=== PATIENT | male | born 1940 | race Caucasian/White ===

== ENCOUNTER 2020-03-05 01:06 | Inpatient (IN) | payer MEDICARE ==
--- NOTE | 2020-03-05 01:47 | XR ---
EXAMINATION TYPE: XR chest 1V portable DATE OF EXAM: 03/05/2020 COMPARISON: Yesterday HISTORY: Chest pain TECHNIQUE: Single view FINDINGS: There is right jugular catheter with tip in the superior vena cava. There is no heart failu re. There is slight coarsening of the lung markings in the left lower lobe. There is no pulmonary con solidation. There is no pleural effusion. Bony thorax is intact. IMPRESSION: Mild increased interstitial density left lower lobe is the same or slightly more than yes terday. No heart failure.
[2020-03-05 02:10] LABS: Appearance,Urine Cloudy (Clear); Bacteria,Urine Rare /hpf; Bilirubin,Urine Negative (Negative); Blood,Urine Moderate (Negative); Color,Urine Yellow; Glucose,Urine (UA) Negative (Negative); Granular Casts,Urine 58 /lpf (0); Hyaline Casts,Urine 1 /lpf (0-2); Ketones,Urine Trace (Negative); Leukocyte Esterase,Urine Negative (Negative); Mucus,Urine Occasional /hpf; Nitrite,Urine Negative (Negative); PH, Urine 5.5 (5.0-8.0); Protein,Urine 1+ (Negative); RBC,Urine 60 /hpf (0-5); Specific Gravity,Urine 1.045 (1.001-1.035); Squamous Epithelial Cell,Urine <1 /hpf (0-4); Urobilinogen,Urine <2.0 mg/dL (<2.0); WBC,Urine 11 /hpf (0-5)
[2020-03-05] MEDS ORDERED: DILTIAZEM DRIP BOLUS FROM BAG 1 MG SOLN IV ONE (02:29)
[2020-03-05] MEDS ORDERED: DILTIAZEM 125 MG in SODIUM CHLORIDE 0.9% 100 ML IV SCH (02:30)
[2020-03-05] MEDS ORDERED: PNEUMONIA PROTOCOL UTILIZED 1 EACH MISC PO PRN (03:05)
[2020-03-05] MEDS ORDERED: NOREPINEPHRINE 32 MG in SODIUM CHLORIDE 0.9% 218 ML IV ONE (03:11)
[2020-03-05] MEDS ORDERED: ENOXAPARIN 100 MG/ML SYRINGE SQ STA (03:13)
[2020-03-05] MEDS ORDERED: VANCOMYCIN IV PER PHARMACY 1 EACH MISC MISCELLANE PRN (03:21)
[2020-03-05] MEDS ORDERED: CEFEPIME 2 GM in SODIUM CHLORIDE 0.9% 100 ML IVPB STA (03:21)
[2020-03-05] MEDS: SODIUM CHLORIDE 0.9% 1,000 ML IV SCH ×3 (03:22→23:57)
[2020-03-05 03:23] LABS: Anisocytosis Slight; HCT 32.1 % (39.0-53.0); HGB 10.5 gm/dL (13.0-17.5); MCH 31.5 pg (25.0-35.0); MCHC 32.8 g/dL (31.0-37.0); MCV 95.9 fL (80.0-100.0); Macrocytosis Slight; Mean Platelet Volume 12.6; RBC 3.35 m/uL (4.30-5.90); RDW 18.9 % (11.5-15.5); WBC 31.8 k/uL (3.8-10.6)
--- NOTE | 2020-03-05 03:30 | ED ---
General Adult HPI - General Chief complaint: GI Bleed Stated complaint: GI bleed Time Seen by Provider: 03/05/20 01:09 Source: EMS Mode of arrival: EMS Limitations: no limitations - History of Present Illness Initial comments: This patient is 79-year-old man arriving here as a transfer from [facility]. The patient states that he had gone to that facility to be evaluated for between 1 and 2 weeks of progressive generalized fatigue. He also was experiencing increasing exertional dyspnea. The patient gives known history of having atrial fibrillation and states that he also sees Dr. Lacy from oncology for "blood cancer," that he is not able to further describe. Patient states she has been compliant with his medications. He is not aware of any fever or chills. He has had occasional cough which was nonproductive. He has had increa sing bilateral lower extremity edema over the past few days as well. The patient denied any change in urination or bowel movements. He denied seeing bloody or dark tarry stools. Onset/Timin -: week(s) Severity scale (1-10): 0 Consistency: constant Worsens with: other (Exertion) Associated Symptoms: shortness of breath Treatments Prior to Arrival: other - Related Data Home Medications Medication Instructions Recorded Confirmed Allopurinol [Zyloprim] 300 mg PO DAILY 03/05/20 03/05/20 Atorvastatin [Lipitor] 20 mg PO DAILY 03/05/20 03/05/20 Levothyroxine Sodium [Synthroid] 50 mcg PO DAILY 03/05/20 03/05/20 Lisinopril 40 mg PO DAILY 03/05/20 03/05/20 Nadolol 80 mg PO DAILY 03/05/20 03/05/20 Rivaroxaban [Xarelto] 20 mg PO W/SUPPER 03/05/20 03/05/20 Allergies Allergy/AdvReac Type Severity Reaction Status Date / Time No Known Allergies Allergy Verified 03/05/20 10:16 Review of Systems ROS Statement: Those systems with pertinent positive or pertinent negative responses have been documented in the HPI. ROS Other: All systems not noted in ROS Statement are negative. Constitutional: Reports: weakness (Generalized). Denies: fever, chills Eyes: Denies: vision change Respiratory: Denies: cough, dyspnea, hemoptysis Cardiovascular: Reports: dyspnea on exertion, orthopnea, edema. Denies: chest pain, palpitations, syncope Gastrointestinal: Denies: abdominal pain, nausea, vomiting, diarrhea, melena, hematochezia Genitourinary: Reports: other ( hesitancy and decreased stream, chronic). Denies: dysuria, hematuria Musculoskeletal: Denies: back pain Skin: Denies: rash Neurological: Denies: headache, weakness, numbness Past Medical History Past Medical History: Atrial Fibrillation, CVA/TIA Additional Past Medical History / Comment(s): lymphoma History of Any Multi-Drug Resistant Organisms: None Reported Past Surgical History: No Surgical Hx Reported Past Psychological History: No Psychological Hx Reported Smoking Status: Never smoker Past Alcohol Use History: None Reported Past Drug Use History: None Reported - Past Family History Mother Family Medical History: Cancer General Exam Limitations: no limitations General appearance: alert Head exam: Present: atraumatic, normocephalic Eye exam: Present: normal appearance. Absent: scleral icterus, conjunctival injection Neck exam: Present: full ROM, other (There is a right IJ central line.) Respiratory exam: Present: rales (Bilateral bases). Absent: respiratory distress, wheezes, rhonchi, stridor, accessory muscle use, decreased breath so unds, prolonged expiratory Cardiovascular Exam: Present: tachycardia, irregular rhythm, normal heart sounds. Absent: systolic murmur, diastolic murmur, rubs, gallop GI/Abdominal exam: Present: soft. Absent: distended, tenderness, guarding, rebound, rigid, mass Extremities exam: Present: pedal edema (Mild edema at the ankles bilaterally). Absent: tenderness, calf tenderness Back exam: Present: normal inspection Neurological exam: Present: alert. Absent: motor sensory deficit Skin exam: Present: warm, dry, intact, normal color. Absent: rash Course Vital Signs 03/05/20 03/05/20 03/05/20 01:11 01:15 01:30 Temperature 98 F Pulse Rate 112 H 117 H 114 H Respiratory 18 18 19 Rate Blood Pressure 122/63 112/63 109/67 O2 Sat by Pulse 97 96 Oximetry 03/05/20 03/05/20 03/05/20 01:45 02:00 02:30 Temperature 99 F Pulse Rate 120 H 110 H 112 H Respiratory 18 18 17 Rate Blood Pressure 98/62 91/58 96/65 O2 Sat by Pulse 98 98 94 L Oximetry 03/05/20 03/05/20 03/05/20 03:00 03:30 03:50 Temperature Pulse Rate 95 96 101 H Respiratory 17 18 18 Rate Blood Pressure 99/62 101/65 89/55 O2 Sat by Pulse 96 98 97 Oximetry 03/05/20 03/05/20 04:10 04:15 Temperature 97.9 F Pulse Rate 106 H Respiratory 15 Rate Blood Pressure 85/55 O2 Sat by Pulse 94 L Oximetry EKG Findings - EKG Results: EKG: interpreted by ERMD, normal axis, normal QRS EKG shows: atrial fibrillation - Blocks, [place], Hypertrophy, ST Abn: Repolarization changes or abnormalities: nonspecific abnormality, ST segment, and/or T wave Medical Decision Making - Medical Decision Making Patient is 79-year-old man transferred here from [facility]. Given that the patient is hypotensive, he is started back on the levo fed, and I discussed case with Dr. Arango, who is the rawhide trimmer on-call tonight. He is somewhat familiar with the patient as it appears Dr. Ford had seen the patient at [facility] yesterday. History of recommendations are incorporated. Patient will go to ICU. The patient appears to have been at that facility since approximate 9:45 AM yesterday. Review of the transfer paperwork reveals a number of abnormalities and labs here have been ordered to recheck these. Labs from the other facility reveals sodium 123 potassium 4.3 chloride 91 and CO2 19 BUN 42. Creatinine 1.39 glucose 150. INR 5.86. Troponin is negative. Patient was tested for coronavirus and this was negative. Patient did have lactic acid 3.9. ProBNP 7609. Patient had studies including CT of the chest negative for PE, showing marked adenopathy as well as 5 x 5 cm peritracheal mass, findings concerning for lymphoma. To the echocardiogram showing estimated ejection fraction 55-60%. There is elevated pulmonary arterial pressure. Patient received cefepime, vancomycin, Protonix, digoxin. transfused packed red cells which were being given during the ambulance transport here. Cardiology will also be consulted as well as infectious disease. (Please note that Lovenox had been ordered given the atrial fibrillation but tra nsfer paperwork reveals supratherapeutic INR and this was not given.) - Lab Data Result diagrams: 03/11/20 03:48 03/11/20 03:48 Lab Results 03/05/20 03/05/20 Range/Units 01:40 01:40 Plasma Lactic Acid Dileep 1.8 (0.7-2.0) mmol/L Urine Color Yellow Urine Appearance Cloudy (Clear) Urine pH 5.5 (5.0-8.0) Ur Specific [place] 1.045 H (1.001-1.035) Urine Protein 1+ H (Negative) Urine Glucose (UA) Negative (Negative) Urine Ketones Trace H (Negative) Urine Blood Moderate H (Negative) Urine Nitrite Negative (Negative) Urine Bilirubin Negative (Negative) Urine Urobilinogen <2.0 (<2.0) mg/dL Ur Leukocyte Esterase Negative (Negative) Urine RBC 60 H (0-5) /hpf Urine WBC 11 H (0-5) /hpf Ur Squamous Epith Cells <1 (0-4) /hpf Urine Bacteria Rare H (None) /hpf Hyaline Casts 1 (0-2) /lpf Granular Casts 58 (0) /lpf Urine Mucus Occasional H (None) /hpf Disposition Clinical Impression: Pneumonia, Sepsis, Atrial fibrillation with rapid ventricular response, Hypotension, Hyponatremia Disposition: ADMITTED IP TO THIS HOSP Condition: Serious
[2020-03-05 03:35] LABS: INR 2.1 (<1.2); Partial Thromboplastin Time 36.3 sec (22.0-30.0); Prothrombin Time 20.4 sec (9.0-12.0)
[2020-03-05 03:36] LABS: Calcium 7.1 mg/dL (8.4-10.2); Magnesium 1.6 mg/dL (1.6-2.3); Potassium 4.7 mmol/L (3.5-5.1); Total Protein 4.5 g/dL (6.3-8.2)
[2020-03-05 04:09] LABS: Glucose,Whole Blood 114 mg/dL (75-99)
[2020-03-05 04:35] LABS: Platelet Count 79 k/uL (150-450); Poikilocytosis (M) Present
[2020-03-05 04:36] LABS: Polychromasia Present
[2020-03-05 04:38] LABS: Lymphocytes # (M) 21.94 k/uL (1.0-4.8); Neutrophils # (M) 9.86 k/uL (1.3-7.7); Neutrophils % (M) 31 %; Nucleated Red Blood Cells 0 /100 WBC (0-0); Target Cells Present; Total Cells Counted 100
[2020-03-05] MEDS: MAGNESIUM SULFATE-D5W PMX 1 GM in DEXTROSE/WATER 1 100ML.BAG IVPB SCH ×2 (06:31→08:39)
[2020-03-05] MEDS ORDERED: NALOXONE 0.4 MG/ML 1 ML VIAL IV PRN (07:40)
[2020-03-05] MEDS ORDERED: PIPERACILLIN-TAZOBACTAM 3.375 GM in SODIUM CHLORIDE 0.9% 100 ML IVPB SCH (08:00)
[2020-03-05] MEDS: PANTOPRAZOLE 40 MG/10 ML VIAL IV SCH (08:40)
[2020-03-05] MEDS ORDERED: METOPROLOL TARTRATE 25 MG TAB PO SCH (09:00)
[2020-03-05] MEDS ORDERED: VANCOMYCIN 1,500 MG in SODIUM CHLORIDE 0.9% 250 ML IVPB SCH (09:00)
[2020-03-05] MEDS: DIGOXIN 125 MCG TAB PO SCH (09:58)
[2020-03-05 10:37] LABS: Bilirubin, Conjugated 0.1 mg/dL (0.0-0.3); Bilirubin, Delta 0.7 mg/dL (0.0-0.2); Bilirubin,Unconjugated 2.1 mg/dL (0.0-1.1); Total Bilirubin 2.9 mg/dL (0.2-1.3)
--- NOTE | 2020-03-05 10:51 | CONS ---
CONSULTATION This is a 79-year-old gentleman who apparently was at [facility] yesterday and had a question of some GI bleed and then he was transferred to the emergency room here to be hospitalized. It is unclear what the circumstances of transfer were. Dr. Arango the airport attendant apparently saw him at [facility]. On reviewing the emergency room notes, it appears that he was transferred from [facility] and he had progressive fatigue, lack of energy and he is known to have a chronic atrial fibrillation with moderately rapid ventricular rate. Sees Dr. 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 He had a low hemoglobin and I am not sure if he received a blood transfusion or not, but his hemoglobin is in the 7.0 range. He has a question of previous CVA as well. I was asked to see him mainly because of atrial fib with a rapid ventricular rate. At the time of my evaluation, he is lying in bed. I reviewed the record from [facility]. Echocardiogram from yesterday revealed normal systolic function with moderate pulmonary hypertension. Hemoglobin was down to 7.1, but it is now back to 10.5. His INR is up to 2.1 and I am not sure why this is so. It is not clear if he was on Coumadin. His BNP is elevated. Troponin is normal. His bilirubin is also elevated. Given the elevated INR, I would not anticoagulate him at this time. His rate is about 110 to 115, irregularly irregular. PAST MEDICAL HISTORY: 1. Chronic atrial fibrillation, on Xarelto. 2. Recent question of gastrointestinal bleeding with possible blood transfusion, unverified. 3. Normal left ventricular function by echo with moderate pulmonary hypertension. 4. Chronic Lymphatic leukemia under the care of Dr. Lacy from Oncology. 5. He has history of possible TIA or CVA. ALLERGIES: None. PHYSICAL EXAMINATION: On examination, blood pressure was about 108/60. He is on a very small dose of Levophed. Heart rate is between 90 to 110. HEENT unremarkable. Fundus was not examined by me. Neck is supple. There is JVD. No carotid bruit. Heart exam reveals S1, S2 with irregular rate and rhythm. There is a short systolic murmur. Lungs revealed diminished air entry. Abdomen is soft. Lower extremities reveal diminished pulses. Central nervous system grossly no focal deficits. IMPRESSION: 1. Atrial fibrillation with moderate ventricular rate. 2. CLL. White count is about 31,000. 3. History of recent anemia and there is a question of blood loss. His platelet count is 79,000, hemoglobin is 10.5. INR is high at 2.1. Patient is not on Coumadin. RECOMMENDATION: I would recommend that we hold off his anticoagulation given by INR of 2.1. If INR comes down and if other liver functions come out to be normal, then we can consider anticoagulation. His AST, ALT is normal. Bilirubin is elevated to 3.0. I am recommending metoprolol tartrate 25 mg b.i.d. for rate control. The patient's LV function was normal. Moderate pulmonary hypertension was noted. Thyroid functions were normal. He was on nadolol before. His albumin is 2.0, appears to be quite under nourished. I am recommending metoprolol for rate control, no anticoagulation for now and based on his clinical course we will make further recommendation. There was a question of pneumonia, but chest x-ray does not seem to suggest pneumonia at this time. We will see him during this hospitalization and optimize rate control. PT/INR in a.m. MMPARVINL / IJN: [id number] / SABRINA
--- NOTE | 2020-03-05 11:36 | P.HPIM ---
History of Present Illness 71-year-old pleasant male left was transferred from [facility] after he was treated for atrial fibrillation with Cardizem was transferred here for evaluation by oncology. Patient is presently in the intensive care unit because of hypotension patient appears to have hypovolemic shock patient is a presently on levo fed. Cardizem was discontinued because of hypotension patient was started on digoxin and patient was also also started on low-dose metoprolol with fairly controlled heart rate. 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 There is a concern about transformation because of low hemoglobin, decreased platelet count and decreased white blood cell count. Although there is no blast cells in the peripheral smear Dr. Lacy evaluated the patient is a concern about GI bleed although patient doesn't have any blood in the stools or dark stools or hematemesis patient's INR is around 2 which is believed to be secondary to Xarelto, although DIC workup is being obtained as well. Patient is quite a bit weak there is a concern about the chest x-ray findings of right lower lobe infiltrate and pneumonia although chest x-ray was reviewed by me as well as sweet pickle maker do not believe patient has any pneumonia patient doesn't having any symptoms of pneumonia patient denied any cough doesn't have any fever chills. Patient doesn't have elevated BNP although clinically not in heart failure exacerbation his BNP here is around 9000 his BNP at [facility] was around 7000. Patient doesn't have any JVD and crackles on exam. Patient's creatinine negative district is 1.3 and he rates 1.1 patient is presently receiving IV fluids because of hypovolemic shock is also on levo fed. Patient had normal ejection fraction. Patient's symptoms right now is a significant fatigue and generalized weakness. Patient denied any significant shortness of breath at this time Review of Systems REVIEW OF SYSTEMS: CONSTITUTIONAL: No fever. HEENT: No recent visual problems or hearing problems. Denied any sore throat. CARDIOVASCULAR: No chest pain, orthopnea, PND, no palpitations, no syncope. PULMONARY: No shortness of breath, no cough, no hemoptysis. GASTROINTESTINAL: No diarrhea, no nausea, no vomiting, no abdominal pain. NEUROLOGICAL: No headaches, no weakness, no numbness. HEMATOLOGICAL: Denies any bleeding or petechiae. GENITOURINARY: Denies any burning micturition, frequency, or urgency. MUSCULOSKELETAL/RHEUMATOLOGICAL: Denies any joint pain, swelling, or any muscle pain. ENDOCRINE: Denies any polyuria or polydipsia. The rest of the 14-point review of systems is negative. Past Medical History Past Medical History: Atrial Fibrillation, Cancer, CVA/TIA, Hypertension Additional Past Medical History / Comment(s): Lymphoma, 2 past strokes History of Any Multi-Drug Resistant Organisms: None Reported Past Surgical History: No Surgical Hx Reported Past Anesthesia/Blood Transfusion Reactions: No Reported Reaction Past Psychological History: No Psychological Hx Reported Smoking Status: Never smoker Past Alcohol Use History: None Reported Past Drug Use History: None Reported - Past Family History Mother Family Medical History: Cancer Medications and Allergies Home Medications Medication Instructions Recorded Confirmed Type Allopurinol [Zyloprim] 300 mg PO DAILY 03/05/20 03/05/20 History Atorvastatin [Lipitor] 20 mg PO DAILY 03/05/20 03/05/20 History Levothyroxine Sodium [Synthroid] 50 mcg PO DAILY 03/05/20 03/05/20 History Lisinopril 40 mg PO DAILY 03/05/20 03/05/20 History Nadolol 80 mg PO DAILY 03/05/20 03/05/20 History Rivaroxaban [Xarelto] 20 mg PO W/SUPPER 03/05/20 03/05/20 History Allergies Allergy/AdvReac Type Severity Reaction Status Date / Time No Known Allergies Allergy Verified 03/05/20 10:16 Physical Exam Vitals: Vital Signs Temp Pulse Resp BP Pulse Ox 03/05/20 11:00 98 12 84/51 94 L 03/05/20 10:30 105 H 20 85/53 93 L 03/05/20 10:00 97.9 F 96 12 109/64 92 L 03/05/20 09:30 92 16 92/53 94 L 03/05/20 09:00 96 14 91/67 94 L 03/05/20 08:30 104 H 19 106/68 94 L 03/05/20 08:00 102 H 19 92/57 93 L 03/05/20 07:30 89 22 91/60 91 L 03/05/20 07:00 104 H 20 89/60 93 L 03/05/20 06:45 103 H 18 85/58 94 L 03/05/20 06:30 103 H 5 L 85/53 94 L 03/05/20 06:15 113 H 3 L 86/50 92 L 03/05/20 06:00 115 H 11 L 82/53 92 L 03/05/20 05:45 111 H 13 101/64 92 L 03/05/20 05:30 103 H 13 80/58 93 L 03/05/20 05:15 103 H 16 114/65 94 L 03/05/20 05:00 98 25 H 89/57 93 L 03/05/20 04:45 95 22 102/64 94 L 03/05/20 04:30 98 8 L 97/55 94 L 03/05/20 04:15 106 H 15 85/55 94 L 03/05/20 04:10 97.9 F 03/05/20 03:50 101 H 18 89/55 97 03/05/20 03:30 96 18 101/65 98 03/05/20 03:00 95 17 99/62 96 03/05/20 02:30 112 H 17 96/65 94 L 03/05/20 02:00 110 H 18 91/58 98 03/05/20 01:45 99 F 120 H 18 98/62 98 03/05/20 01:30 114 H 19 109/67 96 03/05/20 01:15 117 H 18 112/63 97 03/05/20 01:11 98 F 112 H 18 122/63 Intake and Output 03/04/20 03/05/20 03/05/20 22:59 06:59 14:59 Intake Total 309.853 400 Output Total 120 105 Balance 189.853 295 Intake: Intake, IV Titration 309.853 300 Amount Cefepime 2 gm In Sodium 100 Chloride 0.9% 100 ml @ 200 mls/hr IVPB ONCE STA Rx#:[id number] Diltiazem 125 mg In 2.667 Sodium Chloride 0.9% 100 ml @ 5 MG/HR 5 mls/hr IV .Q24H [facility] Rx#:[id number] Magnesium Sulfate-D5w Pmx 100 1 gm In Dextrose/Water 1 100ml.bag @ 100 mls/hr IVPB Q1H [facility] Rx#: [id number] Norepinephrine 32 mg In 7.186 Sodium Chloride 0.9% 218 ml @ 0.05 MCG/KG/MIN 2. 126 mls/hr IV .Q24H ONE Rx#:[id number] Sodium Chloride 0.9% 1, 200 200 000 ml @ 100 mls/hr IV . Q10H [facility] Rx#:[id number] Oral 100 Output: Urine 120 105 Other: Voiding Method Indwelling Catheter Indwelling Catheter Weight 90.718 kg PHYSICAL EXAMINATION: GENERAL: The patient is alert and oriented x3, not in any acute distress. Well developed, well nourished. HEENT: Pupils are round and equally reacting to light. EOMI. No scleral icterus. No conjunctival pallor. Normocephalic, atraumatic. No pharyngeal erythema. No thyromegaly. CARDIOVASCULAR: S1 and S2 present. No murmurs, rubs, or gallops. PULMONARY: Chest is clear to auscultation, no wheezing or crackles. ABDOMEN: Soft, nontender, nondistended, normoactive bowel sounds. No palpable organomegaly. MUSCULOSKELETAL: No joint swelling or deformity. EXTREMITIES: No cyanosis, clubbing, or pedal edema. NEUROLOGICAL: Gross neurological examination did not reveal any focal deficits. SKIN: No rashes. Results CBC & Chem 7: 03/05/20 03:10 03/05/20 03:10 Labs: Abnormal Lab Results - Last 24 Hours (Table) 03/05/20 03/05/20 03/05/20 Range/Units 01:40 03:10 03:10 WBC 31.8 H (3.8-10.6) k/uL RBC 3.35 L (4.30-5.90) m/uL Hgb 10.5 L (13.0-17.5) gm/dL Hct 32.1 L (39.0-53.0) % RDW 18.9 H (11.5-15.5) % Plt Count 79 L (150-450) k/uL Neutrophils # (Manual) 9.86 H (1.3-7.7) k/uL Lymphocytes # (Manual) 21.94 H (1.0-4.8) k/uL PT 20.4 H (9.0-12.0) sec INR 2.1 H (<1.2) APTT 36.3 H (22.0-30.0) sec Sodium (137-145) mmol/L Carbon Dioxide (22-30) mmol/L BUN (9-20) mg/dL Glucose (74-99) mg/dL POC Glucose (mg/dL) (75-99) mg/dL Calcium (8.4-10.2) mg/dL Total Bilirubin (0.2-1.3) mg/dL Unconjugated Bilirubin (0.0-1.1) mg/dL Delta Bilirubin (0.0-0.2) mg/dL Lactate Dehydrogenase (313-618) U/L Total Protein (6.3-8.2) g/dL Albumin (3.5-5.0) g/dL Ur Specific [place] 1.045 H (1.001-1.035) Urine Protein 1+ H (Negative) Urine Ketones Trace H (Negative) Urine Blood Moderate H (Negative) Urine RBC 60 H (0-5) /hpf Urine WBC 11 H (0-5) /hpf Urine Bacteria Rare H (None) /hpf Urine Mucus Occasional H (None) /hpf 03/05/20 03/05/20 03/05/20 Range/Units 03:10 04:08 09:33 WBC (3.8-10.6) k/uL RBC (4.30-5.90) m/uL Hgb (13.0-17.5) gm/dL Hct (39.0-53.0) % RDW (11.5-15.5) % Plt Count (150-450) k/uL Neutrophils # (Manual) (1.3-7.7) k/uL Lymphocytes # (Manual) (1.0-4.8) k/uL PT (9.0-12.0) sec INR (<1.2) APTT (22.0-30.0) sec Sodium 129 L (137-145) mmol/L Carbon Dioxide 17 L (22-30) mmol/L BUN 45 H (9-20) mg/dL Glucose 110 H (74-99) mg/dL POC Glucose (mg/dL) 114 H (75-99) mg/dL Calcium 7.1 L (8.4-10.2) mg/dL Total Bilirubin 3.0 H 2.9 H (0.2-1.3) mg/dL Unconjugated Bilirubin 2.1 H (0.0-1.1) mg/dL Delta Bilirubin 0.7 H (0.0-0.2) mg/dL Lactate Dehydrogenase 799 H (313-618) U/L Total Protein 4.5 L (6.3-8.2) g/dL Albumin 2.0 L (3.5-5.0) g/dL Ur Specific [place] (1.001-1.035) Urine Protein (Negative) Urine Ketones (Negative) Urine Blood (Negative) Urine RBC (0-5) /hpf Urine WBC (0-5) /hpf Urine Bacteria (None) /hpf Urine Mucus (None) /hpf Thrombosis Risk Factor Assmnt - Choose All That Apply Any of the Below Risk Factors Present?: Yes Each Factor Represents 1 point: Medical pt on bed rest, Obesity (BMI >25), Serious lung disease incl. pneumonia (< 1month), Swollen legs (current) Other Risk Factors: Yes Each Risk Factor Represents 3 Points: Age 75 years or older Thrombosis Risk Factor Assessment Total Risk Factor Score: 7 Thrombosis Risk Factor Assessment Level: High Risk Assessment and Plan Plan: Hypovolemic shock continue with norepinephrine IV fluids monitor closely in ICU. -Generalized weakness probably secondary to atrial fibrillation as well as a other issues including chronic lymphocytic leukemia supportive care -Acute renal failure probably prerenal azotemia intravascular volume depletion patient will be continued on IV fluids. -Atrial fibrillation, chronic: Presently fairly rate controlled since there is drop in hemoglobin and low platelet count although there is no evidence of GI bleed but this still remains a concern because of this reason anticoagulation is on hold patient is presently on digoxin and low-dose of metoprolol patient had normal ejection fraction -Chronic myelocytic leukemia there is no evidence of transformation to acute myeloid leukemia. -Bicytopenia including thrombocytopenia and low hemoglobin etiology is not clear further workup as mentioned above oncology evaluated the patient. -Hypertension patient is presently hypotensive -Moderate pulmonary hypertension -History of CVA and TIA -Coagulopathy most presently secondary to Xarelto which is being held at this time
--- NOTE | 2020-03-05 12:20 | P.CONS ---
History of Present Illness - Reason for Consult Consult date: 03/05/20 CLL Requesting physician: Brendon Cohen - Chief Complaint SOB, weakness - History of Present Illness Mister Ferguson is a very pleasant 79-year-old male patient of Dr. Bustamante who was initially seen in July 2015 when he was found on a routine blood draw to have an elevated WBC of 12.6, absolute lymphocyte count 6000+. 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 He was found to be in atrial fibrillation and placed on Xarelto at that time. He is current on his f/u with Dr. Lacy-Q 6 mo and PRN. Patient does have any history of an early stage colon cancer treated with resection alone in 2007. Patient is a transfer from [facility]. He was having persistent and progressive shortness of breath for a few days, associated with weakness, easy fatigue and activity intolerance. Patient denied fevers, chills, orthopnea (sleeps in bed with 1 pillow), chest pain, nausea, vomiting, acute changes in bowel or bladder habits, lower extremity swelling. Review of Systems 14 point review of systems is negative except as stated in HPI Past Medical History Past Medical History: Atrial Fibrillation, Cancer, CVA/TIA, Hypertension Additional Past Medical History / Comment(s): Lymphoma, 2 past strokes History of Any Multi-Drug Resistant Organisms: None Reported Past Surgical History: No Surgical Hx Reported Past Anesthesia/Blood Transfusion Reactions: No Reported Reaction Past Psychological History: No Psychological Hx Reported Smoking Status: Never smoker Past Alcohol Use History: None Reported Past Drug Use History: None Reported - Past Family History Mother Family Medical History: Cancer Medications and Allergies Home Medications Medication Instructions Recorded Confirmed Type Allopurinol [Zyloprim] 300 mg PO DAILY 03/05/20 03/05/20 History Atorvastatin [Lipitor] 20 mg PO DAILY 03/05/20 03/05/20 History Levothyroxine Sodium [Synthroid] 50 mcg PO DAILY 03/05/20 03/05/20 History Lisinopril 40 mg PO DAILY 03/05/20 03/05/20 History Nadolol 80 mg PO DAILY 03/05/20 03/05/20 History Rivaroxaban [Xarelto] 20 mg PO W/SUPPER 03/05/20 03/05/20 History Allergies Allergy/AdvReac Type Severity Reaction Status Date / Time No Known Allergies Allergy Verified 03/05/20 10:16 Physical Exam Vitals: Vital Signs Temp Pulse Resp BP Pulse Ox 03/05/20 11:00 98 12 84/51 94 L 03/05/20 10:30 105 H 20 85/53 93 L 03/05/20 10:00 97.9 F 96 12 109/64 92 L 03/05/20 09:30 92 16 92/53 94 L 03/05/20 09:00 96 14 91/67 94 L 03/05/20 08:30 104 H 19 106/68 94 L 03/05/20 08:00 102 H 19 92/57 93 L 03/05/20 07:30 89 22 91/60 91 L 03/05/20 07:00 104 H 20 89/60 93 L 03/05/20 06:45 103 H 18 85/58 94 L 03/05/20 06:30 103 H 5 L 85/53 94 L 03/05/20 06:15 113 H 3 L 86/50 92 L 03/05/20 06:00 115 H 11 L 82/53 92 L 03/05/20 05:45 111 H 13 101/64 92 L 03/05/20 05:30 103 H 13 80/58 93 L 03/05/20 05:15 103 H 16 114/65 94 L 03/05/20 05:00 98 25 H 89/57 93 L 03/05/20 04:45 95 22 102/64 94 L 03/05/20 04:30 98 8 L 97/55 94 L 03/05/20 04:15 106 H 15 85/55 94 L 03/05/20 04:10 97.9 F 03/05/20 03:50 101 H 18 89/55 97 03/05/20 03:30 96 18 101/65 98 03/05/20 03:00 95 17 99/62 96 03/05/20 02:30 112 H 17 96/65 94 L 03/05/20 02:00 110 H 18 91/58 98 03/05/20 01:45 99 F 120 H 18 98/62 98 03/05/20 01:30 114 H 19 109/67 96 03/05/20 01:15 117 H 18 112/63 97 03/05/20 01:11 98 F 112 H 18 122/63 Intake and Output 03/04/20 03/05/20 03/05/20 22:59 06:59 14:59 Intake Total 309.853 400 Output Total 120 105 Balance 189.853 295 Intake: Intake, IV Titration 309.853 300 Amount Cefepime 2 gm In Sodium 100 Chloride 0.9% 100 ml @ 200 mls/hr IVPB ONCE [facility] Rx#:[id number] Diltiazem 125 mg In 2.667 Sodium Chloride 0.9% 100 ml @ 5 MG/HR 5 mls/hr IV .Q24H [facility] Rx#:[id number] Magnesium Sulfate-D5w Pmx 100 1 gm In Dextrose/Water 1 100ml.bag @ 100 mls/hr IVPB Q1H [facility] Rx#: [id number] Norepinephrine 32 mg In 7.186 Sodium Chloride 0.9% 218 ml @ 0.05 MCG/KG/MIN 2. 126 mls/hr IV .Q24H [facility] Rx#:[id number] Sodium Chloride 0.9% 1, 200 200 000 ml @ 100 mls/hr IV . Q10H [facility] Rx#:[id number] Oral 100 Output: Urine 120 105 Other: Voiding Method Indwelling Catheter Indwelling Catheter Weight 90.718 kg - Constitutional General appearance: average body habitus, cooperative, no acute distress - EENT Eyes: anicteric sclerae, EOMI ENT: hearing grossly normal, normal oropharynx - Neck Neck: no lymphadenopathy - Respiratory Respiratory: bilateral: CTA - Cardiovascular Rhythm: irregularly irregular Heart sounds: normal: S1, S2 Abnormal Heart Sounds: systolic murmur leg Peripheral Edema: bilateral: Trace - Gastrointestinal General gastrointestinal: no absent bowel sounds, no decreased bowel sounds, no distended, no hepatomegaly, no hyperactive bowel sounds, normal bowel sounds, no organomegaly, no rigid, no scaphoid, soft, no splenomegaly, no tenderness, no umbilical hernia, no ventral hernia - Integumentary Integumentary: pale - Neurologic Neurologic: CNII-XII intact - Musculoskeletal Musculoskeletal: generalized weakness, strength equal bilaterally - Psychiatric Psychiatric: A&O x's 3, appropriate affect, intact judgment & insight Results CBC & Chem 7: 03/05/20 03:10 03/05/20 03:10 Labs: Abnormal Lab Results - Last 24 Hours (Table) 03/05/20 03/05/20 03/05/20 Range/Units 01:40 03:10 03:10 WBC 31.8 H (3.8-10.6) k/uL RBC 3.35 L (4.30-5.90) m/uL Hgb 10.5 L (13.0-17.5) gm/dL Hct 32.1 L (39.0-53.0) % RDW 18.9 H (11.5-15.5) % Plt Count 79 L (150-450) k/uL Neutrophils # (Manual) 9.86 H (1.3-7.7) k/uL Lymphocytes # (Manual) 21.94 H (1.0-4.8) k/uL PT 20.4 H (9.0-12.0) sec INR 2.1 H (<1.2) APTT 36.3 H (22.0-30.0) sec Sodium (137-145) mmol/L Carbon Dioxide (22-30) mmol/L BUN (9-20) mg/dL Glucose (74-99) mg/dL POC Glucose (mg/dL) (75-99) mg/dL Calcium (8.4-10.2) mg/dL Total Bilirubin (0.2-1.3) mg/dL Unconjugated Bilirubin (0.0-1.1) mg/dL Delta Bilirubin (0.0-0.2) mg/dL Lactate Dehydrogenase (313-618) U/L Total Protein (6.3-8.2) g/dL Albumin (3.5-5.0) g/dL Ur Specific [place] 1.045 H (1.001-1.035) Urine Protein 1+ H (Negative) Urine Ketones Trace H (Negative) Urine Blood Moderate H (Negative) Urine RBC 60 H (0-5) /hpf Urine WBC 11 H (0-5) /hpf Urine Bacteria Rare H (None) /hpf Urine Mucus Occasional H (None) /hpf 03/05/20 03/05/20 03/05/20 Range/Units 03:10 04:08 09:33 WBC (3.8-10.6) k/uL RBC (4.30-5.90) m/uL Hgb (13.0-17.5) gm/dL Hct (39.0-53.0) % RDW (11.5-15.5) % Plt Count (150-450) k/uL Neutrophils # (Manual) (1.3-7.7) k/uL Lymphocytes # (Manual) (1.0-4.8) k/uL PT (9.0-12.0) sec INR (<1.2) APTT (22.0-30.0) sec Sodium 129 L (137-145) mmol/L Carbon Dioxide 17 L (22-30) mmol/L BUN 45 H (9-20) mg/dL Glucose 110 H (74-99) mg/dL POC Glucose (mg/dL) 114 H (75-99) mg/dL Calcium 7.1 L (8.4-10.2) mg/dL Total Bilirubin 3.0 H 2.9 H (0.2-1.3) mg/dL Unconjugated Bilirubin 2.1 H (0.0-1.1) mg/dL Delta Bilirubin 0.7 H (0.0-0.2) mg/dL Lactate Dehydrogenase 799 H (313-618) U/L Total Protein 4.5 L (6.3-8.2) g/dL Albumin 2.0 L (3.5-5.0) g/dL Ur Specific [place] (1.001-1.035) Urine Protein (Negative) Urine Ketones (Negative) Urine Blood (Negative) Urine RBC (0-5) /hpf Urine WBC (0-5) /hpf Urine Bacteria (None) /hpf Urine Mucus (None) /hpf Chest x-ray: report reviewed Assessment and Plan (1) Bicytopenia Narrative/Plan: There are acute changes in hemoglobin and platelet count on admit, both hemoglobin and platelets have been within normal limits on routine labs in office, last draw was 12/17. Coags elevated more then would be anticipated with Xarelto treatment. Hemolysis, DIC and iron studies ordered. Transfuse to keep hemoglobin 7 or higher. Transfuse to keep platelets greater than 10,000 unless bleeding is noted (anticoagulation is currently on hold). If found to be iron deficient consider endoscopy. Last colonoscopy was 5-6 years ago, patient is never had upper endoscopy. Current Visit: Yes Status: Acute Priority: High Code(s): D75.89 - OTHER SPECIFIED DISEASES OF BLOOD AND BLOOD-FORMING ORGANS SNOMED Code(s): 40431631 (2) CLL (chronic lymphocytic leukemia) Narrative/Plan: CBC in the office 12/17 reviewed. WBC and absolute lymphocyte count are stable. Current Visit: Yes Status: Chronic Priority: Medium Code(s): C91.10 - CHRONIC LYMPHOCYTIC LEUK OF B-CELL TYPE NOT ACHIEVE REMIS SNOMED Code(s): 36245280 (3) Coagulopathy Narrative/Plan: Coags elevated more then would be anticipated with Xarelto treatment. Hemolysis, DIC work up ordered. CBC daily Current Visit: Yes Status: Acute Priority: High Code(s): D68.9 - COAGULATION DEFECT, UNSPECIFIED SNOMED Code(s): 15949897 (4) Atrial fibrillation with rapid ventricular response Narrative/Plan: Pt is on anticoagulation for the same. Dr. Lacy spoke with Cardiology. Initially, Xarelto was going to be continued as patient's platelets were greater than 50,000 but, After examining the patient and on further questioning recommendation is to hold Xarelto, concerns for bleeding. This was discussed with the RN. It has been verified in the patient's med list that this is been held. SCDs for DVT prophylaxis Cardiology managing arrhythmia Current Visit: Yes Status: Acute Priority: High Code(s): I48.91 - UNSPECIFIED ATRIAL FIBRILLATION SNOMED Code(s): 101724718721733 Plan: Doctor attests: I performed a history and physical examination of this patient, developed impre ssion and plan of care, discussed with dictator. I agree with dictators note, documented as a scribe.
--- NOTE | 2020-03-05 12:39 | P.CNPUL ---
History of Present Illness Consult date: 03/05/20 Reason for consult: other (Hypotension, atrial fibrillation with RVR. Requiring norepinephrine) Chief complaint: Hypotension, patient was transferred from [facility] ICU. History of present illness: This is a 79-year-old white male, known history of B-cell lymphoma, stage 0 disease, advised mostly observation. Known history of previous CVA in 2017, previous treatment with TPA. Patient is also known to have history of atrial fibrillation. And he was admitted to [facility] ICU the day before yesterday, patient presented initially to the ER at [facility] with hypotension, atrial fibrillation with RVR. I was notified about this patient, and I admitted him to the ICU. He was seen by Dr. Stroud and other consultants at [facility], and he was treated with antibiotics empirically, norepinephrine for his hypotension, fluid boluses were given at least 2-3 L were given to him initially when he presented to the ER. However early this morning around 3 AM, and for no good reason the ER at [facility] accepted the patient to be transferred from the ICU to the ER, patient was shortly evaluated, and transferred to the ICU at [facility]. The patient tells me that they transferred her mostly because his oncologist is on our staff, and the patient was requesting to be discharged. Although the patient is not receiving any treatment for his B-cell lymphoma. At any rate patient was admitted to the ICU, presently on norepinephrine at 0.07 mcg/kg/m, is also on IV fluid at 100 mL per hour. He is in atrial fibrillation with a rate of 102-110. He is on room air with O2 saturation 93%. Patient complains mostly of progressive fatigue and weakness. No fever no chills no hemoptysis no cough no wheezing, no nausea no vomiting no abdominal pain no melena no hematemesis is no dysuria and no diarrhea no frequency no urgency. Again the patient was placed on empiric antibiotics and he is being evaluated by cardiology for his atrial fibrillation. Off Cardizem at present. His past medical history is mostly significant for colon cancer, resected in 2007. His CT of the chest from [facility] showed no evidence of pneumonia, and the patient had no symptoms to suggest pneumonia. Review of Systems Constitutional: Weakness, fatigue, malaise, no weight loss. Pulmonary: Negative Cardiac: Denies any chest pain orthopnea or PND. Denies diaphoresis. GI: Denies any nausea vomiting abdominal pain melena or hematemesis. Or diarrhea. Genitourinary: Denies any dysuria frequency urgency or hematuria. Skin: Denies any rashes. Hematologic: History of chronic lymphocytic leukemia. Endocrine: Denies any heat or cold intolerance. Denies any polyuria polyphagia or polydipsia. Musculoskeletal denies any arthralgia or myalgia. Denies any limitation in range of motion. Neurologic: Denies any headache or blurred vision or dizziness. Patient had previous history of CVA in 2017, treated with TPA. Psychiatric: Denies any symptoms of active depression. Past Medical History Past Medical History: Atrial Fibrillation, Cancer, CVA/TIA, Hypertension Additional Past Medical History / Comment(s): Lymphoma, 2 past strokes History of Any Multi-Drug Resistant Organisms: None Reported Past Surgical History: No Surgical Hx Reported Past Anesthesia/Blood Transfusion Reactions: No Reported Reaction Past Psychological History: No Psychological Hx Reported Smoking Status: Never smoker Past Alcohol Use History: None Reported Past Drug Use History: None Reported - Past Family History Mother Family Medical History: Cancer Medications and Allergies Home Medications Medication Instructions Recorded Confirmed Type Allopurinol [Zyloprim] 300 mg PO DAILY 03/05/20 03/05/20 History Atorvastatin [Lipitor] 20 mg PO DAILY 03/05/20 03/05/20 History Levothyroxine Sodium [Synthroid] 50 mcg PO DAILY 03/05/20 03/05/20 History Lisinopril 40 mg PO DAILY 03/05/20 03/05/20 History Nadolol 80 mg PO DAILY 03/05/20 03/05/20 History Rivaroxaban [Xarelto] 20 mg PO W/SUPPER 03/05/20 03/05/20 History Allergies Allergy/AdvReac Type Severity Reaction Status Date / Time No Known Allergies Allergy Verified 03/05/20 10:16 Physical Exam Vitals: Vital Signs Temp Pulse Resp BP Pulse Ox 03/05/20 12:00 97.8 F 89 22 85/54 91 L 03/05/20 11:30 100 25 H 87/50 91 L 03/05/20 11:00 98 12 84/51 94 L 03/05/20 10:30 105 H 20 85/53 93 L 03/05/20 10:00 97.9 F 96 12 109/64 92 L 03/05/20 09:30 92 16 92/53 94 L 03/05/20 09:00 96 14 91/67 94 L 03/05/20 08:30 104 H 19 106/68 94 L 03/05/20 08:00 102 H 19 92/57 93 L 03/05/20 07:30 89 22 91/60 91 L 03/05/20 07:00 104 H 20 89/60 93 L 03/05/20 06:45 103 H 18 85/58 94 L 03/05/20 06:30 103 H 5 L 85/53 94 L 03/05/20 06:15 113 H 3 L 86/50 92 L 03/05/20 06:00 115 H 11 L 82/53 92 L 03/05/20 05:45 111 H 13 101/64 92 L 03/05/20 05:30 103 H 13 80/58 93 L 03/05/20 05:15 103 H 16 114/65 94 L 03/05/20 05:00 98 25 H 89/57 93 L 03/05/20 04:45 95 22 102/64 94 L 03/05/20 04:30 98 8 L 97/55 94 L 03/05/20 04:15 106 H 15 85/55 94 L 03/05/20 04:10 97.9 F 03/05/20 03:50 101 H 18 89/55 97 03/05/20 03:30 96 18 101/65 98 03/05/20 03:00 95 17 99/62 96 03/05/20 02:30 112 H 17 96/65 94 L 03/05/20 02:00 110 H 18 91/58 98 03/05/20 01:45 99 F 120 H 18 98/62 98 03/05/20 01:30 114 H 19 109/67 96 03/05/20 01:15 117 H 18 112/63 97 03/05/20 01:11 98 F 112 H 18 122/63 Intake and Output 03/04/20 03/05/20 03/05/20 22:59 06:59 14:59 Intake Total 309.853 516.919 Output Total 120 125 Balance 189.853 391.919 Intake: Intake, IV Titration 309.853 416.919 Amount Cefepime 2 gm In Sodium 100 Chloride 0.9% 100 ml @ 200 mls/hr IVPB ONCE STA Rx#:[id number] Diltiazem 125 mg In 2.667 Sodium Chloride 0.9% 100 ml @ 5 MG/HR 5 mls/hr IV .Q24H [facility] Rx#:[id number] Magnesium Sulfate-D5w Pmx 100 1 gm In Dextrose/Water 1 100ml.bag @ 100 mls/hr IVPB Q1H [facility] Rx#: [id number] Norepinephrine 32 mg In 7.186 16.919 Sodium Chloride 0.9% 218 ml @ 0.05 MCG/KG/MIN 2. 126 mls/hr IV .Q24H [facility] Rx#:[id number] Sodium Chloride 0.9% 1, 200 300 000 ml @ 100 mls/hr IV . Q10H [facility] Rx#:[id number] Oral 100 Output: Urine 120 125 Other: Voiding Method Indwelling Catheter Indwelling Catheter Weight 90.718 kg Physical Exam: Revealed a 79-year-old white male in no distress. Head: Atraumatic, normocephalic. HEENT:[Neck is supple.] [No neck masses.] [No thyromegaly.] [No JVD.] PERRLA, EOMI, no icterus. Chest: [Clear throughout, no crackles, no rhonchi, no wheezes.] Cardiac Exam: Irregular irregular rhythm, no S3 gallop. 2/6 systolic murmur thought the precordium. Abdomen: [Soft, nontender, no megaly, no rebound, no guarding, normal bowel sounds.] Extremities: [No clubbing, trace of bipedal edema, no cyanosis.] Neurological Exam: [No focal neurologic deficit.] Alert and oriented 3. Psychiatric: Normal mood, affect and normal mental status examination. Musculoskeletal: No limitation in range of motion, muscle strength and adequate bilaterally. Lymphatics: No lymphadenopathy. Results - Laboratory Findings CBC and BMP: 03/05/20 03:10 03/05/20 03:10 PT/INR, D-dimer PT 20.4 sec (9.0-12.0) H 03/05/20 03:10 INR 2.1 (<1.2) H 03/05/20 03:10 Abnormal lab findings: Abnormal Labs 03/05/20 03/05/20 03/05/20 01:40 03:10 03:10 WBC 31.8 H RBC 3.35 L Hgb 10.5 L Hct 32.1 L RDW 18.9 H Plt Count 79 L Neutrophils # (Manual) 9.86 H Lymphocytes # (Manual) 21.94 H PT 20.4 H INR 2.1 H APTT 36.3 H Sodium Carbon Dioxide BUN Glucose POC Glucose (mg/dL) Calcium Total Bilirubin Unconjugated Bilirubin Delta Bilirubin Lactate Dehydrogenase Total Protein Albumin Ur Specific [place] 1.045 H Urine Protein 1+ H Urine Ketones Trace H Urine Blood Moderate H Urine RBC 60 H Urine WBC 11 H Urine Bacteria Rare H Urine Mucus Occasional H 03/05/20 03/05/20 03/05/20 03:10 04:08 09:33 WBC RBC Hgb Hct RDW Plt Count Neutrophils # (Manual) Lymphocytes # (Manual) PT INR APTT Sodium 129 L Carbon Dioxide 17 L BUN 45 H Glucose 110 H POC Glucose (mg/dL) 114 H Calcium 7.1 L Total Bilirubin 3.0 H 2.9 H Unconjugated Bilirubin 2.1 H Delta Bilirubin 0.7 H Lactate Dehydrogenase 799 H Total Protein 4.5 L Albumin 2.0 L Ur Specific [place] Urine Protein Urine Ketones Urine Blood Urine RBC Urine WBC Urine Bacteria Urine Mucus - Diagnostic Findings Chest x-ray: image reviewed (Minimal atelectasis of the left lower lobe, doubt pneumonia.) Assessment and Plan Assessment: Impression: Hypotension, most likely hypovolemic in nature, strongly doubt sepsis, but not entirely ruled out. Hence the patient is empirically on antibiotics, he is being hydrated, and temporarily on norepinephrine. Chronic atrial fibrillation with RVR. Chronic lymphocytic leukemia, B-cell type, not active. Bicytopenia, being addressed by oncology on the case. Coagulopathy, elevated INR, cannot be explained by Xarelto only, again being addressed by hematology on the case. Hypovolemic hyponatremia, will likely improve with hydration. Recommendation: Continue to monitor in the ICU. Hydrate cautiously. Continue norepinephrine for the time being. Cardiology to address his atrial fibrillation. Hematology to address his coagulopathy and chronic lymphocytic leukemia history. Continue to monitor electrolytes and renal profile. Repeat chest x-ray in a.m. Clinically, doubt covid 19, however he was tested, and the results are pending. We'll continue to follow. In the meantime continue antibiotics empirically, and infectious disease was consulted. Time with Patient: Greater than 30
[2020-03-05 15:29] LABS: % Iron Saturation 35.23 (15.00-50.00)
[2020-03-05 15:33] LABS: Ferritin 817.3 ng/mL (22.0-322.0)
[2020-03-05 15:47] LABS: Reticulocyte % 4.56 % (0.10-1.80)
--- NOTE | 2020-03-05 17:36 | CONS ---
CONSULTATION DATE OF SERVICE: 03/05/2020 REASON FOR CONSULTATION: Sepsis, possible pneumonia. HISTORY OF PRESENT ILLNESS: The patient is a 79-year-old male with a past medical history significant for B-cell lymphoma, currently on observation, no chemo, history of CVA AND atrial fibrillation. The patient presented to [facility] ER with chief complaints of generalized weakness and no energy. Patient has been diagnosed with atrial fibrillation with RVR. The patient was noticed to be hypotensive requiring pressor support and did have fluid boluses. He was started empirically on antibiotic therapy. Subsequently, the patient has been transferred to [facility] to be evaluated by his oncologist: The patient currently denies having any fever and chills. No fever has been recorded since he has been here in this facility. The patient denies having any URI symptoms and no chest pain or cough. Some shortness of breath, which seemed to be chronic for him. Some nausea but no vomiting. No abdominal pain and no diarrhea. The patient did have a chest x-ray done at this facility, which has been read as mild increased interstitial density, left lower lobe slightly more than yesterday. No heart failure. The patient did receive a dose of cefepime. It was continued and vancomycin. Has been admitted to the ICU. Infectious Disease was consulted for further recommendations regarding antibiotic with concern for possible sepsis and pneumonia. The patient also have a positive UA which did show mostly hematuria and 11 WBC, but denies any urinary burning or frequency. REVIEW OF SYSTEMS: Positive points have been mentioned in HPI. Rest of the systems are negative. PAST MEDICAL HISTORY: Atrial fibrillation, B-cell lymphoma, CVA, TIA, hypertension. PAST SURGICAL HISTORY: Bone marrow biopsy. No major surgery. SOCIAL HISTORY: Denies smoking, drinking or drug use. FAMILY HISTORY: No pertinent findings noticed. ALLERGIES: No known drug allergies. MEDICATIONS: Currently include the patient is on vancomycin, Pharmacy to dose, though he received a dose of cefepime in the ER, digoxin, Lopressor, Narcan, norepinephrine, Protonix, and IV fluid. PHYSICAL EXAMINATION: Blood pressure is 101/56, pulse of 105, temperature 98.6. He is 92% on room air. General description is an elderly male, lying in bed in no distress. No tachypnea or accessory muscle for respiration use. HEENT: Shows pallor, no scleral icterus. Oral mucosa membrane is dry, no pharyngeal erythema or thrush. NECK: Tracheal central, no thyromegaly. LUNGS: Unlabored breathing with decreased breath sounds in the bases. No wheeze. HEART: S1, S2. Regular rate and irregular rhythm. ABDOMEN: Soft, no tenderness. EXTREMITIES: No edema of the feet. SKIN: Examination no rash or mass palpable. NEUROLOGIC: The patient is awake, alert, oriented. Mood and affect normal. LABS: Hemoglobin is 10.5, white count of 31.8. BUN of 45, creatinine 1.19. UA as mentioned above. Chest x-ray report as mentioned above. DIAGNOSTIC IMPRESSION AND PLAN: Patient admitted to the hospital with weakness in this patient who has been diagnosed with atrial fibrillation with RVR, possibly waiting for some of his symptoms in this patient currently with no fever and no significant cough or sputum production. Clinic suspicion low for underlying pneumonia and currently with no other obvious clinical focus of infection. Abdomen is soft and clinical examination UA has not been significantly positive and no evidence of any cellulitis. PLAN: 1. Discontinue vancomycin to decrease risk of nephrotoxicity. Clinical suspicion low for underlying MRSA infection. 2. Make a short course of cefepime while his condition stabilizes and culture finalized. 3. Will follow on the clinical condition and culture to further adjust medication if needed. Thank you for this consultation. Will follow this patient along with you. MMODL / IJN: [id number] /
[2020-03-05] MEDS: CEFEPIME 2 GM in SODIUM CHLORIDE 0.9% 100 ML IVPB SCH (20:38)
[2020-03-06] MEDS ORDERED: LEVOFLOXACIN 750MG-D5W PMX 750 MG in DEXTROSE/WATER 1 150ML.BAG IVPB SCH (03:15)
[2020-03-06 05:33] LABS: Anisocytosis Slight; HCT 32.6 % (39.0-53.0); HGB 10.5 gm/dL (13.0-17.5); Hypochromasia Slight; MCH 31.3 pg (25.0-35.0); MCHC 32.1 g/dL (31.0-37.0); MCV 97.4 fL (80.0-100.0); Macrocytosis Slight; Mean Platelet Volume 12.1; Platelet Count 106 k/uL (150-450); RBC 3.35 m/uL (4.30-5.90); RDW 18.9 % (11.5-15.5); WBC 43.6 k/uL (3.8-10.6)
[2020-03-06 05:43] LABS: Calcium 7.3 mg/dL (8.4-10.2); Magnesium 2.2 mg/dL (1.6-2.3); Potassium 4.7 mmol/L (3.5-5.1)
[2020-03-06 05:51] LABS: INR 1.6 (<1.2); Prothrombin Time 15.5 sec (9.0-12.0)
[2020-03-06 06:46] LABS: Lymphocytes # (M) 23.54 k/uL (1.0-4.8); Monocytes # (M) 7.85 k/uL (0-1.0); Neutrophils # (M) 12.21 k/uL (1.3-7.7); Neutrophils % (M) 28 %; Nucleated Red Blood Cells 0 /100 WBC (0-0); Total Cells Counted 100
--- NOTE | 2020-03-06 07:56 | XR ---
EXAMINATION TYPE: XR chest 1V DATE OF EXAM: 03/06/2020 COMPARISON: 2019 INDICATION: Shortness of breath TECHNIQUE: Single frontal view of the chest is obtained. FINDINGS: The heart size is normal. The pulmonary vasculature is normal. Some mild left lower lobe infiltrate and effusion may be developing. Lungs are otherwise clear. Right central venous catheter is stable in position with the tip in the proximal right atrium. IMPRESSION: 1. Mild developing left lower lobe infiltrate and/or effusion
[2020-03-06] MEDS: SODIUM CHLORIDE 0.9% 1,000 ML IV SCH ×2 (08:26→20:00)
[2020-03-06] MEDS: METOPROLOL TARTRATE 25 MG TAB PO SCH ×2 (08:27→19:58)
[2020-03-06] MEDS: PANTOPRAZOLE 40 MG/10 ML VIAL IV SCH (08:27)
[2020-03-06] MEDS: CEFEPIME 2 GM in SODIUM CHLORIDE 0.9% 100 ML IVPB SCH ×2 (08:27→19:59)
[2020-03-06] MEDS: DIGOXIN 125 MCG TAB PO SCH (08:27)
[2020-03-06] MEDS ORDERED: FUROSEMIDE 10 MG/ML 4 ML VIAL IV STA (08:42)
[2020-03-06] MEDS: NOREPINEPHRINE 32 MG in SODIUM CHLORIDE 0.9% 218 ML IV SCH (08:43)
[2020-03-06] MEDS ORDERED: CYANOCOBALAMIN 1,000 MCG/ML 1 ML VIAL IM ONE (09:00)
--- NOTE | 2020-03-06 09:13 | PN ---
PROGRESS NOTE Blake Paredes is a gentleman with chronic atrial fibrillation, recent history of some GI bleed. He also had some kind of a coagulopathy with INR of 2.1 yesterday. He was transferred yesterday early hours from [facility]. This gentleman also has underlying chronic lymphocytic leukemia. His last white count was 43 from this morning. His platelet count is about 106 today. He has a chronic atrial fib. His anticoagulation with Xarelto 20 mg daily was held in [facility]. This morning, he feels somewhat better. He remains in atrial fib rate, is about 100. He is having decent urine output. There is also a question of pneumonia that is being addressed. Cardiac-cote is reasonably stable. He is still on some Levophed for blood pressure support. PHYSICAL EXAMINATION: Physical examination revealed a blood pressure of 104/70, pulse rate is about 90 to 105. HEENT: Unremarkable. Fundus was not examined by me. Neck is supple. There is JVD of 1 cm. No carotid bruit. Heart exam reveals S1, S2. Irregular rate and rhythm, short systolic murmur. Lungs reveal diminished air entry. Abdomen is soft. Lower extremities reveal diminished pulses. Central nervous system grossly no focal deficits. IMPRESSION: 1. Atrial fibrillation with moderate ventricular rate. Patient is not on anticoagulation at this time. I will consider resuming it. 2. Probable pneumonia. 3. History of chronic lymphocytic leukemia and recent gastrointestinal bleed with low hemoglobin, but this has resolved and Dr. Lacy felt it was okay for me to resume his anticoagulation. I am recommending that we increase the metoprolol tartrate to 25 mg b.i.d. and I will place him on Eliquis 2.5 mg b.i.d. His hemoglobin from this morning is 10.5, stable and platelet count is 106. Discussed my thoughts in detail with the patient. Thank you very much for the consult. MMODL / IJN: [id number] /
[2020-03-06] MEDS: APIXABAN 2.5 MG TABLET PO SCH ×2 (09:51→19:59)
--- NOTE | 2020-03-06 11:12 | P.PN ---
Subjective Progress Note Date: 03/06/20 Principal diagnosis: difficulty in breathing in follow-up today patient in general states feeling unwell, feeling very weak, tired, poor appetite. Denies fever, nausea, cough, chest pain, bleeding or overt pain. Objective - Vital Signs Vital signs: Vital Signs Temp 98.4 F 03/06/20 08:00 Pulse 105 H 03/06/20 10:00 Resp 14 03/06/20 10:00 BP 93/61 03/06/20 10:00 Pulse Ox 98 03/06/20 10:00 Intake & Output 03/05/20 03/06/20 03/06/20 18:59 06:59 18:59 Intake Total 2907.521 1053.114 470 Output Total 220 270 80 Balance 633.729 1400.114 390 Weight 95 kg Intake: IV 1200 350 Cefepime 2 gm In Sodium 100 100 Chloride 0.9% 100 ml @ 200 mls/hr IVPB Q12HR [facility] Rx#:[id number] Sodium Chloride 0.9% 1, 1100 250 000 ml @ 50 mls/hr IV . Q20H [facility] Rx#:[id number] Intake, IV Titration 1042.205 146.114 Amount Magnesium Sulfate-D5w Pmx 100 1 gm In Dextrose/Water 1 100ml.bag @ 100 mls/hr IVPB Q1H [facility] Rx#: [id number] Norepinephrine 32 mg In 42.205 46.114 Sodium Chloride 0.9% 218 ml @ 0.05 MCG/KG/MIN 2. 126 mls/hr IV .Q24H [facility] Rx#:[id number] Sodium Chloride 0.9% 1, 900 100 000 ml @ 50 mls/hr IV . Q20H [facility] Rx#:[id number] Oral 100 240 120 Output: Urine 220 270 80 Other: Voiding Method Indwelling Catheter Indwelling Catheter Indwelling Catheter - Constitutional General appearance: Present: average body habitus, cooperative, mild distress - EENT Eyes: Present: anicteric sclerae, EOMI ENT: Present: hearing grossly normal - Respiratory Respiratory: bilateral: CTA, diminished (bases) - Cardiovascular Rhythm: irregularly irregular Heart sounds: normal: S1, S2 - Peripheral edema leg Peripheral Edema: bilateral: None - Gastrointestinal General gastrointestinal: Present: normal bowel sounds, soft - Integumentary Integumentary: Present: pale - Neurologic Neurologic: Present: CNII-XII intact - Musculoskeletal Musculoskeletal: Present: generalized weakness, strength equal bilaterally - Psychiatric Psychiatric: Present: A&O x's 3, appropriate affect, intact judgment & insight - Labs CBC & Chem 7: 03/06/20 04:19 03/06/20 04:19 Labs: Abnormal Lab Results - Last 24 Hours (Table) 03/05/20 03/05/20 03/05/20 Range/Units 03:10 09:33 09:33 WBC (3.8-10.6) k/uL RBC (4.30-5.90) m/uL Hgb (13.0-17.5) gm/dL Hct (39.0-53.0) % RDW (11.5-15.5) % Plt Count (150-450) k/uL Neutrophils # (Manual) (1.3-7.7) k/uL Lymphocytes # (Manual) (1.0-4.8) k/uL Monocytes # (Manual) (0-1.0) k/uL Retic Count 4.56 H (0.10-1.80) % PT (9.0-12.0) sec INR (<1.2) Sodium (137-145) mmol/L Carbon Dioxide (22-30) mmol/L BUN (9-20) mg/dL Creatinine (0.66-1.25) mg/dL Glucose (74-99) mg/dL Calcium (8.4-10.2) mg/dL TIBC 193 L (228-460) ug/dL Ferritin 817.3 H (22.0-322.0) ng/mL C-Reactive Protein (<10.0) mg/L Procalcitonin 1.34 H (0.02-0.09) ng/mL 03/06/20 03/06/20 03/06/20 Range/Units 04:19 04:19 04:19 WBC 43.6 H (3.8-10.6) k/uL RBC 3.35 L (4.30-5.90) m/uL Hgb 10.5 L (13.0-17.5) gm/dL Hct 32.6 L (39.0-53.0) % RDW 18.9 H (11.5-15.5) % Plt Count 106 L (150-450) k/uL Neutrophils # (Manual) 12.21 H (1.3-7.7) k/uL Lymphocytes # (Manual) 23.54 H (1.0-4.8) k/uL Monocytes # (Manual) 7.85 H (0-1.0) k/uL Retic Count (0.10-1.80) % PT 15.5 H (9.0-12.0) sec INR 1.6 H (<1.2) Sodium 128 L (137-145) mmol/L Carbon Dioxide 16 L (22-30) mmol/L BUN 54 H (9-20) mg/dL Creatinine 1.44 H (0.66-1.25) mg/dL Glucose 128 H (74-99) mg/dL Calcium 7.3 L (8.4-10.2) mg/dL TIBC (228-460) ug/dL Ferritin (22.0-322.0) ng/mL C-Reactive Protein 60.0 H (<10.0) mg/L Procalcitonin (0.02-0.09) ng/mL Microbiology - Last 24 Hours (Table) 03/05/20 03:31 Blood Culture - Preliminary Blood No Growth after 24 hours 03/05/20 08:50 Gram Stain - Preliminary Sputum Sputum Culture - Preliminary - Imaging and Cardiology Chest x-ray: report reviewed Assessment and Plan (1) Bicytopenia Narrative/Plan: There are acute changes in hemoglobin and platelet count on admit, both hemoglobin and platelets have been within normal limits on routine labs in office, last draw was 12/17. today hemoglobin is stable, platelet count improved. No transfusions at this ti me. Coags were elevated more then would be anticipated with Xarelto treatment, but coags came back significantly improved today with holding just a few doses. Patient has been resumed on anticoagulation this a.m. by Cardiology. CBC monitoring while inpatient. Labs reviewed. No DIC. Anemia multifactorial, no iron deficiency. B12 supplemented. This will be continued outpatient. There is evidence suggestive of hemolysis, may be secondary to transfusion. Hemolysis labs are going to be repeated in the a.m. Transfuse to keep hemoglobin 7 or higher. Transfuse to keep platelets greater than 10,000 unless bleeding is noted. Last colonoscopy was 5-6 years ago, patient is never had upper endoscopy. He does have a history of an early stage colon cancer. Based on this history, follow-up colonoscopy is going to be recommended once stable. all of the above was reviewed and discussed with the patient. Current Visit: Yes Status: Acute Priority: High Code(s): D75.89 - OTHER SPECIFIED DISEASES OF BLOOD AND BLOOD-FORMING ORGANS SNOMED Code(s): 94365147 (2) CLL (chronic lymphocytic leukemia) Narrative/Plan: CBC in the office 12/17 reviewed. WBC and absolute lymphocyte count increased, secondary to acute illness. This will continue to be monitored. No acute intervention for CLL. Current Visit: Yes Status: Chronic Priority: Medium Code(s): C91.10 - CHRONIC LYMPHOCYTIC LEUK OF B-CELL TYPE NOT ACHIEVE REMIS SNOMED Code(s): 58216431 (3) Coagulopathy Narrative/Plan: Elevated coags secondary to Xarelto. Coags significantly decreased with just holding a few doses. Patient has been resumed on his anticoagulation due to atrial fibrillation. He is hemoglobin will be closely monitored while inpatient Current Visit: Yes Status: Acute Priority: High Code(s): D68.9 - COAGULATION DEFECT, UNSPECIFIED SNOMED Code(s): 80240360 (4) Atrial fibrillation with rapid ventricular response Narrative/Plan: Pt is on anticoagulation for the same. Cardiology managing arrhythmia and hypotension Current Visit: Yes Status: Acute Priority: High Code(s): I48.91 - UNSPECIFIED ATRIAL FIBRILLATION SNOMED Code(s): 569534898848752 Plan: Doctor attests: I performed a history and physical examination of this patient, developed impression and plan of care, discussed with dictator. I agree with dictators note, documented as a scribe.
--- NOTE | 2020-03-06 12:11 | P.PN ---
Subjective Progress Note Date: 03/06/20 Principal diagnosis: Hypotension, likely hypovolemic in nature. However, urinary tract infection, with septic shock is a possibility. This is a 79-year-old white male, known history of B-cell lymphoma, stage 0 disease, advised mostly observation. Known history of previous CVA in 2017, previous treatment with TPA. Patient is also known to have history of atrial fibrillation. And he was admitted to [facility] ICU the day before yesterday, patient presented initially to the ER at [facility] with hypotension, atrial fibrillation with RVR. I was notified about this patient, and I admitted him to the ICU. He was seen by Dr. Stroud and other consultants at [facility], and he was treated with antibiotics empirically, norepinephrine for his hypotension, fluid boluses were given at least 2-3 L were given to him initially when he presented to the ER. However early this morning around 3 AM, and for no good reason the ER at [facility] accepted the patient to be transferred from the ICU to the ER, patient was shortly evaluated, and transferred to the ICU at [facility]. The patient tells me that they transferred her mostly because his oncologist is on our staff, and the patient was requesting to be discharged. Although the patient is not receiving any treatment for his B-cell lymphoma. At any rate patient was admitted to the ICU, presently on norepinephrine at 0.07 mcg/kg/m, is also on IV fluid at 100 mL per hour. He is in atrial fibrillation with a rate of 102-110. He is on room air with O2 saturation 93%. Patient complains mostly of progressive fatigue and weakness. No fever no chills no hemoptysis no cough no wheezing, no nausea no vomiting no abdominal pain no melena no hematemesis is no dysuria and no diarrhea no frequency no urgency. Again the patient was placed on empiric anti biotics and he is being evaluated by cardiology for his atrial fibrillation. Off Cardizem at present. His past medical history is mostly significant for colon cancer, resected in 2007. His CT of the chest from [facility] showed no evidence of pneumonia, and the patient had no symptoms to suggest pneumonia. Reevaluated today on 03/06/20, patient remains in the ICU. Remains on norepi nephrine at 0.12 mcg/kg/m, and I cut it down to 0.1. His IV fluid is at 100 mL/h, and I cut it down to 50 mL per hour. Patient remains in atrial fibrillation, rate seems to be fairly well controlled rate of 101. His oxygen saturation is 96% on room air. Chest x-ray and CT of the chest from [facility] showed mostly bilateral pleural effusions and bibasilar atelectasis. Sputum Gram stain is basically nondiagnostic. Culture is pending. Urinalysis is suspicious for urinary tract infection, however the patient had no symptoms, and culture of the urine is pending. Serum cortisol level today is 27. His BNP was noted to be elevated at 9330, hence I will give the patient 1 dose of Lasix, and I cut down his IV fluid to 50 mL per hour. WBC count today is 43.6 hemoglobin is 10.6. INR is down to 1.6. Patient continues to have hyponatremia which is likely hypovolemic in nature. Renal functioning is a bit worse today, and I'll see the patient developed acute kidney injury secondary to acute tubular necrosis secondary to hypotension. Clinically, the patient remains relatively asymptomatic. Objective - Vital Signs Vital signs: Vital Signs Temp 98.4 F 03/06/20 08:00 Pulse 103 H 03/06/20 11:30 Resp 20 03/06/20 11:30 BP 82/55 03/06/20 11:30 Pulse Ox 96 03/06/20 11:30 Intake & Output 03/05/20 03/06/20 03/06/20 18:59 06:59 18:59 Intake Total 2273.041 7997.114 482.543 Output Total 220 270 80 Balance 582.605 7989.114 402.543 Weight 95 kg Intake: IV 1200 350 Cefepime 2 gm In Sodium 100 100 Chloride 0.9% 100 ml @ 200 mls/hr IVPB Q12HR [facility] Rx#:[id number] Sodium Chloride 0.9% 1, 1100 250 000 ml @ 50 mls/hr IV . Q20H [facility] Rx#:[id number] Intake, IV Titration 1042.205 146.114 12.543 Amount Magnesium Sulfate-D5w Pmx 100 1 gm In Dextrose/Water 1 100ml.bag @ 100 mls/hr IVPB Q1H [facility] Rx#: [id number] Norepinephrine 32 mg In 42.205 46.114 Sodium Chloride 0.9% 218 ml @ 0.05 MCG/KG/MIN 2. 126 mls/hr IV .Q24H [facility] Rx#:[id number] Norepinephrine 32 mg In 12.543 Sodium Chloride 0.9% 218 ml @ 0.12 MCG/KG/MIN 5. 103 mls/hr IV .Q24H [facility] Rx#:[id number] Sodium Chloride 0.9% 1, 900 100 000 ml @ 50 mls/hr IV . Q20H [facility] Rx#:[id number] Oral 100 240 120 Output: Urine 220 270 80 Other: Voiding Method Indwelling Catheter Indwelling Catheter Indwelling Catheter - Exam Physical Exam: Revealed a 79-year-old white male in no distress. On room air. Head: Atraumatic, normocephalic. HEENT:[Neck is supple.] [No neck masses.] [No thyromegaly.] [No JVD.] PERRLA, EOMI, no icterus. Chest: [Clear throughout, no crackles, no rhonchi, no wheezes.] Cardiac Exam: Irregular irregular rhythm, no S3 gallop. 2/6 systolic murmur thought the precordium. Abdomen: [Soft, nontender, no megaly, no rebound, no guarding, normal bowel sounds.] Extremities: [No clubbing, trace of bipedal edema, no cyanosis.] Neurological Exam: [No focal neurologic deficit.] Alert and oriented 3. Psychiatric: Normal mood, affect and normal mental status examination. Musculoskeletal: No limitation in range of motion, muscle strength and adequate bilaterally. Lymphatics: No lymphadenopathy. - Labs CBC & Chem 7: 03/06/20 04:19 03/06/20 04:19 Labs: Abnormal Lab Results - Last 24 Hours (Table) 03/05/20 03/05/20 03/05/20 Range/Units 03:10 09:33 09:33 WBC (3.8-10.6) k/uL RBC (4.30-5.90) m/uL Hgb (13.0-17.5) gm/dL Hct (39.0-53.0) % RDW (11.5-15.5) % Plt Count (150-450) k/uL Neutrophils # (Manual) (1.3-7.7) k/uL Lymphocytes # (Manual) (1.0-4.8) k/uL Monocytes # (Manual) (0-1.0) k/uL Retic Count 4.56 H (0.10-1.80) % PT (9.0-12.0) sec INR (<1.2) Sodium (137-145) mmol/L Carbon Dioxide (22-30) mmol/L BUN (9-20) mg/dL Creatinine (0.66-1.25) mg/dL Glucose (74-99) mg/dL Calcium (8.4-10.2) mg/dL TIBC 193 L (228-460) ug/dL Ferritin 817.3 H (22.0-322.0) ng/mL C-Reactive Protein (<10.0) mg/L Procalcitonin 1.34 H (0.02-0.09) ng/mL 03/06/20 03/06/20 03/06/20 Range/Units 04:19 04:19 04:19 WBC 43.6 H (3.8-10.6) k/uL RBC 3.35 L (4.30-5.90) m/uL Hgb 10.5 L (13.0-17.5) gm/dL Hct 32.6 L (39.0-53.0) % RDW 18.9 H (11.5-15.5) % Plt Count 106 L (150-450) k/uL Neutrophils # (Manual) 12.21 H (1.3-7.7) k/uL Lymphocytes # (Manual) 23.54 H (1.0-4.8) k/uL Monocytes # (Manual) 7.85 H (0-1.0) k/uL Retic Count (0.10-1.80) % PT 15.5 H (9.0-12.0) sec INR 1.6 H (<1.2) Sodium 128 L (137-145) mmol/L Carbon Dioxide 16 L (22-30) mmol/L BUN 54 H (9-20) mg/dL Creatinine 1.44 H (0.66-1.25) mg/dL Glucose 128 H (74-99) mg/dL Calcium 7.3 L (8.4-10.2) mg/dL TIBC (228-460) ug/dL Ferritin (22.0-322.0) ng/mL C-Reactive Protein 60.0 H (<10.0) mg/L Procalcitonin (0.02-0.09) ng/mL Microbiology - Last 24 Hours (Table) 03/05/20 03:31 Blood Culture - Preliminary Blood No Growth after 24 hours 03/05/20 08:50 Gram Stain - Preliminary Sputum Sputum Culture - Preliminary Assessment and Plan Assessment: Impression: Hypotension, most likely hypovolemic in nature, strongly doubt sepsis, but not entirely ruled out. Continue empiric antibiotics. Await final cultures. However considering the patient is developing bilateral pleural effusions, I will cut down the fluids to 50 mL per hour, and 1 order of Lasix was given 20 mg IV push times one. Chronic atrial fibrillation with RVR. Presently rate seems to be controlled. Chronic lymphocytic leukemia, B-cell type, not active. Bicytopenia, being addressed by oncology on the case. Coagulopathy, elevated INR, cannot be explained by Xarelto only, improving. Hypovolemic hyponatremia, we'll continue to monitor. Acute kidney injury secondary to hypotension, may need to be evaluated by nephrology. If the renal status does not improve much or if he does get any worse. Recommendation: Continue to monitor in the ICU. Continue empiric antibiotics. Await final cultures. Gentle diuresis today.. Continue norepinephrine for the time being. Titrate accordingly.. Hematology to address his coagulopathy and chronic lymphocytic leukemia history. Continue to monitor electrolytes and renal profile. Daily x-rays of the chest. Clinically, doubt covid 19 We'll continue to follow. Time with Patient: Less than 30
--- NOTE | 2020-03-06 17:38 | P.PN ---
Progress Note - Text Progress Note Date: 03/06/20 History of Present Illness 71-year-old pleasant male who follows with Dr. Jessa campos, was transferred from [facility] after he was treated for atrial fibrillation with Cardizem was transferred here for evaluation by oncology. Admitted to intensive care unit because of hypotension patient appears to have hypovolemic shock patient started on levo fed. Cardizem was discontinued because of hypotension patient was started on digoxin and patient was also also started on low-dose metoprolol with fairly controlled heart rate. 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 There is a concern about transformation because of low hemoglobin, decreased platelet count and decreased white blood cell count. Although there is no blast cells in the peripheral smear Dr. Lacy evaluated the patient is a concern about GI bleed although patient doesn't have any blood in the stools or dark stools or hematemesis patient's INR is around 2 which is believed to be secondary to Xarelto, although DIC workup is being obtained as well. Patient is quite a bit weak there is a concern about the chest x-ray findings of right lower lobe infiltrate-coat feller do not believe patient has any pneumonia patient doesn't having any symptoms of pneumonia patient denied any cough doesn't have any fever chills. Patient doesn't have elevated BNP although clinically not in heart failure exacerbation his BNP here is around 9000 his BNP at [facility] was around 7000. Patient doesn't have any JVD and crackles on exam. Patient's creatinine negative district is 1.3 and he rates 1.1 patient is presently receiving IV fluids because of hypovolemic shock is also on levo fed. Patient had normal ejection fraction. Patient's symptoms right now is a significant fatigue and generalized weakness. Patient denied any significant shortness of breath at this time Admitted with-hypotension likely hypovolemic, persistent atrial flutter with rapid ventricular rate, bicytopenia, acute kidney injury. Patient is started on levo fed. Today-ICU: Laying in bed. Tired. Had a small breakfast. Review of systems: Was done for constitutional, cardiovascular, GI, pulmonary. relevant finding as above Active Medications Apixaban (Eliquis) 2.5 mg PO BID [facility] Last Admin: 03/06/20 09:51 Dose: 2.5 mg Documented by: Cyanocobalamin (Vitamin B-12) 1,000 mcg IM DAILY [facility] Stop: 03/10/20 09:01 Digoxin (Lanoxin) 125 mcg PO DAILY [facility] Last Admin: 03/06/20 08:27 Dose: 125 mcg Documented by: Sodium Chloride (Saline 0.9%) 1,000 mls @ 50 mls/hr IV .Q20H [facility] Last Admin: 03/06/20 08:26 Dose: 100 mls/hr Documented by: Cefepime HCl 2 gm/ Sodium (Chloride) 100 mls @ 200 mls/hr IVPB Q12HR [facility] Last Admin: 03/06/20 08:27 Dose: 200 mls/hr Documented by: Norepinephrine Bitartrate 32 (mg/ Sodium Chloride) 250 mls @ 5.103 mls/hr IV .Q24H [facility]; Protocol Last Titration: 03/06/20 13:14 Dose: 0.07 mcg/kg/min, 2.977 mls/hr Documented by: Metoprolol Tartrate (Lopressor) 25 mg PO BID [facility] Last Admin: 03/06/20 08:27 Dose: 25 mg Documented by: Miscellaneous Information (Pneumonia Protocol Utilized) 1 each PO ONCE PRN PRN Reason: Per Protocol Naloxone HCl (Narcan) 0.2 mg IV Q2M PRN PRN Reason: Opioid Reversal Pantoprazole Sodium (Protonix) 40 mg IV DAILY [facility] Last Admin: 03/06/20 08:27 Dose: 40 mg Documented by: On examination: VITAL SIGNS: 98.9, 98, 20, 88/55, 96% on room air GENERAL APPEARANCE: Laying in bed, tired not in distress. HEENT: Normal external appearance of nose and ear. Oral cavity normal EYES: Pupils equal. Conjunctiva pale NECK: JVD not raised. Mass not palpable. RESPIRATORY: Respiratory effort normal. Lungs decreased breath sounds CARDIOVASCULAR: Heart sounds irregular. No edema. ABDOMEN: Soft. Liver and spleen not palpable. No tenderness. No mass palpable. PSYCHIATRY: Alert and oriented x3. Mood and affect tired INVESTIGATIONS, reviewed in the clinical context: White count 43.6 hemoglobin 10.5 platelets 106 INR 1.6 Sodium 128 154 creatinine 1.44 cortisol 27 bicarb 16 Previous testing: White count 31.8 hemoglobin 10.5 platelets 79-sodium 129 percussion 4.7 creatinine 1.19 EKG tracing-atrial fibrillation with a rate of 120 Chest u-xsb-zyzybdxovuyb density Assessment -Hypovolemic shock continue with norepinephrine IV fluids-slow to respond -Generalized weakness probably secondary to atrial fibrillation as well as a other issues including chronic lymphocytic leukemia -Acute renal failure probably prerenal azotemia intravascular volume depletion -Persistent Atrial fibrillation,-uncontrolled on admission: -Chronic lymphocytic leukemia there is no evidence of transformation to acute leukemia. -Bicytopenia including thrombocytopenia and low hemoglobin etiology is not clear further workup as mentioned above oncology evaluated the patient. -Hypertension patient is presently hypotensive -Moderate pulmonary hypertension -History of CVA and TIA -Coagulopathy most presently secondary to Xarelto which is being held at this time -Hypothyroid -Metabolic acidosis -Secondary probably hypertension Plan: Patient remains in ICU. On IV levo fed. Appetite is poor. In particular antibiotics including IV cefepime. On IV fluids. We'll discuss with pulmonary to see if antibiotics can be discontinued.
--- NOTE | 2020-03-06 21:56 | PN ---
PROGRESS NOTE DATE OF SERVICE: 03/06/2020 REASON FOR FOLLOWUP: Hypertension and a question of sepsis and pneumonia. INTERVAL HISTORY: The patient is currently afebrile. He is breathing comfortably. He denies having any chest pain or shortness of breath. Minimal cough. No nausea, no vomiting. No abdominal pain. No diarrhea. PHYSICAL EXAMINATION: Blood pressure 97/54 with a pulse of 96, temperature 98.2. He is 97% on room air. General description is an elderly male lying in bed in no distress. RESPIRATORY SYSTEM: Unlabored breathing with decreased breath sounds at the base. No wheeze. HEART: S1, S2. Regular rate and rhythm. ABDOMEN: Soft. No tenderness. LABS: Hemoglobin is 10.5, white count 43.6. BUN of 54, creatinine 1.44. CRP is elevated at 60. DIAGNOSTIC IMPRESSION AND PLAN: Patient presented to hospital with weakness and hypotension in this patient with underlying lymphoma. Initial concern was for likely dehydration and hypotension; however, with elevated procalcitonin and CRP, underlying infection was not entirely excluded. The patient is currently covered with cefepime; to continue. Will follow on blood and sputum culture and adjust antibiotic further if needed. MMODL / IJN: [id number] /
[2020-03-07] MEDS: NOREPINEPHRINE 32 MG in SODIUM CHLORIDE 0.9% 218 ML IV SCH (03:23)
[2020-03-07 07:01] LABS: Albumin 1.9 g/dL (3.5-5.0); Calcium 7.4 mg/dL (8.4-10.2); Potassium 4.2 mmol/L (3.5-5.1); Total Protein 4.4 g/dL (6.3-8.2)
[2020-03-07 07:06] LABS: Anisocytosis Slight; HCT 34.8 % (39.0-53.0); HGB 11.4 gm/dL (13.0-17.5); Hypochromasia Slight; MCH 32.2 pg (25.0-35.0); MCHC 32.8 g/dL (31.0-37.0); MCV 98.1 fL (80.0-100.0); Macrocytosis Slight; Mean Platelet Volume 11.7; Platelet Count 77 k/uL (150-450); RBC 3.55 m/uL (4.30-5.90); RDW 19.4 % (11.5-15.5); WBC 34.1 k/uL (3.8-10.6)
--- NOTE | 2020-03-07 07:18 | XR ---
EXAMINATION TYPE: XR chest 1V portable DATE OF EXAM: 03/07/2020 CLINICAL HISTORY: Difficulty breathing progress study. TECHNIQUE: Single AP portable upright view of the chest is obtained. COMPARISON: Chest x-ray from one and 2 days earlier. FINDINGS: Stable right internal jugular central venous catheter. Cardiac silhouette size stable and mildly enlarged. Persistent and felt slight worsening central vascular congestion and bibasilar opaci ties. Atherosclerotic aorta. Persistent abnormal right peritracheal opacity. Upper lungs remain clear without pneumothorax. Osseous structures are intact. IMPRESSION: Worsening central vascular congestion along with probable small bilateral pleural effusio ns on background mild cardiomegaly. Correlate for worsening CHF exacerbation or fluid overload state. Cannot exclude underlying bibasilar acute infiltrates. Abnormal right paratracheal fullness could re flect mass or adenopathy. Correlation with old outside x-ray would be beneficial. Otherwise advise CT follow-up.
[2020-03-07] MEDS ORDERED: FUROSEMIDE 10 MG/ML 2 ML VIAL IV ONE (08:30)
--- NOTE | 2020-03-07 08:47 | PN ---
PROGRESS NOTE This is a gentleman transferred from [facility] 2 days ago. He has chronic lymphocytic leukemia. He also has history of chronic atrial fibrillation. Clinically, he is doing a little bit better. His urine output is better. His Levophed drip has decreased. Rate control with atrial fib is acceptable in the range from 80 to 100 per minute. He is hemodynamically stable on a small dose of Levophed. Blood pressure 100/60, pulse rate 90 irregular. JVD 1 cm. No carotid bruit. S1, S2 heard normally, irregular rate and rhythm. Short systolic murmur. Lungs reveal diminished air entry. Abdomen and lower extremity exam is unchanged. RECOMMENDATION: From a cardiac standpoint, I will continue the current combination of digoxin and beta nazanin. His rate control is reasonable. LV function is good. He has pulmonary hypertension. Echo was performed at [facility], which is in the chart. Will continue to see him as needed. MMODL / IJN: [id number] /
[2020-03-07] MEDS: CEFEPIME 2 GM in SODIUM CHLORIDE 0.9% 100 ML IVPB SCH ×2 (08:52→21:18)
[2020-03-07] MEDS: METOPROLOL TARTRATE 25 MG TAB PO SCH ×2 (08:53→21:17)
[2020-03-07] MEDS: PANTOPRAZOLE 40 MG/10 ML VIAL IV SCH (08:53)
[2020-03-07] MEDS: CYANOCOBALAMIN 1,000 MCG/ML 1 ML VIAL IM SCH (08:54)
[2020-03-07] MEDS: APIXABAN 2.5 MG TABLET PO SCH ×2 (08:54→21:17)
[2020-03-07] MEDS: DIGOXIN 125 MCG TAB PO SCH (08:54)
[2020-03-07 10:18] LABS: Reticulocyte % 5.34 % (0.10-1.80)
[2020-03-07 10:58] LABS: Lymphocytes # (M) 21.14 k/uL (1.0-4.8); Monocytes # (M) 1.71 k/uL (0-1.0); Neutrophils # (M) 11.59 k/uL (1.3-7.7); Neutrophils % (M) 34 %; Nucleated Red Blood Cells 0 /100 WBC (0-0); Polychromasia Present; Total Cells Counted 200
[2020-03-07 11:01] LABS: Poikilocytosis (M) Present; Toxic Vacuolation Present
--- NOTE | 2020-03-07 12:03 | P.PN ---
Subjective Progress Note Date: 03/07/20 Principal diagnosis: Hypotension, likely hypovolemic in nature. However, urinary tract infection, with septic shock is a possibility. This is a 79-year-old white male, known history of B-cell lymphoma, stage 0 disease, advised mostly observation. Known history of previous CVA in 2017, previous treatment with TPA. Patient is also known to have history of atrial fibrillation. And he was admitted to [facility] ICU the day before yesterday, patient presented initially to the ER at [facility] with hypotension, atrial fibrillation with RVR. I was notified about this patient, and I admitted him to the ICU. He was seen by Dr. Stroud and other consultants at [facility], and he was treated with antibiotics empirically, norepinephrine for his hypotension, fluid boluses were given at least 2-3 L were given to him initially when he presented to the ER. However early this morning around 3 AM, and for no good reason the ER at [facility] accepted the patient to be transferred from the ICU to the ER, patient was shortly evaluated, and transferred to the ICU at [facility]. The patient tells me that they transferred her mostly because his oncologist is on our staff, and the patient was requesting to be discharged. Although the patient is not receiving any treatment for his B-cell lymphoma. At any rate patient was admitted to the ICU, presently on norepinephrine at 0.07 mcg/kg/m, is also on IV fluid at 100 mL per hour. He is in atrial fibrillation with a rate of 102-110. He is on room air with O2 saturation 93%. Patient complains mostly of progressive fatigue and weakness. No fever no chills no hemoptysis no cough no wheezing, no nausea no vomiting no abdominal pain no melena no hematemesis is no dysuria and no diarrhea no frequency no urgency. Again the patient was placed on empiric anti biotics and he is being evaluated by cardiology for his atrial fibrillation. Off Cardizem at present. His past medical history is mostly significant for colon cancer, resected in 2007. His CT of the chest from [facility] showed no evidence of pneumonia, and the patient had no symptoms to suggest pneumonia. Reevaluated today on 03/06/20, patient remains in the ICU. Remains on norepi nephrine at 0.12 mcg/kg/m, and I cut it down to 0.1. His IV fluid is at 100 mL/h, and I cut it down to 50 mL per hour. Patient remains in atrial fibrillation, rate seems to be fairly well controlled rate of 101. His oxygen saturation is 96% on room air. Chest x-ray and CT of the chest from [facility] showed mostly bilateral pleural effusions and bibasilar atelectasis. Sputum Gram stain is basically nondiagnostic. Culture is pending. Urinalysis is suspicious for urinary tract infection, however the patient had no symptoms, and culture of the urine is pending. Serum cortisol level today is 27. His BNP was noted to be elevated at 9330, hence I will give the patient 1 dose of Lasix, and I cut down his IV fluid to 50 mL per hour. WBC count today is 43.6 hemoglobin is 10.6. INR is down to 1.6. Patient continues to have hyponatremia which is likely hypovolemic in nature. Renal functioning is a bit worse today, and I'll see the patient developed acute kidney injury secondary to acute tubular necrosis secondary to hypotension. Clinically, the patient remains relatively asymptomatic. Patient was reevaluated today on 03/07/20, remains in the ICU, remains in atrial fibrillation but rate seems to be controlled. Patient is on room air. Sodium remains a bit low. Chest x-ray continues to show right paratracheal mass. Patient remains on norepinephrine at 0.05 mcg/kg/m he is afebrile, remains empirically on antibiotics. Reviewed the CT of the chest from [facility], and I'm not certain whether the patient will need a tissue diagnosis for his right paratracheal and subcarinal lymphadenopathy, if he does patient will need a bronchoscopy and li needle /transcarinal needle aspiration. However the oncologist on the case made no suggestion that they need a tissue diagnosis apparently the diagnosis was already made but I'm quite concerned considering the size of the adenopathy noted. This could be lymphoma could also be small cell lung carcinoma. Continues to have leukocytosis with WBC count of 54.1 hemoglobin is 11.4 and electrolytes were reviewed sodium remains 128 bicarb remains a bit low at 16 BUN is 54 creatinine is improving down to 1.27 Objective - Vital Signs Vital signs: Vital Signs Temp 97.0 F L 03/07/20 08:00 Pulse 100 03/07/20 10:00 Resp 18 03/07/20 10:00 BP 85/48 03/07/20 10:00 Pulse Ox 95 03/07/20 10:00 Intake & Output 03/06/20 03/07/20 03/07/20 18:59 06:59 18:59 Intake Total 1263.970 724.945 300 Output Total 850 570 285 Balance 413.970 154.945 15 Weight 95.8 kg Intake: IV 750 600 300 Cefepime 2 gm In Sodium 100 100 Chloride 0.9% 100 ml @ 200 mls/hr IVPB Q12HR [facility] Rx#:[id number] Sodium Chloride 0.9% 1, 650 600 200 000 ml @ 50 mls/hr IV . Q20H [facility] Rx#:[id number] Intake, IV Titration 33.970 124.945 Amount Cefepime 2 gm In Sodium 100 Chloride 0.9% 100 ml @ 200 mls/hr IVPB Q12HR [facility] Rx#:[id number] Norepinephrine 32 mg In 33.970 24.945 Sodium Chloride 0.9% 218 ml @ 0.12 MCG/KG/MIN 5. 103 mls/hr IV .Q24H [facility] Rx#:[id number] Oral 480 Output: Urine 850 570 285 Other: Voiding Method Indwelling Catheter Indwelling Catheter Indwelling Catheter # Bowel Movements 1 - Exam Physical Exam: Revealed a 79-year-old white male in no distress. On room air. Head: Atraumatic, normocephalic. HEENT:[Neck is supple.] [No neck masses.] [No thyromegaly.] [No JVD.] PERRLA, EOMI, no icterus. Chest: [Clear throughout, no crackles, no rhonchi, no wheezes.] Cardiac Exam: Irregular irregular rhythm, no S3 gallop. 2/6 systolic murmur thought the precordium. Abdomen: [Soft, nontender, no megaly, no rebound, no guarding, normal bowel sounds.] Extremities: [No clubbing, trace of bipedal edema, no cyanosis.] Neurological Exam: [No focal neurologic deficit.] Alert and oriented 3. Psychiatric: Normal mood, affect and normal mental status examination. Musculoskeletal: No limitation in range of motion, muscle strength and adequate bilaterally. Lymphatics: No cervical adenopathy noted. - Labs CBC & Chem 7: 03/07/20 06:27 03/07/20 06:27 Labs: Abnormal Lab Results - Last 24 Hours (Table) 03/05/20 03/07/20 03/07/20 Range/Units 03:10 06:27 06:27 WBC 34.1 H (3.8-10.6) k/uL RBC 3.55 L (4.30-5.90) m/uL Hgb 11.4 L (13.0-17.5) gm/dL Hct 34.8 L (39.0-53.0) % RDW 19.4 H (11.5-15.5) % Plt Count 77 L (150-450) k/uL Neutrophils # (Manual) 11.59 H (1.3-7.7) k/uL Lymphocytes # (Manual) 21.14 H (1.0-4.8) k/uL Monocytes # (Manual) 1.71 H (0-1.0) k/uL Retic Count (0.10-1.80) % Haptoglobin 17.7 L (31.2-198.0) mg/dL Sodium (137-145) mmol/L Carbon Dioxide (22-30) mmol/L BUN (9-20) mg/dL Creatinine (0.66-1.25) mg/dL Glucose (74-99) mg/dL Calcium (8.4-10.2) mg/dL Total Bilirubin (0.2-1.3) mg/dL Total Protein (6.3-8.2) g/dL Albumin (3.5-5.0) g/dL Methylmalonic Acid 0.75 H (<0.40) umol/L 03/07/20 03/07/20 Range/Units 06:27 06:27 WBC (3.8-10.6) k/uL RBC (4.30-5.90) m/uL Hgb (13.0-17.5) gm/dL Hct (39.0-53.0) % RDW (11.5-15.5) % Plt Count (150-450) k/uL Neutrophils # (Manual) (1.3-7.7) k/uL Lymphocytes # (Manual) (1.0-4.8) k/uL Monocytes # (Manual) (0-1.0) k/uL Retic Count 5.34 H (0.10-1.80) % Haptoglobin (31.2-198.0) mg/dL Sodium 128 L (137-145) mmol/L Carbon Dioxide 16 L (22-30) mmol/L BUN 54 H (9-20) mg/dL Creatinine 1.27 H (0.66-1.25) mg/dL Glucose 121 H (74-99) mg/dL Calcium 7.4 L (8.4-10.2) mg/dL Total Bilirubin 3.0 H (0.2-1.3) mg/dL Total Protein 4.4 L (6.3-8.2) g/dL Albumin 1.9 L (3.5-5.0) g/dL Methylmalonic Acid (<0.40) umol/L Microbiology - Last 24 Hours (Table) 03/05/20 08:50 Gram Stain - Final Sputum Sputum Culture - Final 03/05/20 03:31 Blood Culture - Preliminary Blood No Growth after 48 hours Assessment and Plan Assessment: Impression: Hypotension, most likely hypovolemic in nature, strongly doubt sepsis, but not entirely ruled out. Continue empiric antibiotics. Await final cultures. Titrate norepinephrine and possibly discontinue if tolerated. Chronic atrial fibrillation with RVR. Presently rate seems to be controlled. Chronic lymphocytic leukemia, B-cell type, not active. However I'm quite concerned about the significant mediastinal adenopathy/right paratracheal mass and subcarinal adenopathy noted. Oncology to decide whether a tissue diagnosis is needed or necessary. Bicytopenia, being addressed by oncology on the case. Coagulopathy, elevated INR, cannot be explained by Xarelto only, improving. Hypovolemic hyponatremia, we'll continue to monitor. Stable, I am a bit concerned about the possibility of SIADH. Acute kidney injury secondary to hypotension, may need to be evaluated by nephrology. If the renal status does not improve much or if he does get any worse. Recommendation: Continue to monitor in the ICU. Until norepinephrine is discontinued. Start midodrine 5 mg by mouth twice a day. Different cultures so far are nondiagnostic.. Oncology to decide whether the patient will eventually need a tissue diagnosis f or his paratracheal mass. Continue to monitor electrolytes and renal profile. We'll continue to follow. Time with Patient: Less than 30
[2020-03-07] MEDS ORDERED: RX INFO: IV CONTRAST WAS GIVEN 1 EACH MISC MISCELLANE PRN (15:45)
--- NOTE | 2020-03-07 16:07 | CDI ---
Documentation Clarification Form Date: 03/07/2020 03:55:06 PM From: Martha Blake RN, CCDS Admit Date: 03/05/2020 03:10:00 AM Patient Name: Blake Paredes Visit Number: [id number] ATTENTION: The Clinical Documentation Specialists (CDI) and [facility] Coding Staff appreciate your assistance in clarifying documentation. Please respond to the clarification below the line at the bottom and electronically sign. The CDI & [facility] Coding staff will review the response and follow-up if needed. Please note: Queries are made part of the Legal Health Record. If you have any questions, please contact the author of this message via ITS. Dr. Palu Bradley Anemia is documented in the 03/06 Oncology Consult and requires further specificity. History/Risk Factors: CLL, Coagulopathy secondary to Xarelto, Atrial Fibrillation, CVA/TIA, Acute renal failure Clinical indicators: 03/06 Oncology: "Anemia multifactorial, no iron deficiency.B12 supplemented. This will be continued outpatient. There is evidence suggestive of hemolysis, may be secondary to transfusion. Hemolysis labs are going to be repeated in the a.m. 03/05 Cardiology consult: "History of recent anemia and there is a question of blood loss. His platelet count is 79,000, hemoglobin is 10.5.INR is high at 2.1.Patient is not on Coumadin. 03/05- 03/07 Hemoglobin: 10.5/11.4 03/05 - 03/07 Hematocrit: 32.1/32.6/34.8 Treatment: Labs: AM Daily Eliquis 2.5 mg PO BID, Vitamin B-12 IM QD, 0.9% NS @ 50 cc.hr In order to capture the severity of condition, please clarify the type of anemia and etiology if known. Acute on chronic blood loss anemia Chronic blood loss anemia Iron deficiency anemia Anemia due to malignancy Nutritional anemia Anemia of chronic disease Unable to determine Other, please specify (Last Form Revision: January 2020) Anemia multifactorial-exact cause unable to determine MTDD
--- NOTE | 2020-03-07 17:19 | P.PN ---
Subjective Progress Note Date: 03/07/20 Principal diagnosis: Thrombocytopenia, Afib, Anemia Seen in ICU Objective - Vital Signs Vital signs: Vital Signs Temp 97.2 F L 03/07/20 04:00 Pulse 87 03/07/20 07:00 Resp 19 03/07/20 07:00 BP 98/56 03/07/20 07:00 Pulse Ox 96 03/07/20 07:00 Intake & Output 03/06/20 03/07/20 03/07/20 18:59 06:59 18:59 Intake Total 1263.970 724.945 50 Output Total 850 570 35 Balance 413.970 154.945 15 Weight 95.8 kg Intake: IV 750 600 50 Cefepime 2 gm In Sodium 100 Chloride 0.9% 100 ml @ 200 mls/hr IVPB Q12HR [facility] Rx#:[id number] Sodium Chloride 0.9% 1, 650 600 50 000 ml @ 50 mls/hr IV . Q20H [facility] Rx#:[id number] Intake, IV Titration 33.970 124.945 Amount Cefepime 2 gm In Sodium 100 Chloride 0.9% 100 ml @ 200 mls/hr IVPB Q12HR [facility] Rx#:[id number] Norepinephrine 32 mg In 33.970 24.945 Sodium Chloride 0.9% 218 ml @ 0.12 MCG/KG/MIN 5. 103 mls/hr IV .Q24H [facility] Rx#:[id number] Oral 480 Output: Urine 850 570 35 Other: Voiding Method Indwelling Catheter Indwelling Catheter # Bowel Movements 1 - Exam - Constitutional General appearance: Present: average body habitus, cooperative, mild distress - EENT Eyes: Present: anicteric sclerae, EOMI ENT: Present: hearing grossly normal - Respiratory Respiratory: bilateral: CTA, diminished (bases) - Cardiovascular Rhythm: irregularly irregular Heart sounds: normal: S1, S2 - Peripheral edema leg Peripheral Edema: bilateral: None - Gastrointestinal General gastrointestinal: Present: normal bowel sounds, soft - Integumentary Integumentary: Present: pale - Neurologic Neurologic: Present: CNII-XII intact - Musculoskeletal Musculoskeletal: Present: generalized weakness, strength equal bilaterally - Psychiatric Psychiatric: Present: A&O x's 3, appropriate affect, intact judgment & insight - Labs CBC & Chem 7: 03/07/20 06:27 03/07/20 06:27 Labs: Abnormal Lab Results - Last 24 Hours (Table) 03/05/20 03/07/20 03/07/20 Range/Units 03:10 06:27 06:27 WBC 34.1 H (3.8-10.6) k/uL RBC 3.55 L (4.30-5.90) m/uL Hgb 11.4 L (13.0-17.5) gm/dL Hct 34.8 L (39.0-53.0) % RDW 19.4 H (11.5-15.5) % Plt Count 77 L (150-450) k/uL Sodium 128 L (137-145) mmol/L Carbon Dioxide 16 L (22-30) mmol/L BUN 54 H (9-20) mg/dL Creatinine 1.27 H (0.66-1.25) mg/dL Glucose 121 H (74-99) mg/dL Calcium 7.4 L (8.4-10.2) mg/dL Total Bilirubin 3.0 H (0.2-1.3) mg/dL Total Protein 4.4 L (6.3-8.2) g/dL Albumin 1.9 L (3.5-5.0) g/dL Methylmalonic Acid 0.75 H (<0.40) umol/L Microbiology - Last 24 Hours (Table) 03/05/20 03:31 Blood Culture - Preliminary Blood No Growth after 48 hours Assessment and Plan Plan: Thrombocytopenia: - Platelets have decreased again today to 77K, 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 - Hold Xarelto or other AC therapy if platelets drop below 50K - Daily CBC - No DIC at this time, continue to monitor Coags if any bleeding or worsening of Platelets - Transfuse to keep platelets greater than 10,000 unless bleeding is noted. Normocytic Anemia: - Todays Hemoglobin is stable no transfusion needed at this time Hemolytic Anemia - B12 deficiency component and B12 is being supplemented - No obvious iron deficiency noted - Transfuse to keep hemoglobin 7 or higher. - Last colonoscopy was 5-6 years ago, patient is never had upper endoscopy. Abnormal Right Paratrachial Fullness: - Will assess further with CT Scan of Thorax - Per son patient has had cough since November, underlying malignancy cannot be ruled out CLL (chronic lymphocytic leukemia) - CBC in the office 12/17 reviewed and compared to current picture - WBC and absolute lymphocyte count increased, secondary to acute illness. - This will continue to be monitored. No acute intervention for CLL. Coagulopathy - Elevated coags secondary to Xarelto. - Coags significantly decreased with just holding a few doses. - Patient has been resumed on his anticoagulation due to atrial fibrillation. - He is hemoglobin will be closely monitored while inpatient - Ensure Platelet count remains above 50K to anticoagulate Atrial fibrillation with rapid ventricular response Pt is on anticoagulation for the same. Cardiology managing arrhythmia and hypotension Hyponatremia Increased Bilirubin Acute Kidney Injury: Improved HX: Early Stage Colon Cancer PLan: - CT Thorax ordered to further assess - Steroids for ITP and Hemolysis - Discussed with Son Daniel Doctor attests: I performed a history and physical examination of this patient, developed impression and plan of care, discussed with dictator. I agree with dictators note, documented as a scribe.
[2020-03-07] MEDS: SODIUM CHLORIDE 0.9% 1,000 ML IV SCH ×2 (17:20→20:36)
[2020-03-07] MEDS: MIDODRINE 5 MG TAB PO SCH (17:20)
--- NOTE | 2020-03-07 19:15 | P.PN ---
Progress Note - Text Progress Note Date: 03/07/20 History of Present Illness 71-year-old pleasant male who follows with Dr. Jessa campos, was transferred from [facility] after he was treated for atrial fibrillation with Cardizem was transferred here for evaluation by oncology. Admitted to intensive care unit because of hypotension patient appears to have hypovolemic shock patient started on levo fed. Cardizem was discontinued because of hypotension patient was started on digoxin and patient was also also started on low-dose metoprolol with fairly controlled heart rate. 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 There is a concern about transformation because of low hemoglobin, decreased platelet count and decreased white blood cell count. Although there is no blast cells in the peripheral smear Dr. Lacy evaluated the patient is a concern about GI bleed although patient doesn't have any blood in the stools or dark stools or hematemesis patient's INR is around 2 which is believed to be secondary to Xarelto, although DIC workup is being obtained as well. 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 Patient doesn't have elevated BNP although clinically not in heart failure exacerbation his BNP here is around 9000 his BNP at [facility] was around 7000. Patient doesn't have any JVD and crackles on exam. Patient's creatinine negative district is 1.3 and he rates 1.1 patient is presently receiving IV fluids because of hypovolemic shock is also on levo fed. Patient had normal ejection fraction. Patient's symptoms right now is a significant fatigue and generalized weakness. Patient denied any significant shortness of breath at this time Admitted with-hypotension likely hypovolemic, persistent atrial flutter with rapid ventricular rate, bicytopenia, acute kidney injury. Patient is started on levo fed. Empiric antibiotics. Infection felt to be less likely Today-ICU: Remains tired. On levo fed. Barely eating Review of systems: Was done for constitutional, cardiovascular, GI, pulmonary. relevant finding as above Active Medications Apixaban (Eliquis) 2.5 mg PO BID [facility] Last Admin: 03/07/20 08:54 Dose: 2.5 mg Documented by: Cyanocobalamin (Vitamin B-12) 1,000 mcg IM DAILY [facility] Stop: 03/10/20 09:01 Last Admin: 03/07/20 08:54 Dose: 1,000 mcg Documented by: Digoxin (Lanoxin) 125 mcg PO DAILY [facility] Last Admin: 03/07/20 08:54 Dose: 125 mcg Documented by: Sodium Chloride (Saline 0.9%) 1,000 mls @ 50 mls/hr IV .Q20H [facility] Last Admin: 03/07/20 17:20 Dose: 50 mls/hr Documented by: Cefepime HCl 2 gm/ Sodium (Chloride) 100 mls @ 200 mls/hr IVPB Q12HR [facility] Last Admin: 03/07/20 08:52 Dose: 200 mls/hr Documented by: Norepinephrine Bitartrate 32 (mg/ Sodium Chloride) 250 mls @ 5.103 mls/hr IV .Q24H [facility]; Protocol Last Titration: 03/07/20 17:55 Dose: 0.05 mcg/kg/min, 2.126 mls/hr Documented by: Methylprednisolone Sodium Succinate (Solu-Medrol) 60 mg IV Q12HR [facility] Metoprolol Tartrate (Lopressor) 25 mg PO BID [facility] Last Admin: 03/07/20 08:53 Dose: 25 mg Documented by: Midodrine (Proamatine) 5 mg PO AC-BID [facility] Last Admin: 03/07/20 17:20 Dose: 5 mg Documented by: Miscellaneous Information (Pneumonia Protocol Utilized) 1 each PO ONCE PRN PRN Reason: Per Protocol Miscellaneous Information (Rx Info: Iv Contrast Was Given) 1 each MISCELLANE DAILY PRN PRN Reason: Per Protocol Stop: 03/09/20 15:45 Naloxone HCl (Narcan) 0.2 mg IV Q2M PRN PRN Reason: Opioid Reversal Pantoprazole Sodium (Protonix) 40 mg PO AC-BRKFST [facility] On examination: VITAL SIGNS: 97, 100, 18, 85/48, 95% on room air GENERAL APPEARANCE: Laying in bed, tired, awake. HEENT: Normal external appearance of nose and ear. Oral cavity normal EYES: Pupils equal. Conjunctiva pale NECK: JVD not raised. Mass not palpable. RESPIRATORY: Respiratory effort normal. Lungs decreased breath sounds CARDIOVASCULAR: Heart sounds irregular. No edema. ABDOMEN: Soft. Liver and spleen not palpable. No tenderness. No mass palpable. PSYCHIATRY: Alert and oriented x3. Mood and affect tired INVESTIGATIONS, reviewed in the clinical context: White count 34.1, hemoglobin 10.4, platelets 37, potassium 4.2, bun 54, creatinine 1.27 Previous testing: White count 31.8 hemoglobin 10.5 platelets 79-sodium 129 percussion 4.7 creatinine 1.19 EKG tracing-atrial fibrillation with a rate of 120 Chest [id number] density Assessment -Hypovolemic shock continue with norepinephrine IV fluids-slow to respond -Generalized weakness probably secondary to atrial fibrillation as well as a other issues including chronic lymphocytic leukemia -Acute renal failure probably prerenal azotemia intravascular volume depletion -Persistent Atrial fibrillation,-uncontrolled on admission: -Chronic lymphocytic leukemia there is no evidence of transformation to acute leukemia. -Bicytopenia including thrombocytopenia and low hemoglobin etiology is not clear further workup as mentioned above oncology evaluated the patient. -Hypertension patient is presently hypotensive -Moderate pulmonary hypertension -History of CVA and TIA -Coagulopathy most presently secondary to Xarelto which is being held at this time -Hypothyroid -Metabolic acidosis -Secondary pulmonary hypertension Plan: ICU. On IV levo fed. Appetite remains poor. Empiric antibiotics including IV cefepime. Increase IV fluids 100 mL an hour-very poor intake
[2020-03-07] MEDS: methylPREDNISolone SOD SUCCI 125 MG/2 ML VIAL IV SCH (21:17)
--- NOTE | 2020-03-07 22:35 | PN ---
PROGRESS NOTE DATE OF SERVICE: 03/07/2020 REASON FOR FOLLOWUP: Hypertension and a question of pneumonia. INTERVAL HISTORY: The patient is currently afebrile. He has been breathing comfortably. Blood pressure remains marginal. Complaining of feeling weak and tired. Some shortness of breath and cough. No nausea, no vomiting. No abdominal pain or diarrhea. PHYSICAL EXAMINATION: Blood pressure 99/54 with a pulse of 91, temperature of 98. He is 98% on room air. General description is an elderly male lying in bed in no distress. RESPIRATORY SYSTEM: Unlabored breathing with decreased breath sounds at the base. No wheeze. HEART: S1, S2. Regular rate and rhythm. ABDOMEN: Soft. No tenderness. LABS: Hemoglobin 11.4, white count 34.1. BUN of 54, creatinine 1.27. DIAGNOSTIC IMPRESSION AND PLAN: Patient admitted to hospital with hypertension with concern for possible infection/pneumonia. The patient did have elevated inflammatory markers concerning for possible infection. So far culture has been negative and patient is on cefepime; to continue while monitoring his clinical course closely. MMODL / IJN: [id number] /
[2020-03-08 05:22] LABS: Anisocytosis Moderate; HCT 34.9 % (39.0-53.0); HGB 11.1 gm/dL (13.0-17.5); Hypochromasia Slight; MCH 31.3 pg (25.0-35.0); MCHC 31.9 g/dL (31.0-37.0); MCV 98.2 fL (80.0-100.0); Macrocytosis Moderate; Mean Platelet Volume 13.1; Platelet Count 72 k/uL (150-450); RBC 3.56 m/uL (4.30-5.90); RDW 20.5 % (11.5-15.5)
[2020-03-08 05:31] LABS: Albumin 1.9 g/dL (3.5-5.0); Calcium 7.6 mg/dL (8.4-10.2); Potassium 4.3 mmol/L (3.5-5.1); Total Protein 4.3 g/dL (6.3-8.2)
[2020-03-08] MEDS: NOREPINEPHRINE 32 MG in SODIUM CHLORIDE 0.9% 218 ML IV SCH (06:20)
[2020-03-08] MEDS: SODIUM CHLORIDE 0.9% 1,000 ML IV SCH ×2 (06:20→16:19)
[2020-03-08] MEDS: MIDODRINE 5 MG TAB PO SCH ×2 (06:48→18:11)
[2020-03-08] MEDS: PANTOPRAZOLE 40 MG TABLET PO SCH (06:48)
[2020-03-08 07:05] LABS: Lymphocytes # (M) 27.34 k/uL (1.0-4.8); Monocytes # (M) 0.82 k/uL (0-1.0); Myelocytes # (M) 0.41 k/uL (0); Myelocytes % 1 %; Neutrophils # (M) 12.65 k/uL (1.3-7.7); Neutrophils % (M) 31 %; Nucleated Red Blood Cells 1 /100 WBC (0-0); Total Cells Counted 200; WBC 40.8 k/uL (3.8-10.6)
[2020-03-08 07:06] LABS: Polychromasia Present
[2020-03-08] MEDS ORDERED: HYDROCORTISONE SUCCINATE 100 MG/2 ML VIAL IV STA (08:47)
[2020-03-08] MEDS: APIXABAN 2.5 MG TABLET PO SCH ×2 (09:06→20:23)
[2020-03-08] MEDS: CEFEPIME 2 GM in SODIUM CHLORIDE 0.9% 100 ML IVPB SCH ×2 (09:06→20:23)
[2020-03-08] MEDS: DIGOXIN 125 MCG TAB PO SCH (09:07)
[2020-03-08] MEDS: CYANOCOBALAMIN 1,000 MCG/ML 1 ML VIAL IM SCH (09:07)
[2020-03-08] MEDS: methylPREDNISolone SOD SUCCI 125 MG/2 ML VIAL IV SCH ×2 (09:07→20:23)
[2020-03-08 09:44] LABS: INR 1.4 (<1.2); Partial Thromboplastin Time 36.6 sec (22.0-30.0); Prothrombin Time 13.7 sec (9.0-12.0)
[2020-03-08] MEDS: METOPROLOL TARTRATE 25 MG TAB PO SCH ×2 (11:16→20:23)
--- NOTE | 2020-03-08 12:13 | P.PN ---
Subjective Progress Note Date: 03/08/20 Principal diagnosis: Hypotension, likely hypovolemic in nature. However, urinary tract infection, with septic shock is a possibility. This is a 79-year-old white male, known history of B-cell lymphoma, stage 0 disease, advised mostly observation. Known history of previous CVA in 2017, previous treatment with TPA. Patient is also known to have history of atrial fibrillation. And he was admitted to [facility] ICU the day before yesterday, patient presented initially to the ER at [facility] with hypotension, atrial fibrillation with RVR. I was notified about this patient, and I admitted him to the ICU. He was seen by Dr. Stroud and other consultants at [facility], and he was treated with antibiotics empirically, norepinephrine for his hypotension, fluid boluses were given at least 2-3 L were given to him initially when he presented to the ER. However early this morning around 3 AM, and for no good reason the ER at [facility] accepted the patient to be transferred from the ICU to the ER, patient was shortly evaluated, and transferred to the ICU at [facility]. The patient tells me that they transferred her mostly because his oncologist is on our staff, and the patient was requesting to be discharged. Although the patient is not receiving any treatment for his B-cell lymphoma. At any rate patient was admitted to the ICU, presently on norepinephrine at 0.07 mcg/kg/m, is also on IV fluid at 100 mL per hour. He is in atrial fibrillation with a rate of 102-110. He is on room air with O2 saturation 93%. Patient complains mostly of progressive fatigue and weakness. No fever no chills no hemoptysis no cough no wheezing, no nausea no vomiting no abdominal pain no melena no hematemesis is no dysuria and no diarrhea no frequency no urgency. Again the patient was placed on empiric anti biotics and he is being evaluated by cardiology for his atrial fibrillation. Off Cardizem at present. His past medical history is mostly significant for colon cancer, resected in 2007. His CT of the chest from [facility] showed no evidence of pneumonia, and the patient had no symptoms to suggest pneumonia. Reevaluated today on 03/06/20, patient remains in the ICU. Remains on norepi nephrine at 0.12 mcg/kg/m, and I cut it down to 0.1. His IV fluid is at 100 mL/h, and I cut it down to 50 mL per hour. Patient remains in atrial fibrillation, rate seems to be fairly well controlled rate of 101. His oxygen saturation is 96% on room air. Chest x-ray and CT of the chest from [facility] showed mostly bilateral pleural effusions and bibasilar atelectasis. Sputum Gram stain is basically nondiagnostic. Culture is pending. Urinalysis is suspicious for urinary tract infection, however the patient had no symptoms, and culture of the urine is pending. Serum cortisol level today is 27. His BNP was noted to be elevated at 9330, hence I will give the patient 1 dose of Lasix, and I cut down his IV fluid to 50 mL per hour. WBC count today is 43.6 hemoglobin is 10.6. INR is down to 1.6. Patient continues to have hyponatremia which is likely hypovolemic in nature. Renal functioning is a bit worse today, and I'll see the patient developed acute kidney injury secondary to acute tubular necrosis secondary to hypotension. Clinically, the patient remains relatively asymptomatic. Patient was reevaluated today on 03/07/20, remains in the ICU, remains in atrial fibrillation but rate seems to be controlled. Patient is on room air. Sodium remains a bit low. Chest x-ray continues to show right paratracheal mass. Patient remains on norepinephrine at 0.05 mcg/kg/m he is afebrile, remains empirically on antibiotics. Reviewed the CT of the chest from [facility], and I'm not certain whether the patient will need a tissue diagnosis for his right paratracheal and subcarinal lymphadenopathy, if he does patient will need a bronchoscopy and li needle /transcarinal needle aspiration. However the oncologist on the case made no suggestion that they need a tissue diagnosis apparently the diagnosis was already made but I'm quite concerned considering the size of the adenopathy noted. This could be lymphoma could also be small cell lung carcinoma. Continues to have leukocytosis with WBC count of 54.1 hemoglobin is 11.4 and electrolytes were reviewed sodium remains 128 bicarb remains a bit low at 16 BUN is 54 creatinine is improving down to 1.27 Reevaluated today on 03/08/20, patient remains in the ICU, remains on norepinephrine at 0.06 mg/kg/m. Remains on IV fluid at 100 mL/h. He is doing quite well except for his hypotension requiring norepinephrine. Patient has no active symptoms whatsoever. Denies any headache no blurred vision no dizziness no cough no wheezing no shortness of breath no nausea no vomiting no abdominal pain no melena no hematemesis no dysuria and no frequency no urgency.his labs were all reviewed, and sodium remains a bit low at 128, renal profile is a bit better with BUN 54 creatinine is down to 1.22.patient was placed on midodrine yesterday, the patient remains relatively low, hence I will recommend a trial of Solu-Cortef 100 mg IV push 1. Although his serum cortisol level was 27 on admission.continues to have leukocytosis, WBC count is 40.8 Objective - Vital Signs Vital signs: Vital Signs Temp 97.6 F 03/08/20 08:00 Pulse 74 03/08/20 11:00 Resp 17 03/08/20 11:00 BP 90/58 03/08/20 11:00 Pulse Ox 97 03/08/20 11:00 Intake & Output 03/07/20 03/08/20 03/08/20 18:59 06:59 18:59 Intake Total 155.605 9859.415 700 Output Total 980 373 235 Balance -517.790 7872.415 465 Weight 96.4 kg Intake: IV 700 1200 700 Cefepime 2 gm In Sodium 100 100 100 Chloride 0.9% 100 ml @ 200 mls/hr IVPB Q12HR [facility] Rx#:[id number] Sodium Chloride 0.9% 1, 1000 600 000 ml @ 100 mls/hr IV . Q10H [facility] Rx#:[id number] Sodium Chloride 0.9% 1, 600 100 000 ml @ 50 mls/hr IV . Q20H [facility] Rx#:[id number] Intake, IV Titration 20.015 29.415 Amount Norepinephrine 32 mg In 20.015 29.415 Sodium Chloride 0.9% 218 ml @ 0.12 MCG/KG/MIN 5. 103 mls/hr IV .Q24H [facility] Rx#:[id number] Oral 240 Output: Urine 980 373 235 Other: Voiding Method Indwelling Catheter Indwelling Catheter Indwelling Catheter # Bowel Movements 1 1 - Exam Physical Exam: Revealed a 79-year-old white male in no distress. On room air. Head: Atraumatic, normocephalic. HEENT:[Neck is supple.] [No neck masses.] [No thyromegaly.] [No JVD.] PERRLA, EOMI, no icterus. Chest: [Clear throughout, no crackles, no rhonchi, no wheezes.] Cardiac Exam: Irregular irregular rhythm, no S3 gallop. 2/6 systolic murmur thought the precordium. Abdomen: [Soft, nontender, no megaly, no rebound, no guarding, normal bowel sounds.] Extremities: [No clubbing, trace of bipedal edema, no cyanosis.] Neurological Exam: [No focal neurologic deficit.] Alert and oriented 3. Psychiatric: Normal mood, affect and normal mental status examination. Musculoskeletal: No limitation in range of motion, muscle strength and adequate bilaterally. Lymphatics: No cervical adenopathy noted. - Labs CBC & Chem 7: 03/08/20 04:47 03/08/20 04:47 Labs: Abnormal Lab Results - Last 24 Hours (Table) 03/08/20 03/08/20 03/08/20 Range/Units 04:47 04:47 09:06 WBC 40.8 H (3.8-10.6) k/uL RBC 3.56 L (4.30-5.90) m/uL Hgb 11.1 L (13.0-17.5) gm/dL Hct 34.9 L (39.0-53.0) % RDW 20.5 H (11.5-15.5) % Plt Count 72 L (150-450) k/uL Neutrophils # (Manual) 12.65 H (1.3-7.7) k/uL Lymphocytes # (Manual) 27.34 H (1.0-4.8) k/uL Myelocytes # (Manual) 0.41 H (0) k/uL Nucleated RBCs 1 H (0-0) /100 WBC PT 13.7 H (9.0-12.0) sec INR 1.4 H (<1.2) APTT 36.6 H (22.0-30.0) sec Sodium 128 L (137-145) mmol/L Carbon Dioxide 16 L (22-30) mmol/L BUN 54 H (9-20) mg/dL Glucose 144 H (74-99) mg/dL Calcium 7.6 L (8.4-10.2) mg/dL Total Bilirubin 3.0 H (0.2-1.3) mg/dL Total Protein 4.3 L (6.3-8.2) g/dL Albumin 1.9 L (3.5-5.0) g/dL Microbiology - Last 24 Hours (Table) 03/05/20 03:31 Blood Culture - Preliminary Blood No Growth after 72 hours 03/05/20 08:50 Gram Stain - Final Sputum Sputum Culture - Final Assessment and Plan Assessment: Impression: Hypotension, most likely hypovolemic in nature, strongly doubt sepsis, but not entirely ruled out. Continue empiric antibiotics. Await final cultures. Titrate norepinephrine and possibly discontinue if tolerated.continue midodrine, will be given a dose of Solu-Cortef. Chronic atrial fibrillation with RVR. Presently rate seems to be controlled. Chronic lymphocytic leukemia, B-cell type, not active. However I'm quite concerned about the significant mediastinal adenopathy/right paratracheal mass and subcarinal adenopathy noted. Oncology to decide whether a tissue diagnosis is needed or necessary. Bicytopenia, being addressed by oncology on the case. Coagulopathy, resolved. Hypovolemic hyponatremia, we'll continue to monitor. Stable, I am a bit concerned about the possibility of SIADH. Acute kidney injury secondary to hypotension, improving with hydration. Recommendation: Continue to monitor in the ICU. Until norepinephrine is discontinued. continue midodrine 5 mg by mouth twice a day. we'll give the patient a trial of Solu-Cortef 100 mg IV push 1. Different cultures so far are nondiagnostic.. Oncology to decide whether the patient will eventually need a tissue diagnosis for his paratracheal mass. Continue to monitor electrolytes and renal profile. not quite ready to be transferred out of the ICU as long as he remains on norepinephrine. We'll continue to follow.
--- NOTE | 2020-03-08 12:26 | P.PN ---
Subjective Progress Note Date: 03/08/20 Principal diagnosis: Thrombocytopenia, Afib, Anemia Telemed visit, discussion with son daniel as well. Mediastinal adenopathy, awaiting CT scan to further evaluate although ultimately will need tissue biopsy that is also sent for flow cytometry given known of CLL Objective - Vital Signs Vital signs: Vital Signs Temp 97.6 F 03/08/20 08:00 Pulse 74 03/08/20 11:00 Resp 17 03/08/20 11:00 BP 90/58 03/08/20 11:00 Pulse Ox 97 03/08/20 11:00 Intake & Output 03/07/20 03/08/20 03/08/20 18:59 06:59 18:59 Intake Total 058.770 3084.415 700 Output Total 980 373 235 Balance -123.554 5815.415 465 Weight 96.4 kg Intake: IV 700 1200 700 Cefepime 2 gm In Sodium 100 100 100 Chloride 0.9% 100 ml @ 200 mls/hr IVPB Q12HR [facility] Rx#:[id number] Sodium Chloride 0.9% 1, 1000 600 000 ml @ 100 mls/hr IV . Q10H [facility] Rx#:[id number] Sodium Chloride 0.9% 1, 600 100 000 ml @ 50 mls/hr IV . Q20H [facility] Rx#:[id number] Intake, IV Titration 20.015 29.415 Amount Norepinephrine 32 mg In 20.015 29.415 Sodium Chloride 0.9% 218 ml @ 0.12 MCG/KG/MIN 5. 103 mls/hr IV .Q24H [facility] Rx#:[id number] Oral 240 Output: Urine 980 373 235 Other: Voiding Method Indwelling Catheter Indwelling Catheter Indwelling Catheter # Bowel Movements 1 1 - Exam Telemed exam - Constitutional cooperative, mild distress generalized weakness, strength equal bilaterally - Psychiatric Psychiatric: Present: A&O x's 3, appropriate affect, intact judgment & insight - Labs CBC & Chem 7: 03/08/20 04:47 03/08/20 04:47 Labs: Abnormal Lab Results - Last 24 Hours (Table) 03/08/20 03/08/20 03/08/20 Range/Units 04:47 04:47 09:06 WBC 40.8 H (3.8-10.6) k/uL RBC 3.56 L (4.30-5.90) m/uL Hgb 11.1 L (13.0-17.5) gm/dL Hct 34.9 L (39.0-53.0) % RDW 20.5 H (11.5-15.5) % Plt Count 72 L (150-450) k/uL Neutrophils # (Manual) 12.65 H (1.3-7.7) k/uL Lymphocytes # (Manual) 27.34 H (1.0-4.8) k/uL Myelocytes # (Manual) 0.41 H (0) k/uL Nucleated RBCs 1 H (0-0) /100 WBC PT 13.7 H (9.0-12.0) sec INR 1.4 H (<1.2) APTT 36.6 H (22.0-30.0) sec Sodium 128 L (137-145) mmol/L Carbon Dioxide 16 L (22-30) mmol/L BUN 54 H (9-20) mg/dL Glucose 144 H (74-99) mg/dL Calcium 7.6 L (8.4-10.2) mg/dL Total Bilirubin 3.0 H (0.2-1.3) mg/dL Total Protein 4.3 L (6.3-8.2) g/dL Albumin 1.9 L (3.5-5.0) g/dL Microbiology - Last 24 Hours (Table) 03/05/20 03:31 Blood Culture - Preliminary Blood No Growth after 72 hours 03/05/20 08:50 Gram Stain - Final Sputum Sputum Culture - Final Assessment and Plan Plan: Thrombocytopenia: - Platelets have decreased again today to 72K, 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 - Hold Xarelto or other AC therapy if platelets drop below 50K - Daily CBC - No DIC at this time, continue to monitor Coags if any bleeding or worsening of Platelets - Transfuse to keep platelets greater than 10,000 unless bleeding is noted. - Initiation of Steroids, platelets are still in safe range. Normocytic Anemia: - Todays Hemoglobin is stable no transfusion needed at this time Hemolytic Anemia - B12 deficiency component and B12 is being supplemented - No obvious iron deficiency noted - Transfuse to keep hemoglobin 7 or higher. - Last colonoscopy was 5-6 years ago, patient is never had upper endoscopy. Abnormal Right Paratrachial Fullness: - Will assess further with CT Scan of Thorax - Awiting for this to be completed - Per son patient has had cough since November, underlying malignancy cannot be ruled out - Will need tissue biopsy, defer to pulmonology on approach, please send for flow CLL (chronic lymphocytic leukemia) - CBC in the office 12/17 reviewed and compared to current picture - WBC and absolute lymphocyte count increased, secondary to acute illness. - This will continue to be monitored. No acute intervention for CLL. Coagulopathy - Elevated coags secondary to Xarelto. - Coags significantly decreased with just holding a few doses. - Patient has been resumed on his anticoagulation due to atrial fibrillation. - He is hemoglobin will be closely monitored while inpatient - Ensure Platelet count remains above 50K to anticoagulate Atrial fibrillation with rapid ventricular response Pt is on anticoagulation for the same. Cardiology managing arrhythmia and hypotension Hyponatremia Increased Bilirubin Acute Kidney Injury: Improved HX: Early Stage Colon Cancer PLan: - CT Thorax ordered to further assess, still outstanding awaiting this to be completed - Tissue biopsy if CT shows concern for new primary or adenopathy that may be associated with CLL, will need to be sent for flow cytometry - Steroids for ITP and Hemolysis - Discussed with Son Daniel Due to the current epidemic with COVID 19, patient did verbally consent to telemed visit. discussion with patient, son, review of labs, medications, and pertinent orders placed. Greater than 22 minutes spent during telemedicine visit.
--- NOTE | 2020-03-08 15:22 | P.PN ---
Progress Note - Text Progress Note Date: 03/08/20 History of Present Illness 71-year-old pleasant male who follows with Dr. Jessa campos, was transferred from [facility] after he was treated for atrial fibrillation with Cardizem was transferred here for evaluation by oncology. Admitted to intensive care unit because of hypotension patient appears to have hypovolemic shock patient started on levo fed. Cardizem was discontinued because of hypotension patient was started on digoxin and patient was also also started on low-dose metoprolol with fairly controlled heart rate. 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 There is a concern about transformation because of low hemoglobin, decreased platelet count and decreased white blood cell count. Although there is no blast cells in the peripheral smear Dr. Lacy evaluated the patient is a concern about GI bleed although patient doesn't have any blood in the stools or dark stools or hematemesis patient's INR is around 2 which is believed to be secondary to Xarelto, although DIC workup is being obtained as well. 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 Patient doesn't have elevated BNP although clinically not in heart failure exacerbation his BNP here is around 9000 his BNP at [facility] was around 7000. Patient doesn't have any JVD and crackles on exam. Patient's creatinine negative district is 1.3 and he rates 1.1 patient is presently receiving IV fluids because of hypovolemic shock is also on levo fed. Patient had normal ejection fraction. Patient's symptoms right now is a significant fatigue and generalized weakness. Patient denied any significant shortness of breath at this time Admitted with-hypotension likely hypovolemic, persistent atrial flutter with rapid ventricular rate, bicytopenia, acute kidney injury. Patient is started on levo fed. Empiric antibiotics. Infection felt to be less likely Today-ICU: Remains on levo fed drip. Tired. Eat about 50% of his breakfast. A bit more awake. Review of systems: Was done for constitutional, cardiovascular, GI, pulmonary. relevant finding as above Active Medications Apixaban (Eliquis) 2.5 mg PO BID [facility] Last Admin: 03/08/20 09:06 Dose: 2.5 mg Documented by: Cyanocobalamin (Vitamin B-12) 1,000 mcg IM DAILY [facility] Stop: 03/10/20 09:01 Last Admin: 03/08/20 09:07 Dose: 1,000 mcg Documented by: Digoxin (Lanoxin) 125 mcg PO DAILY [facility] Last Admin: 03/08/20 09:07 Dose: 125 mcg Documented by: Cefepime HCl 2 gm/ Sodium (Chloride) 100 mls @ 200 mls/hr IVPB Q12HR [facility] Last Admin: 03/08/20 09:06 Dose: 200 mls/hr Documented by: Norepinephrine Bitartrate 32 (mg/ Sodium Chloride) 250 mls @ 5.103 mls/hr IV .Q24H [facility]; Protocol Last Admin: 03/08/20 06:20 Dose: 0.06 mcg/kg/min, 2.551 mls/hr Documented by: Sodium Chloride (Saline 0.9%) 1,000 mls @ 100 mls/hr IV .Q10H [facility] Last Admin: 03/08/20 06:20 Dose: 100 mls/hr Documented by: Methylprednisolone Sodium Succinate (Solu-Medrol) 60 mg IV Q12HR [facility] Last Admin: 03/08/20 09:07 Dose: 60 mg Documented by: Metoprolol Tartrate (Lopressor) 25 mg PO BID [facility] Last Admin: 03/08/20 11:16 Dose: Not Given Documented by: Midodrine (Proamatine) 5 mg PO AC-BID [facility] Last Admin: 03/08/20 06:48 Dose: 5 mg Documented by: Miscellaneous Information (Pneumonia Protocol Utilized) 1 each PO ONCE PRN PRN Reason: Per Protocol Miscellaneous Information (Rx Info: Iv Contrast Was Given) 1 each MISCELLANE DAILY PRN PRN Reason: Per Protocol Stop: 03/09/20 15:45 Naloxone HCl (Narcan) 0.2 mg IV Q2M PRN PRN Reason: Opioid Reversal Pantoprazole Sodium (Protonix) 40 mg PO AC-BRKFST [facility] Last Admin: 03/08/20 06:48 Dose: 40 mg Documented by: On examination: VITAL SIGNS: 97.6, 96, 16, 96/61, 97% on room air GENERAL APPEARANCE: Laying in bed, appears less tired today. HEENT: Normal external appearance of nose and ear. Oral cavity normal EYES: Pupils equal. Conjunctiva pale NECK: JVD not raised. Mass not palpable. RESPIRATORY: Respiratory effort normal. Lungs decreased breath sounds CARDIOVASCULAR: Heart sounds irregular. No edema. ABDOMEN: Soft. Liver and spleen not palpable. No tenderness. No mass palpable. PSYCHIATRY: Alert and oriented x3. Mood and affect tired INVESTIGATIONS, reviewed in the clinical context: White count 40.8 hemoglobin 11.1 sodium 128 percussion 4.3 creatinine 1.22 Previous testing: White count 31.8 hemoglobin 10.5 platelets 79-sodium 129 percussion 4.7 creatinine 1.19 EKG tracing-atrial fibrillation with a rate of 120 Chest e-jlu-dpmnbfbpeyvy density Assessment -Hypovolemic shock continue with norepinephrine IV fluids-slow to respond -Generalized weakness probably secondary to atrial fibrillation as well as a other issues including chronic lymphocytic leukemia -Acute renal failure probably prerenal azotemia intravascular volume depletion -Persistent Atrial fibrillation,-uncontrolled on admission: -Chronic lymphocytic leukemia there is no evidence of transformation to acute leukemia. -Bicytopenia including thrombocytopenia and low hemoglobin etiology is not clear further workup as mentioned above oncology evaluated the patient. -Hypertension patient is presently hypotensive -Moderate pulmonary hypertension -History of CVA and TIA -Coagulopathy most presently secondary to Xarelto which is being held at this time -Hypothyroid -Metabolic acidosis -Secondary pulmonary hypertension Plan: ICU. On IV levo fed. Eat a little bit better today. On empirical antibiotics. Remains on IV Solu-Medrol. Slow improvement
--- NOTE | 2020-03-08 18:11 | PN ---
PROGRESS NOTE DATE OF SERVICE: 03/08/2020 REASON FOR FOLLOWUP: Possible pneumonia/infection. INTERVAL HISTORY: The patient is currently afebrile. The patient is breathing comfortably. He continues to have a cough which is moderate intensity but not bringing up any sputum. Denies having any chest pain. The patient is still requiring Levophed to support blood pressure. No vomiting or any diarrhea has been reported. Rather he did have 1 soft bowel movement today per the RN. PHYSICAL EXAMINATION: Blood pressure 90/58 with a pulse of 74, temperature 98. He is 97% on room air. General description is an elderly male lying in bed in no distress. No tachypnea or accessory muscle of respiration use. HEENT examination is slight pallor. No scleral icterus. Oral mucosa membranes dry. No pharyngeal erythema or thrush. Lungs unlabored breathing. Clear to auscultation anteriorly. Heart S1, S2. Regular rate and rhythm. ABDOMEN: Soft. No tenderness. EXTREMITIES: No edema of the feet. LABS: Hemoglobin 11.1, white count 14.8. BUN of 54, creatinine 1.22. Blood culture has been negative. Sputum is negative so far. DIAGNOSTIC IMPRESSION AND PLAN: Patient with presentation to hospital with hypertension and weakness, possible dehydration. Underlying infection not entirely excluded, as the patient did have elevated CRP and procalcitonin. The patient is currently covered with cefepime to continue while monitoring clinical course closely. Continue supportive care. MMODL / IJN: [id number] /
[2020-03-09 05:23] LABS: Anisocytosis Moderate; HCT 34.4 % (39.0-53.0); Hypochromasia Slight; MCH 31.6 pg (25.0-35.0); MCHC 31.8 g/dL (31.0-37.0); MCV 99.1 fL (80.0-100.0); Macrocytosis Moderate; Mean Platelet Volume 13.3; RBC 3.47 m/uL (4.30-5.90); RDW 21.4 % (11.5-15.5)
[2020-03-09 05:34] LABS: Albumin 1.9 g/dL (3.5-5.0); Calcium 7.5 mg/dL (8.4-10.2); Potassium 4.2 mmol/L (3.5-5.1); Total Bilirubin 2.5 mg/dL (0.2-1.3); Total Protein 4.4 g/dL (6.3-8.2)
[2020-03-09] MEDS: SODIUM CHLORIDE 0.9% 1,000 ML IV SCH ×2 (06:10→11:53)
[2020-03-09] MEDS: NOREPINEPHRINE 32 MG in SODIUM CHLORIDE 0.9% 218 ML IV SCH (06:15)
[2020-03-09 06:26] LABS: Polychromasia Present
[2020-03-09 06:47] LABS: Neutrophils % (M) 35 %; Nucleated Red Blood Cells 1 /100 WBC (0-0)
[2020-03-09 06:48] LABS: Lymphocytes # (M) 31.37 k/uL (1.0-4.8); Monocytes # (M) 1.49 k/uL (0-1.0); Neutrophils # (M) 17.43 k/uL (1.3-7.7); Platelet Count 77 k/uL (150-450); Total Cells Counted 200; WBC 49.8 k/uL (3.8-10.6)
[2020-03-09 06:49] LABS: Target Cells Present
[2020-03-09] MEDS: PANTOPRAZOLE 40 MG TABLET PO SCH (07:03)
[2020-03-09] MEDS: MIDODRINE 5 MG TAB PO SCH ×2 (07:03→18:27)
[2020-03-09] MEDS: CEFEPIME 2 GM in SODIUM CHLORIDE 0.9% 100 ML IVPB SCH ×2 (08:58→20:54)
[2020-03-09] MEDS: methylPREDNISolone SOD SUCCI 125 MG/2 ML VIAL IV SCH ×2 (08:59→20:55)
[2020-03-09] MEDS: CYANOCOBALAMIN 1,000 MCG/ML 1 ML VIAL IM SCH (10:00)
[2020-03-09] MEDS: DIGOXIN 125 MCG TAB PO SCH (10:01)
[2020-03-09] MEDS: METOPROLOL TARTRATE 25 MG TAB PO SCH ×2 (10:01→20:55)
[2020-03-09] MEDS: APIXABAN 2.5 MG TABLET PO SCH ×2 (10:01→20:55)
--- NOTE | 2020-03-09 11:37 | P.PN ---
Subjective Progress Note Date: 03/09/20 Principal diagnosis: Hypotension, exact etiology is unclear. This is a 79-year-old white male, known history of B-cell lymphoma, stage 0 disease, advised mostly observation. Known history of previous CVA in 2017, previous treatment with TPA. Patient is also known to have history of atrial fibrillation. And he was admitted to [facility] ICU the day before yesterday, patient presented initially to the ER at [facility] with hypotension, atrial fibrillation with RVR. I was notified about this patient, and I admitted him to the ICU. He was seen by Dr. Stroud and other consultants at [facility], and he was treated with antibiotics empirically, norepinephrine for his hypotension, fluid boluses were given at least 2-3 L were given to him initially when he presented to the ER. However early this morning around 3 AM, and for no good reason the ER at [facility] accepted the patient to be transferred from the ICU to the ER, patient was shortly evaluated, and transferred to the ICU at [facility]. The patient tells me that they transferred her mostly because his oncologist is on our staff, and the patient was requesting to be discharged. Although the patient is not receiving any treatment for his B-cell lymphoma. At any rate patient was admitted to the ICU, presently on norepinephrine at 0.07 mcg/kg/m, is also on IV fluid at 100 mL per hour. He is in atrial fibrillation with a rate of 102-110. He is on room air with O2 saturation 93%. Patient complains mostly of progressive fatigue and weakness. No fever no chills no hemoptysis no cough no wheezing, no nausea no vomiting no abdominal pain no melena no hematemesis is no dysuria and no diarrhea no frequency no urgency. Again the patient was placed on empiric antibiotics and he is being evaluated by cardiology for his atrial fibrillation. Off Cardizem at present. His past medical history is mostly significant for colon cancer, resected in 2007. His CT of the chest from [facility] showed no evidence of pneumonia, and the patient had no symptoms to suggest pneumonia. Reevaluated today on 03/06/20, patient remains in the ICU. Remains on norepinephrine at 0.12 mcg/kg/m, and I cut it down to 0.1. His IV fluid is at 100 mL/h, and I cut it down to 50 mL per hour. Patient remains in atrial fibrillation, rate seems to be fairly well controlled rate of 101. His oxygen saturation is 96% on room air. Chest x-ray and CT of the chest from [facility] showed mostly bilateral pleural effusions and bibasilar a telectasis. Sputum Gram stain is basically nondiagnostic. Culture is pending. Urinalysis is suspicious for urinary tract infection, however the patient had no symptoms, and culture of the urine is pending. Serum cortisol level today is 27. His BNP was noted to be elevated at 9330, hence I will give the patient 1 dose of Lasix, and I cut down his IV fluid to 50 mL per hour. WBC count today is 43.6 hemoglobin is 10.6. INR is down to 1.6. Patient continues to have hyponatremia which is likely hypovolemic in nature. Renal functioning is a bit worse today, and I'll see the patient developed acute kidney injury secondary to acute tubular necrosis secondary to hypotension. Clinically, the patient remains relatively asymptomatic. Patient was reevaluated today on 03/07/20, remains in the ICU, remains in atrial fibrillation but rate seems to be controlled. Patient is on room air. Sodium remains a bit low. Chest x-ray continues to show right paratracheal mass. Patient remains on norepinephrine at 0.05 mcg/kg/m he is afebrile, remains empirically on antibiotics. Reviewed the CT of the chest from [facility], and I'm not certain whether the patient will need a tissue diagnosis for his right paratracheal and subcarinal lymphadenopathy, if he does patient will need a bronchoscopy and li needle /transcarinal needle aspiration. However the oncologist on the case made no suggestion that they need a tissue diagnosis apparently the diagnosis was already made but I'm quite concerned considering the size of the adenopathy noted. This could be lymphoma could also be small cell lung carcinoma. Continues to have leukocytosis with WBC count of 54.1 hemoglobin is 11.4 and electrolytes were reviewed sodium remains 128 bicarb remains a bit low at 16 BUN is 54 creatinine is improving down to 1.27 Reevaluated today on 03/08/20, patient remains in the ICU, remains on norepinephrine at 0.06 mg/kg/m. Remains on IV fluid at 100 mL/h. He is doing quite well except for his hypotension requiring norepinephrine. Patient has no active symptoms whatsoever. Denies any headache no blurred vision no dizziness no cough no wheezing no shortness of breath no nausea no vomiting no abdominal pain no melena no hematemesis no dysuria and no frequency no urgency.his labs were all reviewed, and sodium remains a bit low at 128, renal profile is a bit better with BUN 54 creatinine is down to 1.22.patient was placed on midodrine yesterday, the patient remains relatively low, hence I will recommend a trial of Solu-Cortef 100 mg IV push 1. Although his serum cortisol level was 27 on admission.continues to have leukocytosis, WBC count is 40.8 Reevaluated today on 03/09/20, patient remains in the ICU, IV fluid is at 90 mL per hour. Remains on norepinephrine at 0.05 mcg/kg/m, remains on room air. Had occasional episodes of diarrhea. Patient is complaining of generalized weakness, otherwise he denies any cough no wheezing no shortness of breath no fever no chills no hemoptysis no chest pain no nausea no vomiting had occasional diarrhea since admission, patient overall is asymptomatic. Reviewed the notes from oncology, now they are recommending tissue diagnosis for his right paratracheal mass, and this could be easily done with bronchoscopy and li needle hopefully sometime next week. Patient is not a candidate for the procedure at this point specially with him being hypotensive requiring norepinephrine. Objective - Vital Signs Vital signs: Vital Signs Temp 95.9 F L 03/09/20 04:00 Pulse 87 03/09/20 07:00 Resp 13 03/09/20 07:00 BP 98/63 03/09/20 07:00 Pulse Ox 94 L 03/09/20 07:00 Intake & Output 03/08/20 03/09/20 03/09/20 18:59 06:59 18:59 Intake Total 7284.117 1033.746 506.916 Output Total 385 420 120 Balance 938.384 823.746 386.916 Weight 99.6 kg Intake: IV 1300 1200 500 Cefepime 2 gm In Sodium 100 100 Chloride 0.9% 100 ml @ 200 mls/hr IVPB Q12HR [facility] Rx#:[id number] Sodium Chloride 0.9% 1, 1200 1200 400 000 ml @ 100 mls/hr IV . Q10H [facility] Rx#:[id number] Intake, IV Titration 23.384 43.746 6.916 Amount Norepinephrine 32 mg In 23.384 43.746 6.916 Sodium Chloride 0.9% 218 ml @ 0.12 MCG/KG/MIN 5. 103 mls/hr IV .Q24H [facility] Rx#:[id number] Output: Urine 385 420 120 Other: Voiding Method Indwelling Catheter Indwelling Catheter Indwelling Catheter # Bowel Movements 1 2 - Exam Physical Exam: Revealed a 79-year-old white male in no distress. On room air. Head: Atraumatic, normocephalic. HEENT:[Neck is supple.] [No neck masses.] [No thyromegaly.] [No JVD.] PERRLA, EOMI, no icterus. Chest: [Clear throughout, no crackles, no rhonchi, no wheezes.] Cardiac Exam: Irregular irregular rhythm, no S3 gallop. 2/6 systolic murmur thought the precordium. Abdomen: [Soft, nontender, no megaly, no rebound, no guarding, normal bowel sounds.] Extremities: [No clubbing, trace of bipedal edema, no cyanosis.] Neurological Exam: [No focal neurologic deficit.] Alert and oriented 3. Psychiatric: Normal mood, affect and normal mental status examination. Musculoskeletal: No limitation in range of motion, muscle strength and adequate bilaterally. Lymphatics: No cervical adenopathy noted. - Labs CBC & Chem 7: 03/09/20 05:00 03/09/20 05:00 Labs: Abnormal Lab Results - Last 24 Hours (Table) 03/09/20 03/09/20 Range/Units 05:00 05:00 WBC 49.8 H (3.8-10.6) k/uL RBC 3.47 L (4.30-5.90) m/uL Hgb 11.0 L (13.0-17.5) gm/dL Hct 34.4 L (39.0-53.0) % RDW 21.4 H (11.5-15.5) % Plt Count 77 L (150-450) k/uL Neutrophils # (Manual) 17.43 H (1.3-7.7) k/uL Lymphocytes # (Manual) 31.37 H (1.0-4.8) k/uL Monocytes # (Manual) 1.49 H (0-1.0) k/uL Nucleated RBCs 1 H (0-0) /100 WBC Sodium 130 L (137-145) mmol/L Chloride 108 H (98-107) mmol/L Carbon Dioxide 14 L (22-30) mmol/L BUN 55 H (9-20) mg/dL Glucose 169 H (74-99) mg/dL Calcium 7.5 L (8.4-10.2) mg/dL Total Bilirubin 2.5 H (0.2-1.3) mg/dL Total Protein 4.4 L (6.3-8.2) g/dL Albumin 1.9 L (3.5-5.0) g/dL Microbiology - Last 24 Hours (Table) 03/05/20 03:31 Blood Culture - Preliminary Blood No Growth after 96 hours Assessment and Plan Assessment: Impression: Hypotension, most likely hypovolemic in nature, still requiring slow hydration, and requiring norepinephrine at 0.05 mcg/kg/m, did not respond to Solu-Cortef. Still on midodrine. Chronic atrial fibrillation with RVR. Presently rate seems to be controlled. Chronic lymphocytic leukemia, B-cell type, not active. Mediastinal and right paratracheal adenopathy patient may eventually require bronchoscopy and trans-carinal needle aspiration for tissue diagnosis. It is likely lymphoma, however small cell lung carcinoma is also in the differential. Bicytopenia, being addressed by oncology on the case. Coagulopathy, resolved. Hypovolemic hyponatremia, improving. Acute kidney injury secondary to hypotension, improving with hydration. Recommendation: Continue to monitor in the ICU. Until norepinephrine is discontinued. continue midodrine 5 mg by mouth twice a day. No need to give anymore Solu-Cortef. Different cultures so far are nondiagnostic.. Consider bronchoscopy and trans-carinal needle aspiration for his large paratracheal mass. However the patient is not a candidate for this procedure at this point specially with his hypotension Continue to monitor electrolytes and renal profile. not quite ready to be transferred out of the ICU as long as he remains on norepinephrine. We'll continue to follow. Time with Patient: Less than 30
--- NOTE | 2020-03-09 14:34 | P.PN ---
Progress Note - Text Progress Note Date: 03/09/20 History of Present Illness 71-year-old pleasant male who follows with Dr. Jessa campos, was transferred from [facility] after he was treated for atrial fibrillation with Cardizem was transferred here for evaluation by oncology. Admitted to intensive care unit because of hypotension patient appears to have hypovolemic shock patient started on levo fed. Cardizem was discontinued because of hypotension patient was started on digoxin and patient was also also started on low-dose metoprolol with fairly controlled heart rate. 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 There is a concern about transformation because of low hemoglobin, decreased platelet count and decreased white blood cell count. Although there is no blast cells in the peripheral smear Dr. Lacy evaluated the patient is a concern about GI bleed although patient doesn't have any blood in the stools or dark stools or hematemesis patient's INR is around 2 which is believed to be secondary to Xarelto, although DIC workup is being obtained as well. 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 Patient doesn't have elevated BNP although clinically not in heart failure exacerbation his BNP here is around 9000 his BNP at [facility] was around 7000. Patient doesn't have any JVD and crackles on exam. Patient's creatinine negative district is 1.3 and he rates 1.1 patient is presently receiving IV fluids because of hypovolemic shock is also on levo fed. Patient had normal ejection fraction. Patient's symptoms right now is a significant fatigue and generalized weakness. Patient denied any significant shortness of breath at this time Admitted with-hypotension likely hypovolemic, persistent atrial flutter with rapid ventricular rate, bicytopenia, acute kidney injury. Patient is started on levo fed. Empiric antibiotics. Infection felt to be less likely Today-ICU: Remains on levo fed drip. Remains tired. Did eat some food. Gentle hydration. On levo fed drip.. Review of systems: Was done for constitutional, cardiovascular, GI, pulmonary. relevant finding as above Active Medications Apixaban (Eliquis) 2.5 mg PO BID [facility] Last Admin: 03/09/20 10:01 Dose: 2.5 mg Documented by: Cyanocobalamin (Vitamin B-12) 1,000 mcg IM DAILY [facility] Stop: 03/10/20 09:01 Last Admin: 03/09/20 10:00 Dose: 1,000 mcg Documented by: Digoxin (Lanoxin) 125 mcg PO DAILY [facility] Last Admin: 03/09/20 10:01 Dose: 125 mcg Documented by: Cefepime HCl 2 gm/ Sodium (Chloride) 100 mls @ 200 mls/hr IVPB Q12HR [facility] Last Admin: 03/09/20 08:58 Dose: 200 mls/hr Documented by: Norepinephrine Bitartrate 32 (mg/ Sodium Chloride) 250 mls @ 5.103 mls/hr IV .Q24H [facility]; Protocol Last Titration: 03/09/20 11:53 Dose: 0.04 mcg/kg/min, 1.701 mls/hr Documented by: Sodium Chloride (Saline 0.9%) 1,000 mls @ 100 mls/hr IV .Q10H [facility] Last Admin: 03/09/20 11:53 Dose: 100 mls/hr Documented by: Methylprednisolone Sodium Succinate (Solu-Medrol) 60 mg IV Q12HR [facility] Last Admin: 03/09/20 08:59 Dose: 60 mg Documented by: Metoprolol Tartrate (Lopressor) 25 mg PO BID [facility] Last Admin: 03/09/20 10:01 Dose: 25 mg Documented by: Midodrine (Proamatine) 5 mg PO AC-BID [facility] Last Admin: 03/09/20 07:03 Dose: 5 mg Documented by: Miscellaneous Information (Pneumonia Protocol Utilized) 1 each PO ONCE PRN PRN Reason: Per Protocol Miscellaneous Information (Rx Info: Iv Contrast Was Given) 1 each MISCELLANE DAILY PRN PRN Reason: Per Protocol Stop: 03/09/20 15:45 Naloxone HCl (Narcan) 0.2 mg IV Q2M PRN PRN Reason: Opioid Reversal Pantoprazole Sodium (Protonix) 40 mg PO AC-BRKFST [facility] Last Admin: 03/09/20 07:03 Dose: 40 mg Documented by: On examination: VITAL SIGNS: 96.4, 78, 18, 108/57, 92% room air GENERAL APPEARANCE: Propped up in bed, awake tired HEENT: Normal external appearance of nose and ear. Oral cavity normal EYES: Pupils equal. Conjunctiva pale NECK: JVD not raised. Mass not palpable. RESPIRATORY: Respiratory effort normal. Lungs decreased breath sounds CARDIOVASCULAR: Heart sounds irregular. No edema. ABDOMEN: Soft. Liver and spleen not palpable. No tenderness. No mass palpable. PSYCHIATRY: Alert and oriented x3. Mood and affect tired INVESTIGATIONS, reviewed in the clinical context: White count 49.8 hemoglobin 11 potassium 4.2 creatinine 1.21 Previous testing: White count 31.8 hemoglobin 10.5 platelets 79-sodium 129 potassium 4.7 creatinine 1.19 EKG tracing-atrial fibrillation with a rate of 120 Chest t-poc-ntkmegjssaya density Assessment -Hypovolemic shock continue with norepinephrine IV fluids-slow to respond -Generalized weakness probably secondary to atrial fibrillation as well as a other issues including chronic lymphocytic leukemia -Acute renal failure probably prerenal azotemia intravascular volume depletion -Persistent Atrial fibrillation,-uncontrolled on admission: -PTSD and right paratracheal adenopathy for further workup -Chronic lymphocytic leukemia there is no evidence of transformation to acute leukemia. -Bicytopenia including thrombocytopenia and low hemoglobin etiology is not clear further workup as mentioned above oncology evaluated the patient. -Hypertension patient is presently hypotensive -Moderate pulmonary hypertension -History of CVA and TIA -Coagulopathy most presently secondary to Xarelto initially held, now changed over to eliquis -Hypothyroid -Metabolic acidosis -Secondary pulmonary hypertension Plan: ICU. Continue IV levo fed. Continue IV fluids Eat a little bit better today. On empirical antibiotics. Remains on IV Solu-Medrol.-Discussed with jovany from oncology. See if dose of Solu-Medrol can be cut back
--- NOTE | 2020-03-09 18:11 | P.PN ---
Subjective Progress Note Date: 03/09/20 Principal diagnosis: Thrombocytopenia, Afib, Anemia Diarrhea today, increased gas and flat affect, son daniel is concerned about his mental state as far as depression while being there alone. I did review ICU pulmonology note and the plan for bronchoscopy within the next week if patient stabilized in regards to holding blood pressure without intervention. His platelets are holding stable, Did discuss patient with Dr. Bradley today as well. Appetite is poor Objective - Vital Signs Vital signs: Vital Signs Temp 96.3 F L 03/09/20 16:00 Pulse 81 03/09/20 16:00 Resp 14 03/09/20 16:00 BP 84/53 03/09/20 16:00 Pulse Ox 93 L 03/09/20 16:00 Intake & Output 03/08/20 03/09/20 03/09/20 18:59 06:59 18:59 Intake Total 9947.147 6696.746 1115.860 Output Total 385 420 325 Balance 938.384 823.746 790.860 Weight 99.6 kg 99.6 kg Intake: IV 1300 1200 1100 Cefepime 2 gm In Sodium 100 100 Chloride 0.9% 100 ml @ 200 mls/hr IVPB Q12HR [facility] Rx#:[id number] Sodium Chloride 0.9% 1, 1200 1200 1000 000 ml @ 100 mls/hr IV . Q10H [facility] Rx#:[id number] Intake, IV Titration 23.384 43.746 15.860 Amount Norepinephrine 32 mg In 23.384 43.746 15.860 Sodium Chloride 0.9% 218 ml @ 0.12 MCG/KG/MIN 5. 103 mls/hr IV .Q24H [facility] Rx#:[id number] Output: Urine 385 420 325 Other: Voiding Method Indwelling Catheter Indwelling Catheter Indwelling Catheter # Bowel Movements 1 2 - Exam Telemed exam - Constitutional cooperative, sounding sleepy, sad no distress generalized weakness, strength equal bilaterally - Psychiatric Psychiatric: Present: A&O x's 3, appropriate affect, intact judgment & insight - Labs CBC & Chem 7: 03/09/20 05:00 03/09/20 05:00 Labs: Abnormal Lab Results - Last 24 Hours (Table) 03/09/20 03/09/20 Range/Units 05:00 05:00 WBC 49.8 H (3.8-10.6) k/uL RBC 3.47 L (4.30-5.90) m/uL Hgb 11.0 L (13.0-17.5) gm/dL Hct 34.4 L (39.0-53.0) % RDW 21.4 H (11.5-15.5) % Plt Count 77 L (150-450) k/uL Neutrophils # (Manual) 17.43 H (1.3-7.7) k/uL Lymphocytes # (Manual) 31.37 H (1.0-4.8) k/uL Monocytes # (Manual) 1.49 H (0-1.0) k/uL Nucleated RBCs 1 H (0-0) /100 WBC Sodium 130 L (137-145) mmol/L Chloride 108 H (98-107) mmol/L Carbon Dioxide 14 L (22-30) mmol/L BUN 55 H (9-20) mg/dL Glucose 169 H (74-99) mg/dL Calcium 7.5 L (8.4-10.2) mg/dL Total Bilirubin 2.5 H (0.2-1.3) mg/dL Total Protein 4.4 L (6.3-8.2) g/dL Albumin 1.9 L (3.5-5.0) g/dL Microbiology - Last 24 Hours (Table) 03/05/20 03:31 Blood Culture - Preliminary Blood No Growth after 96 hours Assessment and Plan Plan: Thrombocytopenia: - Platelets have decreased again today to 77K, 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 - Hold Xarelto or other AC therapy if platelets drop below 50K - Daily CBC - No DIC at this time, continue to monitor Coags if any bleeding or worsening of Platelets - Transfuse to keep platelets greater than 10,000 unless bleeding is noted. - Continue Steroids, platelets are still in safe range. Will convert to PO depending on trend of CBC Normocytic Anemia: - Todays Hemoglobin is stable no transfusion needed at this time Hemolytic Anemia - B12 deficiency component and B12 is being supplemented - No obvious iron deficiency noted - Transfuse to keep hemoglobin 7 or higher. - Last colonoscopy was 5-6 years ago, patient is never had upper endoscopy. Abnormal Right Paratrachial Fullness: - Will assess further with CT Scan of Thorax - Awiting for this to be completed - Per son patient has had cough since November, underlying malignancy cannot be ruled out - Will need tissue biopsy, defer to pulmonology on approach, please send for flow CLL (chronic lymphocytic leukemia) - CBC in the office 12/17 reviewed and compared to current picture - WBC and absolute lymphocyte count increased, secondary to acute illness. - This will continue to be monitored. No acute intervention for CLL. Coagulopathy - Elevated coags secondary to Xarelto. - Coags significantly decreased with just holding a few doses. - Patient has been resumed on his anticoagulation due to atrial fibrillation. - He is hemoglobin will be closely monitored while inpatient - Ensure Platelet count remains above 50K to anticoagulate Atrial fibrillation with rapid ventricular response Pt is on anticoagulation for the same. Cardiology managing arrhythmia and hypotension Hyponatremia Diarrhea: - Check stool studies - Add questran Decreased PO Intake - Low dose marinol to increase appetite and help mood Increased Bilirubin Acute Kidney Injury: Improved HX: Early Stage Colon Cancer PLan: - If diarrhea continues, stool sample, maybe add questran - Marinol to increase appetite - CT Thorax ordered to further assess, although noted cancelled. Possibily awaiting patient to stabilize and complete closer to bronch, defer re-order to pulmonology - If bronch is completed tissue biopsy will need to be sent for flow cytometry please - Steroids for ITP and Hemolysis - Discussed with Son Daniel (son) in detail all questioned answered. Due to the current epidemic with COVID 19, patient did verbally consent to telemed visit. discussion with patient, son, review of labs, medications, and p ertinent orders placed. Greater than 28 minutes spent during telemedicine visit.
[2020-03-09] MEDS: DRONABINOL 2.5 MG CAP PO SCH (18:27)
--- NOTE | 2020-03-09 22:07 | PN ---
PROGRESS NOTE DATE OF SERVICE: 03/09/2020 REASON FOR FOLLOWUP: Possible pneumonia. INTERVAL HISTORY: The patient is currently afebrile. Still complaining of not feeling that good, feeling weak and tired. No chest pain. Minimal cough. No nausea, vomiting, abdominal pain. Has been complaining of swelling in his lower extremities. PHYSICAL EXAMINATION: Blood pressure is 98/63 with a pulse of 72, temperature 98. He is 92% on room air. General description is an elderly male lying in bed in no distress. Respiratory system: Unlabored breathing, decreased breath sounds at the base. No wheeze. Heart: S1, S2. Regular rate and rhythm. Abdomen soft, no tenderness. Extremities: 2+ edema of the feet. LABS: Hemoglobin is 11, white count 49.8 with a BUN of 55, creatinine 1.1. Blood culture has been negative. Sputum negative so far. DIAGNOSTIC IMPRESSION AND PLAN: Patient admitted to the hospital with significant hypertension and this patient did have elevated inflammatory markers with concern for possible pneumonia. Has no other obvious focus of infection. Patient is currently treated with cefepime to continue and monitor clinical course closely. MMODL / IJN: [id number] /
[2020-03-10] MEDS: SODIUM CHLORIDE 0.9% 1,000 ML IV SCH ×3 (03:09→17:16)
[2020-03-10 05:11] LABS: Anisocytosis Moderate; HCT 33.8 % (39.0-53.0); HGB 10.8 gm/dL (13.0-17.5); Hypochromasia Moderate; MCH 32.5 pg (25.0-35.0); MCHC 32.1 g/dL (31.0-37.0); MCV 101.5 fL (80.0-100.0); Macrocytosis Moderate; Mean Platelet Volume 12.6; RBC 3.33 m/uL (4.30-5.90); RDW 21.2 % (11.5-15.5); WBC 48.6 k/uL (3.8-10.6)
[2020-03-10 05:14] LABS: Platelet Count 60 k/uL (150-450)
[2020-03-10 05:23] LABS: Calcium 7.6 mg/dL (8.4-10.2); Potassium 4.3 mmol/L (3.5-5.1)
[2020-03-10] MEDS: PANTOPRAZOLE 40 MG TABLET PO SCH (06:52)
[2020-03-10] MEDS: MIDODRINE 5 MG TAB PO SCH ×3 (06:52→17:15)
[2020-03-10] MEDS: DRONABINOL 2.5 MG CAP PO SCH ×2 (06:52→17:15)
--- NOTE | 2020-03-10 07:28 | XR ---
EXAMINATION TYPE: XR chest 1V portable DATE OF EXAM: 03/10/2020 HISTORY: Shortness of breath. COMPARISON: None. TECHNIQUE: Single view of the chest is submitted. FINDINGS: Demonstrated are scattered senescent parenchymal change. Right IJ central venous line noted. Small bilateral pleural effusions. Pulmonary venous congestion is improved. Basilar atelectasis or infiltrates seen. The heart is stable. Stable right paratracheal soft tissue density may reflect underlying adenopathy. Degenerative changes are seen of the dorsal spine. IMPRESSION: 1. Small bilateral pleural effusions. Pulmonary venous congestion is improved. Basilar atelectasis o r infiltrates seen.
[2020-03-10] MEDS: NOREPINEPHRINE 32 MG in SODIUM CHLORIDE 0.9% 218 ML IV SCH (09:13)
[2020-03-10] MEDS: METOPROLOL TARTRATE 25 MG TAB PO SCH ×2 (09:14→20:15)
[2020-03-10] MEDS: LEVOTHYROXINE 100 MCG TAB PO SCH (09:14)
[2020-03-10] MEDS: DIGOXIN 125 MCG TAB PO SCH (09:14)
[2020-03-10] MEDS: APIXABAN 2.5 MG TABLET PO SCH ×2 (09:15→20:15)
[2020-03-10] MEDS: methylPREDNISolone SOD SUCCI 125 MG/2 ML VIAL IV SCH ×2 (09:15→20:15)
[2020-03-10] MEDS: CEFEPIME 2 GM in SODIUM CHLORIDE 0.9% 100 ML IVPB SCH ×2 (09:15→20:15)
[2020-03-10] MEDS: CYANOCOBALAMIN 1,000 MCG/ML 1 ML VIAL IM SCH (09:16)
--- NOTE | 2020-03-10 12:37 | P.PN ---
Subjective Progress Note Date: 03/10/20 Principal diagnosis: Hypotension of unclear etiology This is a 79-year-old white male, known history of B-cell lymphoma, stage 0 disease, advised mostly observation. Known history of previous CVA in 2017, previous treatment with TPA. Patient is also known to have history of atrial fibrillation. And he was admitted to [facility] ICU the day before yesterday, patient presented initially to the ER at [facility] with hypotension, atrial fibrillation with RVR. I was notified about this patient, and I admitted him to the ICU. He was seen by Dr. Stroud and other consultants at [facility], and he was treated with antibiotics empirically, norepinephrine for his hypotension, fluid boluses were given at least 2-3 L were given to him initially when he presented to the ER. However early this morning around 3 AM, and for no good reason the ER at [facility] accepted the patient to be transferred from the ICU to the ER, patient was shortly evaluated, and transferred to the ICU at [facility]. The patient tells me that they transferred her mostly because his oncologist is on our staff, and the patient was requesting to be discharged. Although the patient is not receiving any treatment for his B-cell lymphoma. At any rate patient was admitted to the ICU, presently on norepinephrine at 0.07 mcg/kg/m, is also on IV fluid at 100 mL per hour. He is in atrial fibrillation with a rate of 102-110. He is on room air with O2 saturation 93%. Patient complains mostly of progressive fatigue and weakness. No fever no chills no hemoptysis no cough no wheezing, no nausea no vomiting no abdominal pain no melena no hematemesis is no dysuria and no diarrhea no frequency no urgency. Again the patient was placed on empiric antibiotics and he is being evaluated by cardiology for his atrial fibrillation. Off Cardizem at present. His past medical history is mostly significant for colon cancer, resected in 2007. His CT of the chest from [facility] showed no evidence of pneumonia, and the patient had no symptoms to suggest pneumonia. Reevaluated today on 03/06/20, patient remains in the ICU. Remains on norepinephrine at 0.12 mcg/kg/m, and I cut it down to 0.1. His IV fluid is at 100 mL/h, and I cut it down to 50 mL per hour. Patient remains in atrial fibrillation, rate seems to be fairly well controlled rate of 101. His oxygen saturation is 96% on room air. Chest x-ray and CT of the chest from [facility] showed mostly bilateral pleural effusions and bibasilar atelectasis. Sputum Gram stain is basically nondiagnostic. Culture is pending. Urinalysis is suspicious for urinary tract infection, however the patient had no symptoms, and culture of the urine is pending. Serum cortisol level today is 27. His BNP was noted to be elevated at 9330, hence I will give the patient 1 dose of Lasix, and I cut down his IV fluid to 50 mL per hour. WBC count today is 43.6 hemoglobin is 10.6. INR is down to 1.6. Patient continues to have hyponatremia which is likely hypovolemic in nature. Renal functioning is a bit worse today, and I'll see the patient developed acute kidney injury secondary to acute tubular necrosis secondary to hypotension. Clinically, the patient remains relatively asymptomatic. Patient was reevaluated today on 03/07/20, remains in the ICU, remains in atrial fibrillation but rate seems to be controlled. Patient is on room air. Sodium remains a bit low. Chest x-ray continues to show right paratracheal mass. Patient remains on norepinephrine at 0.05 mcg/kg/m he is afebrile, remains empirically on antibiotics. Reviewed the CT of the chest from [facility], and I'm not certain whether the patient will need a tissue diagnosis for his right paratracheal and subcarinal lymphadenopathy, if he does patient will need a bronchoscopy and li needle /transcarinal needle aspiration. However the oncologist on the case made no suggestion that they need a tissue diagnosis apparently the diagnosis was already made but I'm quite concerned considering the size of the adenopathy noted. This could be lymphoma could also be small cell lung carcinoma. Continues to have leukocytosis with WBC count of 54.1 hemoglobin is 11.4 and electrolytes were reviewed sodium remains 128 bicarb remains a bit low at 16 BUN is 54 creatinine is improving down to 1.27 Reevaluated today on 03/08/20, patient remains in the ICU, remains on norepin ephrine at 0.06 mg/kg/m. Remains on IV fluid at 100 mL/h. He is doing quite well except for his hypotension requiring norepinephrine. Patient has no active symptoms whatsoever. Denies any headache no blurred vision no dizziness no cough no wheezing no shortness of breath no nausea no vomiting no abdominal pain no melena no hematemesis no dysuria and no frequency no urgency.his labs were all reviewed, and sodium remains a bit low at 128, renal profile is a bit better with BUN 54 creatinine is down to 1.22.patient was placed on midodrine yesterday, the patient remains relatively low, hence I will recommend a trial of Solu-Cortef 100 mg IV push 1. Although his serum cortisol level was 27 on admission.continues to have leukocytosis, WBC count is 40.8 Reevaluated today on 03/09/20, patient remains in the ICU, IV fluid is at 90 mL per hour. Remains on norepinephrine at 0.05 mcg/kg/m, remains on room air. Had occasional episodes of diarrhea. Patient is complaining of generalized weak ness, otherwise he denies any cough no wheezing no shortness of breath no fever no chills no hemoptysis no chest pain no nausea no vomiting had occasional diarrhea since admission, patient overall is asymptomatic. Reviewed the notes from oncology, now they are recommending tissue diagnosis for his right paratracheal mass, and this could be easily done with bronchoscopy and li needle hopefully sometime next week. Patient is not a candidate for the procedure at this point specially with him being hypotensive requiring norepinephrine. The patient is seen today 03/10/2020 in follow-up in the intensive care unit. He is currently awake and alert in no acute distress. Sitting up in bed. He is maintaining O2 saturations in the 90s on room air. He has a 0.9 normal saline at 100 ML's per hour. He is still requiring norepinephrine at 3 mcg/m. Chest x-ray reveals small bilateral pleural effusions. Pulmonary venous congestion is improved. Some basilar atelectasis. Blood cultures revealed no growth. Sputum cultures reveal no growth. White count 48.6. Hemoglobin 10.8. Platelets 60 ,000. Sodium 1:30. Potassium 4.3. Creatinine 1.4. TSH 0.625. Cortisol 20. C. diff screen was negative. Objective - Vital Signs Vital signs: Vital Signs Temp 96.2 F L 03/10/20 12:00 Pulse 89 03/10/20 12:00 Resp 18 03/10/20 12:00 BP 99/64 03/10/20 12:00 Pulse Ox 93 L 03/10/20 12:00 Intake & Output 03/09/20 03/10/20 03/10/20 18:59 06:59 18:59 Intake Total 1768.371 6017.925 712.781 Output Total 415 385 215 Balance 1538.864 5312.925 497.781 Weight 99.6 kg 103.3 kg Intake: IV 1400 1200 700 Cefepime 2 gm In Sodium 100 100 100 Chloride 0.9% 100 ml @ 200 mls/hr IVPB Q12HR [facility] Rx#:[id number] Sodium Chloride 0.9% 1, 1300 1100 600 000 ml @ 100 mls/hr IV . Q10H [facility] Rx#:[id number] Intake, IV Titration 15.860 16.925 12.781 Amount Norepinephrine 32 mg In 15.860 16.925 12.781 Sodium Chloride 0.9% 218 ml @ 0.12 MCG/KG/MIN 5. 103 mls/hr IV .Q24H [facility] Rx#:[id number] Oral 200 Output: Urine 415 385 215 Other: Voiding Method Indwelling Catheter Indwelling Catheter Indwelling Catheter # Bowel Movements 2 - Exam GENERAL EXAM: Alert, pleasant 79-year-old gentleman, comfortable in no apparent distress. On room air HEAD: Normocephalic. EYES: Normal reaction of pupils, equal size. NOSE: Clear with pink turbinates. THROAT: No erythema or exudates. NECK: No masses, no JVD. CHEST: No chest wall deformity. LUNGS: Equal air entry with crackles in the bilateral posterior bases CVS: S1 and S2 normal with an audible murmur, irregular rhythm. ABDOMEN: No hepatosplenomegaly, normal bowel sounds, no guarding or rigidity. SPINE: No scoliosis or deformity SKIN: No rashes CENTRAL NERVOUS SYSTEM: No focal deficits, tone is normal in all 4 extremities. EXTREMITIES: There is no peripheral edema. No clubbing, no cyanosis. Peripheral pulses are intact. - Labs CBC & Chem 7: 03/10/20 04:39 03/10/20 04:39 Labs: Abnormal Lab Results - Last 24 Hours (Table) 03/06/20 03/10/20 03/10/20 Range/Units 04:19 04:39 04:39 WBC 48.6 H (3.8-10.6) k/uL RBC 3.33 L (4.30-5.90) m/uL Hgb 10.8 L (13.0-17.5) gm/dL Hct 33.8 L (39.0-53.0) % MCV 101.5 H (80.0-100.0) fL RDW 21.2 H (11.5-15.5) % Plt Count 60 L (150-450) k/uL Sodium 130 L (137-145) mmol/L Chloride 109 H (98-107) mmol/L Carbon Dioxide 11 L (22-30) mmol/L BUN 55 H (9-20) mg/dL Glucose 158 H (74-99) mg/dL Calcium 7.6 L (8.4-10.2) mg/dL RBC Folate 1,089 H (280 - 791) ng/mL Microbiology - Last 24 Hours (Table) 03/05/20 03:31 Blood Culture - Preliminary Blood No Growth after 120 hours Assessment and Plan Assessment: 1 Hypotension, most likely hypovolemic in nature, still requiring slow hydration, and requiring norepinephrine at 0.03 mcg/kg/m, did not respond to Solu-Cortef. Still on midodrine. 2 Chronic atrial fibrillation with RVR. Presently rate seems to be controlled. 3 Chronic lymphocytic leukemia, B-cell type, not active. 4 Mediastinal and right paratracheal adenopathy patient may eventually require bronchoscopy and trans-carinal needle aspiration for tissue diagnosis. It is likely lymphoma, however small cell lung carcinoma is also in the differential. 5 Bicytopenia, being addressed by oncology on the case. 6 Coagulopathy, resolved. 7 Hypovolemic hyponatremia, improving. 8 Acute kidney injury secondary to hypotension, improving with hydration. Plan: The patient was seen and evaluated by Dr. Ford Chest x-ray and labs reviewed Check TSH and Cortef levels Resume Synthroid Increase minute drain to 10 mg 3 times a day Wean off norepinephrine if tolerated Continue IV Solu-Medrol Eventual bronchoscopy with Li needle aspirate of a large paratracheal mass once stable We'll continue to follow Critical care time 32 minutes I, the cosigning physician, performed a history & physical examination of the patient. Lungs sounds with crackles in the bilateral posterior bases. M aintaining good O2 saturations in the 90s on room air. I discussed the assessment and plan of care with my nurse practitioner, Meena Benito. I attest to the above note as dictated by her.
[2020-03-10 16:41] LABS: Glucose,Whole Blood 150 mg/dL (75-99)
--- NOTE | 2020-03-10 16:49 | P.PN ---
Subjective Progress Note Date: 03/10/20 Principal diagnosis: difficulty in breathing in follow-up today patient states he sat in the chair earlier, he notes very easily tiring out, he is SOB with minimal exertion, very swollen feet, his fingertips are cold and blue, he states this is not new. No nausea, chest pain or bleeding reported Objective - Vital Signs Vital signs: Vital Signs Temp 96.2 F L 03/10/20 12:00 Pulse 75 03/10/20 15:00 Resp 19 03/10/20 15:00 BP 109/74 03/10/20 15:00 Pulse Ox 92 L 03/10/20 15:00 Intake & Output 03/09/20 03/10/20 03/10/20 18:59 06:59 18:59 Intake Total 3132.578 4320.925 1012.781 Output Total 415 385 305 Balance 3458.633 6528.925 707.781 Weight 99.6 kg 103.3 kg Intake: IV 1400 1200 1000 Cefepime 2 gm In Sodium 100 100 100 Chloride 0.9% 100 ml @ 200 mls/hr IVPB Q12HR [facility] Rx#:[id number] Sodium Chloride 0.9% 1, 1300 1100 900 000 ml @ 100 mls/hr IV . Q10H [facility] Rx#:[id number] Intake, IV Titration 15.860 16.925 12.781 Amount Norepinephrine 32 mg In 15.860 16.925 12.781 Sodium Chloride 0.9% 218 ml @ 0.12 MCG/KG/MIN 5. 103 mls/hr IV .Q24H [facility] Rx#:[id number] Oral 200 Output: Urine 415 385 305 Other: Voiding Method Indwelling Catheter Indwelling Catheter Indwelling Catheter # Bowel Movements 2 - Constitutional General appearance: Present: average body habitus, cooperative, no acute distress - EENT Eyes: Present: anicteric sclerae, EOMI ENT: Present: hearing grossly normal - Respiratory Respiratory: bilateral: diminished (weak respiratory effort) - Cardiovascular Rhythm: irregularly irregular Heart sounds: normal: S1, S2 - Peripheral edema leg Peripheral Edema: bilateral: 3+, Pitting (feet) - Gastrointestinal General gastrointestinal: Present: normal bowel sounds, soft - Neurologic Neurologic: Present: CNII-XII intact - Musculoskeletal Musculoskeletal: Present: generalized weakness - Psychiatric Psychiatric: Present: A&O x's 3, appropriate affect, intact judgment & insight - Labs CBC & Chem 7: 03/10/20 04:39 03/10/20 04:39 Labs: Abnormal Lab Results - Last 24 Hours (Table) 03/06/20 03/10/20 03/10/20 Range/Units 04:19 04:39 04:39 WBC 48.6 H (3.8-10.6) k/uL RBC 3.33 L (4.30-5.90) m/uL Hgb 10.8 L (13.0-17.5) gm/dL Hct 33.8 L (39.0-53.0) % MCV 101.5 H (80.0-100.0) fL RDW 21.2 H (11.5-15.5) % Plt Count 60 L (150-450) k/uL Sodium 130 L (137-145) mmol/L Chloride 109 H (98-107) mmol/L Carbon Dioxide 11 L (22-30) mmol/L BUN 55 H (9-20) mg/dL Glucose 158 H (74-99) mg/dL Calcium 7.6 L (8.4-10.2) mg/dL RBC Folate 1,089 H (280 - 791) ng/mL Microbiology - Last 24 Hours (Table) 03/05/20 03:31 Blood Culture - Preliminary Blood No Growth after 120 hours - Imaging and Cardiology Chest x-ray: report reviewed Assessment and Plan (1) Bicytopenia Narrative/Plan: There are acute changes in hemoglobin and platelet count on admit, both hemoglobin and platelets have been within normal limits on routine labs in office, last draw was 12/17. Today hemoglobin is stable. No transfusions at this time. There was evidence suggestive of some hemolysis, may be secondary to transfusion Platelets slightly lower today. Steroids started yesterday for suspicion of ITP. CBC monitoring while inpatient. B12 deficiency. B12 supplemented. This will be continued outpatient. . Transfuse to keep hemoglobin 7 or higher. Transfuse to keep platelets greater than 10,000 unless bleeding is noted. Last colonoscopy was 5-6 years ago, patient is never had upper endoscopy. He does have a history of an early stage colon cancer. Based on this history, follow-up colonoscopy is going to be recommended once stable. Paratracheal soft tissue mass. CT was ordered to look at the mass but it was not done-due to hypotension? We were never contacted about the imaging being cancelled so, unsure why. From note review there is a plan for biopsy once pt stable. Current Visit: Yes Status: Acute Priority: High Code(s): D75.89 - OTHER SPECIFIED DISEASES OF BLOOD AND BLOOD-FORMING ORGANS SNOMED Code(s): 62119865 (2) CLL (chronic lymphocytic leukemia) Narrative/Plan: CBC in the office 12/17 reviewed. WBC and absolute lymphocyte count increased, secondary to acute illness. Stable as of today. This will continue to be monitored. No acute intervention for CLL. Current Visit: Yes Status: Chronic Priority: Medium Code(s): C91.10 - CHRONIC LYMPHOCYTIC LEUK OF B-CELL TYPE NOT ACHIEVE REMIS SNOMED Code(s): 88325328 (3) Coagulopathy Narrative/Plan: Elevated coags secondary to Xarelto. Coags significantly decreased with just holding a few doses. Patient has been resumed on his anticoagulation due to atrial fibrillation-Cardiology placed pt on low dose eliquis. He is hemoglobin will be closely monitored while inpatient Current Visit: Yes Status: Acute Priority: High Code(s): D68.9 - COAGULATION DEFECT, UNSPECIFIED SNOMED Code(s): 70074731 (4) Atrial fibrillation with rapid ventricular response Narrative/Plan: Pt is on anticoagulation for the same. Cardiology managing arrhythmia and hypotension Current Visit: Yes Status: Acute Priority: High Code(s): I48.91 - UNSPECIFIED ATRIAL FIBRILLATION SNOMED Code(s): 371830190397347
--- NOTE | 2020-03-10 18:06 | P.PN ---
Progress Note - Text Progress Note Date: 03/10/20 History of Present Illness 71-year-old pleasant male who follows with Dr. Jessa campos, was transferred from [facility] after he was treated for atrial fibrillation with Cardizem was transferred here for evaluation by oncology. Admitted to intensive care unit because of hypotension patient appears to have hypovolemic shock patient started on levo fed. Cardizem was discontinued because of hypotension patient was started on digoxin and patient was also also started on low-dose metoprolol with fairly controlled heart rate. 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 There is a concern about transformation because of low hemoglobin, decreased platelet count and decreased white blood cell count. Although there is no blast cells in the peripheral smear Dr. Lacy evaluated the patient is a concern about GI bleed although patient doesn't have any blood in the stools or dark stools or hematemesis patient's INR is around 2 which is believed to be secondary to Xarelto, although DIC workup is being obtained as well. Patient is quite a bit weak there is a concern about the chest x-ray findings of right lower lobe infiltrate-executive administrator do not believe patient has any pneumonia patient doesn't having any symptoms of pneumonia patient denied any cough doesn't have any fever chills. Patient doesn't have elevated BNP although clinically not in heart failure exacerbation his BNP here is around 9000 his BNP at [facility] was around 7000. Patient doesn't have any JVD and crackles on exam. Patient's creatinine negative district is 1.3 and he rates 1.1 patient is presently receiving IV fluids because of hypovolemic shock is also on levo fed. Patient had normal ejection fraction. Patient's symptoms right now is a significant fatigue and generalized weakness. Patient denied any significant shortness of breath at this time Admitted with-hypotension likely hypovolemic, persistent atrial flutter with rapid ventricular rate, bicytopenia, acute kidney injury. Patient is started on levo fed. Empiric antibiotics. Infection felt to be less likely Today-ICU: Remains on levo fed drip. Less tired. Eating better. Getting gently hydrated. Heart rate better controlled Review of systems: Was done for constitutional, cardiovascular, GI, pulmonary. relevant finding as above Active Medications Apixaban (Eliquis) 2.5 mg PO BID [facility] Last Admin: 03/10/20 09:15 Dose: 2.5 mg Documented by: Digoxin (Lanoxin) 125 mcg PO DAILY [facility] Last Admin: 03/10/20 09:14 Dose: 125 mcg Documented by: Dronabinol (Marinol) 2.5 mg PO AC-BID [facility] Last Admin: 03/10/20 17:15 Dose: 2.5 mg Documented by: Cefepime HCl 2 gm/ Sodium (Chloride) 100 mls @ 200 mls/hr IVPB Q12HR [facility] Last Admin: 03/10/20 09:15 Dose: 200 mls/hr Documented by: Norepinephrine Bitartrate 32 (mg/ Sodium Chloride) 250 mls @ 5.103 mls/hr IV .Q24H [facility]; Protocol Last Titration: 03/10/20 11:01 Dose: 0.02 mcg/kg/min, 0.851 mls/hr Documented by: Sodium Chloride (Saline 0.9%) 1,000 mls @ 100 mls/hr IV .Q10H [facility] Last Admin: 03/10/20 17:16 Dose: 100 mls/hr Documented by: Levothyroxine Sodium (Synthroid) 100 mcg PO DAILY@0630 [facility] Last Admin: 03/10/20 09:14 Dose: 100 mcg Documented by: Methylprednisolone Sodium Succinate (Solu-Medrol) 60 mg IV Q12HR [facility] Last Admin: 03/10/20 09:15 Dose: 60 mg Documented by: Metoprolol Tartrate (Lopressor) 25 mg PO BID [facility] Last Admin: 03/10/20 09:14 Dose: 25 mg Documented by: Midodrine (Proamatine) 10 mg PO AC-TID [facility] Last Admin: 03/10/20 17:15 Dose: 10 mg Documented by: Miscellaneous Information (Pneumonia Protocol Utilized) 1 each PO ONCE PRN PRN Reason: Per Protocol Naloxone HCl (Narcan) 0.2 mg IV Q2M PRN PRN Reason: Opioid Reversal Pantoprazole Sodium (Protonix) 40 mg PO AC-BRKFST [facility] Last Admin: 03/10/20 06:52 Dose: 40 mg Documented by: On examination: VITAL SIGNS: 96.2, 89, 18, 99/64, 93% on room air GENERAL APPEARANCE: Propped up in bed, appears better HEENT: Normal external appearance of nose and ear. Oral cavity normal EYES: Pupils equal. Conjunctiva pale NECK: JVD not raised. Mass not palpable. RESPIRATORY: Respiratory effort normal. Lungs decreased breath sounds CARDIOVASCULAR: Heart sounds irregular. Some edema. ABDOMEN: Soft. Liver and spleen not palpable. No tenderness. No mass palpable. PSYCHIATRY: Alert and oriented x3. Mood and affect tired INVESTIGATIONS, reviewed in the clinical context: White count 48.6 hemoglobin 10.8 potassium 4.3 bun 55 creatinine 1.14 Previous testing: White count 31.8 hemoglobin 10.5 platelets 79-sodium 129 potassium 4.7 creatinine 1.19 EKG tracing-atrial fibrillation with a rate of 120 Chest e-lrc-cpoamcemukah density Assessment -Hypovolemic shock continue with norepinephrine IV fluids-slow to respond -Generalized weakness probably secondary to atrial fibrillation as well as a other issues including chronic lymphocytic leukemia, improving -Acute renal failure probably prerenal azotemia intravascular volume depletion- better -Persistent Atrial fibrillation,-uncontrolled on admission: No controlled -Hilar lymphadenopathy and right paratracheal adenopathy for further workup -Chronic lymphocytic leukemia there is no evidence of transformation to acute leukemia. -Bicytopenia including thrombocytopenia and low hemoglobin etiology is not clear further workup as mentioned above oncology evaluated the patient. -Hypertension patient is presently hypotensive -Moderate pulmonary hypertension -History of CVA and TIA -Coagulopathy most presently secondary to Xarelto initially held, now changed over to eliquis -Hypothyroid -Metabolic acidosis -Secondary pulmonary hypertension Plan: ICU. Continue IV levo fed. Continue IV fluids: Looking better. Eating better. Also on Solu-Medrol 60 mg every 12.
--- NOTE | 2020-03-10 21:49 | PN ---
PROGRESS NOTE DATE OF SERVICE: 03/10/2020 REASON FOR FOLLOWUP: Possible pneumonia. INTERVAL HISTORY: The patient is currently afebrile, has been complaining of feeling weak and tired, but denies having any chest pain. Minimal cough. No nausea, no vomiting. No abdominal pain or diarrhea. PHYSICAL EXAMINATION: Blood pressure is 91/74, pulse of 73, temperature of 98. He is 93% on room air. General description: The patient is an elderly male up in the bed in no distress. Respiratory system: Unlabored breathing, decreased breath sounds at the bases. No wheeze. HEART: S1, S2. Regular rate and rhythm. Abdomen soft, no tenderness. LABS: Hemoglobin is 10.8, white count 28.6, BUN of 55, creatinine 1.14. DIAGNOSTIC IMPRESSION AND PLAN: Patient admitted to the hospital with generalized weakness in this patient who did have evidence of hypertension which is likely multifactorial with concern for possible infection in this patient who did have elevated inflammatory markers. Patient is covered with cefepime to continue. Will monitor his clinical course closely. MMODL / IJN: [id number] /
[2020-03-11] MEDS: SODIUM CHLORIDE 0.9% 1,000 ML IV SCH ×2 (02:05→13:16)
[2020-03-11 04:38] LABS: Anisocytosis Moderate; HCT 35.4 % (39.0-53.0); Hypochromasia Marked; MCH 31.9 pg (25.0-35.0); MCHC 30.9 g/dL (31.0-37.0); MCV 103.2 fL (80.0-100.0); Macrocytosis Marked; Mean Platelet Volume 12.8; RBC 3.43 m/uL (4.30-5.90); RDW 21.9 % (11.5-15.5)
[2020-03-11 04:45] LABS: WBC 38.6 k/uL (3.8-10.6)
[2020-03-11 04:46] LABS: Platelet Count 39 k/uL (150-450)
[2020-03-11 04:51] LABS: Albumin 1.9 g/dL (3.5-5.0); Calcium 7.5 mg/dL (8.4-10.2); Potassium 4.6 mmol/L (3.5-5.1); Total Bilirubin 2.6 mg/dL (0.2-1.3); Total Protein 4.4 g/dL (6.3-8.2)
[2020-03-11 05:15] LABS: Polychromasia Present; Target Cells Present
[2020-03-11 05:16] LABS: Lymphocytes # (M) 26.63 k/uL (1.0-4.8); Monocytes # (M) 1.54 k/uL (0-1.0); Neutrophils # (M) 10.42 k/uL (1.3-7.7); Neutrophils % (M) 27 %; Nucleated Red Blood Cells 0 /100 WBC (0-0)
[2020-03-11 05:17] LABS: Total Cells Counted 100
[2020-03-11] MEDS: NOREPINEPHRINE 32 MG in SODIUM CHLORIDE 0.9% 218 ML IV SCH (06:02)
[2020-03-11] MEDS: LEVOTHYROXINE 100 MCG TAB PO SCH (06:40)
[2020-03-11] MEDS: PANTOPRAZOLE 40 MG TABLET PO SCH (06:40)
[2020-03-11] MEDS: MIDODRINE 5 MG TAB PO SCH ×3 (06:40→17:15)
[2020-03-11] MEDS: DRONABINOL 2.5 MG CAP PO SCH ×2 (06:40→17:16)
--- NOTE | 2020-03-11 07:06 | XR ---
EXAMINATION TYPE: XR chest 1V DATE OF EXAM: 03/11/2020 COMPARISON: 03/10/2020 HISTORY: Shortness of breath TECHNIQUE: Single frontal view of the chest is obtained. FINDINGS: Right paratracheal soft tissue mass or aneurysm noted. Bilateral consolidation and pleural effusion. No pneumothorax. Central line stable. Interstitial pattern seen. Heart size enlarged. Athe rosclerotic change aorta. IMPRESSION: 1. Bilateral infiltrate and pleural effusion correlate for pneumonia versus CHF. 2. Right paratracheal soft tissue fullness likely in the basis of mass and adenopathy.
[2020-03-11] MEDS: CEFEPIME 2 GM in SODIUM CHLORIDE 0.9% 100 ML IVPB SCH ×2 (08:19→20:47)
[2020-03-11] MEDS: DIGOXIN 125 MCG TAB PO SCH (08:20)
[2020-03-11] MEDS: APIXABAN 2.5 MG TABLET PO SCH (08:20)
[2020-03-11] MEDS: METOPROLOL TARTRATE 25 MG TAB PO SCH ×2 (08:20→20:49)
[2020-03-11] MEDS: methylPREDNISolone SOD SUCCI 125 MG/2 ML VIAL IV SCH ×2 (08:20→20:48)
--- NOTE | 2020-03-11 10:50 | P.PN ---
Subjective Progress Note Date: 03/11/20 Principal diagnosis: Hypotension, most likely hypovolemic in nature, still requiring slow hydration, and requiring norepinephrine at 0.03 mcg/kg/m, did not respond to Solu-Cortef. Still on midodrine. This is a 79-year-old white male, known history of B-cell lymphoma, stage 0 dis ease, advised mostly observation. Known history of previous CVA in 2017, previous treatment with TPA. Patient is also known to have history of atrial fibrillation. And he was admitted to [facility] ICU the day before yesterday, patient presented initially to the ER at [facility] with hypotension, atrial fibrillation with RVR. I was notified about this patient, and I admitted him to the ICU. He was seen by Dr. Stroud and other consultants at [facility], and he was treated with antibiotics empirically, norepinephrine for his hypotension, fluid boluses were given at least 2-3 L were given to him initially when he presented to the ER. However early this morning around 3 AM, and for no good reason the ER at [facility] accepted the patient to be transferred from the ICU to the ER, patient was shortly evaluated, and transferred to the ICU at [facility]. The patient tells me that they transferred her mostly because his oncologist is on our staff, and the patient was requesting to be discharged. Although the patient is not receiving any treatment for his B-cell lymphoma. At any rate patient was admitted to the ICU, presently on norepinephrine at 0.07 mcg/kg/m, is also on IV fluid at 100 mL per hour. He is in atrial fibrillation with a rate of 102-110. He is on room air with O2 saturation 93%. Patient complains mostly of progressive fatigue and weakness. No fever no chills no hemoptysis no cough no wheezing, no nausea no vomiting no abdominal pain no melena no hematemesis is no dysuria and no diarrhea no frequency no urgency. Again the patient was placed on empiric antibiotics and he is being evaluated by cardiology for his atrial fibrillation. Off Cardizem at present. His past medical history is mostly significant for colon cancer, resected in 2007. His CT of the chest from [facility] showed no evidence of pneumonia, and the patient had no symptoms to suggest pneumonia. Reevaluated today on 03/06/20, patient remains in the ICU. Remains on norepinephrine at 0.12 mcg/kg/m, and I cut it down to 0.1. His IV fluid is at 100 mL/h, and I cut it down to 50 mL per hour. Patient remains in atrial fibrillation, rate seems to be fairly well controlled rate of 101. His oxygen saturation is 96% on room air. Chest x-ray and CT of the chest from [facility] showed mostly bilateral pleural effusions and bibasilar atelectasis. Sputum Gram stain is basically nondiagnostic. Culture is pending. Urinalysis is suspicious for urinary tract infection, however the patient had n o symptoms, and culture of the urine is pending. Serum cortisol level today is 27. His BNP was noted to be elevated at 9330, hence I will give the patient 1 dose of Lasix, and I cut down his IV fluid to 50 mL per hour. WBC count today is 43.6 hemoglobin is 10.6. INR is down to 1.6. Patient continues to have hyponatremia which is likely hypovolemic in nature. Renal functioning is a bit worse today, and I'll see the patient developed acute kidney injury secondary to acute tubular necrosis secondary to hypotension. Clinically, the patient remains relatively asymptomatic. Patient was reevaluated today on 03/07/20, remains in the ICU, remains in atrial fibrillation but rate seems to be controlled. Patient is on room air. Sodium remains a bit low. Chest x-ray continues to show right paratracheal mass. Patient remains on norepinephrine at 0.05 mcg/kg/m he is afebrile, remains empirically on antibiotics. Reviewed the CT of the chest from [facility], and I'm not certain whether the patient will need a tissue diagnosis for his right paratracheal and subcarinal lymphadenopathy, if he does patient will need a bronchoscopy and li needle /transcarinal needle aspiration. However the oncologist on the case made no suggestion that they need a tissue diagnosis apparently the diagnosis was already made but I'm quite concerned considering the size of the adenopathy noted. This could be lymphoma could also be small cell lung carcinoma. Continues to have leukocytosis with WBC count of 54.1 hemoglobin is 11.4 and electrolytes were reviewed sodium remains 128 bicarb remains a bit low at 16 BUN is 54 creatinine is improving down to 1.27 Reevaluated today on 03/08/20, patient remains in the ICU, remains on norepinephrine at 0.06 mg/kg/m. Remains on IV fluid at 100 mL/h. He is doing quite well except for his hypotension requiring norepinephrine. Patient has no active symptoms whatsoever. Denies any headache no blurred vision no dizziness no cough no wheezing no shortness of breath no nausea no vomiting no abdominal pain no melena no hematemesis no dysuria and no frequency no urgency.his labs were all reviewed, and sodium remains a bit low at 128, renal profile is a bit better with BUN 54 creatinine is down to 1.22.patient was placed on midodrine yesterday, the patient remains relatively low, hence I will recommend a trial of Solu-Cortef 100 mg IV push 1. Although his serum cortisol level was 27 on admission.continues to have leukocytosis, WBC count is 40.8 Reevaluated today on 03/09/20, patient remains in the ICU, IV fluid is at 90 mL per hour. Remains on norepinephrine at 0.05 mcg/kg/m, remains on room air. Had occasional episodes of diarrhea. Patient is complaining of generalized weakness, otherwise he denies any cough no wheezing no shortness of breath no fever no chills no hemoptysis no chest pain no nausea no vomiting had occasional diarrhea since admission, patient overall is asymptomatic. Reviewed the notes from oncology, now they are recommending tissue diagnosis for his right paratracheal mass, and this could be easily done with bronchoscopy and li needle hopefully sometime next week. Patient is not a candidate for the procedure at this point specially with him being hypotensive requiring norepinephrine. The patient is seen today 03/10/2020 in follow-up in the intensive care unit. He is currently awake and alert in no acute distress. Sitting up in bed. He is maintaining O2 saturations in the 90s on room air. He has a 0.9 normal saline at 100 ML's per hour. He is still requiring norepinephrine at 3 mcg/m. Chest x-ray reveals small bilateral pleural effusions. Pulmonary venous congestion is improved. Some basilar atelectasis. Blood cultures revealed no growth. Sputum cultures reveal no growth. White count 48.6. Hemoglobin 10.8. Platelets 60,000. Sodium 1:30. Potassium 4.3. Creatinine 1.4. TSH 0.625. Cortisol 20. C. diff screen was negative. On 03/11/2020 patient seen in follow-up in the intensive care unit, doing well, his levo fed has been off for 24 hours, plan and was seen at a rate of 100 ML per hour, he is in sinus rhythm with a rate of 85, room air pulse ox is 93%, he is resting comfortably in bed, generally weak, but no acute distress, no worsening dyspnea, his chest x-ray shows bilateral infiltrates, and small pleural effusions. He has had no fever or chills, his lung sounds are clear, diminished at the bases, today's labs have been reviewed, white blood cell count is trending down, 38.6 on today's labs, hemoglobin is 11.0, platelet count is 39, serum sodium is 132, potassium is 4.6, chloride is 111, CO2 is 13, and BUN is 55 creatinine is 1.16, TSH level was within normal limits at 0.625, and cortisol level was 20, patient is on midodrine 10 mg 3 times daily and IV steroids at 60 mg every 12 hours, and antibiotics in the form of cefepime, his blood and sputum cultures have shown no growth. Objective - Vital Signs Vital signs: Vital Signs Temp 97.4 F L 03/11/20 10:00 Pulse 76 03/11/20 10:00 Resp 18 03/11/20 10:00 BP 108/60 03/11/20 10:00 Pulse Ox 92 L 03/11/20 10:00 Intake & Output 03/10/20 03/11/20 03/11/20 18:59 06:59 18:59 Intake Total 9165.391 2814.475 290 Output Total 360 470 75 Balance 952.781 837.475 215 Weight 104.5 kg Intake: IV 1300 1300 290 Cefepime 2 gm In Sodium 100 100 100 Chloride 0.9% 100 ml @ 200 mls/hr IVPB Q12HR [facility] Rx#:[id number] Sodium Chloride 0.9% 1, 1200 1200 190 000 ml @ 40 mls/hr IV . Q24H [facility] Rx#:[id number] Intake, IV Titration 12.781 7.475 Amount Norepinephrine 32 mg In 12.781 7.475 Sodium Chloride 0.9% 218 ml @ 0.12 MCG/KG/MIN 5. 103 mls/hr IV .Q24H [facility] Rx#:[id number] Output: Urine 360 470 75 Other: Voiding Method Indwelling Catheter Indwelling Catheter Indwelling Catheter - Exam GENERAL EXAM: Alert, very pleasant, 79-year-old white male, on room air, with a pulse ox of 93%, comfortable in no apparent distress. HEAD: Normocephalic/atraumatic. EYES: Normal reaction of pupils, equal size. Conjunctiva pink, sclera white. NOSE: Clear with pink turbinates. THROAT: No erythema or exudates. NECK: No masses, no JVD, no thyroid enlargement, no adenopathy. CHEST: No chest wall deformity. Symmetrical expansion. LUNGS: Equal air entry with no crackles, wheeze, rhonchi or dullness. CVS: Regular rate and rhythm, normal S1 and S2, no gallops, no murmurs, no rubs ABDOMEN: Soft, nontender. No hepatosplenomegaly, normal bowel sounds, no guarding or rigidity. EXTREMITIES: No clubbing, bilateral 1+ lower extremity edema, no cyanosis, 2+ pulses and upper and lower extremities. MUSCULOSKELETAL: Muscle strength and tone normal. SPINE: No scoliosis or deformity SKIN: No rashes CENTRAL NERVOUS SYSTEM: Alert and oriented -3. No focal deficits, tone is normal in all 4 extremities. PSYCHIATRIC: Alert and oriented -3. Appropriate affect. Intact judgment and insight. - Labs CBC & Chem 7: 03/11/20 03:48 03/11/20 03:48 Labs: Abnormal Lab Results - Last 24 Hours (Table) 03/06/20 03/10/20 03/11/20 Range/Units 04:19 16:39 03:48 WBC 38.6 H (3.8-10.6) k/uL RBC 3.43 L (4.30-5.90) m/uL Hgb 11.0 L (13.0-17.5) gm/dL Hct 35.4 L (39.0-53.0) % MCV 103.2 H (80.0-100.0) fL MCHC 30.9 L (31.0-37.0) g/dL RDW 21.9 H (11.5-15.5) % Plt Count 39 L (150-450) k/uL Neutrophils # (Manual) 10.42 H (1.3-7.7) k/uL Lymphocytes # (Manual) 26.63 H (1.0-4.8) k/uL Monocytes # (Manual) 1.54 H (0-1.0) k/uL Macrocytosis Marked A Sodium (137-145) mmol/L Chloride (98-107) mmol/L Carbon Dioxide (22-30) mmol/L BUN (9-20) mg/dL Glucose (74-99) mg/dL POC Glucose (mg/dL) 150 H (75-99) mg/dL Calcium (8.4-10.2) mg/dL Total Bilirubin (0.2-1.3) mg/dL Total Protein (6.3-8.2) g/dL Albumin (3.5-5.0) g/dL RBC Folate 1,089 H (280 - 791) ng/mL 03/11/20 Range/Units 03:48 WBC (3.8-10.6) k/uL RBC (4.30-5.90) m/uL Hgb (13.0-17.5) gm/dL Hct (39.0-53.0) % MCV (80.0-100.0) fL MCHC (31.0-37.0) g/dL RDW (11.5-15.5) % Plt Count (150-450) k/uL Neutrophils # (Manual) (1.3-7.7) k/uL Lymphocytes # (Manual) (1.0-4.8) k/uL Monocytes # (Manual) (0-1.0) k/uL Macrocytosis Sodium 132 L (137-145) mmol/L Chloride 111 H (98-107) mmol/L Carbon Dioxide 13 L (22-30) mmol/L BUN 55 H (9-20) mg/dL Glucose 160 H (74-99) mg/dL POC Glucose (mg/dL) (75-99) mg/dL Calcium 7.5 L (8.4-10.2) mg/dL Total Bilirubin 2.6 H (0.2-1.3) mg/dL Total Protein 4.4 L (6.3-8.2) g/dL Albumin 1.9 L (3.5-5.0) g/dL RBC Folate (280 - 791) ng/mL Microbiology - Last 24 Hours (Table) 04/08/20 03:31 Blood Culture - Final Blood No Growth after 144 hours Assessment and Plan Plan: Assessment: 1 Hypotension, most likely hypovolemic in nature, still requiring slow hydration, and requiring norepinephrine at 0.03 mcg/kg/m, did not respond to Solu-Cortef. Improved on today's exam, on 03/11/2020, patient is off the levo fed support, his midodrine dose was adjusted and increased to 10 mg 3 times a day, he remains on Solu-Medrol at 60 mg twice daily 2 Chronic atrial fibrillation with RVR. Presently rate seems to be controlled. 3 Chronic lymphocytic leukemia, B-cell type, not active. 4 Mediastinal and right paratracheal adenopathy patient may eventually require bronchoscopy and trans-carinal needle aspiration for tissue diagnosis. It is likely lymphoma, however small cell lung carcinoma is also in the differential. 5 Bicytopenia, being addressed by oncology on the case. 6 Coagulopathy, resolved. 7 Hypovolemic hyponatremia, improving. 8 Acute kidney injury secondary to hypotension, improving with hydration. Plan: Continue the midodrine at 10 mg 3 times a day, hemodynamically patient is stable, we were able to wean him off the levo fed, alert and oriented in no acute distress, no worsening dyspnea, continue with Solu-Medrol per oncology recommendations. From pulmonary perspective patient is stable to transfer out of intensive care unit to [facility] care today. We'll continue to follow I performed a history & physical examination of the patient and discussed their management with my nurse practitioner, Sharron Hood. I reviewed the nurse practitioner's note and agree with the documented findings and plan of care. Lung sounds are positive for diminished breath sounds at the bases. The findings and the impression was discussed with the patient. I attest to the documentation by the nurse practitioner. Time with Patient: Less than 30
--- NOTE | 2020-03-11 13:05 | P.PN ---
Subjective Progress Note Date: 03/11/20 Principal diagnosis: difficulty in breathing in follow-up today patient patient sitting in the chair, easily tired, he is only been moving from the bed to the chair with significant assistance, denies any fever, bleeding, chest pain, unsure of the consistency of his bowel moveme nts, pulling in his legs is the same, he denies any pain. Objective - Vital Signs Vital signs: Vital Signs Temp 97.6 F 03/11/20 11:53 Pulse 80 03/11/20 11:53 Resp 18 03/11/20 11:53 BP 106/59 03/11/20 11:53 Pulse Ox 95 03/11/20 11:53 Intake & Output 03/10/20 03/11/20 03/11/20 18:59 06:59 18:59 Intake Total 9547.092 5901.475 290 Output Total 360 470 75 Balance 952.781 837.475 215 Weight 104.5 kg Intake: IV 1300 1300 290 Cefepime 2 gm In Sodium 100 100 100 Chloride 0.9% 100 ml @ 200 mls/hr IVPB Q12HR [facility] Rx#:[id number] Sodium Chloride 0.9% 1, 1200 1200 190 000 ml @ 40 mls/hr IV . Q24H [facility] Rx#:[id number] Intake, IV Titration 12.781 7.475 Amount Norepinephrine 32 mg In 12.781 7.475 Sodium Chloride 0.9% 218 ml @ 0.12 MCG/KG/MIN 5. 103 mls/hr IV .Q24H [facility] Rx#:[id number] Output: Urine 360 470 75 Other: Voiding Method Indwelling Catheter Indwelling Catheter Indwelling Catheter - Constitutional General appearance: Present: average body habitus, cooperative, no acute distress - EENT Eyes: Present: anicteric sclerae, EOMI ENT: Present: hearing grossly normal - Respiratory Respiratory: bilateral: CTA, diminished - Cardiovascular Rhythm: regular Heart sounds: normal: S1, S2 - Peripheral edema leg Peripheral Edema: bilateral: 3+, Pitting - Gastrointestinal General gastrointestinal: Present: normal bowel sounds, soft - Neurologic Neurologic: Present: CNII-XII intact - Musculoskeletal Musculoskeletal: Present: generalized weakness - Psychiatric Psychiatric: Present: A&O x's 3, appropriate affect, intact judgment & insight - Labs CBC & Chem 7: 03/11/20 03:48 03/11/20 03:48 Labs: Abnormal Lab Results - Last 24 Hours (Table) 03/10/20 03/11/20 03/11/20 Range/Units 16:39 03:48 03:48 WBC 38.6 H (3.8-10.6) k/uL RBC 3.43 L (4.30-5.90) m/uL Hgb 11.0 L (13.0-17.5) gm/dL Hct 35.4 L (39.0-53.0) % MCV 103.2 H (80.0-100.0) fL MCHC 30.9 L (31.0-37.0) g/dL RDW 21.9 H (11.5-15.5) % Plt Count 39 L (150-450) k/uL Neutrophils # (Manual) 10.42 H (1.3-7.7) k/uL Lymphocytes # (Manual) 26.63 H (1.0-4.8) k/uL Monocytes # (Manual) 1.54 H (0-1.0) k/uL Macrocytosis Marked A Sodium 132 L (137-145) mmol/L Chloride 111 H (98-107) mmol/L Carbon Dioxide 13 L (22-30) mmol/L BUN 55 H (9-20) mg/dL Glucose 160 H (74-99) mg/dL POC Glucose (mg/dL) 150 H (75-99) mg/dL Calcium 7.5 L (8.4-10.2) mg/dL Total Bilirubin 2.6 H (0.2-1.3) mg/dL Total Protein 4.4 L (6.3-8.2) g/dL Albumin 1.9 L (3.5-5.0) g/dL Microbiology - Last 24 Hours (Table) 03/05/20 03:31 Blood Culture - Final Blood No Growth after 144 hours - Imaging and Cardiology Chest x-ray: report reviewed Assessment and Plan (1) Bicytopenia Narrative/Plan: There are acute changes in hemoglobin and platelet count on admit, both hemog lobin and platelets have been within normal limits on routine labs in office, last draw was 12/17. Today hemoglobin is stable. No transfusions at this time. Platelets <50K today. Steroids started Ben for suspicion of ITP. Bilirubin increased. US liver to evaluate. Hold eliquis for plt <50K. CBC monitoring while inpatient. B12 deficiency. B12 supplemented. This will be continued outpatient. Last colonoscopy was 5-6 years ago, patient is never had upper endoscopy. He does have a history of an early stage colon cancer. Based on this history, follow-up colonoscopy is going to be recommended once stable. Paratracheal soft tissue mass. CT chest will be reordered to further assess soft tissue mass From note review there is a plan for biopsy soft tissue mass once pt stable. Current Visit: Yes Status: Acute Priority: High Code(s): D75.89 - OTHER SPECIFIED DISEASES OF BLOOD AND BLOOD-FORMING ORGANS SNOMED Code(s): 55497361 (2) CLL (chronic lymphocytic leukemia) Narrative/Plan: CBC in the office 12/17 reviewed. WBC and absolute lymphocyte count returning to baseline. This will continue to be monitored. No acute intervention for CLL. Current Visit: Yes Status: Chronic Priority: Medium Code(s): C91.10 - CHRONIC LYMPHOCYTIC LEUK OF B-CELL TYPE NOT ACHIEVE REMIS SNOMED Code(s): 83746014 (3) Coagulopathy Narrative/Plan: Cardiology placed pt on low dose eliquis for a-fib. Hemoglobin stable, improved, near normal Current Visit: Yes Status: Resolved Priority: High Code(s): D68.9 - COAGULATION DEFECT, UNSPECIFIED SNOMED Code(s): 86769208 (4) Atrial fibrillation with rapid ventricular response Narrative/Plan: Pt is on anticoagulation for the same, held for low plt today, CBC daily. Cardiology managing arrhythmia and hypotension, pt doing much better Current Visit: Yes Status: Acute Priority: High Code(s): I48.91 - UNSPECIFIED ATRIAL FIBRILLATION SNOMED Code(s): 929542537531555 (5) Weakness Narrative/Plan: Secondary to prolonged bedrest from acute illness. Internal Medicine has ordered PT/OT. Anticipate rehabilitation after hospitalization. Current Visit: Yes Status: Acute Priority: High Code(s): R53.1 - WEAKNESS SNOMED Code(s): 38867161 Plan: Updated son on pt case on phone, >35min counseling Doctor attests: I performed a history and physical examination of this patient, developed impression and plan of care, discussed with dictator. I agree with dictators note, documented as a scribe.
--- NOTE | 2020-03-11 17:54 | P.PN ---
Progress Note - Text Progress Note Date: 03/11/20 History of Present Illness 71-year-old pleasant male who follows with Dr. Jessa campos, was transferred from [facility] after he was treated for atrial fibrillation with Cardizem was transferred here for evaluation by oncology. Admitted to intensive care unit because of hypotension patient appears to have hypovolemic shock patient started on levo fed. Cardizem was discontinued because of hypotension patient was started on digoxin and patient was also also started on low-dose metoprolol with fairly controlled heart rate. 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 There is a concern about transformation because of low hemoglobin, decreased platelet count and decreased white blood cell count. Although there is no blast cells in the peripheral smear Dr. Lacy evaluated the patient is a concern about GI bleed although patient doesn't have any blood in the stools or dark stools or hematemesis patient's INR is around 2 which is believed to be secondary to Xarelto, although DIC workup is being obtained as well. 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 Patient doesn't have elevated BNP although clinically not in heart failure exacerbation his BNP here is around 9000 his BNP at [facility] was around 7000. Patient doesn't have any JVD and crackles on exam. Patient's creatinine negative district is 1.3 and he rates 1.1 patient is presently receiving IV fluids because of hypovolemic shock is also on levo fed. Patient had normal ejection fraction. Patient's symptoms right now is a significant fatigue and generalized weakness. Patient denied any significant shortness of breath at this time Admitted with-hypotension likely hypovolemic, persistent atrial flutter with rapid ventricular rate, bicytopenia, acute kidney injury. Patient is started on levo fed. Empiric antibiotics. Infection felt to be less likely Today-moved out of the ICU. On medical floor. Feeling better. Tired. 2 person assist. Seen by physical therapy. Review of systems: Was done for constitutional, cardiovascular, GI, pulmonary. relevant finding as above Active Medications Digoxin (Lanoxin) 125 mcg PO DAILY MARILEE Last Admin: 03/11/20 08:20 Dose: 125 mcg Documented by: Dronabinol (Marinol) 2.5 mg PO AC-BID [facility] Last Admin: 03/11/20 17:16 Dose: 2.5 mg Documented by: Cefepime HCl 2 gm/ Sodium (Chloride) 100 mls @ 200 mls/hr IVPB Q12HR [facility] Last Admin: 03/11/20 08:19 Dose: 200 mls/hr Documented by: Norepinephrine Bitartrate 32 (mg/ Sodium Chloride) 250 mls @ 5.103 mls/hr IV .Q24H [facility]; Protocol Last Admin: 03/11/20 06:02 Dose: Not Given Documented by: Sodium Chloride (Saline 0.9%) 1,000 mls @ 40 mls/hr IV .Q24H [facility] Last Admin: 03/11/20 13:16 Dose: 40 mls/hr Documented by: Levothyroxine Sodium (Synthroid) 100 mcg PO DAILY@0630 [facility] Last Admin: 03/11/20 06:40 Dose: 100 mcg Documented by: Methylprednisolone Sodium Succinate (Solu-Medrol) 60 mg IV Q12HR [facility] Last Admin: 03/11/20 08:20 Dose: 60 mg Documented by: Metoprolol Tartrate (Lopressor) 25 mg PO BID [facility] Last Admin: 03/11/20 08:20 Dose: 25 mg Documented by: Midodrine (Proamatine) 10 mg PO AC-TID [facility] Last Admin: 03/11/20 17:15 Dose: 10 mg Documented by: Miscellaneous Information (Pneumonia Protocol Utilized) 1 each PO ONCE PRN PRN Reason: Per Protocol Naloxone HCl (Narcan) 0.2 mg IV Q2M PRN PRN Reason: Opioid Reversal Pantoprazole Sodium (Protonix) 40 mg PO AC-BRKFST [facility] Last Admin: 03/11/20 06:40 Dose: 40 mg Documented by: On examination: VITAL SIGNS: 97.4, 76, 18, 108/60, 92% on room air GENERAL APPEARANCE: Propped up in bed, more comfortable HEENT: Normal external appearance of nose and ear. Oral cavity normal EYES: Pupils equal. Conjunctiva pale NECK: JVD not raised. Mass not palpable. RESPIRATORY: Respiratory effort normal. Lungs decreased breath sounds CARDIOVASCULAR: Heart sounds irregular. Some edema. ABDOMEN: Soft. Liver and spleen not palpable. No tenderness. No mass palpable. PSYCHIATRY: Alert and oriented x3. Mood and affect tired INVESTIGATIONS, reviewed in the clinical context: White count 3.6 hemoglobin 11 platelets 39 potassium 4.6 bun 55 creatinine 1.16 Previous testing: White count 31.8 hemoglobin 10.5 platelets 79-sodium 129 potassium 4.7 creatinine 1.19 EKG tracing-atrial fibrillation with a rate of 120 Chest v-hnv-xagwkyfjfwnw density Assessment -Hypovolemic shock-status post norepinephrine IV fluids-POA -Generalized weakness probably secondary to atrial fibrillation as well as a other issues including chronic lymphocytic leukemia, improving -Acute renal failure probably prerenal azotemia intravascular volume depletion- better -Persistent Atrial fibrillation,-uncontrolled on admission: Controlled -Hilar lymphadenopathy and right paratracheal adenopathy for further workup -Chronic lymphocytic leukemia there is no evidence of transformation to acute leukemia. -Bicytopenia including thrombocytopenia and low hemoglobin etiology is not clear further workup as mentioned above oncology evaluated the patient. -Hypertension patient is presently hypotensive -Moderate pulmonary hypertension -History of CVA and TIA -Coagulopathy most presently secondary to Xarelto initially held, now changed over to eliquis -Hypothyroid -Metabolic acidosis -Secondary pulmonary hypertension -Medical debility requiring physical therapy Plan: 1 cefepime. After levo fed. We will DC IV fluids. A stress to lower extre mity. Discussed with patient. Seen by physical therapy. Will probably need ECF. Check with oncology about cutting back on steroids.
[2020-03-11 21:31] LABS: Glucose,Whole Blood 168 mg/dL (75-99)
--- NOTE | 2020-03-11 21:33 | PN ---
PROGRESS NOTE DATE OF SERVICE: 03/11/2020 REASON FOR FOLLOWUP: Possible pneumonia. INTERVAL HISTORY: The patient is currently afebrile. He has been transferred out of the ICU. The patient is breathing comfortably. Denies having any chest pain. Occasional cough. No abdominal pain or diarrhea. PHYSICAL EXAMINATION: Blood pressure 125/90 with a pulse of 82, temperature 97.5. He is 98% on room air. General description is an elderly male up in the bed in no distress. RESPIRATORY SYSTEM: Unlabored breathing with decreased breath sounds at the base. No wheeze. HEART: S1, S2. Regular rate and rhythm. ABDOMEN: Soft. No tenderness. LABS: Hemoglobin is 11, white count 38.6, BUN of 55, creatinine 1.16. Blood culture has been negative. Sputum negative for any resistant pathogen. DIAGNOSTIC IMPRESSION AND PLAN: Patient with hypertension which is likely multifactorial in this patient with a possible component of pneumonia. Patient shows overall improvement on cefepime; to continue and finish therapy with oral antibiotic on discharge. Continue with supportive care. MMODL / IJN: [id number] /
[2020-03-11] MEDS: INSULIN ASPART (NovoLOG) 100 UNIT/ML VIAL SQ SCH (21:58)
[2020-03-12] MEDS: NOREPINEPHRINE 32 MG in SODIUM CHLORIDE 0.9% 218 ML IV SCH (06:07)
[2020-03-12 06:10] LABS: Glucose,Whole Blood 166 mg/dL (75-99)
[2020-03-12] MEDS: MIDODRINE 5 MG TAB PO SCH ×3 (06:20→19:11)
[2020-03-12] MEDS: LEVOTHYROXINE 100 MCG TAB PO SCH (06:20)
[2020-03-12] MEDS: PANTOPRAZOLE 40 MG TABLET PO SCH (06:20)
[2020-03-12] MEDS: DRONABINOL 2.5 MG CAP PO SCH ×2 (06:20→19:11)
[2020-03-12] MEDS: INSULIN ASPART (NovoLOG) 100 UNIT/ML VIAL SQ SCH ×4 (06:20→20:54)
[2020-03-12 07:17] LABS: Anisocytosis Moderate; HCT 35.4 % (39.0-53.0); HGB 10.7 gm/dL (13.0-17.5); Hypochromasia Marked; MCH 31.6 pg (25.0-35.0); MCHC 30.1 g/dL (31.0-37.0); MCV 105.1 fL (80.0-100.0); Macrocytosis Marked; Mean Platelet Volume 13.9; RBC 3.37 m/uL (4.30-5.90); RDW 22.2 % (11.5-15.5); WBC 39.8 k/uL (3.8-10.6)
[2020-03-12 07:48] LABS: Platelet Count 30 k/uL (150-450)
--- NOTE | 2020-03-12 08:36 | US ---
EXAMINATION TYPE: US liver DATE OF EXAM: 03/12/2020 COMPARISON: NONE CLINICAL HISTORY: progressive thrombocytopenia, increasing bilirubin. EXAM MEASUREMENTS: Liver Length: 17.7 cm Gallbladder Wall: 0.4 cm CBD: 0.9 cm Right Kidney: 11.4 x 4.2 x 4.7 cm Pancreas: Obscured by bowel gas Liver: wnl Gallbladder: No stones visualized, wall appears thickened with some possible pericholecystic fluid Evidence for sonographic Hdez's sign: No CBD: Dilated. Distal portion obscured by bowel gas Right Kidney: No hydronephrosis or masses seen Right side pleural effusion visualized IMPRESSION: 1. Hepatomegaly. 2. Some minimal pericholecystic fluid may be present. Clinical consideration for cholecystitis is rec ommended. 3. Incidental note is made of a right pleural effusion
[2020-03-12] MEDS: CEFEPIME 2 GM in SODIUM CHLORIDE 0.9% 100 ML IVPB SCH (08:55)
[2020-03-12] MEDS: predniSONE 20 MG TAB PO SCH (08:55)
[2020-03-12] MEDS: DIGOXIN 125 MCG TAB PO SCH (08:55)
[2020-03-12] MEDS: METOPROLOL TARTRATE 25 MG TAB PO SCH ×2 (08:55→21:18)
[2020-03-12 11:37] LABS: Lymphocytes # (M) 25.47 k/uL (1.0-4.8); Neutrophils # (M) 13.93 k/uL (1.3-7.7); Neutrophils % (M) 35 %; Nucleated Red Blood Cells 0 /100 WBC (0-0); Total Cells Counted 100
[2020-03-12 11:39] LABS: Large Platelets Present; Poikilocytosis (M) Present; Polychromasia Present
[2020-03-12 11:42] LABS: Glucose,Whole Blood 162 mg/dL (75-99)
--- NOTE | 2020-03-12 13:09 | P.PN ---
Subjective Progress Note Date: 03/12/20 Principal diagnosis: This is a 79-year-old white male, known history of B-cell lymphoma, stage 0 disease, advised mostly observation. Known history of previous CVA in 2017, previous treatment with TPA. Patient is also known to have history of atrial fibrillation. And he was admitted to [facility] ICU the day before yesterday, patient presented initially to the ER at [facility] with hypotension, atrial fibrillation with RVR. I was notified about this patient, and I admitted him to the ICU. He was seen by Dr. Stroud and other consultants at [facility], and he was treated with antibiotics empirically, norepinephrine for his hypotension, fluid boluses were given at least 2-3 L were given to him initially when he presented to the ER. However early this morning around 3 AM, and for no good reason the ER at [facility] accepted the patient to be transferred from the ICU to the ER, patient was shortly evaluated, and transferred to the ICU at [facility]. The patient tells me that they transferred her mostly because his oncologist is on our staff, and the patient was requesting to be discharged. Although the patient is not receiving any treatment for his B-cell lymphoma. At any rate patient was admitted to the ICU, presently on norepinephrine at 0.07 mcg/kg/m, is also on IV fluid at 100 mL per hour. He is in atrial fibrillation with a rate of 102-110. He is on room air with O2 saturation 93%. Patient complains mostly of progressive fatigue and weakness. No fever no chills no hemoptysis no cough no wheezing, no nausea no vomiting no abdominal pain no melena no hematemesis is no dysuria and no diarrhea no frequency no urgency. Again the patient was placed on empiric antibiotics and he is being evaluated by cardiology for his atrial fibrillation. Off Cardizem at present. His past medical history is mostly significant for colon cancer, resected in 2007. His CT of the chest from [facility] showed no evidence of pneumonia, and the patient had no symptoms to suggest pneumonia. Reevaluated today on 03/06/20, patient remains in the ICU. Remains on norepinephrine at 0.12 mcg/kg/m, and I cut it down to 0.1. His IV fluid is at 100 mL/h, and I cut it down to 50 mL per hour. Patient remains in atrial fibrillation, rate seems to be fairly well controlled rate of 101. His oxygen saturation is 96% on room air. Chest x-ray and CT of the chest from [facility] showed mostly bilateral pleural effusions and bibasilar atelectasis. Sputum Gram stain is basically nondiagnostic. Culture is pending. Urinalysis is suspicious for urinary tract infection, however the patient had no symptoms, and culture of the urine is pending. Serum cortisol level today is 27. His BNP was noted to be elevated at 9330, hence I will give the patient 1 dose of Lasix, and I cut down his IV fluid to 50 mL per hour. WBC count today is 43.6 hemoglobin is 10.6. INR is down to 1.6. Patient continues to have hyponatremia which is likely hypovolemic in nature. Renal functioning is a bit worse today, and I'll see the patient developed acute kidney injury secondary to acute tubular necrosis secondary to hypotension. Clinically, the patient remains relatively asymptomatic. Patient was reevaluated today on 03/07/20, remains in the ICU, remains in atrial fibrillation but rate seems to be controlled. Patient is on room air. Sodium remains a bit low. Chest x-ray continues to show right paratracheal mass. Patient remains on norepinephrine at 0.05 mcg/kg/m he is afebrile, remains empirically on antibiotics. Reviewed the CT of the chest from [facility], and I'm not certain whether the patient will need a tissue diagnosis for his right paratracheal and subcarinal lymphadenopathy, if he does patient will need a bronchoscopy and li needle /transcarinal needle aspiration. However the oncologist on the case made no suggestion that they need a tissue diagnosis apparently the diagnosis was already made but I'm quite concerned considering the size of the adenopathy noted. This could be lymphoma could also be small cell lung carcinoma. Continues to have leukocytosis with WBC count of 54.1 hemoglobin is 11.4 and electrolytes were reviewed sodium remains 128 bicarb remains a bit low at 16 BUN is 54 creatinine is improving down to 1.27 Reevaluated today on 03/08/20, patient remains in the ICU, remains on norepinephrine at 0.06 mg/kg/m. Remains on IV fluid at 100 mL/h. He is doing quite well except for his hypotension requiring norepinephrine. Patient has no active symptoms whatsoever. Denies any headache no blurred vision no dizziness no cough no wheezing no shortness of breath no nausea no vomiting no abdominal pain no melena no hematemesis no dysuria and no frequency no urgency.his labs were all reviewed, and sodium remains a bit low at 128, renal profile is a bit better with BUN 54 creatinine is down to 1.22.patient was placed on midodrine yesterday, the patient remains relatively low, hence I will recommend a trial of Solu-Cortef 100 mg IV push 1. Although his serum cortisol level was 27 on admission.continues to have leukocytosis, WBC count is 40.8 Reevaluated today on 03/09/20, patient remains in the ICU, IV fluid is at 90 mL per hour. Remains on norepinephrine at 0.05 mcg/kg/m, remains on room air. Had occasional episodes of diarrhea. Patient is complaining of generalized weakness, otherwise he denies any cough no wheezing no shortness of breath no fever no chills no hemoptysis no chest pain no nausea no vomiting had occasional diarrhea since admission, patient overall is asymptomatic. Reviewed the notes from oncology, now they are recommending tissue diagnosis for his right paratracheal mass, and this could be easily done with bronchoscopy and li needle hopefully sometime next week. Patient is not a candidate for the procedure at this point specially with him being hypotensive requiring norepi nephrine. The patient is seen today 03/10/2020 in follow-up in the intensive care unit. He is currently awake and alert in no acute distress. Sitting up in bed. He is maintaining O2 saturations in the 90s on room air. He has a 0.9 normal saline at 100 ML's per hour. He is still requiring norepinephrine at 3 mcg/m. Chest x-ray reveals small bilateral pleural effusions. Pulmonary venous congestion is improved. Some basilar atelectasis. Blood cultures revealed no growth. Sputum cultures reveal no growth. White count 48.6. Hemoglobin 10.8. Platelets 60,000. Sodium 1:30. Potassium 4.3. Creatinine 1.4. TSH 0.625. Cortisol 20. C. diff screen was negative. On 03/11/2020 patient seen in follow-up in the intensive care unit, doing well, his levo fed has been off for 24 hours, plan and was seen at a rate of 100 ML per hour, he is in sinus rhythm with a rate of 85, room air pulse ox is 93%, he is resting comfortably in bed, generally weak, but no acute distress, no worsening dyspnea, his chest x-ray shows bilateral infiltrates, and small pleural effusions. He has had no fever or chills, his lung sounds are clear, diminished at the bases, today's labs have been reviewed, white blood cell count is trending down, 38.6 on today's labs, hemoglobin is 11.0, platelet count is 39, serum sodium is 132, potassium is 4.6, chloride is 111, CO2 is 13, and BUN is 55 creatinine is 1.16, TSH level was within normal limits at 0.625, and cortisol level was 20, patient is on midodrine 10 mg 3 times daily and IV steroids at 60 mg every 12 hours, and antibiotics in the form of cefepime, his blood and sputum cultures have shown no growth. On 03/12/2020 the patient was seen in follow-up with Dr. Ford on the cardiac stepdown unit. He remains hemodynamically stable and is in no acute distress. Oxygen saturations are 97% on 3 L nasal cannula. He did have a ultrasound of his liver completed today due to some thrombocytopenia and increasing bilirubin which demonstrated hepatomegaly, some possible pericholecystic fluid and an incidental note of a right pleural effusion. Laboratory results today show a WBC 39.8, hemoglobin 10.7, and platelet count of 30. He remains afebrile the last 24 hours and he did not have a chest x-ray completed today. Remote telemetry showing normal sinus rhythm heart rate 86. Objective - Vital Signs Vital signs: Vital Signs Temp 97.5 F L 03/12/20 12:00 Pulse 55 L 03/12/20 12:00 Resp 20 03/12/20 12:00 BP 98/55 03/12/20 12:00 Pulse Ox 94 L 03/12/20 12:00 Intake & Output 03/11/20 03/12/20 03/12/20 18:59 06:59 18:59 Intake Total 690 Output Total 75 1300 Balance 615 -1300 Weight 104.5 kg 97.3 kg Intake: IV 690 Cefepime 2 gm In Sodium 100 Chloride 0.9% 100 ml @ 200 mls/hr IVPB Q12HR [facility] Rx#:[id number] Sodium Chloride 0.9% 1, 590 000 ml @ 40 mls/hr IV . Q24H [facility] Rx#:[id number] Output: Urine 75 1300 Other: Voiding Method Indwelling Catheter Indwelling Catheter Indwelling Catheter - Exam Alert, very pleasant, 79-year-old white male, on 3 L nasal cannula, with a pulse ox of 97%, comfortable in no apparent distress. - Constitutional General appearance: Present: average body habitus, cooperative, no acute distress - EENT Eyes: Present: PERRLA. Absent: scleral icterus - Neck Details: Neck is supple, no lymphadenopathy. Neck: Absent: stridor - Respiratory Details: Lung sounds diminished to his bilateral bases, left greater than right. No wheezes, crackles or rhonchi. Respirations are symmetrical and nonlabored. - Cardiovascular Details: Irregular rhythm and controlled rate. S1 and S2 present, negative for S3, gallop or murmur. - Gastrointestinal Gastrointestinal Comment(s): Abdomen is soft, nontender and nondistended. Active bowel sounds present all 4 abdominal quadrants. No guarding or rigidity. General gastrointestinal: Absent: organomegaly - Integumentary Integumentary Comment(s): Skin is warm and dry. No clubbing or cyanosis is present. +1 edema to his bilateral lower extremities. - Neurologic Neurologic: Present: CNII-XII intact - Musculoskeletal Musculoskeletal: Present: generalized weakness, strength equal bilaterally - Psychiatric Psychiatric: Present: A&O x's 3, appropriate affect, intact judgment & insight - Allied health notes Allied health notes reviewed: nursing - Labs CBC & Chem 7: 03/12/20 06:12 03/11/20 03:48 Labs: Abnormal Lab Results - Last 24 Hours (Table) 03/11/20 03/12/20 03/12/20 Range/Units 21:30 06:08 06:12 WBC 39.8 H (3.8-10.6) k/uL RBC 3.37 L (4.30-5.90) m/uL Hgb 10.7 L (13.0-17.5) gm/dL Hct 35.4 L (39.0-53.0) % MCV 105.1 H (80.0-100.0) fL MCHC 30.1 L (31.0-37.0) g/dL RDW 22.2 H (11.5-15.5) % Plt Count 30 L (150-450) k/uL Neutrophils # (Manual) 13.93 H (1.3-7.7) k/uL Lymphocytes # (Manual) 25.47 H (1.0-4.8) k/uL Macrocytosis Marked A POC Glucose (mg/dL) 168 H 166 H (75-99) mg/dL 03/12/20 Range/Units 11:40 WBC (3.8-10.6) k/uL RBC (4.30-5.90) m/uL Hgb (13.0-17.5) gm/dL Hct (39.0-53.0) % MCV (80.0-100.0) fL MCHC (31.0-37.0) g/dL RDW (11.5-15.5) % Plt Count (150-450) k/uL Neutrophils # (Manual) (1.3-7.7) k/uL Lymphocytes # (Manual) (1.0-4.8) k/uL Macrocytosis POC Glucose (mg/dL) 162 H (75-99) mg/dL Assessment and Plan Assessment: 1 Hypotension, most likely hypovolemic in nature, still requiring slow hydration, and norepinephrine has been discontinued, did not respond to Solu-Cortef. Continues to be on midodrine, he remains on prednisone 60 mg daily. 2 Chronic atrial fibrillation with RVR. Presently rate is controlled. 3 Chronic lymphocytic leukemia, B-cell type, not active. 4 Mediastinal and right paratracheal adenopathy patient may eventually require bronchoscopy and trans-carinal needle aspiration for tissue diagnosis. It is likely lymphoma, however small cell lung carcinoma is also in the differential. 5 Bicytopenia, being addressed by oncology on the case. 6 Coagulopathy, resolved. 7 Hypovolemic hyponatremia, improving. 8 Acute kidney injury secondary to hypotension, improving with hydration. Plan: 1. The patient was seen and examined at his bedside on the cardiac stepdown unit with Dr. Ford. 2. Continue Midodrine 10 mg by mouth 3 times a day. He remains hemodynamically stable. 3. Portable chest x-ray in the a.m. 4. Wean oxygen as tolerated to maintain oxygen saturations greater than or equal to 92%. 5. Thrombocytopenia management per hematology/oncology recommendations. 6. More recommendations to follow based on patient's clinical course. I, the cosigning physician, performed a history and physical examination on the patient. Lungs are diminished to his bilateral bases and maintaining O2 saturation in the 90s on 3 L nasal cannula. I discussed the plan and assessment of care with Manuel Rossi PATROL MOTHER. I attest that the above note is dictated by him. Time with Patient: Less than 30
--- NOTE | 2020-03-12 16:00 | P.PN ---
Subjective Progress Note Date: 03/12/20 Principal diagnosis: difficulty in breathing in follow-up today patient patient sitting in the chair, swelling in his legs is better, today he has upper extremity swelling, fatigued with any activity, moderate to severe weakness, short of breath on exertion, poor appetite. No f ever, nausea, chest pain Objective - Vital Signs Vital signs: Vital Signs Temp 97.5 F L 03/12/20 12:00 Pulse 55 L 03/12/20 12:00 Resp 20 03/12/20 12:00 BP 98/55 03/12/20 12:00 Pulse Ox 94 L 03/12/20 12:00 Intake & Output 03/11/20 03/12/20 03/12/20 18:59 06:59 18:59 Intake Total 690 Output Total 75 1300 Balance 615 -1300 Weight 104.5 kg 97.3 kg Intake: IV 690 Cefepime 2 gm In Sodium 100 Chloride 0.9% 100 ml @ 200 mls/hr IVPB Q12HR [facility] Rx#:[id number] Sodium Chloride 0.9% 1, 590 000 ml @ 40 mls/hr IV . Q24H [facility] Rx#:[id number] Output: Urine 75 1300 Other: Voiding Method Indwelling Catheter Indwelling Catheter Indwelling Catheter - Constitutional General appearance: Present: average body habitus, cooperative, no acute distress - EENT EENT Comment(s): very dry mucous membranes Eyes: Present: anicteric sclerae, EOMI ENT: Present: hearing grossly normal, thrush - Respiratory Respiratory: bilateral: diminished - Cardiovascular Details: muffled heart sounds - Peripheral edema foot Peripheral Edema: bilateral: 3+ leg Peripheral Edema: bilateral: 2+ - Gastrointestinal General gastrointestinal: Present: normal bowel sounds, soft - Musculoskeletal Musculoskeletal: Present: generalized weakness - Psychiatric Psychiatric: Present: A&O x's 3, appropriate affect, intact judgment & insight - Labs CBC & Chem 7: 03/12/20 06:12 03/11/20 03:48 Labs: Abnormal Lab Results - Last 24 Hours (Table) 03/11/20 03/12/20 03/12/20 Range/Units 21:30 06:08 06:12 WBC 39.8 H (3.8-10.6) k/uL RBC 3.37 L (4.30-5.90) m/uL Hgb 10.7 L (13.0-17.5) gm/dL Hct 35.4 L (39.0-53.0) % MCV 105.1 H (80.0-100.0) fL MCHC 30.1 L (31.0-37.0) g/dL RDW 22.2 H (11.5-15.5) % Plt Count 30 L (150-450) k/uL Neutrophils # (Manual) 13.93 H (1.3-7.7) k/uL Lymphocytes # (Manual) 25.47 H (1.0-4.8) k/uL Macrocytosis Marked A POC Glucose (mg/dL) 168 H 166 H (75-99) mg/dL 03/12/20 Range/Units 11:40 WBC (3.8-10.6) k/uL RBC (4.30-5.90) m/uL Hgb (13.0-17.5) gm/dL Hct (39.0-53.0) % MCV (80.0-100.0) fL MCHC (31.0-37.0) g/dL RDW (11.5-15.5) % Plt Count (150-450) k/uL Neutrophils # (Manual) (1.3-7.7) k/uL Lymphocytes # (Manual) (1.0-4.8) k/uL Macrocytosis POC Glucose (mg/dL) 162 H (75-99) mg/dL - Imaging and Cardiology US - abdomen: report reviewed Assessment and Plan (1) Bicytopenia Narrative/Plan: There are acute changes in hemoglobin and platelet count on admit, both hemoglobin and platelets have been within normal limits on routine labs in office, last draw was 12/17. Today hemoglobin is stable. No transfusions at this time. Platelets further down today, 30K. Steroids started Tuesday for suspicion of ITP. Tapering prednisone ERx. Protonix ERx, for use during prednisone therapy. Reviewed patient's medications that we were prescribing to him. All questions answered to his satisfaction. US liver report reviewed. Hepatomegaly reported, rt pl effusion Hold eliquis for plt <50K. CBC monitoring while inpatient. B12 deficiency. B12 supplemented. This will be continued outpatient. Current Visit: Yes Status: Acute Priority: High Code(s): D75.89 - OTHER SPECIFIED DISEASES OF BLOOD AND BLOOD-FORMING ORGANS SNOMED Code(s): 41358098 (2) CLL (chronic lymphocytic leukemia) Narrative/Plan: WBC and absolute lymphocyte count returning to baseline. This will continue to be monitored. No acute intervention for CLL. Current Visit: Yes Status: Chronic Priority: Medium Code(s): C91.10 - CHRONIC LYMPHOCYTIC LEUK OF B-CELL TYPE NOT ACHIEVE REMIS SNOMED Code(s): 34148912 (3) Coagulopathy Narrative/Plan: Cardiology placed pt on low dose eliquis for a-fib. Hemoglobin stable, improved, near normal. Anticoagulation has been on hold for thrombocytopenia Current Visit: Yes Status: Resolved Priority: High Code(s): D68.9 - COAGULATION DEFECT, UNSPECIFIED SNOMED Code(s): 97326663 (4) Atrial fibrillation with rapid ventricular response Narrative/Plan: Pt is on anticoagulation for the same, held for low plt. CBC daily. Cardiology managing arrhythmia and hypotension Current Visit: Yes Status: Acute Priority: High Code(s): I48.91 - UNSPECIFIED ATRIAL FIBRILLATION SNOMED Code(s): 681416747179825 (5) Weakness Narrative/Plan: Secondary to prolonged bedrest from acute illness. Internal Medicine has ordered PT/OT. Anticipate rehabilitation after hospitalization. Current Visit: Yes Status: Acute Priority: High Code(s): R53.1 - WEAKNESS SNOMED Code(s): 32463347 Plan: Hx colon adeno, new paratracheal mass, hepatomegaly on US. CT CAP ordered.
[2020-03-12] MEDS: IOPAMIDOL CONTRAST (ORAL USE) VIAL PO PRN ×2 (16:39→17:36)
[2020-03-12 17:02] LABS: Glucose,Whole Blood 113 mg/dL (75-99)
--- NOTE | 2020-03-12 17:14 | PN ---
PROGRESS NOTE DATE OF SERVICE: 03/12/2020 REASON FOR FOLLOWUP: Pneumonia. INTERVAL HISTORY: The patient is currently afebrile. Still complaining of feeling weak and tired. No energy. Denies having any chest pain. Minimal cough. No abdominal pain or diarrhea. Currently complaining of swelling in the upper and lower extremities. PHYSICAL EXAMINATION: Blood pressure 98/55 with a pulse 65, temperature 97.5. He is 94% on 4 L nasal cannula. General description is an elderly male up in the chair in no distress. RESPIRATORY SYSTEM: Unlabored breathing with decreased intensity of breath sounds. No wheeze. HEART: S1, S2. Regular rate and rhythm. ABDOMEN: Soft. No tenderness. LABS: Hemoglobin 10.7, white count 39.8. Creatinine is 1.16. Culture remains negative. DIAGNOSTIC IMPRESSION AND PLAN: Patient admitted to hospital with weakness and hypertension which is likely multifactorial with concern for possible component of pneumonia. The patient is covered with cefepime. Transition to oral Avelox for a short course to finish course of therapy on discharge. Continue with supportive care. MMODL / IJN: [id number] /
--- NOTE | 2020-03-12 17:34 | P.PN ---
Progress Note - Text Progress Note Date: 03/12/20 History of Present Illness 71-year-old pleasant male who follows with Dr. Jessa campos, was transferred from [facility] after he was treated for atrial fibrillation with Cardizem was transferred here for evaluation by oncology. Admitted to intensive care unit because of hypotension patient appears to have hypovolemic shock patient started on levo fed. Cardizem was discontinued because of hypotension patient was started on digoxin and patient was also also started on low-dose metoprolol with fairly controlled heart rate. 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 There is a concern about transformation because of low hemoglobin, decreased platelet count and decreased white blood cell count. Although there is no blast cells in the peripheral smear Dr. Lacy evaluated the patient is a concern about GI bleed although patient doesn't have any blood in the stools or dark stools or hematemesis patient's INR is around 2 which is believed to be secondary to Xarelto, although DIC workup is being obtained as well. Patient is quite a bit weak there is a concern about the chest x-ray findings of right lower lobe infiltrate-photo optics technician do not believe patient has any pneumonia patient doesn't having any symptoms of pneumonia patient denied any cough doesn't have any fever chills. Patient doesn't have elevated BNP although clinically not in heart failure exacerbation his BNP here is around 9000 his BNP at [facility] was around 7000. Patient doesn't have any JVD and crackles on exam. Patient's creatinine negative district is 1.3 and he rates 1.1 patient is presently receiving IV fluids because of hypovolemic shock is also on levo fed. Patient had normal ejection fraction. Patient's symptoms right now is a significant fatigue and generalized weakness. Patient denied any significant shortness of breath at this time Admitted with-hypotension likely hypovolemic, persistent atrial flutter with rapid ventricular rate, bicytopenia, acute kidney injury. Patient is started on levo fed. Empiric antibiotics. Infection felt to be less likely Today-feeling better. Tired. Did eat some breakfast. Decreased appetite. Review of systems: Was done for constitutional, cardiovascular, GI, pulmonary. relevant finding as above Active Medications Digoxin (Lanoxin) 125 mcg PO DAILY [facility] Last Admin: 03/12/20 08:55 Dose: 125 mcg Documented by: Dronabinol (Marinol) 2.5 mg PO AC-BID [facility] Last Admin: 03/12/20 06:20 Dose: Not Given Documented by: Cefepime HCl 2 gm/ Sodium (Chloride) 100 mls @ 200 mls/hr IVPB Q12HR [facility] Last Admin: 03/12/20 08:55 Dose: 200 mls/hr Documented by: Insulin Aspart (Novolog) 0 unit SQ ACHS [facility]; Protocol Last Admin: 03/12/20 12:17 Dose: 3 unit Documented by: Iopamidol (Isovue-300 (For Oral Use)) 30 ml PO Q60M PRN PRN Reason: CT Scan Stop: 03/13/20 15:57 Last Admin: 03/12/20 16:39 Dose: 30 ml Documented by: Levothyroxine Sodium (Synthroid) 100 mcg PO DAILY@0630 [facility] Last Admin: 03/12/20 06:20 Dose: Not Given Documented by: Metoprolol Tartrate (Lopressor) 25 mg PO BID [facility] Last Admin: 03/12/20 08:55 Dose: 25 mg Documented by: Midodrine (Proamatine) 10 mg PO AC-TID [facility] Last Admin: 03/12/20 12:19 Dose: 10 mg Documented by: Miscellaneous Information (Pneumonia Protocol Utilized) 1 each PO ONCE PRN PRN Reason: Per Protocol Naloxone HCl (Narcan) 0.2 mg IV Q2M PRN PRN Reason: Opioid Reversal Nystatin (Mycostatin Oral Susp) 500,000 unit PO QID [facility] Pantoprazole Sodium (Protonix) 40 mg PO AC-BRKFST [facility] Last Admin: 03/12/20 06:20 Dose: Not Given Documented by: Prednisone () 60 mg PO DAILY [facility] Last Admin: 03/12/20 08:55 Dose: 60 mg Documented by: On examination: VITAL SIGNS: 97.5, 55, 20, 98/55, 94% on 4 L GENERAL APPEARANCE: Propped up in bed, tired HEENT: Normal external appearance of nose and ear. Oral cavity normal EYES: Pupils equal. Conjunctiva pale NECK: JVD not raised. Mass not palpable. RESPIRATORY: Respiratory effort normal. Lungs decreased breath sounds CARDIOVASCULAR: Heart sounds irregular. Some edema. ABDOMEN: Soft. Liver and spleen not palpable. No tenderness. No mass palpable. PSYCHIATRY: Alert and oriented x3. Mood and affect tired INVESTIGATIONS, reviewed in the clinical context: White count 39.8, 10.7 hemoglobin, Previous testing: White count 31.8 hemoglobin 10.5 platelets 79-sodium 129 potassium 4.7 creatinine 1.19 EKG tracing-atrial fibrillation with a rate of 120 Chest m-gww-aybywuwjelvl density Assessment -Hypovolemic shock-status post norepinephrine IV fluids-POA -Generalized weakness probably secondary to atrial fibrillation as well as a other issues including chronic lymphocytic leukemia, improving -Acute renal failure probably prerenal azotemia intravascular volume depletion- better -Persistent Atrial fibrillation,-uncontrolled on admission: Controlled -Hilar lymphadenopathy and right paratracheal adenopathy for further workup -Chronic lymphocytic leukemia there is no evidence of transformation to acute leukemia. -Bicytopenia including thrombocytopenia and low hemoglobin etiology is not clear further workup as mentioned above oncology evaluated the patient. -Hypertension patient is presently hypotensive -Moderate pulmonary hypertension -History of CVA and TIA -Coagulopathy most presently secondary to Xarelto initially held, now changed over to eliquis -Hypothyroid -Metabolic acidosis -Secondary pulmonary hypertension -Medical debility requiring physical therapy Plan: We'll switched to oral antibiotic. Also switched to oral prednisone. After discussion Dr. Lacy from oncology. Breathing at transferred to rehab shortly.
--- NOTE | 2020-03-12 19:06 | CT ---
EXAMINATION TYPE: CT ChestAbdPelvis w con DATE OF EXAM: 03/12/2020 COMPARISON: Radiograph chest 03/11/2020, outside CT chest 03/04/2020 HISTORY: 79-year-old male New paratracheal mass, hepatomegaly, hx of colon adenocarcinoma TECHNIQUE: Contiguous axial scanning of the chest, abdomen, and pelvis performed with IV Contrast, pa tient injected with 80 mL of Isovue 300. Delayed images through the kidneys were obtained. Coronal/sa gittal reconstructions performed. CT DLP: 1637.6 mGycm Automated exposure control for dose reduction was used. FINDINGS: CHEST: Heart normal size. There is mild to moderate anterior pericardial effusion measuring 1.37 mm thick. E xtensive LAD calcifications are present. Ascending aorta mildly ectatic at 3.7 cm. Conventional arch vessel branching anatomy with mild athero sclerotic arch calcifications. Large caliber to the main right and left pulmonary arteries measuring up to 2.8 cm suggesting underly ing pulmonary arterial hypertension. Generalized thoracic lymphadenopathy. Some retrocrural lymph node on the right measures up to 1.3 cm. Numerous mildly thickened bilateral axillary lymph nodes are present. Right paratracheal mass measuring up to 6.4 x 4.9 cm. Additional scattered enlarged mediastinal lymph nodes are present, 2.3 cm left tracheobronchial angle , 3.7 x 3.4 cm right hilum, and 5.1 x 2.7 cm subcarinal region. Lymph nodes measuring up to 1.6 cm left pericardiac region. This seems to be some layering oral contrast material at the baldomero and proximal right mainstem bronc hus. Enlarging moderate bilateral pleural effusions. Adjacent basilar atelectasis of the bilateral lower l obes. 6 mm right lower lung pulmonary nodule, axial image 49. 4 mm right mid lung pulmonary nodule, axial image 37. ABDOMEN: Severe generalized anasarca changes. Spleen mildly enlarged at 14.2 cm. There is mild upper abdominal ascites fluid. No free air. No definite focal liver lesion alignment for breathing motion artifact. Portal venous system appears patent. No biliary ductal dilatation. Adrenal glands and pancreas appear within normal limits. No excretion of contrast from the kidneys on the delayed scan. Correlation should be made to exclude acute kidney injury. Retroperitoneal lymphadenopathy measuring up to 5.4 x 3.6 cm and the left periaortic region. Smaller aortocaval lymph nodes measure up to 1.1 cm. No definite mesenteric lymphadenopathy seen. No dilated small bowel. Oral contrast progressed into the splenic flexure. No pericolic inflammatory change. No significant s tool burden. Scattered [id number] prostatic calcifications abdominal aorta and common iliac arteries. PELVIS: Mildly enlarged bilateral external iliac chain lymph nodes measuring up to 1.3 cm on the left and enl arged on the right measuring up to 1.5 cm short axis. Moderate pelvic ascites. Raymond catheter is in p lace. Intraluminal bladder air likely relating to instrumentation. Moderate circumferential bladder w all thickening. Presacral edema. BONES: Degenerative changes at the hips. Degenerative changes mid to lower lumbar spine. No osseous destruct caroline process seen. IMPRESSION: 1. CORRELATE FOR FLUID OVERLOAD STATE. THERE IS EXTENSIVE, SEVERE GENERALIZED ANASARCA WITH INCREASIN G MODERATE PLEURAL EFFUSIONS AND NEW MILD ABDOMINOPELVIC ASCITES. 2. ADJACENT ATELECTASIS OF THE BASILAR LOWER LOBES. HOWEVER, WE NOTE SUGGESTION OF SOME LAYERING ORAL CONTRAST IN THE BALDOMERO AND PROXIMAL RIGHT MAINSTEM BRONCHUS. CONSIDER ASPIRATION IN THIS PATIENT. 3. MEDIASTINAL, RIGHT HILAR, AXILLARY, RETROPERITONEAL, AND EXTERNAL ILIAC CHAIN LYMPHADENOPATHY. COR RELATE FOR METASTATIC DISEASE VERSUS LYMPHOMA. 4. A COUPLE PULMONARY NODULES ON THE RIGHT MEASURING UP TO 6 MM. METASTATIC DISEASE NOT EXCLUDED. 5. MILD SPLENOMEGALY OF 14.2 CM. 6. NO EXCRETION OF CONTRAST ON THE DELAYED KIDNEY IMAGES. CORRELATE WITH RENAL FUNCTION STUDIES TO EX CLUDE MIGUEL.
[2020-03-12] MEDS: NYSTATIN 100,000 UNIT/ML SUSP 500,000 UNIT/5 ML CUP PO SCH ×2 (19:11→21:19)
[2020-03-12 20:24] LABS: Glucose,Whole Blood 123 mg/dL (75-99)
[2020-03-13 06:11] LABS: Glucose,Whole Blood 187 mg/dL (75-99)
[2020-03-13] MEDS: DRONABINOL 2.5 MG CAP PO SCH ×2 (06:39→17:54)
[2020-03-13] MEDS: PANTOPRAZOLE 40 MG TABLET PO SCH (06:39)
[2020-03-13] MEDS: MIDODRINE 5 MG TAB PO SCH ×3 (06:39→17:53)
[2020-03-13] MEDS: INSULIN ASPART (NovoLOG) 100 UNIT/ML VIAL SQ SCH ×4 (06:39→22:40)
[2020-03-13] MEDS: LEVOTHYROXINE 100 MCG TAB PO SCH (06:39)
--- NOTE | 2020-03-13 07:23 | XR ---
EXAMINATION TYPE: XR chest 1V portable DATE OF EXAM: 03/13/2020 COMPARISON: 03/11/2020 HISTORY: SOB, Follow Up FINDINGS: Central venous line is unchanged. Mild improvement in bibasilar opacities. Stable appearance of the cardio-mediastinal structures at this time. Pleural effusion unchanged. IMPRESSION: 1. Mild Interval improvement suggested. Clinical correlation and follow up until resolution is recomm ended.
[2020-03-13] MEDS: predniSONE 20 MG TAB PO SCH (08:58)
[2020-03-13] MEDS: METOPROLOL TARTRATE 25 MG TAB PO SCH ×2 (08:58→22:39)
[2020-03-13] MEDS: DIGOXIN 125 MCG TAB PO SCH (08:59)
[2020-03-13] MEDS: NYSTATIN 100,000 UNIT/ML SUSP 500,000 UNIT/5 ML CUP PO SCH ×4 (08:59→22:40)
[2020-03-13] MEDS: LEVOFLOXACIN 500 MG TAB PO SCH (08:59)
--- NOTE | 2020-03-13 10:39 | P.PN ---
Subjective Progress Note Date: 03/13/20 Principal diagnosis: This is a 79-year-old white male, known history of B-cell lymphoma, stage 0 disease, advised mostly observation. Known history of previous CVA in 2017, previous treatment with TPA. Patient is also known to have history of atrial fibrillation. And he was admitted to [facility] ICU the day before yesterday, patient presented initially to the ER at [facility] with hypotension, atrial fibrillation with RVR. I was notified about this patient, and I admitted him to the ICU. He was seen by Dr. Stroud and other consultants at [facility], and he was treated with antibiotics empirically, norepinephrine for his hypotension, fluid boluses were given at least 2-3 L were given to him initially when he presented to the ER. However early this morning around 3 AM, and for no good reason the ER at [facility] accepted the patient to be transferred from the ICU to the ER, patient was shortly evaluated, and transferred to the ICU at [facility]. The patient tells me that they transferred her mostly because his oncologist is on our staff, and the patient was requesting to be discharged. Although the patient is not receiving any treatment for his B-cell lymphoma. At any rate patient was admitted to the ICU, presently on norepinephrine at 0.07 mcg/kg/m, is also on IV fluid at 100 mL per hour. He is in atrial fibrillation with a rate of 102-110. He is on room air with O2 saturation 93%. Patient complains mostly of progressive fatigue and weakness. No fever no chills no hemoptysis no cough no wheezing, no nausea no vomiting no abdominal pain no melena no hematemesis is no dysuria and no diarrhea no frequency no urgency. Again the patient was placed on empiric antibiotics and he is being evaluated by cardiology for his atrial fibrillation. Off Cardizem at present. His past medical history is mostly significant for colon cancer, resected in 2007. His CT of the chest from [facility] showed no evidence of pneumonia, and the patient had no symptoms to suggest pneumonia. Reevaluated today on 03/06/20, patient remains in the ICU. Remains on norepinephrine at 0.12 mcg/kg/m, and I cut it down to 0.1. His IV fluid is at 100 mL/h, and I cut it down to 50 mL per hour. Patient remains in atrial fibrillation, rate seems to be fairly well controlled rate of 101. His oxygen saturation is 96% on room air. Chest x-ray and CT of the chest from [facility] showed mostly bilateral pleural effusions and bibasilar atelectasis. Sputum Gram stain is basically nondiagnostic. Culture is pending. Urinalysis is suspicious for urinary tract infection, however the patient had no symptoms, and culture of the urine is pending. Serum cortisol level today is 27. His BNP was noted to be elevated at 9330, hence I will give the patient 1 dose of Lasix, and I cut down his IV fluid to 50 mL per hour. WBC count today is 43.6 hemoglobin is 10.6. INR is down to 1.6. Patient continues to have hyponatremia which is likely hypovolemic in nature. Renal functioning is a bit worse today, and I'll see the patient developed acute kidney injury secondary to acute tubular necrosis secondary to hypotension. Clinically, the patient remains relatively asymptomatic. Patient was reevaluated today on 03/07/20, remains in the ICU, remains in atrial fibrillation but rate seems to be controlled. Patient is on room air. Sodium remains a bit low. Chest x-ray continues to show right paratracheal mass. Patient remains on norepinephrine at 0.05 mcg/kg/m he is afebrile, remains empirically on antibiotics. Reviewed the CT of the chest from [facility], and I'm not certain whether the patient will need a tissue diagnosis for his right paratracheal and subcarinal lymphadenopathy, if he does patient will need a bronchoscopy and li needle /transcarinal needle aspiration. However the oncologist on the case made no suggestion that they need a tissue diagnosis apparently the diagnosis was already made but I'm quite concerned considering the size of the adenopathy noted. This could be lymphoma could also be small cell lung carcinoma. Continues to have leukocytosis with WBC count of 54.1 hemoglobin is 11.4 and electrolytes were reviewed sodium remains 128 bicarb remains a bit low at 16 BUN is 54 creatinine is improving down to 1.27 Reevaluated today on 03/08/20, patient remains in the ICU, remains on norepinephrine at 0.06 mg/kg/m. Remains on IV fluid at 100 mL/h. He is doing quite well except for his hypotension requiring norepinephrine. Patient has no active symptoms whatsoever. Denies any headache no blurred vision no dizziness no cough no wheezing no shortness of breath no nausea no vomiting no abdominal pain no melena no hematemesis no dysuria and no frequency no urgency.his labs were all reviewed, and sodium remains a bit low at 128, renal profile is a bit better with BUN 54 creatinine is down to 1.22.patient was placed on midodrine yesterday, the patient remains relatively low, hence I will recommend a trial of Solu-Cortef 100 mg IV push 1. Although his serum cortisol level was 27 on admission.continues to have leukocytosis, WBC count is 40.8 Reevaluated today on 03/09/20, patient remains in the ICU, IV fluid is at 90 mL per hour. Remains on norepinephrine at 0.05 mcg/kg/m, remains on room air. Had occasional episodes of diarrhea. Patient is complaining of generalized weakness, otherwise he denies any cough no wheezing no shortness of breath no fever no chills no hemoptysis no chest pain no nausea no vomiting had occasional diarrhea since admission, patient overall is asymptomatic. Reviewed the notes from oncology, now they are recommending tissue diagnosis for his right paratracheal mass, and this could be easily done with bronchoscopy and li needle hopefully sometime next week. Patient is not a candidate for the procedure at this point specially with him being hypotensive requiring norepi nephrine. The patient is seen today 03/10/2020 in follow-up in the intensive care unit. He is currently awake and alert in no acute distress. Sitting up in bed. He is maintaining O2 saturations in the 90s on room air. He has a 0.9 normal saline at 100 ML's per hour. He is still requiring norepinephrine at 3 mcg/m. Chest x-ray reveals small bilateral pleural effusions. Pulmonary venous congestion is improved. Some basilar atelectasis. Blood cultures revealed no growth. Sputum cultures reveal no growth. White count 48.6. Hemoglobin 10.8. Platelets 60,000. Sodium 1:30. Potassium 4.3. Creatinine 1.4. TSH 0.625. Cortisol 20. C. diff screen was negative. On 03/11/2020 patient seen in follow-up in the intensive care unit, doing well, his levo fed has been off for 24 hours, plan and was seen at a rate of 100 ML per hour, he is in sinus rhythm with a rate of 85, room air pulse ox is 93%, he is resting comfortably in bed, generally weak, but no acute distress, no worsening dyspnea, his chest x-ray shows bilateral infiltrates, and small pleural effusions. He has had no fever or chills, his lung sounds are clear, diminished at the bases, today's labs have been reviewed, white blood cell count is trending down, 38.6 on today's labs, hemoglobin is 11.0, platelet count is 39, serum sodium is 132, potassium is 4.6, chloride is 111, CO2 is 13, and BUN is 55 creatinine is 1.16, TSH level was within normal limits at 0.625, and cortisol level was 20, patient is on midodrine 10 mg 3 times daily and IV steroids at 60 mg every 12 hours, and antibiotics in the form of cefepime, his blood and sputum cultures have shown no growth. On 03/12/2020 the patient was seen in follow-up with Dr. Ford on the cardiac stepdown unit. He remains hemodynamically stable and is in no acute distress. Oxygen saturations are 97% on 3 L nasal cannula. He did have a ultrasound of his liver completed today due to some thrombocytopenia and increasing bilirubin which demonstrated hepatomegaly, some possible pericholecystic fluid and an incidental note of a right pleural effusion. Laboratory results today show a WBC 39.8, hemoglobin 10.7, and platelet count of 30. He remains afebrile the last 24 hours and he did not have a chest x-ray completed today. Remote telemetry showing normal sinus rhythm heart rate 86. On 03/13/2020 the patient was seen in follow-up with Dr. Ford on the cardiac stepdown unit. The patient is laying in bed comfortably in no acute distress. Oxygen saturations are 100% on 3 L nasal cannula. A repeat chest x-ray was completed today which demonstrated mild interval improvement. A computed tomography scan of his chest/abdomen ports/pelvis with contrast was completed yesterday which showed extensive, severe generalized anasarca with increasing moderate pleural effusions and new mild abdomen pelvic ascites, adjacent atelectasis of the basilar lower lobes, some layering oral contrast in the baldomero and proximal right mainstem bronchus, consider aspiration, mediastinal right hilar, axillary, retroperitoneal and external iliac chain lymphadenopathy, pulmonary nodules on the right measuring up to 6 mm, mild splenomegaly [id number] cm and no excretion of contrast on the delayed kidney images. There were no new laboratory results today. He is been afebrile the last 24 hours. He is complaining of generalized weakness and some shortness of breath with exertion. He remains to have some +1 generalized edema. Remote telemetry showing atrial fibrillation heart rate 69. Objective - Vital Signs Vital signs: Vital Signs Temp 97.4 F L 03/13/20 08:00 Pulse 80 03/13/20 08:00 Resp 17 03/13/20 08:00 BP 108/52 03/13/20 08:00 Pulse Ox 100 03/13/20 08:00 Intake & Output 03/12/20 03/13/20 03/13/20 18:59 06:59 18:59 Intake Total 340 100 236 Output Total 700 Balance 340 -600 236 Weight 83 kg Intake: IV 100 Cefepime 2 gm In Sodium 100 Chloride 0.9% 100 ml @ 200 mls/hr IVPB Q12HR [facility] Rx#:[id number] Oral 240 100 236 Output: Urine 700 Uretheral (Raymond) 200 Other: Voiding Method Indwelling Catheter Indwelling Catheter Indwelling Catheter - Exam Alert, very pleasant, 79-year-old white male, on 3 L nasal cannula, with a pulse ox of 97%, comfortable in no apparent distress. - Constitutional General appearance: Present: average body habitus, cooperative, no acute distress - EENT Eyes: Present: PERRLA. Absent: scleral icterus ENT: Present: hearing grossly normal - Neck Details: Neck supple Neck: Absent: lymphadenopathy - Respiratory Details: Lung sounds diminished to his bilateral bases, left greater than right. No wheezes, crackles or rhonchi. Respirations are symmetrical and nonlabored. - Cardiovascular Details: Irregular rhythm and controlled rate. S1 and S2 present, negative for S3, gallop or murmur. - Gastrointestinal Gastrointestinal Comment(s): Abdomen is soft, nontender and nondistended. Active bowel sounds present all 4 abdominal quadrants. No guarding or rigidity. - Integumentary Integumentary Comment(s): Skin is warm and dry. No clubbing or cyanosis is present. +1 generalized edema. - Neurologic Neurologic: Present: CNII-XII intact - Musculoskeletal Musculoskeletal: Present: generalized weakness, strength equal bilaterally - Psychiatric Psychiatric: Present: A&O x's 3, appropriate affect, intact judgment & insight - Allied health notes Allied health notes reviewed: nursing - Labs CBC & Chem 7: 03/12/20 06:12 03/11/20 03:48 Labs: Abnormal Lab Results - Last 24 Hours (Table) 03/12/20 03/12/20 03/12/20 Range/Units 06:12 11:40 16:44 Plt Count 30 L (150-450) k/uL Neutrophils # (Manual) 13.93 H (1.3-7.7) k/uL Lymphocytes # (Manual) 25.47 H (1.0-4.8) k/uL POC Glucose (mg/dL) 162 H 113 H (75-99) mg/dL 03/12/20 03/13/20 Range/Units 20:12 06:10 Plt Count (150-450) k/uL Neutrophils # (Manual) (1.3-7.7) k/uL Lymphocytes # (Manual) (1.0-4.8) k/uL POC Glucose (mg/dL) 123 H 187 H (75-99) mg/dL - Imaging and Cardiology Chest x-ray: report reviewed, image reviewed Assessment and Plan Assessment: 1 Hypotension, most likely hypovolemic in nature, still requiring slow hydration, norepinephrine has been discontinued, did not respond to Solu-Cortef. Continues to be on midodrine, he remains on prednisone 60 mg daily. 2 Chronic atrial fibrillation with RVR. Presently rate is controlled. 3 Chronic lymphocytic leukemia, B-cell type, not active. 4 Mediastinal and right paratracheal adenopathy patient may eventually require bronchoscopy and trans-carinal needle aspiration for tissue diagnosis. It is likely lymphoma, however small cell lung carcinoma is also in the differential. 5 Bicytopenia, being addressed by oncology on the case. 6 Coagulopathy, resolved. 7 Hypovolemic hyponatremia, improving. 8 Acute kidney injury secondary to hypotension, improving with hydration. 9. Bilateral pleural effusions Plan: 1. The patient was seen and examined at his bedside on the cardiac stepdown unit with Dr. Ford. 2. Continue Midodrine 10 mg by mouth 3 times a day. He remains hemodynamically stable. 3. We will order an ultrasound of his chest with markings for possible thoracentesis today. Oncology has requested the pleural fluid be sent for BNT lymphocytes and triglycerides. 4. Wean oxygen as tolerated to maintain oxygen saturations greater than or equal to 92%. 5. Thrombocytopenia management per hematology/oncology recommendations. 6. More recommendations to follow based on patient's clinical course. I, the cosigning physician, performed a history and physical examination on the patient. Lungs are diminished to his bilateral bases and maintaining O2 saturation in the 90s on 3 L nasal cannula. I discussed the plan and assessment of care with Manuel Rossi PHOTORESIST PRINTER. I attest that the above note is dictated by him. Time with Patient: Less than 30
--- NOTE | 2020-03-13 10:46 | US ---
EXAMINATION TYPE: US chest DATE OF EXAM: 03/13/2020 COMPARISON: NONE CLINICAL HISTORY: Markings for thoracentesis by pulmonary staff. TECHNIQUE: Targeted ultrasound of the posterior lower bilateral hemithoraces EXAM MEASUREMENTS: Right Pleural Effusion pocket size: 3.3 cm Right skin surface to fluid distance: 2.6 cm Left Pleural Effusion pocket size: 7.9 cm Left skin surface to fluid distance: 2.0 cm Right side MARKED for possible thoracentesis outside the dept. Left side MARKED for possible thoracentesis outside the dept. Pulmonologists are able to review the images in the patient?s EMR. IMPRESSIONS: As above
[2020-03-13 11:51] LABS: Glucose,Whole Blood 139 mg/dL (75-99)
--- NOTE | 2020-03-13 13:44 | PCN ---
PROCEDURE NOTE PROCEDURE: Left thoracentesis. PREOPERATIVE DIAGNOSIS: Left pleural effusion. POSTOPERATIVE DIAGNOSIS: Left pleural effusion. There was informed consent and universal timeout. OPERATORS: Dr. Ford, Sharron Hood, Virgei Hale and Manuel Rossi. Indication Pleural effusion. A time-out was completed verifying correct patient, procedure, site, positioning , and implant (s) or special equipment if applicable. Ultrasound guidance was used and appropriate fluid pocket was identified and marked. Patient was positioned, prepped and draped in usual sterile fashion. Lidocaine was used to anesthetize the area. A Thoracentesis catheter was introduced into the pleural space and fluid was removed. Blood loss was none. A chest x-ray was ordered to evaluate for pneumothorax. Total Fluid Removed: 1100 mL. Color of Fluid: Yellow. Fluid was sent for appropriate laboratory tests. Patient tolerated the procedure well and there were no complications. The left posterior chest was marked by ultrasound and 1100 mL of yellow fluid was removed. There was no immediate complication. The patient tolerated the procedure well. A chest x-ray will be ordered to rule out pneumothorax. The fluid will be sent for analysis including triglyceride, flow cytometry, as well as B and T lymphocytes. Again, 1100 mL was removed. There was no immediate complication. The fluid will be sent for analysis. A chest x-ray ordered. 1100 mL of yellow fluid removed. MMODL / IJN: [id number] / MTDD
--- NOTE | 2020-03-13 14:04 | XR ---
EXAMINATION TYPE: XR chest 1V portable DATE OF EXAM: 03/13/2020 Comparison: Earlier today Clinical History: 79-year-old male post left thoracentesis Findings: RIGHT IJ CVC tip at the cavoatrial junction. Heart borderline in size. Redemonstrated right suprahila r masslike contour abnormality. Residual small pleural effusions with bibasilar opacity. No appreciab le pneumothorax. Impression: 1. Residual small effusions with adjacent atelectasis and or consolidation. No appreciable pneumothor ax. 2. Known mediastinal lymphadenopathy.
--- NOTE | 2020-03-13 16:39 | P.PN ---
Progress Note - Text Progress Note Date: 03/13/20 History of Present Illness 71-year-old pleasant male who follows with Dr. Jessa campos, was transferred from [facility] after he was treated for atrial fibrillation with Cardizem was transferred here for evaluation by oncology. Admitted to intensive care unit because of hypotension patient appears to have hypovolemic shock patient started on levo fed. Cardizem was discontinued because of hypotension patient was started on digoxin and patient was also also started on low-dose metoprolol with fairly controlled heart rate. 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 There is a concern about transformation because of low hemoglobin, decreased platelet count and decreased white blood cell count. Although there is no blast cells in the peripheral smear Dr. Lacy evaluated the patient is a concern about GI bleed although patient doesn't have any blood in the stools or dark stools or hematemesis patient's INR is around 2 which is believed to be secondary to Xarelto, although DIC workup is being obtained as well. 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 Patient doesn't have elevated BNP although clinically not in heart failure exacerbation his BNP here is around 9000 his BNP at [facility] was around 7000. Patient doesn't have any JVD and crackles on exam. Patient's creatinine negative district is 1.3 and he rates 1.1 patient is presently receiving IV fluids because of hypovolemic shock is also on levo fed. Patient had normal ejection fraction. Patient's symptoms right now is a significant fatigue and generalized weakness. Patient denied any significant shortness of breath at this time Admitted with-hypotension likely hypovolemic, persistent atrial flutter with rapid ventricular rate, bicytopenia, acute kidney injury. Patient is started on levo fed. Empiric antibiotics. Infection felt to be less likely Today-remains tired. Eating only about 25%. No fever no chills. Sitting up. Review of systems: Was done for constitutional, cardiovascular, GI, pulmonary. relevant finding as above Active Medications Digoxin (Lanoxin) 125 mcg PO DAILY [facility] Last Admin: 03/13/20 08:59 Dose: 125 mcg Documented by: Dronabinol (Marinol) 2.5 mg PO AC-BID [facility] Last Admin: 03/13/20 06:39 Dose: 2.5 mg Documented by: Insulin Aspart (Novolog) 0 unit SQ ACHS [facility]; Protocol Last Admin: 03/13/20 12:56 Dose: Not Given Documented by: Levofloxacin (Levaquin) 500 mg PO DAILY [facility] Last Admin: 03/13/20 08:59 Dose: 500 mg Documented by: Levothyroxine Sodium (Synthroid) 100 mcg PO DAILY@0630 [facility] Last Admin: 03/13/20 06:39 Dose: 100 mcg Documented by: Metoprolol Tartrate (Lopressor) 25 mg PO BID [facility] Last Admin: 03/13/20 08:58 Dose: 25 mg Documented by: Midodrine (Proamatine) 10 mg PO AC-TID [facility] Last Admin: 03/13/20 12:55 Dose: 10 mg Documented by: Miscellaneous Information (Pneumonia Protocol Utilized) 1 each PO ONCE PRN PRN Reason: Per Protocol Naloxone HCl (Narcan) 0.2 mg IV Q2M PRN PRN Reason: Opioid Reversal Nystatin (Mycostatin Oral Susp) 500,000 unit PO QID [facility] Last Admin: 03/13/20 12:55 Dose: 500,000 unit Documented by: Pantoprazole Sodium (Protonix) 40 mg PO AC-BRKFST [facility] Last Admin: 03/13/20 06:39 Dose: 40 mg Documented by: Prednisone () 60 mg PO DAILY [facility] Last Admin: 03/13/20 08:58 Dose: 60 mg Documented by: On examination: VITAL SIGNS: 97.4, 80, 17, 108/52, 100% on 4 L GENERAL APPEARANCE: Propped up in chair, tired HEENT: Normal external appearance of nose and ear. Oral cavity normal EYES: Pupils equal. Conjunctiva pale NECK: JVD not raised. Mass not palpable. RESPIRATORY: Respiratory effort normal. Lungs decreased breath sounds CARDIOVASCULAR: Heart sounds irregular. Some edema. ABDOMEN: Soft. Liver and spleen not palpable. No tenderness. No mass palpable. PSYCHIATRY: Alert and oriented x3. Mood and affect tired INVESTIGATIONS, reviewed in the clinical context: White count 39.8, 10.7 hemoglobin, Previous testing: White count 31.8 hemoglobin 10.5 platelets 79-sodium 129 potassium 4.7 creatinine 1.19 EKG tracing-atrial fibrillation with a rate of 120 Chest g-kye-sglxnnzouqnx density Assessment -Hypovolemic shock-status post norepinephrine IV fluids-POA -Generalized weakness probably secondary to atrial fibrillation as well as a other issues including chronic lymphocytic leukemia, improving -Acute renal failure probably prerenal azotemia intravascular volume depletion- better -Persistent Atrial fibrillation,-uncontrolled on admission: Controlled -Hilar lymphadenopathy and right paratracheal adenopathy for further workup -Chronic lymphocytic leukemia there is no evidence of transformation to acute leukemia. -Bicytopenia including thrombocytopenia and low hemoglobin etiology is not clear further workup as mentioned above oncology evaluated the patient. -Hypertension patient is presently hypotensive -Moderate pulmonary hypertension -History of CVA and TIA -Coagulopathy most presently secondary to Xarelto initially held, now changed over to eliquis -Hypothyroid -Metabolic acidosis -Secondary pulmonary hypertension -Medical debility requiring physical therapy Plan: Dr. Lacy from oncology called me earlier today. His concerns are that if there is any transformation of CLL. He will have Dr. Ford tap the fluid as there is no obvious lymph nodes to be biopsied. This was done earlier today. Discussed the patient. Prognosis guarded. Medications to continue. Total time spent about 45 minutes with over 25 minutes of discussion
[2020-03-13 16:48] LABS: Glucose,Whole Blood 168 mg/dL (75-99)
--- NOTE | 2020-03-13 20:20 | PN ---
PROGRESS NOTE DATE OF SERVICE: 03/13/2020 REASON FOR FOLLOWUP: Pneumonia. INTERVAL HISTORY: The patient is currently afebrile, has been breathing comfortably. The patient denies having any chest pain. Minimal cough. No nausea, no vomiting. No abdominal pain or diarrhea. PHYSICAL EXAMINATION: Blood pressure 108/56, pulse of 72, temperature 97.7. He is 97% on 2 L nasal cannula. General description is an elderly male up in the chair in no distress. RESPIRATORY SYSTEM: Unlabored breathing with decreased breath sounds at the base. No wheeze. HEART: S1, S2. Regular rate and rhythm. ABDOMEN: Soft. No tenderness. LABS/IMAGING: No new labs have been obtained today. Chest x-ray shows overall improvement. DIAGNOSTIC IMPRESSION AND PLAN: Patient admitted to hospital with difficulty breathing which is likely multifactorial with concern for a left lower lobe pneumonia. The patient did have a CT of chest, abdomen and pelvis which basically shows generalized fluid overload and adenopathy but no antibiotic has been adjusted to Levaquin; to continue for a short course. The right IJ should be discontinued to decrease the risk of a line-related sepsis and monitor his clinical course closely. MMODL / IJN: [id number] /
[2020-03-13 20:42] LABS: Glucose,Whole Blood 220 mg/dL (75-99)
[2020-03-14 05:55] LABS: Glucose,Whole Blood 63 mg/dL (75-99)
[2020-03-14] MEDS: INSULIN ASPART (NovoLOG) 100 UNIT/ML VIAL SQ SCH ×4 (06:01→21:34)
[2020-03-14] MEDS: DRONABINOL 2.5 MG CAP PO SCH ×2 (06:05→17:48)
[2020-03-14] MEDS: LEVOTHYROXINE 100 MCG TAB PO SCH (06:05)
[2020-03-14] MEDS: PANTOPRAZOLE 40 MG TABLET PO SCH (06:05)
[2020-03-14] MEDS: MIDODRINE 5 MG TAB PO SCH ×3 (06:06→17:48)
[2020-03-14 06:19] LABS: Glucose,Whole Blood 70 mg/dL (75-99)
[2020-03-14 08:02] LABS: Glucose,Whole Blood 60 mg/dL (75-99)
[2020-03-14 08:21] LABS: Glucose,Whole Blood 64 mg/dL (75-99)
[2020-03-14 08:36] LABS: Glucose,Whole Blood 160 mg/dL (75-99)
[2020-03-14] MEDS: DIGOXIN 125 MCG TAB PO SCH (09:09)
[2020-03-14] MEDS: predniSONE 20 MG TAB PO SCH (09:09)
[2020-03-14] MEDS: LEVOFLOXACIN 500 MG TAB PO SCH (09:09)
[2020-03-14] MEDS: METOPROLOL TARTRATE 25 MG TAB PO SCH ×2 (09:10→21:38)
[2020-03-14] MEDS: NYSTATIN 100,000 UNIT/ML SUSP 500,000 UNIT/5 ML CUP PO SCH ×4 (09:10→21:38)
[2020-03-14 11:10] LABS: Albumin 2.1 g/dL (3.5-5.0); Calcium 8.2 mg/dL (8.4-10.2); INR 1.2 (<1.2); Partial Thromboplastin Time 31.6 sec (22.0-30.0); Potassium 4.8 mmol/L (3.5-5.1); Prothrombin Time 11.8 sec (9.0-12.0); Total Bilirubin 3.5 mg/dL (0.2-1.3)
[2020-03-14 11:14] LABS: Anisocytosis Moderate; Basophils % (A) 0 %; Eosinophils % (A) 0 %; HCT 37.8 % (39.0-53.0); HGB 11.5 gm/dL (13.0-17.5); Hypochromasia Marked; Lymphocytes % (A) 43 %; MCH 32.7 pg (25.0-35.0); MCHC 30.3 g/dL (31.0-37.0); MCV 107.8 fL (80.0-100.0); Macrocytosis Marked; Mean Platelet Volume 14.5; Monocytes # (A) 1.4 k/uL (0-1.0); Monocytes % (A) 3 %; Neutrophils # (A) 24.6 k/uL (1.3-7.7); Neutrophils % (A) 51 %; RDW 21.7 % (11.5-15.5); WBC 48.1 k/uL (3.8-10.6)
[2020-03-14 11:18] LABS: Lymphocytes # (A) 20.9 k/uL (1.0-4.8); Platelet Count 25 k/uL (150-450)
[2020-03-14 11:28] LABS: Glucose,Whole Blood 164 mg/dL (75-99)
--- NOTE | 2020-03-14 11:41 | P.PN ---
Subjective Progress Note Date: 03/14/20 Principal diagnosis: Hypotension of unclear etiology This is a 79-year-old white male, known history of B-cell lymphoma, stage 0 disease, advised mostly observation. Known history of previous CVA in 2017, previous treatment with TPA. Patient is also known to have history of atrial fibrillation. And he was admitted to [facility] ICU the day before yesterday, patient presented initially to the ER at [facility] with hypotension, atrial fibrillation with RVR. I was notified about this patient, and I admitted him to the ICU. He was seen by Dr. Stroud and other consultants at [facility], and he was treated with antibiotics empirically, norepinephrine for his hypotension, fluid boluses were given at least 2-3 L were given to him initially when he presented to the ER. However early this morning around 3 AM, and for no good reason the ER at [facility] accepted the patient to be transferred from the ICU to the ER, patient was shortly evaluated, and transferred to the ICU at [facility]. The patient tells me that they transferred her mostly because his oncologist is on our staff, and the patient was requesting to be discharged. Although the patient is not receiving any treatment for his B-cell lymphoma. At any rate patient was admitted to the ICU, presently on norepinephrine at 0.07 mcg/kg/m, is also on IV fluid at 100 mL per hour. He is in atrial fibrillation with a rate of 102-110. He is on room air with O2 saturation 93%. Patient complains mostly of progressive fatigue and weakness. No fever no chills no hemoptysis no cough no wheezing, no nausea no vomiting no abdominal pain no melena no hematemesis is no dysuria and no diarrhea no frequency no urgency. Again the patient was placed on empiric antibiotics and he is being evaluated by cardiology for his atrial fibrillation. Off Cardizem at present. His past medical history is mostly significant for colon cancer, resected in 2007. His CT of the chest from [facility] showed no evidence of pneumonia, and the patient had no symptoms to suggest pneumonia. Reevaluated today on 03/06/20, patient remains in the ICU. Remains on norepinephrine at 0.12 mcg/kg/m, and I cut it down to 0.1. His IV fluid is at 100 mL/h, and I cut it down to 50 mL per hour. Patient remains in atrial fibrillation, rate seems to be fairly well controlled rate of 101. His oxygen saturation is 96% on room air. Chest x-ray and CT of the chest from [facility] showed mostly bilateral pleural effusions and bibasilar atelectasis. Sputum Gram stain is basically nondiagnostic. Culture is pending. Urinalysis is suspicious for urinary tract infection, however the patient had no symptoms, and culture of the urine is pending. Serum cortisol level today is 27. His BNP was noted to be elevated at 9330, hence I will give the patient 1 dose of Lasix, and I cut down his IV fluid to 50 mL per hour. WBC count today is 43.6 hemoglobin is 10.6. INR is down to 1.6. Patient continues to have hyponatremia which is likely hypovolemic in nature. Renal functioning is a bit worse today, and I'll see the patient developed acute kidney injury secondary to acute tubular necrosis secondary to hypotension. Clinically, the patient remains relatively asymptomatic. Patient was reevaluated today on 03/07/20, remains in the ICU, remains in atrial fibrillation but rate seems to be controlled. Patient is on room air. Sodium remains a bit low. Chest x-ray continues to show right paratracheal mass. Patient remains on norepinephrine at 0.05 mcg/kg/m he is afebrile, remains empirically on antibiotics. Reviewed the CT of the chest from [facility], and I'm not certain whether the patient will need a tissue diagnosis for his right paratracheal and subcarinal lymphadenopathy, if he does patient will need a bronchoscopy and li needle /transcarinal needle aspiration. However the oncologist on the case made no suggestion that they need a tissue diagnosis apparently the diagnosis was already made but I'm quite concerned considering the size of the adenopathy noted. This could be lymphoma could also be small cell lung carcinoma. Continues to have leukocytosis with WBC count of 54.1 hemoglobin is 11.4 and electrolytes were reviewed sodium remains 128 bicarb remains a bit low at 16 BUN is 54 creatinine is improving down to 1.27 Reevaluated today on 03/08/20, patient remains in the ICU, remains on norepin ephrine at 0.06 mg/kg/m. Remains on IV fluid at 100 mL/h. He is doing quite well except for his hypotension requiring norepinephrine. Patient has no active symptoms whatsoever. Denies any headache no blurred vision no dizziness no cough no wheezing no shortness of breath no nausea no vomiting no abdominal pain no melena no hematemesis no dysuria and no frequency no urgency.his labs were all reviewed, and sodium remains a bit low at 128, renal profile is a bit better with BUN 54 creatinine is down to 1.22.patient was placed on midodrine yesterday, the patient remains relatively low, hence I will recommend a trial of Solu-Cortef 100 mg IV push 1. Although his serum cortisol level was 27 on admission.continues to have leukocytosis, WBC count is 40.8 Reevaluated today on 03/09/20, patient remains in the ICU, IV fluid is at 90 mL per hour. Remains on norepinephrine at 0.05 mcg/kg/m, remains on room air. Had occasional episodes of diarrhea. Patient is complaining of generalized weak ness, otherwise he denies any cough no wheezing no shortness of breath no fever no chills no hemoptysis no chest pain no nausea no vomiting had occasional diarrhea since admission, patient overall is asymptomatic. Reviewed the notes from oncology, now they are recommending tissue diagnosis for his right paratracheal mass, and this could be easily done with bronchoscopy and li needle hopefully sometime next week. Patient is not a candidate for the procedure at this point specially with him being hypotensive requiring norepinephrine. The patient is seen today 03/10/2020 in follow-up in the intensive care unit. He is currently awake and alert in no acute distress. Sitting up in bed. He is maintaining O2 saturations in the 90s on room air. He has a 0.9 normal saline at 100 ML's per hour. He is still requiring norepinephrine at 3 mcg/m. Chest x-ray reveals small bilateral pleural effusions. Pulmonary venous congestion is improved. Some basilar atelectasis. Blood cultures revealed no growth. Sputum cultures reveal no growth. White count 48.6. Hemoglobin 10.8. Platelets 60 ,000. Sodium 1:30. Potassium 4.3. Creatinine 1.4. TSH 0.625. Cortisol 20. C. diff screen was negative. On 03/11/2020 patient seen in follow-up in the intensive care unit, doing well, his levo fed has been off for 24 hours, plan and was seen at a rate of 100 ML per hour, he is in sinus rhythm with a rate of 85, room air pulse ox is 93%, he is resting comfortably in bed, generally weak, but no acute distress, no worsening dyspnea, his chest x-ray shows bilateral infiltrates, and small pleur al effusions. He has had no fever or chills, his lung sounds are clear, diminished at the bases, today's labs have been reviewed, white blood cell count is trending down, 38.6 on today's labs, hemoglobin is 11.0, platelet count is 39, serum sodium is 132, potassium is 4.6, chloride is 111, CO2 is 13, and BUN is 55 creatinine is 1.16, TSH level was within normal limits at 0.625, and cortisol level was 20, patient is on midodrine 10 mg 3 times daily and IV steroids at 60 mg every 12 hours, and antibiotics in the form of cefepime, his blood and sputum cultures have shown no growth. On 03/12/2020 the patient was seen in follow-up with Dr. Ford on the cardiac stepdown unit. He remains hemodynamically stable and is in no acute distress. Oxygen saturations are 97% on 3 L nasal cannula. He did have a ultrasound of his liver completed today due to some thrombocytopenia and increasing bilirubin which demonstrated hepatomegaly, some possible pericholecystic fluid and an incidental note of a right pleural effusion. Laboratory results today show a WBC 39.8, hemoglobin 10.7, and platelet count of 30. He remains afebrile the last 24 hours and he did not have a chest x-ray completed today. Remote telemetry showing normal sinus rhythm heart rate 86. On 03/13/2020 the patient was seen in follow-up with Dr. Ford on the cardiac stepdown unit. The patient is laying in bed comfortably in no acute distress. Oxygen saturations are 100% on 3 L nasal cannula. A repeat chest x-ray was com pleted today which demonstrated mild interval improvement. A computed tomography scan of his chest/abdomen ports/pelvis with contrast was completed yesterday which showed extensive, severe generalized anasarca with increasing moderate pleural effusions and new mild abdomen pelvic ascites, adjacent atelectasis of the basilar lower lobes, some layering oral contrast in the baldomero and proximal right mainstem bronchus, consider aspiration, mediastinal right hilar, axillary, retroperitoneal and external iliac chain lymphadenopathy, pulmonary nodules on the right measuring up to 6 mm, mild splenomegaly .2 cm and no excretion of contrast on the delayed kidney images. There were no new laboratory results today. He is been afebrile the last 24 hours. He is complaining of generalized weakness and some shortness of breath with exertion. He remains to have some +1 generalized edema. Remote telemetry showing atrial fibrillation heart rate 69. The patient is seen today 03/14/2020 in follow-up on the selective care unit. He is currently resting comfortably in bed. Awake and alert in no acute distress. He is maintaining O2 saturations in the 90s on room air. He's been afebrile. Hemodynamically stable. He did undergo a left-sided thoracentesis with 1100 ML's of fluid removed. Cytology and fluid analysis pending. Postprocedure chest x-ray revealed residual small effusions with adjacent atelectasis. No pneumothorax. Known mediastinal lymphadenopathy. White count 48. Hemoglobin 11.5. Sodium 133. Potassium 4.8. Chloride 110. Creatinine 1.26. Objective - Vital Signs Vital signs: Vital Signs Temp 97.4 F L 03/14/20 08:20 Pulse 61 03/14/20 08:20 Resp 19 03/14/20 08:20 BP 102/54 03/14/20 08:20 Pulse Ox 92 L 03/14/20 08:20 Intake & Output 03/13/20 03/14/20 03/14/20 18:59 06:59 18:59 Intake Total 236 110 Output Total 400 525 Balance -164 -415 Weight 76.5 kg 76.5 kg Intake: IV 10 Invasive Line 1 10 Oral 236 100 Output: Urine 400 525 Uretheral (Raymond) 350 Other: Voiding Method Indwelling Catheter Indwelling Catheter Indwelling Catheter - Exam GENERAL EXAM: Alert, pleasant 79-year-old gentleman, comfortable in no apparent distress. On 2 L nasal cannula HEAD: Normocephalic. EYES: Normal reaction of pupils, equal size. NOSE: Clear with pink turbinates. THROAT: No erythema or exudates. NECK: No masses, no JVD. CHEST: No chest wall deformity. LUNGS: Equal air entry with crackles in the bilateral posterior bases CVS: S1 and S2 normal with an audible murmur, irregular rhythm. ABDOMEN: No hepatosplenomegaly, normal bowel sounds, no guarding or rigidity. SPINE: No scoliosis or deformity SKIN: No rashes CENTRAL NERVOUS SYSTEM: No focal deficits, tone is normal in all 4 extremities. EXTREMITIES: There is no peripheral edema. No clubbing, no cyanosis. Periphera l pulses are intact. - Labs CBC & Chem 7: 03/14/20 10:50 03/14/20 10:50 Labs: Abnormal Lab Results - Last 24 Hours (Table) 03/13/20 03/13/20 03/13/20 Range/Units 11:50 16:47 20:41 WBC (3.8-10.6) k/uL RBC (4.30-5.90) m/uL Hgb (13.0-17.5) gm/dL Hct (39.0-53.0) % MCV (80.0-100.0) fL MCHC (31.0-37.0) g/dL RDW (11.5-15.5) % Macrocytosis INR (<1.2) APTT (22.0-30.0) sec Sodium (137-145) mmol/L Chloride (98-107) mmol/L Carbon Dioxide (22-30) mmol/L BUN (9-20) mg/dL Creatinine (0.66-1.25) mg/dL Glucose (74-99) mg/dL POC Glucose (mg/dL) 139 H 168 H 220 H (75-99) mg/dL Calcium (8.4-10.2) mg/dL Total Bilirubin (0.2-1.3) mg/dL Total Protein (6.3-8.2) g/dL Albumin (3.5-5.0) g/dL 03/14/20 03/14/20 03/14/20 Range/Units 05:54 06:16 08:02 WBC (3.8-10.6) k/uL RBC (4.30-5.90) m/uL Hgb (13.0-17.5) gm/dL Hct (39.0-53.0) % MCV (80.0-100.0) fL MCHC (31.0-37.0) g/dL RDW (11.5-15.5) % Macrocytosis INR (<1.2) APTT (22.0-30.0) sec Sodium (137-145) mmol/L Chloride (98-107) mmol/L Carbon Dioxide (22-30) mmol/L BUN (9-20) mg/dL Creatinine (0.66-1.25) mg/dL Glucose (74-99) mg/dL POC Glucose (mg/dL) 63 L 70 L 60 L (75-99) mg/dL Calcium (8.4-10.2) mg/dL Total Bilirubin (0.2-1.3) mg/dL Total Protein (6.3-8.2) g/dL Albumin (3.5-5.0) g/dL 03/14/20 03/14/20 03/14/20 Range/Units 08:19 08:35 10:50 WBC 48.1 H (3.8-10.6) k/uL RBC 3.50 L (4.30-5.90) m/uL Hgb 11.5 L (13.0-17.5) gm/dL Hct 37.8 L (39.0-53.0) % MCV 107.8 H (80.0-100.0) fL MCHC 30.3 L (31.0-37.0) g/dL RDW 21.7 H (11.5-15.5) % Macrocytosis Marked A INR (<1.2) APTT (22.0-30.0) sec Sodium (137-145) mmol/L Chloride (98-107) mmol/L Carbon Dioxide (22-30) mmol/L BUN (9-20) mg/dL Creatinine (0.66-1.25) mg/dL Glucose (74-99) mg/dL POC Glucose (mg/dL) 64 L 160 H (75-99) mg/dL Calcium (8.4-10.2) mg/dL Total Bilirubin (0.2-1.3) mg/dL Total Protein (6.3-8.2) g/dL Albumin (3.5-5.0) g/dL 03/14/20 03/14/20 03/14/20 Range/Units 10:50 10:50 11:26 WBC (3.8-10.6) k/uL RBC (4.30-5.90) m/uL Hgb (13.0-17.5) gm/dL Hct (39.0-53.0) % MCV (80.0-100.0) fL MCHC (31.0-37.0) g/dL RDW (11.5-15.5) % Macrocytosis INR 1.2 H (<1.2) APTT 31.6 H (22.0-30.0) sec Sodium 133 L (137-145) mmol/L Chloride 110 H (98-107) mmol/L Carbon Dioxide 12 L (22-30) mmol/L BUN 63 H (9-20) mg/dL Creatinine 1.26 H (0.66-1.25) mg/dL Glucose 132 H (74-99) mg/dL POC Glucose (mg/dL) 164 H (75-99) mg/dL Calcium 8.2 L (8.4-10.2) mg/dL Total Bilirubin 3.5 H (0.2-1.3) mg/dL Total Protein 5.0 L (6.3-8.2) g/dL Albumin 2.1 L (3.5-5.0) g/dL Assessment and Plan Assessment: 1 Hypotension, most likely hypovolemic in nature. Recovered. Continued on midodrine. 2 Chronic atrial fibrillation with RVR. Presently rate seems to be controlled. 3 Chronic lymphocytic leukemia, B-cell type, not active. 4 Mediastinal and right paratracheal adenopathy patient may eventually require bronchoscopy and trans-carinal needle aspiration for tissue diagnosis. It is likely lymphoma, however small cell lung carcinoma is also in the differential. 5 Bicytopenia, being addressed by oncology on the case. 6 Coagulopathy, resolved. 7 Hypovolemic hyponatremia, improving. 8 Acute kidney injury secondary to hypotension, improving with hydration. 9 Left-sided pleural effusion status post thoracentesis on 03/13/2020 with 1100 ML's of fluid remove. Cytology and fluid analysis pending. d Plan: The patient was seen and evaluated by Dr. Ford Status post thoracentesis on 03/13/2020, cytology and fluid analysis pending If no pathology on fluid analysis will plan for bronchoscopy with Li needle aspirate of a large paratracheal mass once stable Continued on Levaquin and prednisone Overall prognosis is guarded We'll continue to follow I, the cosigning physician, performed a history & physical examination of the patient. Lungs sounds with crackles in the bilateral posterior bases. Maintaining good O2 saturations in the 90s on 2 L/m per nasal cannula. I discussed the assessment and plan of care with my nurse practitioner, Meena Benito. I attest to the above note as dictated by her.
[2020-03-14 12:41] LABS: Appearance,BF Cloudy; Nucleated Cells, Body Fluid 43 /uL; RBC, Body Fluid 1115 /uL
[2020-03-14 12:46] LABS: Mononuclear WBC,Body Fluid 93 %; Polynuclear WBC,Body Fluid 7 %; Total Cells Counted,Body Fluid 100
[2020-03-14 16:36] LABS: Glucose, BF Source Pleural Fluid; Glucose, Body Fluid 180 mg/dL; LDH, Body Fluid Source Pleural Fluid; Total Protein, Body Fluid 692 mg/dL
[2020-03-14 16:48] LABS: Glucose,Whole Blood 131 mg/dL (75-99)
--- NOTE | 2020-03-14 17:25 | P.PN ---
Subjective Progress Note Date: 03/14/20 Principal diagnosis: Thrombocytopenia, Afib, Anemia patients CBC remains stable with exception of platelet count. He states he is breathing better, since fluid removed via thoracentesis. At this time we are awaiting for pathology with flow cytometry on the fluid. The differentials include progressive CLL versus transformation into a possible lymphoma given the diffuse adenopathy noted on his CT scan. Hepatitis Panel, COVID testing, and Immunoglobulins have been drawn in anticipation of treatment for an underlying malignancy. If progression or transformation is noted treatment would be issued prior to discharge from hospital to rehab facility. Dr. Lacy has discussed with primary team. If pleural fluid is negative would be beneficial to have li needle biopsy of right paratrachael mass to confirm etiology. Objective - Vital Signs Vital signs: Vital Signs Temp 97.3 F L 03/14/20 12:15 Pulse 75 03/14/20 12:15 Resp 19 03/14/20 12:15 BP 87/44 03/14/20 12:15 Pulse Ox 98 03/14/20 12:15 Intake & Output 03/13/20 03/14/20 03/14/20 18:59 06:59 18:59 Intake Total 236 110 120 Output Total 400 525 400 Balance -164 -415 -280 Weight 76.5 kg 76.5 kg Intake: IV 10 Invasive Line 1 10 Oral 236 100 120 Output: Urine 400 525 400 Uretheral (Raymond) 350 Other: Voiding Method Indwelling Catheter Indwelling Catheter Indwelling Catheter - Exam Telemed exam - Constitutional cooperative, sounding sleepy, sad no distress generalized weakness, strength equal bilaterally Bilateral upper and lower extremity edema No palpable axillary nodes on exam Lungs diminished bilateral Heart Irr irr - Psychiatric Psychiatric: Present: A&O x's 3, appropriate affect, intact judgment & insight - Labs CBC & Chem 7: 03/14/20 10:50 03/14/20 10:50 Labs: Abnormal Lab Results - Last 24 Hours (Table) 03/13/20 03/13/20 03/14/20 Range/Units 16:47 20:41 05:54 WBC (3.8-10.6) k/uL RBC (4.30-5.90) m/uL Hgb (13.0-17.5) gm/dL Hct (39.0-53.0) % MCV (80.0-100.0) fL MCHC (31.0-37.0) g/dL RDW (11.5-15.5) % Plt Count (150-450) k/uL Neutrophils # (1.3-7.7) k/uL Lymphocytes # (1.0-4.8) k/uL Monocytes # (0-1.0) k/uL Macrocytosis INR (<1.2) APTT (22.0-30.0) sec Sodium (137-145) mmol/L Chloride (98-107) mmol/L Carbon Dioxide (22-30) mmol/L BUN (9-20) mg/dL Creatinine (0.66-1.25) mg/dL Glucose (74-99) mg/dL POC Glucose (mg/dL) 168 H 220 H 63 L (75-99) mg/dL Calcium (8.4-10.2) mg/dL Total Bilirubin (0.2-1.3) mg/dL Total Protein (6.3-8.2) g/dL Albumin (3.5-5.0) g/dL 03/14/20 03/14/20 03/14/20 Range/Units 06:16 08:02 08:19 WBC (3.8-10.6) k/uL RBC (4.30-5.90) m/uL Hgb (13.0-17.5) gm/dL Hct (39.0-53.0) % MCV (80.0-100.0) fL MCHC (31.0-37.0) g/dL RDW (11.5-15.5) % Plt Count (150-450) k/uL Neutrophils # (1.3-7.7) k/uL Lymphocytes # (1.0-4.8) k/uL Monocytes # (0-1.0) k/uL Macrocytosis INR (<1.2) APTT (22.0-30.0) sec Sodium (137-145) mmol/L Chloride (98-107) mmol/L Carbon Dioxide (22-30) mmol/L BUN (9-20) mg/dL Creatinine (0.66-1.25) mg/dL Glucose (74-99) mg/dL POC Glucose (mg/dL) 70 L 60 L 64 L (75-99) mg/dL Calcium (8.4-10.2) mg/dL Total Bilirubin (0.2-1.3) mg/dL Total Protein (6.3-8.2) g/dL Albumin (3.5-5.0) g/dL 03/14/20 03/14/20 03/14/20 Range/Units 08:35 10:50 10:50 WBC 48.1 H (3.8-10.6) k/uL RBC 3.50 L (4.30-5.90) m/uL Hgb 11.5 L (13.0-17.5) gm/dL Hct 37.8 L (39.0-53.0) % MCV 107.8 H (80.0-100.0) fL MCHC 30.3 L (31.0-37.0) g/dL RDW 21.7 H (11.5-15.5) % Plt Count 25 L (150-450) k/uL Neutrophils # 24.6 H (1.3-7.7) k/uL Lymphocytes # 20.9 H (1.0-4.8) k/uL Monocytes # 1.4 H (0-1.0) k/uL Macrocytosis Marked A INR (<1.2) APTT (22.0-30.0) sec Sodium 133 L (137-145) mmol/L Chloride 110 H (98-107) mmol/L Carbon Dioxide 12 L (22-30) mmol/L BUN 63 H (9-20) mg/dL Creatinine 1.26 H (0.66-1.25) mg/dL Glucose 132 H (74-99) mg/dL POC Glucose (mg/dL) 160 H (75-99) mg/dL Calcium 8.2 L (8.4-10.2) mg/dL Total Bilirubin 3.5 H (0.2-1.3) mg/dL Total Protein 5.0 L (6.3-8.2) g/dL Albumin 2.1 L (3.5-5.0) g/dL 03/14/20 03/14/20 Range/Units 10:50 11:26 WBC (3.8-10.6) k/uL RBC (4.30-5.90) m/uL Hgb (13.0-17.5) gm/dL Hct (39.0-53.0) % MCV (80.0-100.0) fL MCHC (31.0-37.0) g/dL RDW (11.5-15.5) % Plt Count (150-450) k/uL Neutrophils # (1.3-7.7) k/uL Lymphocytes # (1.0-4.8) k/uL Monocytes # (0-1.0) k/uL Macrocytosis INR 1.2 H (<1.2) APTT 31.6 H (22.0-30.0) sec Sodium (137-145) mmol/L Chloride (98-107) mmol/L Carbon Dioxide (22-30) mmol/L BUN (9-20) mg/dL Creatinine (0.66-1.25) mg/dL Glucose (74-99) mg/dL POC Glucose (mg/dL) 164 H (75-99) mg/dL Calcium (8.4-10.2) mg/dL Total Bilirubin (0.2-1.3) mg/dL Total Protein (6.3-8.2) g/dL Albumin (3.5-5.0) g/dL Microbiology - Last 24 Hours (Table) 03/13/20 13:10 Acid Fast Bacilli Culture - Preliminary Pleural Fluid 03/13/20 13:10 Fungal Culture - Preliminary Pleural Fluid 03/13/20 13:10 Anaerobic Culture - Preliminary Pleural Fluid 03/13/20 13:10 Body Fluid Culture - Preliminary Pleural Fluid Assessment and Plan Plan: Thrombocytopenia: - Platelets have decreased further 25K, may be secondary to underlying malignancy progression versus transformation, versus ITP although have not responded to steroids. - Hold Xarelto or other AC therapy if platelets drop below 50K - Transfuse to keep platelets greater than 10,000 unless bleeding is noted. 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 - Stable Abnormal Right Paratrachial Mass - Biopsy if pleural fluid results negative CLL (chronic lymphocytic leukemia) - Concern for progression versus transformation Coagulopathy - Imprioved Atrial fibrillation with rapid ventricular response - Controlled Pt is on anticoagulation for the same. Cardiology managing arrhythmia and hypotension Decreased PO Intake - Low dose marinol to increase appetite and help mood patients CBC remains stable with exception of platelet count. He states he is breathing better, since fluid removed via thoracentesis. At this time we are awaiting for pathology with flow cytometry on the fluid. The differentials include progressive CLL versus transformation into a possible lymphoma given the diffuse adenopathy noted on his CT scan. Hepatitis Panel, COVID testing, and Immunoglobulins have been drawn in anticipation of treatment for an underlying malignancy. If progression or transformation is noted treatment would be issued prior to discharge from hospital to rehab facility. Dr. Lacy has discussed with primary team. If pleural fluid is negative would be beneficial to have ugillermo españa biopsy of right paratrachael mass to confirm etiology. Physician Attest: I have completed the full history and physical and agree with above dictation dictated as a scribe
--- NOTE | 2020-03-14 18:05 | P.PN ---
Progress Note - Text Progress Note Date: 03/14/20 History of Present Illness 71-year-old pleasant male who follows with Dr. Jessa campos, was transferred from [facility] after he was treated for atrial fibrillation with Cardizem was transferred here for evaluation by oncology. Admitted to intensive care unit because of hypotension patient appears to have hypovolemic shock patient started on levo fed. Cardizem was discontinued because of hypotension patient was started on digoxin and patient was also also started on low-dose metoprolol with fairly controlled heart rate. 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 There is a concern about transformation because of low hemoglobin, decreased platelet count and decreased white blood cell count. Although there is no blast cells in the peripheral smear Dr. Lacy evaluated the patient is a concern about GI bleed although patient doesn't have any blood in the stools or dark stools or hematemesis patient's INR is around 2 which is believed to be secondary to Xarelto, although DIC workup is being obtained as well. Patient is quite a bit weak there is a concern about the chest x-ray findings of right lower lobe infiltrate-fundraising specialist do not believe patient has any pneumonia patient doesn't having any symptoms of pneumonia patient denied any cough doesn't have any fever chills. Patient doesn't have elevated BNP although clinically not in heart failure exacerbation his BNP here is around 9000 his BNP at [facility] was around 7000. Patient doesn't have any JVD and crackles on exam. Patient's creatinine negative district is 1.3 and he rates 1.1 patient is presently receiving IV fluids because of hypovolemic shock is also on levo fed. Patient had normal ejection fraction. Patient's symptoms right now is a significant fatigue and generalized weakness. Patient denied any significant shortness of breath at this time Admitted with-hypotension likely hypovolemic, persistent atrial flutter with rapid ventricular rate, bicytopenia, acute kidney injury. Patient is started on levo fed. Empiric antibiotics. Infection felt to be less likely. Left thoracentesis-1100 mL removed. Today-. Remains tired.. Only eating about 25%. Some shortness of breath. No fever. Review of systems: Was done for constitutional, cardiovascular, GI, pulmonary. r elevant finding as above Active Medications Cyanocobalamin (Vitamin B-12) 1,000 mcg PO DAILY MARILEE Digoxin (Lanoxin) 125 mcg PO DAILY MARILEE Last Admin: 03/14/20 09:09 Dose: 125 mcg Documented by: Dronabinol (Marinol) 2.5 mg PO AC-BID [facility] Last Admin: 03/14/20 17:48 Dose: 2.5 mg Documented by: Insulin Aspart (Novolog) 0 unit SQ ACHS [facility]; Protocol Last Admin: 03/14/20 17:09 Dose: Not Given Documented by: Levofloxacin (Levaquin) 500 mg PO DAILY [facility] Last Admin: 03/14/20 09:09 Dose: 500 mg Documented by: Levothyroxine Sodium (Synthroid) 100 mcg PO DAILY@0630 [facility] Last Admin: 03/14/20 06:05 Dose: 100 mcg Documented by: Metoprolol Tartrate (Lopressor) 25 mg PO BID [facility] Last Admin: 03/14/20 09:10 Dose: 25 mg Documented by: Midodrine (Proamatine) 10 mg PO AC-TID [facility] Last Admin: 03/14/20 17:48 Dose: 10 mg Documented by: Miscellaneous Information (Pneumonia Protocol Utilized) 1 each PO ONCE PRN PRN Reason: Per Protocol Naloxone HCl (Narcan) 0.2 mg IV Q2M PRN PRN Reason: Opioid Reversal Nystatin (Mycostatin Oral Susp) 500,000 unit PO QID [facility] Last Admin: 03/14/20 17:48 Dose: 500,000 unit Documented by: Pantoprazole Sodium (Protonix) 40 mg PO AC-BRKFST [facility] Last Admin: 03/14/20 06:05 Dose: 40 mg Documented by: Prednisone () 60 mg PO DAILY [facility] Last Admin: 03/14/20 09:09 Dose: 60 mg Documented by: On examination: VITAL SIGNS: 97.4, 61, 19, 102/54, 92% on 2 L GENERAL APPEARANCE: Sitting in chair, tired HEENT: Normal external appearance of nose and ear. Oral cavity normal EYES: Pupils equal. Conjunctiva pale NECK: JVD not raised. Mass not palpable. RESPIRATORY: Respiratory effort normal. Lungs decreased breath sounds CARDIOVASCULAR: Heart sounds irregular. Some edema. ABDOMEN: Soft. Liver and spleen not palpable. No tenderness. No mass palpable. PSYCHIATRY: Alert and oriented x3. Mood and affect tired INVESTIGATIONS, reviewed in the clinical context: White count 48.1 hemoglobin 11.5 platelets 25 potassium 4.8 bun 63 creatinine 1.26 bicarb 12 Previous testing: White count 31.8 hemoglobin 10.5 platelets 79-sodium 129 potassium 4.7 creatinine 1.19 EKG tracing-atrial fibrillation with a rate of 120 Chest d-nss-iogvdtplxcbe density Assessment -Hypovolemic shock-status post norepinephrine IV fluids-POA -Generalized weakness probably secondary to atrial fibrillation as well as a other issues including chronic lymphocytic leukemia, improving -Acute renal failure probably prerenal azotemia intravascular volume depletion- better -Persistent Atrial fibrillation,-uncontrolled on admission: Controlled -Hilar lymphadenopathy and right paratracheal adenopathy for further workup -Chronic lymphocytic leukemia there is no obvious evidence of transformation to acute leukemia. Transformation into other cell type laying evaluated -Bicytopenia including thrombocytopenia and low hemoglobin etiology is not clear further workup as mentioned above oncology evaluated the patient. -Hypertension patient is presently hypotensive -Moderate pulmonary hypertension -History of CVA and TIA -Coagulopathy most presently secondary to Xarelto initially held, now changed over to eliquis -Hypothyroid -Metabolic acidosis -Secondary pulmonary hypertension -Pleural effusion status post left-sided thoracentesis 1100 mL removed -Medical debility requiring physical therapy Plan: Continue current medication treatment plan. Patient's functioning capacity is down. Follow with oncology.
[2020-03-14 18:16] LABS: Uric Acid 6.4 mg/dL (3.5-8.5)
[2020-03-14 20:40] LABS: Glucose,Whole Blood 130 mg/dL (75-99)
[2020-03-14 23:29] LABS: Hepatitis A Antibody IgM Non-Reactive (Non-Reactive); Hepatitis B Core IgM Non-Reactive (Non-Reactive); Hepatitis B Surface Antigen Non-Reactive (Non-Reactive); Hepatitis C IgG Antibody Non-Reactive (Non-Reactive)
--- NOTE | 2020-03-15 00:26 | PN ---
PROGRESS NOTE DATE OF SERVICE: 03/14/2020 REASON FOR FOLLOWUP: Pneumonia. INTERVAL HISTORY: The patient is currently afebrile, has been breathing comfortably. Denies any chest pain. Occasional cough. No nausea, no vomiting. No abdominal pain. No diarrhea. PHYSICAL EXAMINATION: Blood pressure 110/65 with a pulse of 75. Temperature 97.6. He is 92% on 2 L nasal cannula. General description is an elderly male lying in bed in no distress. Respiratory system: Unlabored breathing, decreased intense breath sounds. No wheeze. Heart S1, S2. Regular rate and rhythm. Abdomen soft, no tenderness. LABS: Hemoglobin 9.5, white count 48.1. BUN of 63, creatinine 1.26. Pleural fluid culture so far negative. DIAGNOSTIC IMPRESSION AND PLAN: Patient admitted to the hospital with hypertension which is multifactorial with possible component of pneumonia. This patient did have evidence of effusion status post thoracocentesis. We will followup on the cultures. Currently covered with Levaquin to continue and monitor his clinical course closely. MMODL / IJN: [id number] /
[2020-03-15] MEDS: INSULIN ASPART (NovoLOG) 100 UNIT/ML VIAL SQ SCH ×4 (06:15→20:55)
[2020-03-15 06:18] LABS: Glucose,Whole Blood 101 mg/dL (75-99)
[2020-03-15] MEDS: LEVOTHYROXINE 100 MCG TAB PO SCH (06:28)
[2020-03-15] MEDS: PANTOPRAZOLE 40 MG TABLET PO SCH (06:28)
[2020-03-15] MEDS: DRONABINOL 2.5 MG CAP PO SCH ×2 (06:28→18:24)
[2020-03-15] MEDS: MIDODRINE 5 MG TAB PO SCH ×3 (06:28→18:24)
[2020-03-15 07:43] LABS: Albumin 1.8 g/dL (3.5-5.0); Potassium 4.8 mmol/L (3.5-5.1); Total Bilirubin 4.2 mg/dL (0.2-1.3); Total Protein 4.3 g/dL (6.3-8.2)
[2020-03-15 07:53] LABS: Anisocytosis Moderate; HCT 32.4 % (39.0-53.0); Hypochromasia Moderate; MCHC 30.3 g/dL (31.0-37.0); MCV 105.6 fL (80.0-100.0); Macrocytosis Marked; Mean Platelet Volume 13.5; RBC 3.07 m/uL (4.30-5.90); RDW 21.6 % (11.5-15.5)
[2020-03-15 07:55] LABS: HGB 9.8 gm/dL (13.0-17.5)
[2020-03-15 07:57] LABS: Platelet Count 17 k/uL (150-450)
[2020-03-15 08:30] LABS: Neutrophils % (M) 44 %; Nucleated Red Blood Cells 0 /100 WBC (0-0); Total Cells Counted 100
[2020-03-15 08:31] LABS: Poikilocytosis (M) Present
[2020-03-15 08:32] LABS: Target Cells Present
[2020-03-15] MEDS: CYANOCOBALAMIN 500 MCG TAB PO SCH (10:01)
[2020-03-15] MEDS: predniSONE 20 MG TAB PO SCH (10:01)
[2020-03-15] MEDS: DIGOXIN 125 MCG TAB PO SCH (10:01)
[2020-03-15] MEDS: METOPROLOL TARTRATE 25 MG TAB PO SCH ×2 (10:02→21:03)
[2020-03-15] MEDS: LEVOFLOXACIN 500 MG TAB PO SCH (10:02)
[2020-03-15] MEDS: NYSTATIN 100,000 UNIT/ML SUSP 500,000 UNIT/5 ML CUP PO SCH ×4 (10:02→21:03)
[2020-03-15 10:21] LABS: Immunoglobulin A 92.7 mg/dL (60.0-350.0); Immunoglobulin M 73.7 mg/dL (40.0-280.0)
--- NOTE | 2020-03-15 10:21 | P.PN ---
Subjective Progress Note Date: 03/15/20 The patient still remains quite weak. He denies any change in respiratory status and is on 2 L of oxygen. No obvious bleeding. No fever or chills. Appetite is diminished Objective - Vital Signs Vital signs: Vital Signs Temp 97.8 F 03/15/20 04:00 Pulse 76 03/15/20 04:00 Resp 16 03/15/20 04:00 BP 95/52 03/15/20 04:00 Pulse Ox 98 03/15/20 04:00 Intake & Output 03/14/20 03/15/20 03/15/20 18:59 06:59 18:59 Intake Total 120 240 Output Total 400 400 Balance -280 -160 Weight 76.5 kg 67.5 kg Intake: Oral 120 240 Output: Urine 400 400 Other: Voiding Method Indwelling Catheter Indwelling Catheter - Constitutional General appearance: Present: no acute distress - EENT Eyes: Present: EOMI ENT: Present: hearing grossly normal, normal oropharynx - Respiratory Respiratory: bilateral: diminished - Cardiovascular Rhythm: irregularly irregular Heart sounds: normal: S1, S2 - Gastrointestinal General gastrointestinal: Present: soft - Neurologic Neurologic: Present: CNII-XII intact - Musculoskeletal Musculoskeletal Comment(s): Bilateral upper and lower extremity edema Musculoskeletal: Present: generalized weakness, strength equal bilaterally - Psychiatric Psychiatric: Present: A&O x's 3 - Labs CBC & Chem 7: 03/15/20 06:59 03/15/20 06:59 Labs: Abnormal Lab Results - Last 24 Hours (Table) 03/14/20 03/14/20 03/14/20 Range/Units 10:50 10:50 10:50 WBC 48.1 H (3.8-10.6) k/uL RBC 3.50 L (4.30-5.90) m/uL Hgb 11.5 L (13.0-17.5) gm/dL Hct 37.8 L (39.0-53.0) % MCV 107.8 H (80.0-100.0) fL MCHC 30.3 L (31.0-37.0) g/dL RDW 21.7 H (11.5-15.5) % Plt Count 25 L (150-450) k/uL Neutrophils # 24.6 H (1.3-7.7) k/uL Neutrophils # (Manual) (1.3-7.7) k/uL Lymphocytes # 20.9 H (1.0-4.8) k/uL Lymphocytes # (Manual) (1.0-4.8) k/uL Monocytes # 1.4 H (0-1.0) k/uL Macrocytosis Marked A INR 1.2 H (<1.2) APTT 31.6 H (22.0-30.0) sec Sodium 133 L (137-145) mmol/L Chloride 110 H (98-107) mmol/L Carbon Dioxide 12 L (22-30) mmol/L BUN 63 H (9-20) mg/dL Creatinine 1.26 H (0.66-1.25) mg/dL Glucose 132 H (74-99) mg/dL POC Glucose (mg/dL) (75-99) mg/dL Calcium 8.2 L (8.4-10.2) mg/dL Total Bilirubin 3.5 H (0.2-1.3) mg/dL Lactate Dehydrogenase (313-618) U/L Total Protein 5.0 L (6.3-8.2) g/dL Albumin 2.1 L (3.5-5.0) g/dL 03/14/20 03/14/20 03/14/20 Range/Units 10:50 11:26 16:47 WBC (3.8-10.6) k/uL RBC (4.30-5.90) m/uL Hgb (13.0-17.5) gm/dL Hct (39.0-53.0) % MCV (80.0-100.0) fL MCHC (31.0-37.0) g/dL RDW (11.5-15.5) % Plt Count (150-450) k/uL Neutrophils # (1.3-7.7) k/uL Neutrophils # (Manual) (1.3-7.7) k/uL Lymphocytes # (1.0-4.8) k/uL Lymphocytes # (Manual) (1.0-4.8) k/uL Monocytes # (0-1.0) k/uL Macrocytosis INR (<1.2) APTT (22.0-30.0) sec Sodium (137-145) mmol/L Chloride (98-107) mmol/L Carbon Dioxide (22-30) mmol/L BUN (9-20) mg/dL Creatinine (0.66-1.25) mg/dL Glucose (74-99) mg/dL POC Glucose (mg/dL) 164 H 131 H (75-99) mg/dL Calcium (8.4-10.2) mg/dL Total Bilirubin (0.2-1.3) mg/dL Lactate Dehydrogenase 846 H (313-618) U/L Total Protein (6.3-8.2) g/dL Albumin (3.5-5.0) g/dL 03/14/20 03/15/20 03/15/20 Range/Units 20:39 06:14 06:59 WBC 40.0 H (3.8-10.6) k/uL RBC 3.07 L (4.30-5.90) m/uL Hgb 9.8 L D (13.0-17.5) gm/dL Hct 32.4 L (39.0-53.0) % MCV 105.6 H (80.0-100.0) fL MCHC 30.3 L (31.0-37.0) g/dL RDW 21.6 H (11.5-15.5) % Plt Count 17 L* (150-450) k/uL Neutrophils # (1.3-7.7) k/uL Neutrophils # (Manual) 17.60 H (1.3-7.7) k/uL Lymphocytes # (1.0-4.8) k/uL Lymphocytes # (Manual) 22.40 H (1.0-4.8) k/uL Monocytes # (0-1.0) k/uL Macrocytosis Marked A INR (<1.2) APTT (22.0-30.0) sec Sodium (137-145) mmol/L Chloride (98-107) mmol/L Carbon Dioxide (22-30) mmol/L BUN (9-20) mg/dL Creatinine (0.66-1.25) mg/dL Glucose (74-99) mg/dL POC Glucose (mg/dL) 130 H 101 H (75-99) mg/dL Calcium (8.4-10.2) mg/dL Total Bilirubin (0.2-1.3) mg/dL Lactate Dehydrogenase (313-618) U/L Total Protein (6.3-8.2) g/dL Albumin (3.5-5.0) g/dL 03/15/20 Range/Units 06:59 WBC (3.8-10.6) k/uL RBC (4.30-5.90) m/uL Hgb (13.0-17.5) gm/dL Hct (39.0-53.0) % MCV (80.0-100.0) fL MCHC (31.0-37.0) g/dL RDW (11.5-15.5) % Plt Count (150-450) k/uL Neutrophils # (1.3-7.7) k/uL Neutrophils # (Manual) (1.3-7.7) k/uL Lymphocytes # (1.0-4.8) k/uL Lymphocytes # (Manual) (1.0-4.8) k/uL Monocytes # (0-1.0) k/uL Macrocytosis INR (<1.2) APTT (22.0-30.0) sec Sodium 131 L (137-145) mmol/L Chloride 110 H (98-107) mmol/L Carbon Dioxide 17 L (22-30) mmol/L BUN 62 H (9-20) mg/dL Creatinine (0.66-1.25) mg/dL Glucose 126 H (74-99) mg/dL POC Glucose (mg/dL) (75-99) mg/dL Calcium 8.0 L (8.4-10.2) mg/dL Total Bilirubin 4.2 H (0.2-1.3) mg/dL Lactate Dehydrogenase (313-618) U/L Total Protein 4.3 L (6.3-8.2) g/dL Albumin 1.8 L (3.5-5.0) g/dL Microbiology - Last 24 Hours (Table) 03/13/20 13:10 Gram Stain - Preliminary Pleural Fluid Body Fluid Culture - Preliminary 03/13/20 13:10 Acid Fast Bacilli Culture - Preliminary Pleural Fluid 03/13/20 13:10 Fungal Culture - Preliminary Pleural Fluid 03/13/20 13:10 Anaerobic Culture - Preliminary Pleural Fluid Assessment and Plan (1) Bicytopenia Narrative/Plan: Hemoglobin remains in the same range at 9.8. Has been fluctuating between 9 and 11. The patient likely has some ongoing hemolysis his bilirubin was 4.2. Continue to monitor. No specific intervention required at this level. Platelets have continued to diminish and were 17 today. The patient is on 60 mg of prednisone. No obvious bleeding. The platelets continue to diminish, the patient will need more aggressive treatment, even for the ITP. In that case I would likely use high-dose bolus steroids and Rituxan. Transfuse her platelets less than 10,000 Current Visit: Yes Status: Acute Priority: High Code(s): D75.89 - OTHER SPECIFIED DISEASES OF BLOOD AND BLOOD-FORMING ORGANS SNOMED Code(s): 05089727 (2) CLL (chronic lymphocytic leukemia) Narrative/Plan: As noted previously, it is not clear that the extensive adenopathy noted on CAT scan is a temporary reactive phenomenon due to acute illness, versus progression of CLL versus transformation to a more aggressive lymphoma. For further workup ideally a biopsy is needed but the patient is not felt to be stable enough for the same. Therefore cytology and flow cytometry were ordered on the pleural fluid. These are pending. If this does indicate progression or transformation, and the patient will need to be started on a specific antineoplastic therapy. Given his current performance status, I would likely utilize a regimen such as bendamustine and Rituxan It was discussed with the patient that ideally we need to document symptomatic progression, as more aggressive antineoplastic therapy would have increased risk for the patient with his current performance status, and therefore would not be justified is not definitely needed Current Visit: Yes Status: Chronic Priority: Medium Code(s): C91.10 - CHRONIC LYMPHOCYTIC LEUK OF B-CELL TYPE NOT ACHIEVE REMIS SNOMED Code(s): 05500987 Plan: Defer to the admitting service and other consultants for management of his other medical problems
--- NOTE | 2020-03-15 12:00 | P.PN ---
Subjective Progress Note Date: 03/15/20 Principal diagnosis: This is a 79-year-old white male, known history of B-cell lymphoma, stage 0 disease, advised mostly observation. Known history of previous CVA in 2017, previous treatment with TPA. Patient is also known to have history of atrial fibrillation. And he was admitted to [facility] ICU the day before yesterday, patient presented initially to the ER at [facility] with hypotension, atrial fibrillation with RVR. I was notified about this patient, and I admitted him to the ICU. He was seen by Dr. Stroud and other consultants at [facility], and he was treated with antibiotics empirically, norepinephrine for his hypotension, fluid boluses were given at least 2-3 L were given to him initially when he presented to the ER. However early this morning around 3 AM, and for no good reason the ER at [facility] accepted the patient to be transferred from the ICU to the ER, patient was shortly evaluated, and transferred to the ICU at [facility]. The patient tells me that they transferred her mostly because his oncologist is on our staff, and the patient was requesting to be discharged. Although the patient is not receiving any treatment for his B-cell lymphoma. At any rate patient was admitted to the ICU, presently on norepinephrine at 0.07 mcg/kg/m, is also on IV fluid at 100 mL per hour. He is in atrial fibrillation with a rate of 102-110. He is on room air with O2 saturation 93%. Patient complains mostly of progressive fatigue and weakness. No fever no chills no hemoptysis no cough no wheezing, no nausea no vomiting no abdominal pain no melena no hematemesis is no dysuria and no diarrhea no frequency no urgency. Again the patient was placed on empiric antibiotics and he is being evaluated by cardiology for his atrial fibrillation. Off Cardizem at present. His past medical history is mostly significant for colon cancer, resected in 2007. His CT of the chest from [facility] showed no evidence of pneumonia, and the patient had no symptoms to suggest pneumonia. Reevaluated today on 03/06/20, patient remains in the ICU. Remains on norepinephrine at 0.12 mcg/kg/m, and I cut it down to 0.1. His IV fluid is at 100 mL/h, and I cut it down to 50 mL per hour. Patient remains in atrial fibrillation, rate seems to be fairly well controlled rate of 101. His oxygen saturation is 96% on room air. Chest x-ray and CT of the chest from [facility] showed mostly bilateral pleural effusions and bibasilar atelectasis. Sputum Gram stain is basically nondiagnostic. Culture is pending. Urinalysis is suspicious for urinary tract infection, however the patient had no symptoms, and culture of the urine is pending. Serum cortisol level today is 27. His BNP was noted to be elevated at 9330, hence I will give the patient 1 dose of Lasix, and I cut down his IV fluid to 50 mL per hour. WBC count today is 43.6 hemoglobin is 10.6. INR is down to 1.6. Patient continues to have hyponatremia which is likely hypovolemic in nature. Renal functioning is a bit worse today, and I'll see the patient developed acute kidney injury secondary to acute tubular necrosis secondary to hypotension. Clinically, the patient remains relatively asymptomatic. Patient was reevaluated today on 03/07/20, remains in the ICU, remains in atrial fibrillation but rate seems to be controlled. Patient is on room air. Sodium remains a bit low. Chest x-ray continues to show right paratracheal mass. Patient remains on norepinephrine at 0.05 mcg/kg/m he is afebrile, remains empirically on antibiotics. Reviewed the CT of the chest from [facility], and I'm not certain whether the patient will need a tissue diagnosis for his right paratracheal and subcarinal lymphadenopathy, if he does patient will need a bronchoscopy and li needle /transcarinal needle aspiration. However the oncologist on the case made no suggestion that they need a tissue diagnosis apparently the diagnosis was already made but I'm quite concerned considering the size of the adenopathy noted. This could be lymphoma could also be small cell lung carcinoma. Continues to have leukocytosis with WBC count of 54.1 hemoglobin is 11.4 and electrolytes were reviewed sodium remains 128 bicarb remains a bit low at 16 BUN is 54 creatinine is improving down to 1.27 Reevaluated today on 03/08/20, patient remains in the ICU, remains on norepinephrine at 0.06 mg/kg/m. Remains on IV fluid at 100 mL/h. He is doing quite well except for his hypotension requiring norepinephrine. Patient has no active symptoms whatsoever. Denies any headache no blurred vision no dizziness no cough no wheezing no shortness of breath no nausea no vomiting no abdominal pain no melena no hematemesis no dysuria and no frequency no urgency.his labs were all reviewed, and sodium remains a bit low at 128, renal profile is a bit better with BUN 54 creatinine is down to 1.22.patient was placed on midodrine yesterday, the patient remains relatively low, hence I will recommend a trial of Solu-Cortef 100 mg IV push 1. Although his serum cortisol level was 27 on admission.continues to have leukocytosis, WBC count is 40.8 Reevaluated today on 03/09/20, patient remains in the ICU, IV fluid is at 90 mL per hour. Remains on norepinephrine at 0.05 mcg/kg/m, remains on room air. Had occasional episodes of diarrhea. Patient is complaining of generalized weakness, otherwise he denies any cough no wheezing no shortness of breath no fever no chills no hemoptysis no chest pain no nausea no vomiting had occasional diarrhea since admission, patient overall is asymptomatic. Reviewed the notes from oncology, now they are recommending tissue diagnosis for his right paratracheal mass, and this could be easily done with bronchoscopy and li needle hopefully sometime next week. Patient is not a candidate for the procedure at this point specially with him being hypotensive requiring norepi nephrine. The patient is seen today 03/10/2020 in follow-up in the intensive care unit. He is currently awake and alert in no acute distress. Sitting up in bed. He is maintaining O2 saturations in the 90s on room air. He has a 0.9 normal saline at 100 ML's per hour. He is still requiring norepinephrine at 3 mcg/m. Chest x-ray reveals small bilateral pleural effusions. Pulmonary venous congestion is improved. Some basilar atelectasis. Blood cultures revealed no growth. Sputum cultures reveal no growth. White count 48.6. Hemoglobin 10.8. Platelets 60,000. Sodium 1:30. Potassium 4.3. Creatinine 1.4. TSH 0.625. Cortisol 20. C. diff screen was negative. On 03/11/2020 patient seen in follow-up in the intensive care unit, doing well, his levo fed has been off for 24 hours, plan and was seen at a rate of 100 ML per hour, he is in sinus rhythm with a rate of 85, room air pulse ox is 93%, he is resting comfortably in bed, generally weak, but no acute distress, no worsening dyspnea, his chest x-ray shows bilateral infiltrates, and small pleural effusions. He has had no fever or chills, his lung sounds are clear, diminished at the bases, today's labs have been reviewed, white blood cell count is trending down, 38.6 on today's labs, hemoglobin is 11.0, platelet count is 39, serum sodium is 132, potassium is 4.6, chloride is 111, CO2 is 13, and BUN is 55 creatinine is 1.16, TSH level was within normal limits at 0.625, and cortisol level was 20, patient is on midodrine 10 mg 3 times daily and IV steroids at 60 mg every 12 hours, and antibiotics in the form of cefepime, his blood and sputum cultures have shown no growth. On 03/12/2020 the patient was seen in follow-up with Dr. Ford on the cardiac stepdown unit. He remains hemodynamically stable and is in no acute distress. Oxygen saturations are 97% on 3 L nasal cannula. He did have a ultrasound of his liver completed today due to some thrombocytopenia and increasing bilirubin which demonstrated hepatomegaly, some possible pericholecystic fluid and an incidental note of a right pleural effusion. Laboratory results today show a WBC 39.8, hemoglobin 10.7, and platelet count of 30. He remains afebrile the last 24 hours and he did not have a chest x-ray completed today. Remote telemetry showing normal sinus rhythm heart rate 86. On 03/13/2020 the patient was seen in follow-up with Dr. Ford on the cardiac stepdown unit. The patient is laying in bed comfortably in no acute distress. Oxygen saturations are 100% on 3 L nasal cannula. A repeat chest x-ray was completed today which demonstrated mild interval improvement. A computed tomography scan of his chest/abdomen ports/pelvis with contrast was completed yesterday which showed extensive, severe generalized anasarca with increasing moderate pleural effusions and new mild abdomen pelvic ascites, adjacent atelectasis of the basilar lower lobes, some layering oral contrast in the baldomero and proximal right mainstem bronchus, consider aspiration, mediastinal right hilar, axillary, retroperitoneal and external iliac chain lymphadenopathy, pulmonary nodules on the right measuring up to 6 mm, mild splenomegaly [id number] cm and no excretion of contrast on the delayed kidney images. There were no new laboratory results today. He is been afebrile the last 24 hours. He is complaining of generalized weakness and some shortness of breath with exertion. He remains to have some +1 generalized edema. Remote telemetry showing atrial fibrillation heart rate 69. The patient is seen today 03/14/2020 in follow-up on the selective care unit. He is currently resting comfortably in bed. Awake and alert in no acute distress. He is maintaining O2 saturations in the 90s on room air. He's been afebrile. Hemodynamically stable. He did undergo a left-sided thoracentesis with 1100 ML's of fluid removed. Cytology and fluid analysis pending. Postprocedure chest x-ray revealed residual small effusions with adjacent atelectasis. No pneumothorax. Known mediastinal lymphadenopathy. White count 48. Hemoglobin 11.5. Sodium 133. Potassium 4.8. Chloride 110. Creatinine 1.26. Patient is seen today 03/15/2020 and follow-up on the cardiac stepdown unit. He is currently resting comfortably in bed. He is in no acute distress and is awake, alert and oriented 3. He remains in in a medically stable, afebrile the last 24 hours and his oxygen saturations are 98% on 2 L nasal cannula. A left thoracentesis was completed on 03/13/[address] Ford with 1.1 L of fluid drained. Fluid analysis shows a transudative effusion and cytology results remain pending. A CPVID 19 test was completed yesterday 03/14/2020 ic h was negative. Lab results today show a WBC count 40.0, hemoglobin 9.8, platelets 17, sodium 131, CO2 17, BUN 62, creatinine 1.15 and his albumin level is 1.8. There is no chest x-ray completed today. Objective - Vital Signs Vital signs: Vital Signs Temp 96.6 F L 03/15/20 08:00 Pulse 92 03/15/20 08:00 Resp 18 03/15/20 08:00 BP 96/51 03/15/20 08:00 Pulse Ox 98 03/15/20 08:00 Intake & Output 03/14/20 03/15/20 03/15/20 18:59 06:59 18:59 Intake Total 120 240 Output Total 400 400 Balance -280 -160 Weight 76.5 kg 67.5 kg Intake: Oral 120 240 Output: Urine 400 400 Other: Voiding Method Indwelling Catheter Indwelling Catheter Indwelling Catheter - Exam Alert, very pleasant, 79-year-old white male, on 2 L nasal cannula, with a pulse ox of 98%, comfortable in no apparent distress. - Constitutional General appearance: Present: cooperative, no acute distress, thin - EENT Eyes: Present: PERRLA, normal appearance. Absent: scleral icterus ENT: Present: hearing grossly normal. Absent: thrush - Neck Details: Neck supple, no JVD. No lymphadenopathy. - Respiratory Details: Equal air entry with crackles in the bilateral posterior bases. Respirations symmetrical and nonlabored. - Cardiovascular Details: Irregular rhythm with controlled rate. S1 and S2 present, negative for S3, gallop or murmur. Remote telemetry showing atrial fibrillation heart rate 61. Generalized anasarca. - Gastrointestinal Gastrointestinal Comment(s): Abdomen soft, nontender and nondistended. Active bowel sounds present in all 4 abdominal quadrants. No guarding or rigidity. No organomegaly. - Integumentary Integumentary Comment(s): Skin is warm and dry. No clubbing or cyanosis present. Generalized anasarca. - Neurologic Neurologic: Present: CNII-XII intact - Musculoskeletal Musculoskeletal: Present: generalized weakness, strength equal bilaterally - Psychiatric Psychiatric: Present: A&O x's 3, appropriate affect, intact judgment & insight - Allied health notes Allied health notes reviewed: nursing - Labs CBC & Chem 7: 03/15/20 06:59 03/15/20 06:59 Labs: Abnormal Lab Results - Last 24 Hours (Table) 03/14/20 03/14/20 03/14/20 Range/Units 10:50 10:50 16:47 WBC 48.1 H (3.8-10.6) k/uL RBC 3.50 L (4.30-5.90) m/uL Hgb 11.5 L (13.0-17.5) gm/dL Hct 37.8 L (39.0-53.0) % MCV 107.8 H (80.0-100.0) fL MCHC 30.3 L (31.0-37.0) g/dL RDW 21.7 H (11.5-15.5) % Plt Count 25 L (150-450) k/uL Neutrophils # 24.6 H (1.3-7.7) k/uL Neutrophils # (Manual) (1.3-7.7) k/uL Lymphocytes # 20.9 H (1.0-4.8) k/uL Lymphocytes # (Manual) (1.0-4.8) k/uL Monocytes # 1.4 H (0-1.0) k/uL Macrocytosis Marked A Sodium (137-145) mmol/L Chloride (98-107) mmol/L Carbon Dioxide (22-30) mmol/L BUN (9-20) mg/dL Glucose (74-99) mg/dL POC Glucose (mg/dL) 131 H (75-99) mg/dL Calcium (8.4-10.2) mg/dL Total Bilirubin (0.2-1.3) mg/dL Lactate Dehydrogenase 846 H (313-618) U/L Total Protein (6.3-8.2) g/dL Albumin (3.5-5.0) g/dL 03/14/20 03/15/20 03/15/20 Range/Units 20:39 06:14 06:59 WBC 40.0 H (3.8-10.6) k/uL RBC 3.07 L (4.30-5.90) m/uL Hgb 9.8 L D (13.0-17.5) gm/dL Hct 32.4 L (39.0-53.0) % MCV 105.6 H (80.0-100.0) fL MCHC 30.3 L (31.0-37.0) g/dL RDW 21.6 H (11.5-15.5) % Plt Count 17 L* (150-450) k/uL Neutrophils # (1.3-7.7) k/uL Neutrophils # (Manual) 17.60 H (1.3-7.7) k/uL Lymphocytes # (1.0-4.8) k/uL Lymphocytes # (Manual) 22.40 H (1.0-4.8) k/uL Monocytes # (0-1.0) k/uL Macrocytosis Marked A Sodium (137-145) mmol/L Chloride (98-107) mmol/L Carbon Dioxide (22-30) mmol/L BUN (9-20) mg/dL Glucose (74-99) mg/dL POC Glucose (mg/dL) 130 H 101 H (75-99) mg/dL Calcium (8.4-10.2) mg/dL Total Bilirubin (0.2-1.3) mg/dL Lactate Dehydrogenase (313-618) U/L Total Protein (6.3-8.2) g/dL Albumin (3.5-5.0) g/dL 03/15/20 Range/Units 06:59 WBC (3.8-10.6) k/uL RBC (4.30-5.90) m/uL Hgb (13.0-17.5) gm/dL Hct (39.0-53.0) % MCV (80.0-100.0) fL MCHC (31.0-37.0) g/dL RDW (11.5-15.5) % Plt Count (150-450) k/uL Neutrophils # (1.3-7.7) k/uL Neutrophils # (Manual) (1.3-7.7) k/uL Lymphocytes # (1.0-4.8) k/uL Lymphocytes # (Manual) (1.0-4.8) k/uL Monocytes # (0-1.0) k/uL Macrocytosis Sodium 131 L (137-145) mmol/L Chloride 110 H (98-107) mmol/L Carbon Dioxide 17 L (22-30) mmol/L BUN 62 H (9-20) mg/dL Glucose 126 H (74-99) mg/dL POC Glucose (mg/dL) (75-99) mg/dL Calcium 8.0 L (8.4-10.2) mg/dL Total Bilirubin 4.2 H (0.2-1.3) mg/dL Lactate Dehydrogenase (313-618) U/L Total Protein 4.3 L (6.3-8.2) g/dL Albumin 1.8 L (3.5-5.0) g/dL Microbiology - Last 24 Hours (Table) 03/13/20 13:10 Gram Stain - Preliminary Pleural Fluid Body Fluid Culture - Preliminary 03/13/20 13:10 Acid Fast Bacilli Culture - Preliminary Pleural Fluid 03/13/20 13:10 Fungal Culture - Preliminary Pleural Fluid 03/13/20 13:10 Anaerobic Culture - Preliminary Pleural Fluid Assessment and Plan Assessment: 1. Hypotension, most likely hypovolemic in nature, Recovered. Continued on midodrine. 2. Chronic atrial fibrillation with RVR. Presently rate is controlled heart rate 61. 3. Chronic lymphocytic leukemia, B-cell type, not active. 4. Mediastinal and right paratracheal adenopathy patient may eventually require bronchoscopy and trans-carinal needle aspiration for tissue diagnosis. It is likely lymphoma, however small cell lung carcinoma is also in the differential. 5. Bicytopenia, being addressed by oncology on the case. 6 Coagulopathy, resolved. 7. Hypovolemic hyponatremia, improving. 8. Acute kidney injury secondary to hypotension, improving with hydration. 9. Bilateral pleural effusions Plan: 1. The patient was seen and examined at his bedside on the cardiac stepdown unit with Dr. Ford. 2. Continue Midodrine 10 mg by mouth 3 times a day. He remains hemodynamically stable. 3. Cytology results from thoracentesis remains pending. We will continue to follow the cytology results. 4. Wean oxygen as tolerated to maintain oxygen saturations greater than or equal to 92%. 5. Thrombocytopenia management per hematology/oncology recommendations. 6. Overall prognosis remains guarded. 7. Continue prednisone 60 mg by mouth daily and Levaquin. 8. More recommendations to follow based on patient's clinical course. I, the cosigning physician, performed a history and physical examination on the patient. Lungs are diminished to his bilateral bases and maintaining O2 saturation in the 90s on 2 L nasal cannula. I discussed the plan and assessment of care with Manuel Rossi NP. I attest that the above note is dictated by him. Time with Patient: Less than 30
[2020-03-15 12:27] LABS: Glucose,Whole Blood 196 mg/dL (75-99)
--- NOTE | 2020-03-15 17:17 | P.PN ---
Progress Note - Text Progress Note Date: 03/15/20 History of Present Illness 71-year-old pleasant male who follows with Dr. Jessa campos, was transferred from [facility] after he was treated for atrial fibrillation with Cardizem was transferred here for evaluation by oncology. Admitted to intensive care unit because of hypotension patient appears to have hypovolemic shock patient started on levo fed. Cardizem was discontinued because of hypotension patient was started on digoxin and patient was also also started on low-dose metoprolol with fairly controlled heart rate. 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 There is a concern about transformation because of low hemoglobin, decreased platelet count and decreased white blood cell count. Although there is no blast cells in the peripheral smear Dr. Lacy evaluated the patient is a concern about GI bleed although patient doesn't have any blood in the stools or dark stools or hematemesis patient's INR is around 2 which is believed to be secondary to Xarelto, although DIC workup is being obtained as well. Patient is quite a bit weak there is a concern about the chest x-ray findings of right lower lobe infiltrate-weight analyst do not believe patient has any pneumonia patient doesn't having any symptoms of pneumonia patient denied any cough doesn't have any fever chills. Patient doesn't have elevated BNP although clinically not in heart failure exacerbation his BNP here is around 9000 his BNP at [facility] was around 7000. Patient doesn't have any JVD and crackles on exam. Patient's creatinine negative district is 1.3 and he rates 1.1 patient is presently receiving IV fluids because of hypovolemic shock is also on levo fed. Patient had normal ejection fraction. Patient's symptoms right now is a significant fatigue and generalized weakness. Patient denied any significant shortness of breath at this time Admitted with-hypotension likely hypovolemic, persistent atrial flutter with rapid ventricular rate, bicytopenia, acute kidney injury. Patient is started on levo fed. Empiric antibiotics. Infection felt to be less likely. Left thoracentesis-1100 mL removed. Today-. Remains tired.. Oral intake remains limited. Sitting upon a chair. Review of systems: Was done for constitutional, cardiovascular, GI, pulmonary. relevant finding as above Active Medications Cyanocobalamin (Vitamin B-12) 1,000 mcg PO DAILY [facility] Last Admin: 03/15/20 10:01 Dose: 1,000 mcg Documented by: Digoxin (Lanoxin) 125 mcg PO DAILY [facility] Last Admin: 03/15/20 10:01 Dose: 125 mcg Documented by: Dronabinol (Marinol) 2.5 mg PO AC-BID [facility] Last Admin: 03/15/20 06:28 Dose: 2.5 mg Documented by: Insulin Aspart (Novolog) 0 unit SQ ACHS [facility]; Protocol Last Admin: 03/15/20 13:05 Dose: 5 unit Documented by: Levofloxacin (Levaquin) 500 mg PO DAILY [facility] Last Admin: 03/15/20 10:02 Dose: 500 mg Documented by: Levothyroxine Sodium (Synthroid) 100 mcg PO DAILY@0630 [facility] Last Admin: 03/15/20 06:28 Dose: 100 mcg Documented by: Metoprolol Tartrate (Lopressor) 25 mg PO BID [facility] Last Admin: 03/15/20 10:02 Dose: 25 mg Documented by: Midodrine (Proamatine) 10 mg PO AC-TID [facility] Last Admin: 03/15/20 13:04 Dose: 10 mg Documented by: Miscellaneous Information (Pneumonia Protocol Utilized) 1 each PO ONCE PRN PRN Reason: Per Protocol Naloxone HCl (Narcan) 0.2 mg IV Q2M PRN PRN Reason: Opioid Reversal Nystatin (Mycostatin Oral Susp) 500,000 unit PO QID [facility] Last Admin: 03/15/20 13:09 Dose: 500,000 unit Documented by: Pantoprazole Sodium (Protonix) 40 mg PO AC-BRKFST [facility] Last Admin: 03/15/20 06:28 Dose: 40 mg Documented by: Prednisone () 60 mg PO DAILY [facility] Last Admin: 03/15/20 10:01 Dose: 60 mg Documented by: On examination: VITAL SIGNS: 97, 86, 18, 95/54, 99% on 2 L GENERAL APPEARANCE: Sitting in chair, tired HEENT: Normal external appearance of nose and ear. Oral cavity normal EYES: Pupils equal. Conjunctiva pale NECK: JVD not raised. Mass not palpable. RESPIRATORY: Respiratory effort normal. Lungs decreased breath sounds CARDIOVASCULAR: Heart sounds irregular. Some edema. ABDOMEN: Soft. Liver and spleen not palpable. No tenderness. No mass palpable. PSYCHIATRY: Alert and oriented x3. Mood and affect tired INVESTIGATIONS, reviewed in the clinical context: White count 40 hemoglobin 9.8 platelets 17 pressure 4.8 creatinine 1.15 albumin 1.8 Previous testing: White count 31.8 hemoglobin 10.5 platelets 79-sodium 129 potassium 4.7 creatinine 1.19 EKG tracing-atrial fibrillation with a rate of 120 Chest [id number] density Assessment -Hypovolemic shock-status post norepinephrine IV fluids-POA -Generalized weakness probably secondary to atrial fibrillation as well as a other issues including chronic lymphocytic leukemia, improving -Acute renal failure probably prerenal azotemia intravascular volume depletion-better -Persistent Atrial fibrillation,-uncontrolled on admission: Controlled -Hilar lymphadenopathy and right paratracheal adenopathy for further workup -Chronic lymphocytic leukemia there is no obvious evidence of transformation to acute leukemia. Transformation into other cell type laying evaluated -Bicytopenia including thrombocytopenia and low hemoglobin etiology is not clear further workup as mentioned above oncology evaluated the patient.-Pending flow cytometry on the pleural fluid -Hypertension patient is presently hypotensive -Moderate pulmonary hypertension -History of CVA and TIA -Coagulopathy most presently secondary to Xarelto initially held, now changed over to eliquis -Hypothyroid -Metabolic acidosis -Secondary pulmonary hypertension -Pleural effusion status post left-sided thoracentesis 1100 mL removed -Medical debility requiring physical therapy treatment- -Moderate protein calorie malnutrition from decreased oral intake Plan: Awaiting flow cytometry on the pleural fluid. Continue current medication treatment plan.
[2020-03-15 17:45] LABS: Glucose,Whole Blood 143 mg/dL (75-99)
[2020-03-15 19:53] LABS: Glucose,Whole Blood 106 mg/dL (75-99)
--- NOTE | 2020-03-15 23:14 | PN ---
PROGRESS NOTE DATE OF SERVICE: 03/15/2020 REASON FOR FOLLOWUP: Pneumonia. INTERVAL HISTORY: The patient is currently afebrile. He has been breathing comfortably. Denies having any chest pain. Occasional cough. No nausea, vomiting. No abdominal pain. No diarrhea. The patient has complained of constipation. PHYSICAL EXAMINATION: Blood pressure 114/58 with a pulse of 81. Temperature of 97.5. He is 98% on 2 L nasal cannula. General description is an elderly male up in the chair in no distress. Respiratory system: Unlabored breathing, decreased breath sounds at the base. No wheeze. HEART: S1, S2. Regular rate and rhythm. ABDOMEN: Soft, no tenderness. LABS: Hemoglobin 9.8, white count 14,000. BUN of 62, creatinine 1.15. DIAGNOSTIC IMPRESSION AND PLAN: Patient admitted to the hospital with hypertension with concern for pneumonia, also with a component of effusion status post thoracocentesis. Culture has been negative for any resistant pathogen. The patient is covered with Levaquin to continue for a short course. Monitor clinical course closely. MMODL / IJN: [id number] /
[2020-03-16 06:14] LABS: Glucose,Whole Blood 111 mg/dL (75-99)
[2020-03-16] MEDS: INSULIN ASPART (NovoLOG) 100 UNIT/ML VIAL SQ SCH ×4 (06:31→21:05)
[2020-03-16] MEDS: DRONABINOL 2.5 MG CAP PO SCH ×2 (06:37→17:48)
[2020-03-16] MEDS: MIDODRINE 5 MG TAB PO SCH ×3 (06:37→17:48)
[2020-03-16] MEDS: LEVOTHYROXINE 100 MCG TAB PO SCH (06:37)
[2020-03-16] MEDS: PANTOPRAZOLE 40 MG TABLET PO SCH (06:37)
[2020-03-16 06:42] LABS: Anisocytosis Moderate; HCT 31.2 % (39.0-53.0); HGB 9.5 gm/dL (13.0-17.5); Hypochromasia Marked; MCH 32.7 pg (25.0-35.0); MCHC 30.3 g/dL (31.0-37.0); MCV 107.9 fL (80.0-100.0); Macrocytosis Marked; RDW 21.5 % (11.5-15.5); WBC 39.2 k/uL (3.8-10.6)
[2020-03-16 06:51] LABS: Platelet Count 15 k/uL (150-450)
[2020-03-16 06:58] LABS: Albumin 1.7 g/dL (3.5-5.0); Calcium 7.9 mg/dL (8.4-10.2); Potassium 4.9 mmol/L (3.5-5.1); Total Bilirubin 4.9 mg/dL (0.2-1.3); Total Protein 4.3 g/dL (6.3-8.2)
[2020-03-16 08:07] LABS: Lymphocytes # (M) 25.87 k/uL (1.0-4.8); Monocytes # (M) 0.78 k/uL (0-1.0); Neutrophils # (M) 12.54 k/uL (1.3-7.7); Neutrophils % (M) 32 %; Nucleated Red Blood Cells 0 /100 WBC (0-0); Total Cells Counted 100
[2020-03-16 08:08] LABS: Large Platelets Present
[2020-03-16] MEDS: METOPROLOL TARTRATE 25 MG TAB PO SCH ×2 (09:48→20:32)
[2020-03-16] MEDS: DIGOXIN 125 MCG TAB PO SCH (09:49)
[2020-03-16] MEDS: CYANOCOBALAMIN 500 MCG TAB PO SCH (09:49)
[2020-03-16] MEDS: predniSONE 20 MG TAB PO SCH (09:49)
[2020-03-16] MEDS: NYSTATIN 100,000 UNIT/ML SUSP 500,000 UNIT/5 ML CUP PO SCH ×4 (09:49→20:33)
[2020-03-16] MEDS: LEVOFLOXACIN 500 MG TAB PO SCH (09:49)
--- NOTE | 2020-03-16 10:35 | P.PN ---
Subjective Progress Note Date: 03/16/20 The patient is overall clinically stable. He has significant generalized weakness and decreased appetite, unchanged from before. He denied any change in respiratory status. Continues to have upper and lower extremity swelling. No obvious bleeding. Objective - Vital Signs Vital signs: Vital Signs Temp 97.5 F L 03/16/20 03:43 Pulse 82 03/16/20 03:43 Resp 18 03/16/20 03:43 BP 104/66 03/16/20 03:43 Pulse Ox 98 03/16/20 03:43 Intake & Output 03/15/20 03/16/20 03/16/20 18:59 06:59 18:59 Intake Total 100 480 100 Output Total 600 1275 Balance -500 -795 100 Weight 71.5 kg Intake: Oral 100 480 100 Output: Urine 600 1275 Other: Voiding Method Indwelling Catheter Indwelling Catheter # Voids 1 # Bowel Movements 0 0 1 - Constitutional General appearance: Present: no acute distress - EENT Eyes: Present: EOMI ENT: Present: hearing grossly normal, normal oropharynx - Respiratory Respiratory: bilateral: diminished - Cardiovascular Rhythm: irregularly irregular Heart sounds: normal: S1, S2 - Gastrointestinal General gastrointestinal: Present: normal bowel sounds, soft - Integumentary Integumentary: Present: normal - Neurologic Neurologic: Present: CNII-XII intact - Musculoskeletal Musculoskeletal: Present: generalized weakness, strength equal bilaterally - Psychiatric Psychiatric: Present: A&O x's 3 - Labs CBC & Chem 7: 03/16/20 06:07 03/16/20 06:07 Labs: Abnormal Lab Results - Last 24 Hours (Table) 03/15/20 03/15/20 03/15/20 Range/Units 12:24 17:30 19:48 WBC (3.8-10.6) k/uL RBC (4.30-5.90) m/uL Hgb (13.0-17.5) gm/dL Hct (39.0-53.0) % MCV (80.0-100.0) fL MCHC (31.0-37.0) g/dL RDW (11.5-15.5) % Plt Count (150-450) k/uL Neutrophils # (Manual) (1.3-7.7) k/uL Lymphocytes # (Manual) (1.0-4.8) k/uL Macrocytosis Sodium (137-145) mmol/L Chloride (98-107) mmol/L Carbon Dioxide (22-30) mmol/L BUN (9-20) mg/dL Glucose (74-99) mg/dL POC Glucose (mg/dL) 196 H 143 H 106 H (75-99) mg/dL Calcium (8.4-10.2) mg/dL Total Bilirubin (0.2-1.3) mg/dL Total Protein (6.3-8.2) g/dL Albumin (3.5-5.0) g/dL 03/16/20 03/16/20 03/16/20 Range/Units 06:07 06:07 06:12 WBC 39.2 H (3.8-10.6) k/uL RBC 2.90 L (4.30-5.90) m/uL Hgb 9.5 L (13.0-17.5) gm/dL Hct 31.2 L (39.0-53.0) % MCV 107.9 H (80.0-100.0) fL MCHC 30.3 L (31.0-37.0) g/dL RDW 21.5 H (11.5-15.5) % Plt Count 15 L* (150-450) k/uL Neutrophils # (Manual) 12.54 H (1.3-7.7) k/uL Lymphocytes # (Manual) 25.87 H (1.0-4.8) k/uL Macrocytosis Marked A Sodium 130 L (137-145) mmol/L Chloride 109 H (98-107) mmol/L Carbon Dioxide 14 L (22-30) mmol/L BUN 61 H (9-20) mg/dL Glucose 110 H (74-99) mg/dL POC Glucose (mg/dL) 111 H (75-99) mg/dL Calcium 7.9 L (8.4-10.2) mg/dL Total Bilirubin 4.9 H (0.2-1.3) mg/dL Total Protein 4.3 L (6.3-8.2) g/dL Albumin 1.7 L (3.5-5.0) g/dL Microbiology - Last 24 Hours (Table) 03/13/20 13:10 Gram Stain - Preliminary Pleural Fluid Body Fluid Culture - Preliminary Assessment and Plan (1) Bicytopenia Narrative/Plan: The patient has had further mild drop in hemoglobin, and in platelets. Bilirubin is further elevated. Clinically this appears to indicate ongoing autoimmune destruction, despite 60 mg of prednisone. The patient was therefore need more aggressive therapy, even for the autoimmune cytopenias. He will be started on bolus Decadron for 4 days. We will also plan on Rituxan infusion for 03/17/20. - Continue to monitor labs with additional supportive treatment as needed Current Visit: Yes Status: Acute Priority: High Code(s): D75.89 - OTHER SPECIFIED DISEASES OF BLOOD AND BLOOD-FORMING ORGANS SNOMED Code(s): 21597733 (2) CLL (chronic lymphocytic leukemia) Narrative/Plan: At this time to cytometry on the pleural fluid is pending. If this is positive for CLL, or more aggressive lymphoproliferative disorder, the patient will need to be started on appropriate treatment for the same Current Visit: Yes Status: Chronic Priority: Medium Code(s): C91.10 - CHRONIC LYMPHOCYTIC LEUK OF B-CELL TYPE NOT ACHIEVE REMIS SNOMED Code(s): 87742104
--- NOTE | 2020-03-16 11:49 | P.PN ---
Subjective Progress Note Date: 03/16/20 Principal diagnosis: This is a 79-year-old white male, known history of B-cell lymphoma, stage 0 disease, advised mostly observation. Known history of previous CVA in 2017, previous treatment with TPA. Patient is also known to have history of atrial fibrillation. And he was admitted to [facility] ICU the day before yesterday, patient presented initially to the ER at [facility] with hypotension, atrial fibrillation with RVR. I was notified about this patient, and I admitted him to the ICU. He was seen by Dr. Stroud and other consultants at [facility], and he was treated with antibiotics empirically, norepinephrine for his hypotension, fluid boluses were given at least 2-3 L were given to him initially when he presented to the ER. However early this morning around 3 AM, and for no good reason the ER at [facility] accepted the patient to be transferred from the ICU to the ER, patient was shortly evaluated, and transferred to the ICU at [facility]. The patient tells me that they transferred her mostly because his oncologist is on our staff, and the patient was requesting to be discharged. Although the patient is not receiving any treatment for his B-cell lymphoma. At any rate patient was admitted to the ICU, presently on norepinephrine at 0.07 mcg/kg/m, is also on IV fluid at 100 mL per hour. He is in atrial fibrillation with a rate of 102-110. He is on room air with O2 saturation 93%. Patient complains mostly of progressive fatigue and weakness. No fever no chills no hemoptysis no cough no wheezing, no nausea no vomiting no abdominal pain no melena no hematemesis is no dysuria and no diarrhea no frequency no urgency. Again the patient was placed on empiric antibiotics and he is being evaluated by cardiology for his atrial fibrillation. Off Cardizem at present. His past medical history is mostly significant for colon cancer, resected in 2007. His CT of the chest from [facility] showed no evidence of pneumonia, and the patient had no symptoms to suggest pneumonia. Reevaluated today on 03/06/20, patient remains in the ICU. Remains on norepinephrine at 0.12 mcg/kg/m, and I cut it down to 0.1. His IV fluid is at 100 mL/h, and I cut it down to 50 mL per hour. Patient remains in atrial fibrillation, rate seems to be fairly well controlled rate of 101. His oxygen saturation is 96% on room air. Chest x-ray and CT of the chest from [facility] showed mostly bilateral pleural effusions and bibasilar atelectasis. Sputum Gram stain is basically nondiagnostic. Culture is pending. Urinalysis is suspicious for urinary tract infection, however the patient had no symptoms, and culture of the urine is pending. Serum cortisol level today is 27. His BNP was noted to be elevated at 9330, hence I will give the patient 1 dose of Lasix, and I cut down his IV fluid to 50 mL per hour. WBC count today is 43.6 hemoglobin is 10.6. INR is down to 1.6. Patient continues to have hyponatremia which is likely hypovolemic in nature. Renal functioning is a bit worse today, and I'll see the patient developed acute kidney injury secondary to acute tubular necrosis secondary to hypotension. Clinically, the patient remains relatively asymptomatic. Patient was reevaluated today on 03/07/20, remains in the ICU, remains in atrial fibrillation but rate seems to be controlled. Patient is on room air. Sodium remains a bit low. Chest x-ray continues to show right paratracheal mass. Patient remains on norepinephrine at 0.05 mcg/kg/m he is afebrile, remains empirically on antibiotics. Reviewed the CT of the chest from [facility], and I'm not certain whether the patient will need a tissue diagnosis for his right paratracheal and subcarinal lymphadenopathy, if he does patient will need a bronchoscopy and li needle /transcarinal needle aspiration. However the oncologist on the case made no suggestion that they need a tissue diagnosis apparently the diagnosis was already made but I'm quite concerned considering the size of the adenopathy noted. This could be lymphoma could also be small cell lung carcinoma. Continues to have leukocytosis with WBC count of 54.1 hemoglobin is 11.4 and electrolytes were reviewed sodium remains 128 bicarb remains a bit low at 16 BUN is 54 creatinine is improving down to 1.27 Reevaluated today on 03/08/20, patient remains in the ICU, remains on norepinephrine at 0.06 mg/kg/m. Remains on IV fluid at 100 mL/h. He is doing quite well except for his hypotension requiring norepinephrine. Patient has no active symptoms whatsoever. Denies any headache no blurred vision no dizziness no cough no wheezing no shortness of breath no nausea no vomiting no abdominal pain no melena no hematemesis no dysuria and no frequency no urgency.his labs were all reviewed, and sodium remains a bit low at 128, renal profile is a bit better with BUN 54 creatinine is down to 1.22.patient was placed on midodrine yesterday, the patient remains relatively low, hence I will recommend a trial of Solu-Cortef 100 mg IV push 1. Although his serum cortisol level was 27 on admission.continues to have leukocytosis, WBC count is 40.8 Reevaluated today on 03/09/20, patient remains in the ICU, IV fluid is at 90 mL per hour. Remains on norepinephrine at 0.05 mcg/kg/m, remains on room air. Had occasional episodes of diarrhea. Patient is complaining of generalized weakness, otherwise he denies any cough no wheezing no shortness of breath no fever no chills no hemoptysis no chest pain no nausea no vomiting had occasional diarrhea since admission, patient overall is asymptomatic. Reviewed the notes from oncology, now they are recommending tissue diagnosis for his right paratracheal mass, and this could be easily done with bronchoscopy and li needle hopefully sometime next week. Patient is not a candidate for the procedure at this point specially with him being hypotensive requiring norepi nephrine. The patient is seen today 03/10/2020 in follow-up in the intensive care unit. He is currently awake and alert in no acute distress. Sitting up in bed. He is maintaining O2 saturations in the 90s on room air. He has a 0.9 normal saline at 100 ML's per hour. He is still requiring norepinephrine at 3 mcg/m. Chest x-ray reveals small bilateral pleural effusions. Pulmonary venous congestion is improved. Some basilar atelectasis. Blood cultures revealed no growth. Sputum cultures reveal no growth. White count 48.6. Hemoglobin 10.8. Platelets 60,000. Sodium 1:30. Potassium 4.3. Creatinine 1.4. TSH 0.625. Cortisol 20. C. diff screen was negative. On 03/11/2020 patient seen in follow-up in the intensive care unit, doing well, his levo fed has been off for 24 hours, plan and was seen at a rate of 100 ML per hour, he is in sinus rhythm with a rate of 85, room air pulse ox is 93%, he is resting comfortably in bed, generally weak, but no acute distress, no worsening dyspnea, his chest x-ray shows bilateral infiltrates, and small pleural effusions. He has had no fever or chills, his lung sounds are clear, diminished at the bases, today's labs have been reviewed, white blood cell count is trending down, 38.6 on today's labs, hemoglobin is 11.0, platelet count is 39, serum sodium is 132, potassium is 4.6, chloride is 111, CO2 is 13, and BUN is 55 creatinine is 1.16, TSH level was within normal limits at 0.625, and cortisol level was 20, patient is on midodrine 10 mg 3 times daily and IV steroids at 60 mg every 12 hours, and antibiotics in the form of cefepime, his blood and sputum cultures have shown no growth. On 03/12/2020 the patient was seen in follow-up with Dr. Ford on the cardiac stepdown unit. He remains hemodynamically stable and is in no acute distress. Oxygen saturations are 97% on 3 L nasal cannula. He did have a ultrasound of his liver completed today due to some thrombocytopenia and increasing bilirubin which demonstrated hepatomegaly, some possible pericholecystic fluid and an incidental note of a right pleural effusion. Laboratory results today show a WBC 39.8, hemoglobin 10.7, and platelet count of 30. He remains afebrile the last 24 hours and he did not have a chest x-ray completed today. Remote telemetry showing normal sinus rhythm heart rate 86. On 03/13/2020 the patient was seen in follow-up with Dr. Ford on the cardiac stepdown unit. The patient is laying in bed comfortably in no acute distress. Oxygen saturations are 100% on 3 L nasal cannula. A repeat chest x-ray was completed today which demonstrated mild interval improvement. A computed tomography scan of his chest/abdomen ports/pelvis with contrast was completed yesterday which showed extensive, severe generalized anasarca with increasing moderate pleural effusions and new mild abdomen pelvic ascites, adjacent atelectasis of the basilar lower lobes, some layering oral contrast in the baldomero and proximal right mainstem bronchus, consider aspiration, mediastinal right hilar, axillary, retroperitoneal and external iliac chain lymphadenopathy, pulmonary nodules on the right measuring up to 6 mm, mild splenomegaly [id number] cm and no excretion of contrast on the delayed kidney images. There were no new laboratory results today. He is been afebrile the last 24 hours. He is complaining of generalized weakness and some shortness of breath with exertion. He remains to have some +1 generalized edema. Remote telemetry showing atrial fibrillation heart rate 69. The patient is seen today 03/14/2020 in follow-up on the selective care unit. He is currently resting comfortably in bed. Awake and alert in no acute distress. He is maintaining O2 saturations in the 90s on room air. He's been afebrile. Hemodynamically stable. He did undergo a left-sided thoracentesis with 1100 ML's of fluid removed. Cytology and fluid analysis pending. Postprocedure chest x-ray revealed residual small effusions with adjacent atelectasis. No pneumothorax. Known mediastinal lymphadenopathy. White count 48. Hemoglobin 11.5. Sodium 133. Potassium 4.8. Chloride 110. Creatinine 1.26. Patient is seen today 03/15/2020 and follow-up on the cardiac stepdown unit. He is currently resting comfortably in bed. He is in no acute distress and is awake, alert and oriented 3. He remains in in a medically stable, afebrile the last 24 hours and his oxygen saturations are 98% on 2 L nasal cannula. A left thoracentesis was completed on 03/13/[address] Ford with 1.1 L of fluid drained. Fluid analysis shows a transudative effusion and cytology results remain pending. A CPVID 19 test was completed yesterday 03/14/2020 ic h was negative. Lab results today show a WBC count 40.0, hemoglobin 9.8, platelets 17, sodium 131, CO2 17, BUN 62, creatinine 1.15 and his albumin level is 1.8. There is no chest x-ray completed today. The patient is seen today 03/16/2020 and follow-up on the cardiac stepdown unit. The patient is resting comfortably in bed and is in no acute distress. He is awake, alert and oriented 3. He remains hemodynamically stable and has been afebrile in the last 24 hours. Oxygen saturations are 98% on room air. A left thoracentesis was completed on 03/13/[address] Ford with 1.1 L of fluid drained. Fluid analysis shows a transudative effusion and cytology results remain pending. Laboratory results today show WBCs 39.2, hemoglobin 9.5, platelets 15, sodium 1:30, CO2 14, BUN 61, creatinine 1.09 and albumin 1.7. His pleural fluid microbiology cultures show no growth at this time. He did not have a repeat chest x-ray today. Objective - Vital Signs Vital signs: Vital Signs Temp 97.5 F L 03/16/20 03:43 Pulse 82 03/16/20 03:43 Resp 18 03/16/20 03:43 BP 104/66 03/16/20 03:43 Pulse Ox 98 03/16/20 03:43 Intake & Output 03/15/20 03/16/20 03/16/20 18:59 06:59 18:59 Intake Total 100 480 100 Output Total 600 1275 Balance -500 -795 100 Weight 71.5 kg Intake: Oral 100 480 100 Output: Urine 600 1275 Other: Voiding Method Indwelling Catheter Indwelling Catheter # Voids 1 # Bowel Movements 0 0 1 - Exam Alert, very pleasant, 79-year-old white male, on room air, with a pulse ox of 98%, comfortable in no apparent distress. - Constitutional General appearance: Present: average body habitus, cooperative, no acute distress - EENT Eyes: Present: PERRLA, normal appearance. Absent: scleral icterus ENT: Present: hearing grossly normal - Neck Details: Neck is supple, no JVD. Neck: Absent: lymphadenopathy, stridor - Respiratory Details: Equal air entry with crackles in the bilateral posterior bases. Respirations symmetrical and nonlabored. - Cardiovascular Details: Irregular rhythm with controlled rate. S1 and S2 present, negative for S3, gallop or murmur. Remote telemetry showing atrial fibrillation heart rate 74. Generalized anasarca. - Gastrointestinal Gastrointestinal Comment(s): Abdomen soft, nontender and nondistended. Active bowel sounds present in all 4 abdominal quadrants. No guarding or rigidity. No organomegaly. - Integumentary Integumentary Comment(s): Skin is warm and dry. No clubbing or cyanosis present. Generalized anasarca. - Neurologic Neurologic: Present: CNII-XII intact - Musculoskeletal Musculoskeletal: Present: generalized weakness, strength equal bilaterally - Psychiatric Psychiatric: Present: A&O x's 3, appropriate affect, intact judgment & insight - Allied health notes Allied health notes reviewed: nursing - Labs CBC & Chem 7: 03/16/20 06:07 03/16/20 06:07 Labs: Abnormal Lab Results - Last 24 Hours (Table) 03/15/20 03/15/20 03/15/20 Range/Units 12:24 17:30 19:48 WBC (3.8-10.6) k/uL RBC (4.30-5.90) m/uL Hgb (13.0-17.5) gm/dL Hct (39.0-53.0) % MCV (80.0-100.0) fL MCHC (31.0-37.0) g/dL RDW (11.5-15.5) % Plt Count (150-450) k/uL Neutrophils # (Manual) (1.3-7.7) k/uL Lymphocytes # (Manual) (1.0-4.8) k/uL Macrocytosis Sodium (137-145) mmol/L Chloride (98-107) mmol/L Carbon Dioxide (22-30) mmol/L BUN (9-20) mg/dL Glucose (74-99) mg/dL POC Glucose (mg/dL) 196 H 143 H 106 H (75-99) mg/dL Calcium (8.4-10.2) mg/dL Total Bilirubin (0.2-1.3) mg/dL Total Protein (6.3-8.2) g/dL Albumin (3.5-5.0) g/dL 03/16/20 03/16/20 03/16/20 Range/Units 06:07 06:07 06:12 WBC 39.2 H (3.8-10.6) k/uL RBC 2.90 L (4.30-5.90) m/uL Hgb 9.5 L (13.0-17.5) gm/dL Hct 31.2 L (39.0-53.0) % MCV 107.9 H (80.0-100.0) fL MCHC 30.3 L (31.0-37.0) g/dL RDW 21.5 H (11.5-15.5) % Plt Count 15 L* (150-450) k/uL Neutrophils # (Manual) 12.54 H (1.3-7.7) k/uL Lymphocytes # (Manual) 25.87 H (1.0-4.8) k/uL Macrocytosis Marked A Sodium 130 L (137-145) mmol/L Chloride 109 H (98-107) mmol/L Carbon Dioxide 14 L (22-30) mmol/L BUN 61 H (9-20) mg/dL Glucose 110 H (74-99) mg/dL POC Glucose (mg/dL) 111 H (75-99) mg/dL Calcium 7.9 L (8.4-10.2) mg/dL Total Bilirubin 4.9 H (0.2-1.3) mg/dL Total Protein 4.3 L (6.3-8.2) g/dL Albumin 1.7 L (3.5-5.0) g/dL Microbiology - Last 24 Hours (Table) 03/13/20 13:10 Gram Stain - Preliminary Pleural Fluid Body Fluid Culture - Preliminary Assessment and Plan Assessment: 1. Hypotension, most likely hypovolemic in nature, Recovered. Continued on midodrine. 2. Chronic atrial fibrillation with RVR. Presently rate is controlled heart rate 61. 3. Chronic lymphocytic leukemia, B-cell type, not active. 4. Mediastinal and right paratracheal adenopathy patient may eventually require bronchoscopy and trans-carinal needle aspiration for tissue diagnosis. It is likely lymphoma, however small cell lung carcinoma is also in the differential. 5. Bicytopenia, being addressed by oncology on the case. 6 Coagulopathy, resolved. 7. Hypovolemic hyponatremia, improving. 8. Acute kidney injury secondary to hypotension, improving with hydration. 9. Bilateral pleural effusions Plan: 1. The patient was seen and examined at his bedside on the cardiac stepdown unit with Dr. Ford. 2. Continue Midodrine 10 mg by mouth 3 times a day. He remains hemodynamically stable. 3. Cytology results from thoracentesis remain pending. We will continue to follow the cytology results. 4. Thrombocytopenia management per hematology/oncology recommendations. 5. Overall prognosis remains guarded. 6. Continue prednisone 60 mg by mouth daily and Levaquin. 7. More recommendations to follow based on patient's clinical course. I, the cosigning physician, performed a history and physical examination on the patient. Lungs are diminished to his bilateral bases and maintaining O2 saturation in the 90s on 2 L nasal cannula. I discussed the plan and assessment of care with Manuel Rossi [employer]. I attest that the above note is dictated by him. Time with Patient: Less than 30
[2020-03-16 12:01] LABS: Glucose,Whole Blood 82 mg/dL (75-99)
[2020-03-16] MEDS: DEXAMETHASONE 4 MG TAB PO SCH (13:32)
--- NOTE | 2020-03-16 16:10 | P.PN ---
Progress Note - Text Progress Note Date: 03/16/20 History of Present Illness 71-year-old pleasant male who follows with Dr. Jessa campos, was transferred from [facility] after he was treated for atrial fibrillation with Cardizem was transferred here for evaluation by oncology. Admitted to intensive care unit because of hypotension patient appears to have hypovolemic shock patient started on levo fed. Cardizem was discontinued because of hypotension patient was started on digoxin and patient was also also started on low-dose metoprolol with fairly controlled heart rate. 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 There is a concern about transformation because of low hemoglobin, decreased platelet count and decreased white blood cell count. Although there is no blast cells in the peripheral smear Dr. Lacy evaluated the patient is a concern about GI bleed although patient doesn't have any blood in the stools or dark stools or hematemesis patient's INR is around 2 which is believed to be secondary to Xarelto, although DIC workup is being obtained as well. Patient is quite a bit weak there is a concern about the chest x-ray findings of right lower lobe infiltrate-appian developer do not believe patient has any pneumonia patient doesn't having any symptoms of pneumonia patient denied any cough doesn't have any fever chills. Patient doesn't have elevated BNP although clinically not in heart failure exacerbation his BNP here is around 9000 his BNP at [facility] was around 7000. Patient doesn't have any JVD and crackles on exam. Patient's creatinine negative district is 1.3 and he rates 1.1 patient is presently receiving IV fluids because of hypovolemic shock is also on levo fed. Patient had normal ejection fraction. Patient's symptoms right now is a significant fatigue and generalized weakness. Patient denied any significant shortness of breath at this time Admitted with-hypotension likely hypovolemic, persistent atrial flutter with rapid ventricular rate, bicytopenia, acute kidney injury. Patient is started on levo fed. Empiric antibiotics. Infection felt to be less likely. Left thoracentesis-1100 mL removed. Started on March 15 on IV Decadron for further drop in hemoglobin and platelet. Today-. Tired. Decreased appetite. On IV Decadron. Sitting up in bed.. Review of systems: Was done for constitutional, cardiovascular, GI, pulmonary. relevant finding as above Active Medications Cyanocobalamin (Vitamin B-12) 1,000 mcg PO DAILY [facility] Last Admin: 03/16/20 09:49 Dose: 1,000 mcg Documented by: Dexamethasone (Hexadrol) 40 mg PO DAILY [facility] Stop: 03/19/20 09:01 Last Admin: 03/16/20 13:32 Dose: 40 mg Documented by: Digoxin (Lanoxin) 125 mcg PO DAILY [facility] Last Admin: 03/16/20 09:49 Dose: 125 mcg Documented by: Dronabinol (Marinol) 2.5 mg PO AC-BID [facility] Last Admin: 03/16/20 06:37 Dose: 2.5 mg Documented by: Insulin Aspart (Novolog) 0 unit SQ ACHS [facility]; Protocol Last Admin: 03/16/20 13:34 Dose: Not Given Documented by: Levofloxacin (Levaquin) 500 mg PO DAILY [facility] Last Admin: 03/16/20 09:49 Dose: 500 mg Documented by: Levothyroxine Sodium (Synthroid) 100 mcg PO DAILY@0630 [facility] Last Admin: 03/16/20 06:37 Dose: 100 mcg Documented by: Metoprolol Tartrate (Lopressor) 25 mg PO BID [facility] Last Admin: 03/16/20 09:48 Dose: 25 mg Documented by: Midodrine (Proamatine) 10 mg PO AC-TID [facility] Last Admin: 03/16/20 13:33 Dose: 10 mg Documented by: Miscellaneous Information (Pneumonia Protocol Utilized) 1 each PO ONCE PRN PRN Reason: Per Protocol Naloxone HCl (Narcan) 0.2 mg IV Q2M PRN PRN Reason: Opioid Reversal Nystatin (Mycostatin Oral Susp) 500,000 unit PO QID [facility] Last Admin: 03/16/20 13:33 Dose: 500,000 unit Documented by: Pantoprazole Sodium (Protonix) 40 mg PO AC-BRKFST [facility] Last Admin: 03/16/20 06:37 Dose: 40 mg Documented by: Sodium Bicarbonate (Sodium Bicarbonate Tab) 650 mg PO BID [facility] On examination: VITAL SIGNS: 97.1, 80, 16, 102/57, 97% room air GENERAL APPEARANCE: Propped up in bed, tired HEENT: Normal external appearance of nose and ear. Oral cavity normal EYES: Pupils equal. Conjunctiva pale NECK: JVD not raised. Mass not palpable. RESPIRATORY: Respiratory effort normal. Lungs decreased breath sounds CARDIOVASCULAR: Heart sounds irregular. Some edema. ABDOMEN: Soft. Liver and spleen not palpable. No tenderness. No mass palpable. PSYCHIATRY: Alert and oriented x3. Mood and affect tired INVESTIGATIONS, reviewed in the clinical context: White count 39.2 hemoglobin 9.5 platelets 15 progression 4.9 and creatinine 1.09 Previous testing: White count 31.8 hemoglobin 10.5 platelets 79-sodium 129 potassium 4.7 creatinine 1.19 EKG tracing-atrial fibrillation with a rate of 120 Chest r-rie-cwsgvcuigftz density Assessment -Hypovolemic shock-status post norepinephrine IV fluids-POA -Generalized weakness probably secondary to atrial fibrillation as well as a other issues including chronic lymphocytic leukemia, improving -Acute renal failure probably prerenal azotemia intravascular volume depletion- better -Persistent Atrial fibrillation,-uncontrolled on admission: Controlled -Hilar lymphadenopathy and right paratracheal adenopathy for further workup -Chronic lymphocytic leukemia there is no obvious evidence of transformation to acute leukemia. Transformation into other cell type laying evaluated -Bicytopenia including thrombocytopenia and low hemoglobin etiology is not clear further workup as mentioned above oncology evaluated the patient.-Pending flow cytometry on the pleural fluid -Hypertension patient is presently hypotensive -Moderate pulmonary hypertension -History of CVA and TIA -Coagulopathy most presently secondary to Xarelto initially held, now changed over to eliquis -Hypothyroid -Metabolic acidosis -Secondary pulmonary hypertension -Pleural effusion status post left-sided thoracentesis 1100 mL removed -Medical debility requiring physical therapy treatment- -Moderate protein calorie malnutrition from decreased oral intake Plan: Awaiting flow cytometry on the pleural fluid. On by mouth dexamethasone. Prognosis is guarded. Follow with oncology.
[2020-03-16 17:01] LABS: Glucose,Whole Blood 151 mg/dL (75-99)
[2020-03-16] MEDS: SODIUM BICARBONATE TAB 650 MG TAB PO SCH (20:32)
[2020-03-16 21:01] LABS: Glucose,Whole Blood 119 mg/dL (75-99)
--- NOTE | 2020-03-17 01:32 | PN ---
PROGRESS NOTE DATE OF SERVICE: 03/16/2020. REASON FOR FOLLOWUP: Pneumonia. INTERVAL HISTORY: The patient is currently afebrile. He has been breathing comfortably, hemodynamically stable. No vomiting or diarrhea has been reported. PHYSICAL EXAMINATION: Blood pressure 95/51 with a pulse of 88, temperature 97.4. He is 97% on room air. General description is an elderly male lying in bed in no distress. RESPIRATORY SYSTEM: Unlabored breathing, clear to auscultation anteriorly. HEART: S1, S2. Regular rate and rhythm. ABDOMEN: Soft, no tenderness. LABS: Hemoglobin 9.5, white count 39.2 with a BUN of 61, creatinine 1.09. DIAGNOSTIC IMPRESSION AND PLAN: Patient admitted to the hospital with with concern for possible pneumonia in this patient did have a component of effusion status post thoracocentesis. So far culture has been negative. Patient is on Levaquin to continue and monitor clinical course closely. MMODL / IJN: [id number] /
[2020-03-17 06:12] LABS: Anisocytosis Moderate; HCT 28.9 % (39.0-53.0); HGB 9.1 gm/dL (13.0-17.5); Hypochromasia Moderate; MCH 32.7 pg (25.0-35.0); MCHC 31.4 g/dL (31.0-37.0); MCV 104.2 fL (80.0-100.0); Macrocytosis Marked; Mean Platelet Volume 14.3; RBC 2.77 m/uL (4.30-5.90); RDW 20.7 % (11.5-15.5); WBC 35.2 k/uL (3.8-10.6)
[2020-03-17 06:15] LABS: Platelet Count 20 k/uL (150-450)
[2020-03-17] MEDS: LEVOTHYROXINE 100 MCG TAB PO SCH (06:16)
[2020-03-17] MEDS: PANTOPRAZOLE 40 MG TABLET PO SCH (06:17)
[2020-03-17] MEDS: DRONABINOL 2.5 MG CAP PO SCH ×2 (06:17→17:24)
[2020-03-17] MEDS: MIDODRINE 5 MG TAB PO SCH ×3 (06:17→17:24)
[2020-03-17 06:23] LABS: Glucose,Whole Blood 171 mg/dL (75-99)
[2020-03-17 06:23] LABS: Albumin 1.7 g/dL (3.5-5.0); Calcium 7.8 mg/dL (8.4-10.2); Total Bilirubin 5.1 mg/dL (0.2-1.3); Total Protein 4.2 g/dL (6.3-8.2)
[2020-03-17] MEDS: INSULIN ASPART (NovoLOG) 100 UNIT/ML VIAL SQ SCH ×4 (06:25→20:50)
--- NOTE | 2020-03-17 08:01 | XR ---
EXAMINATION TYPE: XR chest 1V portable DATE OF EXAM: 03/17/2020 HISTORY: Shortness of breath. COMPARISON: 03/13/2020 TECHNIQUE: Single view of the chest is submitted. FINDINGS: Increasing right basilar opacity which may reflect a combination of infiltrate, atelectasis and/or ef fusion. Persistent density left lower lobe with similar differential. Right IJ central venous line un changed. The heart is stable. Paratracheal prominence may reflect underlying adenopathy or mass. Degenerative changes are seen of the dorsal spine. IMPRESSION: 1. Increasing right basilar opacity which may reflect a combination of infiltrate, atelectasis and/o r effusion.
[2020-03-17] MEDS: SODIUM BICARBONATE TAB 650 MG TAB PO SCH ×2 (08:58→20:55)
[2020-03-17] MEDS: DEXAMETHASONE 4 MG TAB PO SCH (08:59)
[2020-03-17] MEDS: LEVOFLOXACIN 500 MG TAB PO SCH (08:59)
[2020-03-17] MEDS: DIGOXIN 125 MCG TAB PO SCH (08:59)
[2020-03-17] MEDS: METOPROLOL TARTRATE 25 MG TAB PO SCH ×2 (08:59→20:55)
[2020-03-17] MEDS: NYSTATIN 100,000 UNIT/ML SUSP 500,000 UNIT/5 ML CUP PO SCH ×4 (08:59→22:48)
[2020-03-17] MEDS: CYANOCOBALAMIN 500 MCG TAB PO SCH (08:59)
[2020-03-17 10:11] LABS: Reticulocyte % 2.28 % (0.10-1.80)
--- NOTE | 2020-03-17 11:13 | P.PN ---
Subjective Progress Note Date: 03/17/20 Principal diagnosis: This is a 79-year-old white male, known history of B-cell lymphoma, stage 0 disease, advised mostly observation. Known history of previous CVA in 2017, previous treatment with TPA. Patient is also known to have history of atrial fibrillation. And he was admitted to [facility] ICU the day before yesterday, patient presented initially to the ER at [facility] with hypotension, atrial fibrillation with RVR. I was notified about this patient, and I admitted him to the ICU. He was seen by Dr. Stroud and other consultants at [facility], and he was treated with antibiotics empirically, norepinephrine for his hypotension, fluid boluses were given at least 2-3 L were given to him initially when he presented to the ER. However early this morning around 3 AM, and for no good reason the ER at [facility] accepted the patient to be transferred from the ICU to the ER, patient was shortly evaluated, and transferred to the ICU at [facility]. The patient tells me that they transferred her mostly because his oncologist is on our staff, and the patient was requesting to be discharged. Although the patient is not receiving any treatment for his B-cell lymphoma. At any rate patient was admitted to the ICU, presently on norepinephrine at 0.07 mcg/kg/m, is also on IV fluid at 100 mL per hour. He is in atrial fibrillation with a rate of 102-110. He is on room air with O2 saturation 93%. Patient complains mostly of progressive fatigue and weakness. No fever no chills no hemoptysis no cough no wheezing, no nausea no vomiting no abdominal pain no melena no hematemesis is no dysuria and no diarrhea no frequency no urgency. Again the patient was placed on empiric antibiotics and he is being evaluated by cardiology for his atrial fibrillation. Off Cardizem at present. His past medical history is mostly significant for colon cancer, resected in 2007. His CT of the chest from [facility] showed no evidence of pneumonia, and the patient had no symptoms to suggest pneumonia. Reevaluated today on 03/06/20, patient remains in the ICU. Remains on norepinephrine at 0.12 mcg/kg/m, and I cut it down to 0.1. His IV fluid is at 100 mL/h, and I cut it down to 50 mL per hour. Patient remains in atrial fibrillation, rate seems to be fairly well controlled rate of 101. His oxygen saturation is 96% on room air. Chest x-ray and CT of the chest from [facility] showed mostly bilateral pleural effusions and bibasilar atelectasis. Sputum Gram stain is basically nondiagnostic. Culture is pending. Urinalysis is suspicious for urinary tract infection, however the patient had no symptoms, and culture of the urine is pending. Serum cortisol level today is 27. His BNP was noted to be elevated at 9330, hence I will give the patient 1 dose of Lasix, and I cut down his IV fluid to 50 mL per hour. WBC count today is 43.6 hemoglobin is 10.6. INR is down to 1.6. Patient continues to have hyponatremia which is likely hypovolemic in nature. Renal functioning is a bit worse today, and I'll see the patient developed acute kidney injury secondary to acute tubular necrosis secondary to hypotension. Clinically, the patient remains relatively asymptomatic. Patient was reevaluated today on 03/07/20, remains in the ICU, remains in atrial fibrillation but rate seems to be controlled. Patient is on room air. Sodium remains a bit low. Chest x-ray continues to show right paratracheal mass. Patient remains on norepinephrine at 0.05 mcg/kg/m he is afebrile, remains empirically on antibiotics. Reviewed the CT of the chest from [facility], and I'm not certain whether the patient will need a tissue diagnosis for his right paratracheal and subcarinal lymphadenopathy, if he does patient will need a bronchoscopy and li needle /transcarinal needle aspiration. However the oncologist on the case made no suggestion that they need a tissue diagnosis apparently the diagnosis was already made but I'm quite concerned considering the size of the adenopathy noted. This could be lymphoma could also be small cell lung carcinoma. Continues to have leukocytosis with WBC count of 54.1 hemoglobin is 11.4 and electrolytes were reviewed sodium remains 128 bicarb remains a bit low at 16 BUN is 54 creatinine is improving down to 1.27 Reevaluated today on 03/08/20, patient remains in the ICU, remains on norepinephrine at 0.06 mg/kg/m. Remains on IV fluid at 100 mL/h. He is doing quite well except for his hypotension requiring norepinephrine. Patient has no active symptoms whatsoever. Denies any headache no blurred vision no dizziness no cough no wheezing no shortness of breath no nausea no vomiting no abdominal pain no melena no hematemesis no dysuria and no frequency no urgency.his labs were all reviewed, and sodium remains a bit low at 128, renal profile is a bit better with BUN 54 creatinine is down to 1.22.patient was placed on midodrine yesterday, the patient remains relatively low, hence I will recommend a trial of Solu-Cortef 100 mg IV push 1. Although his serum cortisol level was 27 on admission.continues to have leukocytosis, WBC count is 40.8 Reevaluated today on 03/09/20, patient remains in the ICU, IV fluid is at 90 mL per hour. Remains on norepinephrine at 0.05 mcg/kg/m, remains on room air. Had occasional episodes of diarrhea. Patient is complaining of generalized weakness, otherwise he denies any cough no wheezing no shortness of breath no fever no chills no hemoptysis no chest pain no nausea no vomiting had occasional diarrhea since admission, patient overall is asymptomatic. Reviewed the notes from oncology, now they are recommending tissue diagnosis for his right paratracheal mass, and this could be easily done with bronchoscopy and li needle hopefully sometime next week. Patient is not a candidate for the procedure at this point specially with him being hypotensive requiring norepi nephrine. The patient is seen today 03/10/2020 in follow-up in the intensive care unit. He is currently awake and alert in no acute distress. Sitting up in bed. He is maintaining O2 saturations in the 90s on room air. He has a 0.9 normal saline at 100 ML's per hour. He is still requiring norepinephrine at 3 mcg/m. Chest x-ray reveals small bilateral pleural effusions. Pulmonary venous congestion is improved. Some basilar atelectasis. Blood cultures revealed no growth. Sputum cultures reveal no growth. White count 48.6. Hemoglobin 10.8. Platelets 60,000. Sodium 1:30. Potassium 4.3. Creatinine 1.4. TSH 0.625. Cortisol 20. C. diff screen was negative. On 03/11/2020 patient seen in follow-up in the intensive care unit, doing well, his levo fed has been off for 24 hours, plan and was seen at a rate of 100 ML per hour, he is in sinus rhythm with a rate of 85, room air pulse ox is 93%, he is resting comfortably in bed, generally weak, but no acute distress, no worsening dyspnea, his chest x-ray shows bilateral infiltrates, and small pleural effusions. He has had no fever or chills, his lung sounds are clear, diminished at the bases, today's labs have been reviewed, white blood cell count is trending down, 38.6 on today's labs, hemoglobin is 11.0, platelet count is 39, serum sodium is 132, potassium is 4.6, chloride is 111, CO2 is 13, and BUN is 55 creatinine is 1.16, TSH level was within normal limits at 0.625, and cortisol level was 20, patient is on midodrine 10 mg 3 times daily and IV steroids at 60 mg every 12 hours, and antibiotics in the form of cefepime, his blood and sputum cultures have shown no growth. On 03/12/2020 the patient was seen in follow-up with Dr. Ford on the cardiac stepdown unit. He remains hemodynamically stable and is in no acute distress. Oxygen saturations are 97% on 3 L nasal cannula. He did have a ultrasound of his liver completed today due to some thrombocytopenia and increasing bilirubin which demonstrated hepatomegaly, some possible pericholecystic fluid and an incidental note of a right pleural effusion. Laboratory results today show a WBC 39.8, hemoglobin 10.7, and platelet count of 30. He remains afebrile the last 24 hours and he did not have a chest x-ray completed today. Remote telemetry showing normal sinus rhythm heart rate 86. On 03/13/2020 the patient was seen in follow-up with Dr. Ford on the cardiac stepdown unit. The patient is laying in bed comfortably in no acute distress. Oxygen saturations are 100% on 3 L nasal cannula. A repeat chest x-ray was completed today which demonstrated mild interval improvement. A computed tomography scan of his chest/abdomen ports/pelvis with contrast was completed yesterday which showed extensive, severe generalized anasarca with increasing moderate pleural effusions and new mild abdomen pelvic ascites, adjacent atelectasis of the basilar lower lobes, some layering oral contrast in the baldomero and proximal right mainstem bronchus, consider aspiration, mediastinal right hilar, axillary, retroperitoneal and external iliac chain lymphadenopathy, pulmonary nodules on the right measuring up to 6 mm, mild splenomegaly [id number] cm and no excretion of contrast on the delayed kidney images. There were no new laboratory results today. He is been afebrile the last 24 hours. He is complaining of generalized weakness and some shortness of breath with exertion. He remains to have some +1 generalized edema. Remote telemetry showing atrial fibrillation heart rate 69. The patient is seen today 03/14/2020 in follow-up on the selective care unit. He is currently resting comfortably in bed. Awake and alert in no acute distress. He is maintaining O2 saturations in the 90s on room air. He's been afebrile. Hemodynamically stable. He did undergo a left-sided thoracentesis with 1100 ML's of fluid removed. Cytology and fluid analysis pending. Postprocedure chest x-ray revealed residual small effusions with adjacent atelectasis. No pneumothorax. Known mediastinal lymphadenopathy. White count 48. Hemoglobin 11.5. Sodium 133. Potassium 4.8. Chloride 110. Creatinine 1.26. Patient is seen today 03/15/2020 and follow-up on the cardiac stepdown unit. He is currently resting comfortably in bed. He is in no acute distress and is awake, alert and oriented 3. He remains in in a medically stable, afebrile the last 24 hours and his oxygen saturations are 98% on 2 L nasal cannula. A left thoracentesis was completed on 03/13/[address] Ford with 1.1 L of fluid drained. Fluid analysis shows a transudative effusion and cytology results remain pending. A CPVID 19 test was completed yesterday 03/14/2020 ic h was negative. Lab results today show a WBC count 40.0, hemoglobin 9.8, platelets 17, sodium 131, CO2 17, BUN 62, creatinine 1.15 and his albumin level is 1.8. There is no chest x-ray completed today. The patient is seen today 03/16/2020 and follow-up on the cardiac stepdown unit. The patient is resting comfortably in bed and is in no acute distress. He is awake, alert and oriented 3. He remains hemodynamically stable and has been afebrile in the last 24 hours. Oxygen saturations are 98% on room air. A left thoracentesis was completed on 03/13/[address] Ford with 1.1 L of fluid drained. Fluid analysis shows a transudative effusion and cytology results remain pending. Laboratory results today show WBCs 39.2, hemoglobin 9.5, platelets 15, sodium 1:30, CO2 14, BUN 61, creatinine 1.09 and albumin 1.7. His pleural fluid microbiology cultures show no growth at this time. He did not have a repeat chest x-ray today. The patient is seen today 03/17/2020 in follow-up on the cardiac stepdown unit. He is awake, alert and oriented 3 and is in no acute distress. He is resting comfortably in bed and is hemodynamically stable, remains afebrile in the last 24 hours. Oxygen saturations are 96% on room air. A follow-up chest x-ray was completed today which demonstrated increasing right basilar O pace the which may reflect a combination of infiltrate, atelectasis and/or effusion. He denies any complaints of pain or shortness of breath at this time. Laboratory results show a WBC count 35.2, hemoglobin 9.1, platelets 20, sodium 127, BUN 65, creatinine 1.05 and an albumin level of 1.7. His pleural fluid cytology results remain pending. Blood culture and sputum cultures remain no growth. He remains Decadron managed by hematology/oncology for his bicytopenia. Objective - Vital Signs Vital signs: Vital Signs Temp 97.6 F 03/17/20 08:00 Pulse 90 03/17/20 08:00 Resp 18 03/17/20 08:00 BP 100/56 03/17/20 08:00 Pulse Ox 96 03/17/20 08:00 Intake & Output 03/16/20 03/17/20 03/17/20 18:59 06:59 18:59 Intake Total 220 120 Output Total 1400 675 202 Balance -1180 -675 -82 Weight 72.5 kg Intake: Oral 220 120 Output: Urine 1400 675 200 Stool 2 Other: Voiding Method Indwelling Catheter Indwelling Catheter Indwelling Catheter # Voids 1 # Bowel Movements 1 1 1 - Exam Alert, very pleasant, 79-year-old white male, on room air, with a pulse ox of 96%, comfortable in no apparent distress. - Constitutional General appearance: Present: cooperative, no acute distress, thin - EENT Eyes: Present: PERRLA, normal appearance. Absent: scleral icterus ENT: Present: hearing grossly normal, normal oropharynx - Neck Details: Neck is supple, no JVD. - Respiratory Details: Lungs sounds essentially clear throughout, diminished to his bilateral bases right greater than left. Respirations are symmetrical and nonlabored. - Cardiovascular Details: Irregular rhythm with controlled rate. S1 and S2 present, negative for S3, gallop or murmur. - Gastrointestinal Gastrointestinal Comment(s): Abdomen soft, nontender and nondistended. Active bowel sounds present in all 4 abdominal quadrants. No guarding or rigidity. No organomegaly. - Integumentary Integumentary Comment(s): Skin is warm and dry. No clubbing or cyanosis present. Generalized anasarca. - Neurologic Neurologic: Present: CNII-XII intact - Musculoskeletal Musculoskeletal: Present: generalized weakness, strength equal bilaterally - Psychiatric Psychiatric: Present: A&O x's 3, appropriate affect, intact judgment & insight - Allied health notes Allied health notes reviewed: nursing - Labs CBC & Chem 7: 03/17/20 05:45 03/17/20 05:45 Labs: Abnormal Lab Results - Last 24 Hours (Table) 03/16/20 03/16/20 03/17/20 Range/Units 16:58 21:00 05:45 WBC 35.2 H (3.8-10.6) k/uL RBC 2.77 L (4.30-5.90) m/uL Hgb 9.1 L (13.0-17.5) gm/dL Hct 28.9 L (39.0-53.0) % MCV 104.2 H (80.0-100.0) fL RDW 20.7 H (11.5-15.5) % Plt Count 20 L (150-450) k/uL Macrocytosis Marked A Retic Count 2.28 H (0.10-1.80) % Sodium (137-145) mmol/L Carbon Dioxide (22-30) mmol/L BUN (9-20) mg/dL Glucose (74-99) mg/dL POC Glucose (mg/dL) 151 H 119 H (75-99) mg/dL Calcium (8.4-10.2) mg/dL Total Bilirubin (0.2-1.3) mg/dL ALT (4-49) U/L Lactate Dehydrogenase (313-618) U/L Total Protein (6.3-8.2) g/dL Albumin (3.5-5.0) g/dL 03/17/20 03/17/20 Range/Units 05:45 06:21 WBC (3.8-10.6) k/uL RBC (4.30-5.90) m/uL Hgb (13.0-17.5) gm/dL Hct (39.0-53.0) % MCV (80.0-100.0) fL RDW (11.5-15.5) % Plt Count (150-450) k/uL Macrocytosis Retic Count (0.10-1.80) % Sodium 127 L (137-145) mmol/L Carbon Dioxide 14 L (22-30) mmol/L BUN 65 H (9-20) mg/dL Glucose 146 H (74-99) mg/dL POC Glucose (mg/dL) 171 H (75-99) mg/dL Calcium 7.8 L (8.4-10.2) mg/dL Total Bilirubin 5.1 H (0.2-1.3) mg/dL ALT 74 H (4-49) U/L Lactate Dehydrogenase 837 H (313-618) U/L Total Protein 4.2 L (6.3-8.2) g/dL Albumin 1.7 L (3.5-5.0) g/dL Microbiology - Last 24 Hours (Table) 03/13/20 13:10 Gram Stain - Preliminary Pleural Fluid Body Fluid Culture - Preliminary 03/13/20 13:10 Anaerobic Culture - Preliminary Pleural Fluid - Imaging and Cardiology Chest x-ray: report reviewed, image reviewed Assessment and Plan Assessment: 1. Hypotension, most likely hypovolemic in nature, Recovered. Continued on midodrine. 2. Chronic atrial fibrillation with RVR. Presently rate is controlled heart rate 61. 3. Chronic lymphocytic leukemia, B-cell type, not active. 4. Mediastinal and right paratracheal adenopathy patient may eventually require bronchoscopy and trans-carinal needle aspiration for tissue diagnosis. It is likely lymphoma, however small cell lung carcinoma is also in the differential. 5. 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 6. Coagulopathy, resolved 7. Hypovolemic hyponatremia, improving. 8. Acute kidney injury secondary to hypotension, improving with hydration. 9. Bilateral pleural effusions, status post left thoracentesis on 03/13/2020 Plan: 1. The patient was seen and examined at his bedside on the cardiac stepdown unit with Dr. Bardales. 2. Continue Midodrine 10 mg by mouth 3 times a day. He remains hemodynamically stable. 3. Cytology results from left thoracentesis remain pending. We will continue to follow the cytology results. 4. Thrombocytopenia, bicytopenia management per hematology/oncology recommendations. 5. Overall prognosis remains guarded. 6. Continue Decadron and Levaquin. 7. More recommendations to follow based on patient's clinical course. I, the cosigning physician, performed a history and physical examination on the patient. Lungs are diminished to his bilateral bases and maintaining O2 saturation in the 90s on 2 L nasal cannula. I discussed the plan and assessment of care with Manuel Rossi VISE HAND. I attest that the above note is dictated by him. Time with Patient: Less than 30
[2020-03-17 11:40] VITALS: BMI 21.7
[2020-03-17 11:42] LABS: Glucose,Whole Blood 138 mg/dL (75-99)
--- NOTE | 2020-03-17 13:56 | P.PN ---
Subjective Progress Note Date: 03/17/20 Principal diagnosis: Thrombocytopenia, Afib, Anemia Platelets improved today 20K on high dose dexamethasone, still awaiting path. PLanning on Rituxan infusion today Objective - Vital Signs Vital signs: Vital Signs Temp 97.5 F L 03/17/20 12:00 Pulse 86 03/17/20 12:00 Resp 18 03/17/20 12:00 BP 95/51 03/17/20 12:00 Pulse Ox 94 L 03/17/20 12:00 Intake & Output 03/16/20 03/17/20 03/17/20 18:59 06:59 18:59 Intake Total 220 120 Output Total 1400 675 202 Balance -1180 -675 -82 Weight 72.5 kg 72.5 kg Intake: Oral 220 120 Output: Urine 1400 675 200 Stool 2 Other: Voiding Method Indwelling Catheter Indwelling Catheter Indwelling Catheter # Voids 1 # Bowel Movements 1 1 1 - Exam Telemed exam - Constitutional cooperative, sounding sleepy, sad no distress generalized weakness, strength equal bilaterally Bilateral upper and lower extremity edema No palpable axillary nodes on exam Lungs diminished bilateral Heart Irr irr - Psychiatric Psychiatric: Present: A&O x's 3, appropriate affect, intact judgment & insight - Labs CBC & Chem 7: 03/17/20 05:45 03/17/20 05:45 Labs: Abnormal Lab Results - Last 24 Hours (Table) 03/16/20 03/16/20 03/17/20 Range/Units 16:58 21:00 05:45 WBC 35.2 H (3.8-10.6) k/uL RBC 2.77 L (4.30-5.90) m/uL Hgb 9.1 L (13.0-17.5) gm/dL Hct 28.9 L (39.0-53.0) % MCV 104.2 H (80.0-100.0) fL RDW 20.7 H (11.5-15.5) % Plt Count 20 L (150-450) k/uL Macrocytosis Marked A Retic Count 2.28 H (0.10-1.80) % Sodium (137-145) mmol/L Carbon Dioxide (22-30) mmol/L BUN (9-20) mg/dL Glucose (74-99) mg/dL POC Glucose (mg/dL) 151 H 119 H (75-99) mg/dL Calcium (8.4-10.2) mg/dL Total Bilirubin (0.2-1.3) mg/dL ALT (4-49) U/L Lactate Dehydrogenase (313-618) U/L Total Protein (6.3-8.2) g/dL Albumin (3.5-5.0) g/dL 03/17/20 03/17/20 03/17/20 Range/Units 05:45 06:21 11:40 WBC (3.8-10.6) k/uL RBC (4.30-5.90) m/uL Hgb (13.0-17.5) gm/dL Hct (39.0-53.0) % MCV (80.0-100.0) fL RDW (11.5-15.5) % Plt Count (150-450) k/uL Macrocytosis Retic Count (0.10-1.80) % Sodium 127 L (137-145) mmol/L Carbon Dioxide 14 L (22-30) mmol/L BUN 65 H (9-20) mg/dL Glucose 146 H (74-99) mg/dL POC Glucose (mg/dL) 171 H 138 H (75-99) mg/dL Calcium 7.8 L (8.4-10.2) mg/dL Total Bilirubin 5.1 H (0.2-1.3) mg/dL ALT 74 H (4-49) U/L Lactate Dehydrogenase 837 H (313-618) U/L Total Protein 4.2 L (6.3-8.2) g/dL Albumin 1.7 L (3.5-5.0) g/dL Microbiology - Last 24 Hours (Table) 03/13/20 13:10 Gram Stain - Preliminary Pleural Fluid Body Fluid Culture - Preliminary 03/13/20 13:10 Anaerobic Culture - Preliminary Pleural Fluid Assessment and Plan Plan: Thrombocytopenia: - Platelets have decreased further 25K, may be secondary to underlying malignancy progression versus transformation, versus ITP although have not responded to steroids. - Hold Xarelto or other AC therapy if platelets drop below 50K - Transfuse to keep platelets greater than 10,000 unless bleeding is noted. - Todays Hemoglobin is stable no transfusion needed at this time The patient has had further mild drop in hemoglobin, and in platelets. Bilirubin is further elevated. Clinically this appears to indicate ongoing autoimmune destruction, despite 60 mg of prednisone. The patient was therefore need more aggressive therapy, even for the autoimmune cytopenias. He was started on bolus Decadron for 4 days (03/16/20). Rituxan infusion ordered for 03/17/20. - Continue to monitor labs with additional supportive treatment as needed Hemolytic Anemia - Transfuse to keep hemoglobin 7 or higher. - Stable Abnormal Right Paratrachial Mass - Biopsy if pleural fluid results negative CLL (chronic lymphocytic leukemia) - Concern for progression versus transformation Coagulopathy - Imprioved Atrial fibrillation with rapid ventricular response - Controlled Pt is on anticoagulation for the same. Cardiology managing arrhythmia and hypo tension Decreased PO Intake - Low dose marinol to increase appetite and help mood Continue to await Path and will check with primary team if ok to transfer to oncology to receive Rituxan. Hep panel neg Physician Attest: I have completed the full history and physical and agree with above dictation dictated as a scribe
--- NOTE | 2020-03-17 16:31 | P.PN ---
Progress Note - Text Progress Note Date: 03/17/20 History of Present Illness 71-year-old pleasant male who follows with Dr. Jessa campos, was transferred from [facility] after he was treated for atrial fibrillation with Cardizem was transferred here for evaluation by oncology. Admitted to intensive care unit because of hypotension patient appears to have hypovolemic shock patient started on levo fed. Cardizem was discontinued because of hypotension patient was started on digoxin and patient was also also started on low-dose metoprolol with fairly controlled heart rate. 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 There is a concern about transformation because of low hemoglobin, decreased platelet count and decreased white blood cell count. Although there is no blast cells in the peripheral smear Dr. Lacy evaluated the patient is a concern about GI bleed although patient doesn't have any blood in the stools or dark stools or hematemesis patient's INR is around 2 which is believed to be secondary to Xarelto, although DIC workup is being obtained as well. Patient is quite a bit weak there is a concern about the chest x-ray findings of right lower lobe infiltrate-roving carrier do not believe patient has any pneumonia patient doesn't having any symptoms of pneumonia patient denied any cough doesn't have any fever chills. Patient doesn't have elevated BNP although clinically not in heart failure exacerbation his BNP here is around [address] [facility] was around 7000. Patient doesn't have any JVD and crackles on exam. Patient's creatinine negative district is 1.3 and he rates 1.1 patient is presently receiving IV fluids because of hypovolemic shock is also on levo fed. Patient had normal ejection fraction. Patient's symptoms right now is a significant fatigue and generalized weakness. Patient denied any significant shortness of breath at this time Admitted with - hypotension likely hypovolemic, persistent atrial flutter with rapid ventricular rate, bicytopenia, acute kidney injury. Patient is started on levo fed. Empiric antibiotics. Infection felt to be less likely. Left thoracentesis-1100 mL removed. Started on March 15 on IV Decadron for further drop in hemoglobin and platelet. Today-. Sitting upon a chair. Eating some. Blood counts are still low. Tired. Review of systems: Was done for constitutional, cardiovascular, GI, pulmonary. relevant finding as above Active Medications Cyanocobalamin (Vitamin B-12) 1,000 mcg PO DAILY [facility] Last Admin: 03/17/20 08:59 Dose: 1,000 mcg Documented by: Dexamethasone (Hexadrol) 40 mg PO DAILY [facility] Stop: 03/19/20 09:01 Last Admin: 03/17/20 08:59 Dose: 40 mg Documented by: Digoxin (Lanoxin) 125 mcg PO DAILY [facility] Last Admin: 03/17/20 08:59 Dose: 125 mcg Documented by: Dronabinol (Marinol) 2.5 mg PO AC-BID [facility] Last Admin: 03/17/20 06:17 Dose: 2.5 mg Documented by: Insulin Aspart (Novolog) 0 unit SQ [facility]; Protocol Last Admin: 03/17/20 12:24 Dose: 1 unit Documented by: Levofloxacin (Levaquin) 500 mg PO DAILY [facility] Last Admin: 03/17/20 08:59 Dose: 500 mg Documented by: Levothyroxine Sodium (Synthroid) 100 mcg PO DAILY@0630 [facility] Last Admin: 03/17/20 06:16 Dose: 100 mcg Documented by: Metoprolol Tartrate (Lopressor) 25 mg PO BID [facility] Last Admin: 03/17/20 08:59 Dose: 25 mg Documented by: Midodrine (Proamatine) 10 mg PO AC-TID [facility] Last Admin: 03/17/20 12:24 Dose: 10 mg Documented by: Miscellaneous Information (Pneumonia Protocol Utilized) 1 each PO ONCE PRN PRN Reason: Per Protocol Naloxone HCl (Narcan) 0.2 mg IV Q2M PRN PRN Reason: Opioid Reversal Nystatin (Mycostatin Oral Susp) 500,000 unit PO QID [facility] Last Admin: 03/17/20 14:41 Dose: 500,000 unit Documented by: Pantoprazole Sodium (Protonix) 40 mg PO AC-BRKFST [facility] Last Admin: 03/17/20 06:17 Dose: 40 mg Documented by: Sodium Bicarbonate (Sodium Bicarbonate Tab) 650 mg PO BID [facility] Last Admin: 03/17/20 08:58 Dose: 650 mg Documented by: On examination: VITAL SIGNS: 97.5, 86, 18, 95/51, 94% on room air GENERAL APPEARANCE: Sitting up in a chair, tired HEENT: Normal external appearance of nose and ear. Oral cavity dry EYES: Pupils equal. Conjunctiva pale NECK: JVD not raised. Mass not palpable. RESPIRATORY: Respiratory effort normal. Lungs decreased breath sounds CARDIOVASCULAR: Heart sounds irregular. Some edema. ABDOMEN: Soft. Liver and spleen not palpable. No tenderness. No mass palpable. PSYCHIATRY: Alert and oriented x3. Mood and affect tired INVESTIGATIONS, reviewed in the clinical context: White count 635.2 hemoglobin 9.1 platelets is 20 potassium 5 bun 65 creatinine 1.05 albumin 1.7 sodium 127 Previous testing: White count 31.8 hemoglobin 10.5 platelets 79-sodium 129 potassium 4.7 creatinine 1.19 EKG tracing-atrial fibrillation with a rate of 120 Chest r-rki-rthsememcqba density Assessment -Hypovolemic shock-status post norepinephrine IV fluids-POA -Generalized weakness probably secondary to atrial fibrillation as well as a other issues including chronic lymphocytic leukemia, improving -Acute renal failure probably prerenal azotemia intravascular volume depletion- better -Persistent Atrial fibrillation,-uncontrolled on admission: Controlled -Hilar lymphadenopathy and right paratracheal adenopathy for further workup -Chronic lymphocytic leukemia there is no obvious evidence of transformation to acute leukemia. Transformation into other cell type laying evaluated -Bicytopenia including thrombocytopenia and low hemoglobin etiology is not clear further workup as mentioned above oncology evaluated the patient.-Pending flow cytometry on the pleural fluid -Hypertension patient is presently hypotensive -Moderate pulmonary hypertension -History of CVA and TIA -Coagulopathy most presently secondary to Xarelto initially held, now changed over to eliquis -Hypothyroid -Metabolic acidosis -Secondary pulmonary hypertension -Pleural effusion status post left-sided thoracentesis 1100 mL removed -Medical debility requiring physical therapy treatment- -Moderate protein calorie malnutrition from decreased oral intake -Hyponatremia Plan: Care was discussed with the patient. Also discussed with PROFESSIONAL HEALTHCARE REPRESENTATIVE Vidya Witt from oncology. She is to proceed with Rituxan today as patient has not shown any improvement in his blood counts. Depending how he does possible discharge to ECF tomorrow. Total time spent today was about 40-45 minutes with over 25 minutes of discussion
[2020-03-17 16:40] LABS: Glucose,Whole Blood 151 mg/dL (75-99)
--- NOTE | 2020-03-17 17:52 | PN ---
PROGRESS NOTE DATE OF SERVICE: 03/17/2020 REASON FOR FOLLOWUP: Pneumonia. INTERVAL HISTORY: The patient is currently afebrile. The patient has been breathing comfortably. Has been complaining of feeling weak and tired, with no energy. No abdominal pain and no diarrhea. PHYSICAL EXAMINATION: Blood pressure 94/55 with a pulse of 76, temperature 97.6. He is 100% on room air. General description is an elderly male up in the chair in no distress. RESPIRATORY SYSTEM: Unlabored breathing with decreased breath sounds at the base. No wheeze. HEART: S1, S2. Regular rate and rhythm. ABDOMEN: Soft. No tenderness. LABS: Hemoglobin 9.1, white count 5.2. BUN of 55, creatinine 1.05. DIAGNOSTIC IMPRESSION AND PLAN: Patient with admission to hospital with hypertension, weakness, multifactorial with concern for possible pneumonia. He also had an effusion that has been tapped. So far culture has been negative for any resistant pathogen. Patient has been on Levaquin; to continue and will monitor his clinical course closely. MMODL / IJN: [id number] /
[2020-03-17 20:30] LABS: Glucose,Whole Blood 109 mg/dL (75-99)
[2020-03-17] MEDS ORDERED: ACETAMINOPHEN TAB 500 MG TAB PO ONE (22:00)
[2020-03-17] MEDS ORDERED: methylPREDNISolone SOD SUCCI 125 MG/2 ML VIAL IV ONE (22:00)
[2020-03-17] MEDS ORDERED: diphenhydrAMINE 50 MG/ML 1 ML VIAL IVP ONE (22:00)
[2020-03-17] MEDS ORDERED: FAMOTIDINE 20 MG/2 ML VIAL IV ONE (22:00)
[2020-03-17] MEDS ORDERED: riTUXimab 700 MG in SODIUM CHLORIDE 0.9% 500 ML 500 ML IV ONE (22:30)
[2020-03-18] MEDS: LEVOTHYROXINE 100 MCG TAB PO SCH (05:16)
[2020-03-18 07:33] LABS: Glucose,Whole Blood 120 mg/dL (75-99)
[2020-03-18] MEDS: INSULIN ASPART (NovoLOG) 100 UNIT/ML VIAL SQ SCH ×4 (09:01→20:10)
[2020-03-18 10:10] LABS: Albumin 1.8 g/dL (3.5-5.0); Calcium 7.8 mg/dL (8.4-10.2); Phosphorus 5.5 mg/dL (2.5-4.5); Potassium 5.7 mmol/L (3.5-5.1); Total Bilirubin 5.3 mg/dL (0.2-1.3); Total Protein 4.5 g/dL (6.3-8.2); Uric Acid 6.5 mg/dL (3.5-8.5)
[2020-03-18 10:12] LABS: Anisocytosis Moderate; Basophils % (A) 0 %; Eosinophils % (A) 0 %; HCT 30.2 % (39.0-53.0); HGB 9.2 gm/dL (13.0-17.5); Hypochromasia Moderate; Lymphocytes # (A) 2.6 k/uL (1.0-4.8); Lymphocytes % (A) 18 %; MCH 32.8 pg (25.0-35.0); MCHC 30.6 g/dL (31.0-37.0); MCV 107.1 fL (80.0-100.0); Macrocytosis Marked; Mean Platelet Volume 15.5; Monocytes # (A) 0.8 k/uL (0-1.0); Monocytes % (A) 6 %; Neutrophils % (A) 74 %; RBC 2.82 m/uL (4.30-5.90); RDW 21.1 % (11.5-15.5); WBC 14.8 k/uL (3.8-10.6)
[2020-03-18] MEDS: DRONABINOL 2.5 MG CAP PO SCH ×2 (10:15→15:59)
[2020-03-18] MEDS: METOPROLOL TARTRATE 25 MG TAB PO SCH ×2 (10:15→20:10)
[2020-03-18] MEDS: SODIUM BICARBONATE TAB 650 MG TAB PO SCH ×2 (10:15→20:10)
[2020-03-18] MEDS: CYANOCOBALAMIN 500 MCG TAB PO SCH (10:15)
[2020-03-18] MEDS: PANTOPRAZOLE 40 MG TABLET PO SCH (10:15)
[2020-03-18] MEDS: DEXAMETHASONE 4 MG TAB PO SCH (10:16)
[2020-03-18] MEDS: NYSTATIN 100,000 UNIT/ML SUSP 500,000 UNIT/5 ML CUP PO SCH ×4 (10:16→22:49)
[2020-03-18 10:17] LABS: Platelet Count 16 k/uL (150-450)
[2020-03-18] MEDS: LEVOFLOXACIN 500 MG TAB PO SCH (10:22)
[2020-03-18 10:54] LABS: Crenated RBC Present
[2020-03-18 10:55] LABS: Large Platelets Present; Poikilocytosis (M) Present; Toxic Granulation Present
[2020-03-18 11:53] LABS: Glucose,Whole Blood 107 mg/dL (75-99)
[2020-03-18] MEDS: MIDODRINE 5 MG TAB PO SCH ×3 (14:05→18:25)
[2020-03-18] MEDS: DIGOXIN 125 MCG TAB PO SCH (14:05)
[2020-03-18] MEDS: MAG HYDROX/AL HYDROX/SIMETH 30 ML, diphenhydrAMINE ELIXIR 75 MG, LIDOCAINE VISCOUS 30 ML PO SCH ×6 (16:00→22:49)
--- NOTE | 2020-03-18 16:23 | P.PN ---
Subjective Progress Note Date: 03/18/20 Principal diagnosis: Thrombocytopenia, Afib, Anemia He is doing better today was up inchaoir and tolerated rituxan well. Platelets 16K Objective - Vital Signs Vital signs: Vital Signs Temp 98.1 F 03/18/20 12:00 Pulse 74 03/18/20 15:00 Resp 18 03/18/20 15:00 BP 96/52 03/18/20 12:00 Pulse Ox 97 03/18/20 12:00 Intake & Output 03/17/20 03/18/20 03/18/20 18:59 06:59 18:59 Intake Total 120 860 240 Output Total 245 422 4902 Balance -82 480 -1217 Weight 72.5 kg Intake: Intake, IV Titration 500 Amount riTUXimab 700 mg In 500 Sodium Chloride 0.9% 500 ml 500 ml @ Titrate IV . Q0M ONE Rx#:[id number] Oral 120 360 240 Output: Urine 879 259 0399 Uretheral (Raymond) 650 Stool 2 2 Other: Voiding Method Indwelling Catheter Indwelling Catheter Indwelling Catheter # Voids 1 # Bowel Movements 1 1 - Exam Telemed exam - Constitutional cooperative, sounding sleepy, sad no distress generalized weakness, strength equal bilaterally Bilateral upper and lower extremity edema No palpable axillary nodes on exam Lungs diminished bilateral Heart Irr irr - Psychiatric Psychiatric: Present: A&O x's 3, appropriate affect, intact judgment & insight - Labs CBC & Chem 7: 03/18/20 09:50 03/18/20 09:50 Labs: Abnormal Lab Results - Last 24 Hours (Table) 03/17/20 03/17/20 03/18/20 Range/Units 16:38 20:29 07:12 WBC (3.8-10.6) k/uL RBC (4.30-5.90) m/uL Hgb (13.0-17.5) gm/dL Hct (39.0-53.0) % MCV (80.0-100.0) fL MCHC (31.0-37.0) g/dL RDW (11.5-15.5) % Plt Count (150-450) k/uL Neutrophils # (1.3-7.7) k/uL Macrocytosis Sodium (137-145) mmol/L Potassium (3.5-5.1) mmol/L Carbon Dioxide (22-30) mmol/L BUN (9-20) mg/dL Creatinine (0.66-1.25) mg/dL Glucose (74-99) mg/dL POC Glucose (mg/dL) 151 H 109 H 120 H (75-99) mg/dL Calcium (8.4-10.2) mg/dL Phosphorus (2.5-4.5) mg/dL Total Bilirubin (0.2-1.3) mg/dL ALT (4-49) U/L Alkaline Phosphatase (38-126) U/L Lactate Dehydrogenase (313-618) U/L Total Protein (6.3-8.2) g/dL Albumin (3.5-5.0) g/dL 03/18/20 03/18/20 03/18/20 Range/Units 09:50 09:50 11:43 WBC 14.8 H (3.8-10.6) k/uL RBC 2.82 L (4.30-5.90) m/uL Hgb 9.2 L (13.0-17.5) gm/dL Hct 30.2 L (39.0-53.0) % MCV 107.1 H (80.0-100.0) fL MCHC 30.6 L (31.0-37.0) g/dL RDW 21.1 H (11.5-15.5) % Plt Count 16 L* (150-450) k/uL Neutrophils # 11.0 H (1.3-7.7) k/uL Macrocytosis Marked A Sodium 129 L (137-145) mmol/L Potassium 5.7 H (3.5-5.1) mmol/L Carbon Dioxide 13 L (22-30) mmol/L BUN 78 H (9-20) mg/dL Creatinine 1.31 H (0.66-1.25) mg/dL Glucose 137 H (74-99) mg/dL POC Glucose (mg/dL) 107 H (75-99) mg/dL Calcium 7.8 L (8.4-10.2) mg/dL Phosphorus 5.5 H (2.5-4.5) mg/dL Total Bilirubin 5.3 H (0.2-1.3) mg/dL ALT 64 H (4-49) U/L Alkaline Phosphatase 35 L (38-126) U/L Lactate Dehydrogenase 835 H (313-618) U/L Total Protein 4.5 L (6.3-8.2) g/dL Albumin 1.8 L (3.5-5.0) g/dL Microbiology - Last 24 Hours (Table) 03/13/20 13:10 Anaerobic Culture - Final Pleural Fluid 03/13/20 13:10 Gram Stain - Final Pleural Fluid Body Fluid Culture - Final Assessment and Plan Plan: Thrombocytopenia: - Platelets have decreased further 25K, may be secondary to underlying malignancy progression versus transformation, versus ITP although have not responded to steroids. - Hold Xarelto or other AC therapy if platelets drop below 50K - Transfuse to keep platelets greater than 10,000 unless bleeding is noted. - Todays Hemoglobin is stable no transfusion needed at this time The patient has had further mild drop in hemoglobin, and in platelets. Bilirubin is further elevated. Clinically this appears to indicate ongoing autoimmune destruction, despite 60 mg of prednisone. The patient was therefore need more aggressive therapy, even for the autoimmune cytopenias. He was started on bolus Decadron for 4 days (03/16/20). Rituxan infusion ordered for 03/17/20. tolerated well - Continue to monitor labs with additional supportive treatment as needed Hemolytic Anemia - Transfuse to keep hemoglobin 7 or higher. - Stable Abnormal Right Paratrachial Mass - Biopsy if pleural fluid results negative CLL (chronic lymphocytic leukemia) - Concern for progression versus transformation Coagulopathy - Imprioved Atrial fibrillation with rapid ventricular response - Controlled Pt is on anticoagulation for the same. Cardiology managing arrhythmia and hypotension Plan to monitor cbc and await path from pleural fluid prior to discharge Continue to await Path and will check with primary team if ok to transfer to oncology to receive Rituxan. Hep panel neg
--- NOTE | 2020-03-18 17:05 | PN ---
PROGRESS NOTE DATE OF SERVICE: 03/18/2020 REASON FOR FOLLOWUP: Pneumonia and thrush. INTERVAL HISTORY: The patient is currently afebrile, has been complaining of some difficulty swallowing. Breathing okay. No chest pain. No nausea, vomiting, abdominal pain or diarrhea. PHYSICAL EXAMINATION: Blood pressure 96/52 with a pulse of 74, temperature 98.1, he is 97% on room. General description is an elderly male up in the chair in no distress. RESPIRATORY SYSTEM: Unlabored breathing, decreased breath sounds at the bases. No wheeze. HEART: S1, S2. Regular rate and rhythm. ABDOMEN: Soft, no tenderness. LABS: Hemoglobin 9.8, white count of 14.8, BUN of 78, creatinine 0.31. DIAGNOSTIC IMPRESSION AND PLAN: 1. Patient admitted to the hospital with shortness of breath which is multifactorial with possible component of pneumonia, positive effusion, status post thoracocentesis. Culture has been negative for resistant pathogen. Patient is on Levaquin received adequate antibiotic therapy, can be safely discontinued. 2. Patient with oral thrush, continue with nystatin swish and swallow and monitor clinical course closely. MMODL / IJN: [id number] / SABRINA
[2020-03-18 17:12] LABS: Glucose,Whole Blood 138 mg/dL (75-99)
[2020-03-18] MEDS ORDERED: SODIUM POLYSTYRENE SULFONATE 15 GM/60 ML BOTTLE PO STA (19:25)
[2020-03-18] MEDS ORDERED: CALCIUM GLUCONATE 1 GM in SODIUM CHLORIDE 0.9% 100 ML IVPB ONE ×2 (19:25→19:45)
--- NOTE | 2020-03-18 19:25 | P.PN ---
Progress Note - Text Progress Note Date: 03/18/20 History of Present Illness 71-year-old pleasant male who follows with Dr. Jessa campos, was transferred from [facility] after he was treated for atrial fibrillation with Cardizem was transferred here for evaluation by oncology. Admitted to intensive care unit because of hypotension patient appears to have hypovolemic shock patient started on levo fed. Cardizem was discontinued because of hypotension patient was started on digoxin and patient was also also started on low-dose metoprolol with fairly controlled heart rate. 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 There is a concern about transformation because of low hemoglobin, decreased platelet count and decreased white blood cell count. Although there is no blast cells in the peripheral smear Dr. Lacy evaluated the patient is a concern about GI bleed although patient doesn't have any blood in the stools or dark stools or hematemesis patient's INR is around 2 which is believed to be secondary to Xarelto, although DIC workup is being obtained as well. 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 Patient doesn't have elevated BNP although clinically not in heart failure exacerbation his BNP here is around [address] [facility] was around 7000. Patient doesn't have any JVD and crackles on exam. Patient's creatinine negative district is 1.3 and he rates 1.1 patient is presently receiving IV fluids because of hypovolemic shock is also on levo fed. Patient had normal ejection fraction. Patient's symptoms right now is a significant fatigue and generalized weakness. Patient denied any significant shortness of breath at this time Admitted with - hypotension likely hypovolemic, persistent atrial flutter with rapid ventricular rate, bicytopenia, acute kidney injury. Patient is started on levo fed. Empiric antibiotics. Infection felt to be less likely. Left thoracentesis-1100 mL removed. Started on March 15 on IV Decadron for further drop in hemoglobin and platelet. On March 17 patient is given IVRituxan as the cell counts were not improving. Flow cytometry from pleural fluid is awaited. l Today-. Sitting in bed. Tired. No new issues. Decreased appetite. Review of systems: Was done for constitutional, cardiovascular, GI, pulmonary. relevant finding as above Active Medications Al Hydroxide/Mg Hydroxide 30 ml/ Diphenhydramine HCl 75 mg/Lidocaine HCl 30 ml 0 ml PO TID [facility] Last Admin: 03/18/20 16:00 Dose: 5 ml Documented by: Cyanocobalamin (Vitamin B-12) 1,000 mcg PO DAILY [facility] Last Admin: 03/18/20 10:15 Dose: 1,000 mcg Documented by: Dexamethasone (Hexadrol) 40 mg PO DAILY [facility] Stop: 03/19/20 09:01 Last Admin: 03/18/20 10:16 Dose: 40 mg Documented by: Digoxin (Lanoxin) 125 mcg PO DAILY [facility] Last Admin: 03/18/20 14:05 Dose: 125 mcg Documented by: Dronabinol (Marinol) 2.5 mg PO AC-BID [facility] Last Admin: 03/18/20 15:59 Dose: Not Given Documented by: Insulin Aspart (Novolog) 0 unit SQ [facility]; Protocol Last Admin: 03/18/20 17:49 Dose: Not Given Documented by: Levofloxacin (Levaquin) 500 mg PO DAILY [facility] Last Admin: 03/18/20 10:22 Dose: 500 mg Documented by: Levothyroxine Sodium (Synthroid) 100 mcg PO DAILY@0630 [facility] Last Admin: 03/18/20 05:16 Dose: 100 mcg Documented by: Metoprolol Tartrate (Lopressor) 25 mg PO BID [facility] Last Admin: 03/18/20 10:15 Dose: 25 mg Documented by: Midodrine (Proamatine) 10 mg PO AC-TID [facility] Last Admin: 03/18/20 18:25 Dose: 10 mg Documented by: Miscellaneous Information (Pneumonia Protocol Utilized) 1 each PO ONCE PRN PRN Reason: Per Protocol Naloxone HCl (Narcan) 0.2 mg IV Q2M PRN PRN Reason: Opioid Reversal Nystatin (Mycostatin Oral Susp) 500,000 unit PO QID [facility] Last Admin: 03/18/20 17:43 Dose: Not Given Documented by: Pantoprazole Sodium (Protonix) 40 mg PO AC-BRKFST [facility] Last Admin: 03/18/20 10:15 Dose: 40 mg Documented by: Sodium Bicarbonate (Sodium Bicarbonate Tab) 650 mg PO BID [facility] Last Admin: 03/18/20 10:15 Dose: 650 mg Documented by: On examination: VITAL SIGNS: 98.1, 74, 18, 96/52, 97% on room air GENERAL APPEARANCE: Propped up in bed, tired HEENT: Normal external appearance of nose and ear. Oral cavity dry EYES: Pupils equal. Conjunctiva pale NECK: JVD not raised. Mass not palpable. RESPIRATORY: Respiratory effort normal. Lungs decreased breath sounds CARDIOVASCULAR: Heart sounds irregular. Some edema. ABDOMEN: Soft. Liver and spleen not palpable. No tenderness. No mass palpable. PSYCHIATRY: Alert and oriented x3. Mood and affect tired INVESTIGATIONS, reviewed in the clinical context: White count 14.8 hemoglobin 9.2 platelets 16 percussion 5.7 bun 78 creatinine 1.31 sodium 129 phosphorus 5.5 Previous testing: White count 31.8 hemoglobin 10.5 platelets 79-sodium 129 potassium 4.7 creatinine 1.19 EKG tracing-atrial fibrillation with a rate of 120 Chest z-jkc-ajqpdjrzbyuj density Assessment -Hypovolemic shock-status post norepinephrine IV fluids-POA -Generalized weakness probably secondary to atrial fibrillation as well as a other issues including chronic lymphocytic leukemia, improving -Acute renal failure probably prerenal azotemia intravascular volume depletion- better -Persistent Atrial fibrillation,-uncontrolled on admission: Controlled -Hilar lymphadenopathy and right paratracheal adenopathy for further workup -Chronic lymphocytic leukemia there is no obvious evidence of transformation to acute leukemia. Transformation into other cell type laying evaluated -Bicytopenia including thrombocytopenia and low hemoglobin etiology is not clear further workup as mentioned above oncology evaluated the patient.-Pending flow cytometry on the pleural fluid -Hypertension patient is presently hypotensive -Moderate pulmonary hypertension -History of CVA and TIA -Coagulopathy most presently secondary to Xarelto initially held, now changed over to eliquis -Hypothyroid -Metabolic acidosis -Secondary pulmonary hypertension -Pleural effusion status post left-sided thoracentesis 1100 mL removed -Medical debility requiring physical therapy treatment- -Moderate protein calorie malnutrition from decreased oral intake -Hyponatremia -Hyperkalemia-today Plan: Discussed with Vidya from oncology. Patient will need further treatment on this admission. Await flow cytometry. We'll give the patient a dose of Kayexalate some sodium bicarbonate. Also put the patient on telemetry. Repeat labs in the morning.
[2020-03-18 20:10] LABS: Glucose,Whole Blood 118 mg/dL (75-99)
[2020-03-19] MEDS: LEVOTHYROXINE 100 MCG TAB PO SCH (05:59)
[2020-03-19 06:58] LABS: Glucose,Whole Blood 139 mg/dL (75-99)
[2020-03-19 08:11] LABS: Calcium 7.6 mg/dL (8.4-10.2); Potassium 5.4 mmol/L (3.5-5.1)
[2020-03-19] MEDS: LEVOFLOXACIN 500 MG TAB PO SCH (08:23)
[2020-03-19] MEDS: DEXAMETHASONE 4 MG TAB PO SCH (08:23)
[2020-03-19] MEDS: SODIUM BICARBONATE TAB 650 MG TAB PO SCH ×2 (08:24→21:28)
[2020-03-19] MEDS: MAG HYDROX/AL HYDROX/SIMETH 30 ML, diphenhydrAMINE ELIXIR 75 MG, LIDOCAINE VISCOUS 30 ML PO SCH ×9 (08:24→21:28)
[2020-03-19] MEDS: CYANOCOBALAMIN 500 MCG TAB PO SCH (08:24)
[2020-03-19] MEDS: DRONABINOL 2.5 MG CAP PO SCH ×2 (08:24→16:55)
[2020-03-19] MEDS: METOPROLOL TARTRATE 25 MG TAB PO SCH ×2 (08:25→21:28)
[2020-03-19] MEDS: NYSTATIN 100,000 UNIT/ML SUSP 500,000 UNIT/5 ML CUP PO SCH ×4 (08:25→21:33)
[2020-03-19] MEDS: PANTOPRAZOLE 40 MG TABLET PO SCH (08:25)
[2020-03-19] MEDS: MIDODRINE 5 MG TAB PO SCH ×3 (08:25→16:55)
[2020-03-19] MEDS: INSULIN ASPART (NovoLOG) 100 UNIT/ML VIAL SQ SCH ×4 (08:26→21:03)
[2020-03-19] MEDS: DIGOXIN 125 MCG TAB PO SCH (08:26)
[2020-03-19 11:31] LABS: Glucose,Whole Blood 163 mg/dL (75-99)
--- NOTE | 2020-03-19 11:55 | P.PN ---
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 He initially presented here as a transfer from [facility] secondary to rapid ventricular rates and hypotension. There was also a questionable GI bleed and anti-coagulation was stopped. He was in the ICU on levophed. He has since been transferred to the oncology unit for rituxin administration. We have been asked to see him again during this admission for ongoing hypotension. He is seen and examined sitting up in bed eating breakfast. He is complaining that his throat feels irritated and he is having difficulty swallowing. He denies chest pain, shortness of breath, dizziness or palpitations. He states he feels weak and tired. He did not sleep well last night due to orthpnea. Blood pressure 75/59 and 73/64 heart rate 60-90. Laboratory data reviewed, sodium 128, potassium 5.4, creatinine 1.47. He underwent thoracentesis 03/13, pathology negative for neoplasm. Currently maintained on digoxin 125 g daily, metoprolol 25 mg twice a day and midodrine 10 mg 3 times a day. GENERAL: Well-appearing, well-nourished and in no acute distress. NECK: Supple without JVD or thyromegaly. LUNGS: Faint fine rales bibasilar, no wheezes or rhonchi. Diminished bilaterally. Respiration equal and unlabored. HEART: Irregular rate and rhythm without murmurs, rubs or gallops. S1 and S2 heard. EXTREMITIES: Normal range of motion, bilateral Gulshan wraps in place with underlying edema. No clubbing or cyanosis. Peripheral pulses intact. ASSESSMENT Chronic persistent atrial fibrillation, controlled ventricular rates. Anticoagulation discontinued secondary to GI bleeding and significant thrombocytopenia. Hyperkalemia, treated per PCP 03/18 at 1945 Hyponatremia Hypotension Chronic lymphocytic leukemia Pleural effusions, s/p thoracentesis with 1,100 ml removed 03/13 PLAN Repeat BMP in the morning. Add florinef 0.1 mg daily. Hold lopressor for heart rate less than 50 or systolic blood pressure less than 90. Nurse Practitioner note has been reviewed, I agree with a documented findings and plan of care. Patient was seen and examined. Objective - Vital Signs Vital signs: Vital Signs Temp 97.4 F L 03/19/20 05:00 Pulse 92 03/19/20 08:38 Resp 18 03/19/20 05:00 BP 75/59 03/19/20 08:38 Pulse Ox 89 L 03/19/20 05:00 Intake & Output 03/18/20 03/19/20 03/19/20 18:59 06:59 18:59 Intake Total 240 640 Output Total 1457 600 Balance -1217 640 -600 Intake: Intake, IV Titration 100 Amount Calcium Gluconate 1 gm In 100 Sodium Chloride 0.9% 100 ml @ 55 mls/hr IVPB ONCE ONE Rx#:[id number] Oral 240 540 Output: Urine 1455 600 Uretheral (Raymond) 650 Stool 2 Other: Voiding Method Indwelling Catheter Indwelling Catheter Indwelling Catheter # Voids 1 # Bowel Movements 1 - Labs CBC & Chem 7: 03/18/20 09:50 03/19/20 06:04 Labs: Abnormal Lab Results - Last 24 Hours (Table) 03/18/20 03/18/20 03/18/20 Range/Units 11:43 17:08 20:09 Sodium (137-145) mmol/L Potassium (3.5-5.1) mmol/L Carbon Dioxide (22-30) mmol/L BUN (9-20) mg/dL Creatinine (0.66-1.25) mg/dL Glucose (74-99) mg/dL POC Glucose (mg/dL) 107 H 138 H 118 H (75-99) mg/dL Calcium (8.4-10.2) mg/dL 03/19/20 03/19/20 Range/Units 06:04 06:53 Sodium 128 L (137-145) mmol/L Potassium 5.4 H (3.5-5.1) mmol/L Carbon Dioxide 13 L (22-30) mmol/L BUN 88 H (9-20) mg/dL Creatinine 1.47 H (0.66-1.25) mg/dL Glucose 148 H (74-99) mg/dL POC Glucose (mg/dL) 139 H (75-99) mg/dL Calcium 7.6 L (8.4-10.2) mg/dL Microbiology - Last 24 Hours (Table) 03/13/20 13:10 Anaerobic Culture - Final Pleural Fluid 03/13/20 13:10 Gram Stain - Final Pleural Fluid Body Fluid Culture - Final
[2020-03-19] MEDS: FLUDROCORTISONE 0.1 MG TAB PO SCH (12:39)
[2020-03-19 12:57] LABS: Anisocytosis Moderate; HCT 27.1 % (39.0-53.0); HGB 8.6 gm/dL (13.0-17.5); MCH 32.7 pg (25.0-35.0); MCHC 31.9 g/dL (31.0-37.0); MCV 102.7 fL (80.0-100.0); Macrocytosis Marked; Mean Platelet Volume 17.7; RBC 2.64 m/uL (4.30-5.90); RDW 20.6 % (11.5-15.5)
[2020-03-19 13:00] LABS: Potassium 5.6 mmol/L (3.5-5.1)
[2020-03-19 13:01] LABS: Albumin 1.6 g/dL (3.5-5.0); Calcium 7.5 mg/dL (8.4-10.2); INR 1.4 (<1.2); Partial Thromboplastin Time 31.4 sec (22.0-30.0); Phosphorus 5.9 mg/dL (2.5-4.5); Prothrombin Time 13.6 sec (9.0-12.0); Total Protein 3.9 g/dL (6.3-8.2); Uric Acid 7.6 mg/dL (3.5-8.5)
[2020-03-19 13:22] LABS: Lymphocytes # (M) 1.92 k/uL (1.0-4.8); Neutrophils # (M) 13.28 k/uL (1.3-7.7); Neutrophils % (M) 83 %; Nucleated Red Blood Cells 0 /100 WBC (0-0); Total Cells Counted 100
[2020-03-19 13:26] LABS: Large Platelets Present; Toxic Granulation Present
[2020-03-19 13:29] LABS: Platelet Count 21 k/uL (150-450)
[2020-03-19 13:30] LABS: Target Cells Present
[2020-03-19] MEDS: ALLOPURINOL 100 MG TAB PO SCH (13:40)
--- NOTE | 2020-03-19 13:44 | P.PN ---
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 He did receive Rituxan on tuesday and will receive bendeka today and tomorrow. Will need to ask Nephrology to assist with fluid balance, renal function and decreasing risk of TLS. They have been consulted. He has extravascular fluid shift, largely due to low po intake and low albumin. Protein supplements have been ordered. Objective - Vital Signs Vital signs: Vital Signs Temp 97.4 F L 03/19/20 11:10 Pulse 72 03/19/20 11:10 Resp 16 03/19/20 11:10 BP 94/61 03/19/20 11:10 Pulse Ox 92 L 03/19/20 11:10 Intake & Output 03/18/20 03/19/20 03/19/20 18:59 06:59 18:59 Intake Total 240 640 Output Total 1457 600 Balance -1217 640 -600 Intake: Intake, IV Titration 100 Amount Calcium Gluconate 1 gm In 100 Sodium Chloride 0.9% 100 ml @ 55 mls/hr IVPB ONCE ONE Rx#:[id number] Oral 240 540 Output: Urine 1455 600 Uretheral (Raymond) 650 Stool 2 Other: Voiding Method Indwelling Catheter Indwelling Catheter Indwelling Catheter # Voids 1 # Bowel Movements 1 - Exam Telemed exam - Constitutional cooperative, sounding sleepy, sad no distress generalized weakness, strength equal bilaterally Bilateral upper and lower extremity edema No palpable axillary nodes on exam Lungs diminished bilateral Heart Irr irr Edema in all extremities - Psychiatric Psychiatric: Present: A&O x's 3, appropriate affect, intact judgment & insight - Labs CBC & Chem 7: 03/19/20 12:38 03/19/20 12:38 Labs: Abnormal Lab Results - Last 24 Hours (Table) 03/18/20 03/18/20 03/19/20 Range/Units 17:08 20:09 06:04 WBC (3.8-10.6) k/uL RBC (4.30-5.90) m/uL Hgb (13.0-17.5) gm/dL Hct (39.0-53.0) % MCV (80.0-100.0) fL RDW (11.5-15.5) % Plt Count (150-450) k/uL Neutrophils # (Manual) (1.3-7.7) k/uL Macrocytosis PT (9.0-12.0) sec INR (<1.2) APTT (22.0-30.0) sec Sodium 128 L (137-145) mmol/L Potassium 5.4 H (3.5-5.1) mmol/L Carbon Dioxide 13 L (22-30) mmol/L BUN 88 H (9-20) mg/dL Creatinine 1.47 H (0.66-1.25) mg/dL Glucose 148 H (74-99) mg/dL POC Glucose (mg/dL) 138 H 118 H (75-99) mg/dL Calcium 7.6 L (8.4-10.2) mg/dL Phosphorus (2.5-4.5) mg/dL Total Bilirubin (0.2-1.3) mg/dL ALT (4-49) U/L Alkaline Phosphatase (38-126) U/L Lactate Dehydrogenase (313-618) U/L Total Protein (6.3-8.2) g/dL Albumin (3.5-5.0) g/dL 03/19/20 03/19/20 03/19/20 Range/Units 06:53 11:13 12:38 WBC 16.0 H (3.8-10.6) k/uL RBC 2.64 L (4.30-5.90) m/uL Hgb 8.6 L (13.0-17.5) gm/dL Hct 27.1 L (39.0-53.0) % MCV 102.7 H (80.0-100.0) fL RDW 20.6 H (11.5-15.5) % Plt Count 21 L (150-450) k/uL Neutrophils # (Manual) 13.28 H (1.3-7.7) k/uL Macrocytosis Marked A PT (9.0-12.0) sec INR (<1.2) APTT (22.0-30.0) sec Sodium (137-145) mmol/L Potassium (3.5-5.1) mmol/L Carbon Dioxide (22-30) mmol/L BUN (9-20) mg/dL Creatinine (0.66-1.25) mg/dL Glucose (74-99) mg/dL POC Glucose (mg/dL) 139 H 163 H (75-99) mg/dL Calcium (8.4-10.2) mg/dL Phosphorus (2.5-4.5) mg/dL Total Bilirubin (0.2-1.3) mg/dL ALT (4-49) U/L Alkaline Phosphatase (38-126) U/L Lactate Dehydrogenase (313-618) U/L Total Protein (6.3-8.2) g/dL Albumin (3.5-5.0) g/dL 03/19/20 03/19/20 Range/Units 12:38 12:38 WBC (3.8-10.6) k/uL RBC (4.30-5.90) m/uL Hgb (13.0-17.5) gm/dL Hct (39.0-53.0) % MCV (80.0-100.0) fL RDW (11.5-15.5) % Plt Count (150-450) k/uL Neutrophils # (Manual) (1.3-7.7) k/uL Macrocytosis PT 13.6 H (9.0-12.0) sec INR 1.4 H (<1.2) APTT 31.4 H (22.0-30.0) sec Sodium 128 L (137-145) mmol/L Potassium 5.6 H (3.5-5.1) mmol/L Carbon Dioxide 13 L (22-30) mmol/L BUN 91 H (9-20) mg/dL Creatinine 1.54 H (0.66-1.25) mg/dL Glucose 163 H (74-99) mg/dL POC Glucose (mg/dL) (75-99) mg/dL Calcium 7.5 L (8.4-10.2) mg/dL Phosphorus 5.9 H (2.5-4.5) mg/dL Total Bilirubin 5.0 H (0.2-1.3) mg/dL ALT 75 H (4-49) U/L Alkaline Phosphatase 31 L (38-126) U/L Lactate Dehydrogenase 890 H (313-618) U/L Total Protein 3.9 L (6.3-8.2) g/dL Albumin 1.6 L (3.5-5.0) g/dL Microbiology - Last 24 Hours (Table) 03/13/20 13:10 Anaerobic Culture - Final Pleural Fluid 03/13/20 13:10 Gram Stain - Final Pleural Fluid Body Fluid Culture - Final Assessment and Plan Plan: Thrombocytopenia: - Hold Xarelto or other AC therapy if platelets drop below 50 - Transfuse to keep platelets greater than 10,000 unless bleeding is noted. - Todays Hemoglobin is stable no transfusion needed at this time The patient has had further mild drop in hemoglobin, and in platelets. Bilirubin is further elevated. Clinically this appears to indicate ongoing autoimmune destruction, despite 60 mg of prednisone. The patient was therefore need more aggressive therapy, even for the autoimmune cytopenias. He was started on bolus Decadron for 4 days (03/16/20). Rituxan infusion ordered for 03/17/20. tolerated well - Continue to monitor labs with additional supportive treatment as needed Hemolytic Anemia - Transfuse to keep hemoglobin 7 or higher. - Stable Abnormal Right Paratrachial Mass PLeural fluid resulted and appears with progressive CLL, therefore treatment with Rituxan and Bendeka. CLL (chronic lymphocytic leukemia) - Concern for progression versus transformation - Results of fluid consistent with progressive CLL, Start Bendeka today in addition to Rituxan he received on Tuesday. Acute renal insufficiency: - Need to find balance for TLS risk, and extravascular fluid shipt - Increase protein - Risk for Parental nutrition related to infection, weigh risk versus benefit - COnsult placed for Nephrology - Start Allopurinol 100mg (renal dose) - Needs Elitek, Uric Acid 7.6 today, monitor daily Coagulopathy - Improved Mucocytis: - Magic Mouthwash - Dexamethasone mouth rinse - Nystatin Atrial fibrillation with rapid ventricular response - Controlled Pt is on anticoagulation for the same. Cardiology managing arrhythmia and hypotension PLan: - Chemotherapy for progressive CLL today and tomorrow - Increase Protein intake - Monitor closely for TLS, ELitek ordered, Nephrology consulted and low dose allopurinol initiated - Daily CBC< CMP, Mag, Phos, LDH, and Uric Acid Physician Attest: I have completed the full history and physical and agree with above dictation, dictated as a scribe
[2020-03-19 16:58] LABS: Glucose,Whole Blood 124 mg/dL (75-99)
[2020-03-19] MEDS: FAMOTIDINE 20 MG/2 ML VIAL IV SCH (20:15)
[2020-03-19] MEDS: ONDANSETRON 16 MG in SODIUM CHLORIDE 0.9% 50 ML IVPB SCH (20:16)
[2020-03-19] MEDS: DEXAMETHASONE SOD PHOSPHATE 10 MG/ML 1 ML VIAL IV SCH (20:16)
[2020-03-19 20:34] LABS: Glucose,Whole Blood 91 mg/dL (75-99)
[2020-03-19] MEDS: BENDAMUSTINE HCL IV SCH (21:03)
[2020-03-19] MEDS: SODIUM CHLORIDE 0.9% IV SCH (21:03)
--- NOTE | 2020-03-19 21:14 | P.PN ---
Subjective 71-year-old pleasant male who follows with Dr. Jessa campos, was transferred from [facility] after he was treated for atrial fibrillation with Cardizem was transferred here for evaluation by oncology. Admitted to intensive care unit because of hypotension patient appears to have hypovolemic shock patient started on levo fed. Cardizem was discontinued because of hypotension patient was started on digoxin and patient was also also started on low-dose metoprolol with fairly controlled heart rate. 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 There is a concern about transformation because of low hemoglobin, decreased platelet count and decreased white blood cell count. Although there is no blast cells in the peripheral smear Dr. Lacy evaluated the patient is a concern about GI bleed although patient doesn't have any blood in the stools or dark stools or hematemesis patient's INR is around 2 which is believed to be secondary to Xarelto, although DIC workup is being obtained as well. 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 Patient doesn't have elevated BNP although clinically not in heart failure exacerbation his BNP here is around 9000 his BNP at [facility] was around 7000. Patient doesn't have any JVD and crackles on exam. Patient's creatinine negative district is 1.3 and he rates 1.1 patient is presently receiving IV fluids because of hypovolemic shock is also on levo fed. Patient had normal ejection fraction. Patient's symptoms right now is a significant fatigue and generalized weakness. Patient denied any significant shortness of breath at this time Admitted with - hypotension likely hypovolemic, persistent atrial flutter with rapid ventricular rate, bicytopenia, acute kidney injury. Patient is started on levo fed. Empiric antibiotics. Infection felt to be less likely. Left thoracentesis-1100 mL removed. Started on March 15 on IV Decadron for further drop in hemoglobin and platelet. On March 17 patient is given IVRituxan as the cell counts were not improving. Flow cytometry from pleural fluid is awaited. l Today-. Sitting in bed. Tired. No new issues. Decreased appetite. 03/19/2020 Patient lying in bed comfortable however he feels generally weak. This dyspnea is better today as per patient. No chest pain. His blood pressure still on the low side and Fludrocortisone is added on the top of dexamethasone. 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 And oncology team are planning to start chemotherapy today and tomorrow with Bendamustin , patient will be monitored for risk of tumor lysis syndrome. Nephrology service has been consulted Objective - Vital Signs Vital signs: Vital Signs Temp 97.4 F L 03/19/20 11:10 Pulse 72 03/19/20 11:10 Resp 16 03/19/20 11:10 BP 94/61 03/19/20 11:10 Pulse Ox 92 L 03/19/20 11:10 Intake & Output 03/18/20 03/19/20 03/19/20 18:59 06:59 18:59 Intake Total 240 640 400 Output Total 1457 600 Balance -1217 640 -200 Weight 72.5 kg Intake: Intake, IV Titration 100 Amount Calcium Gluconate 1 gm In 100 Sodium Chloride 0.9% 100 ml @ 55 mls/hr IVPB ONCE ONE Rx#:[id number] Oral 240 540 400 Output: Urine 1455 600 Uretheral (Raymond) 650 Stool 2 Other: Voiding Method Indwelling Catheter Indwelling Catheter Indwelling Catheter # Voids 1 # Bowel Movements 1 - Exam -GENERAL: The patient is alert and oriented x3, not in any acute distress. Generally weak HEENT: Pupils are round and equally reacting to light. EOMI. No scleral icterus. No conjunctival pallor. Normocephalic, atraumatic. No pharyngeal erythema. No thyromegaly. CARDIOVASCULAR: S1 and S2 present. No murmurs, rubs, or gallops. PULMONARY: Chest is clear to auscultation, no wheezing or crackles. ABDOMEN: Soft, nontender, nondistended, normoactive bowel sounds. No palpable organomegaly. MUSCULOSKELETAL: No joint swelling or deformity. EXTREMITIES: No cyanosis, clubbing, or pedal edema. NEUROLOGICAL: Gross neurological examination did not reveal any focal deficits. SKIN: No rashes. no petechiae. - Labs CBC & Chem 7: 03/19/20 12:38 03/19/20 12:38 Labs: Abnormal Lab Results - Last 24 Hours (Table) 03/18/20 03/18/20 03/19/20 Range/Units 17:08 20:09 06:04 WBC (3.8-10.6) k/uL RBC (4.30-5.90) m/uL Hgb (13.0-17.5) gm/dL Hct (39.0-53.0) % MCV (80.0-100.0) fL RDW (11.5-15.5) % Plt Count (150-450) k/uL Neutrophils # (Manual) (1.3-7.7) k/uL Macrocytosis PT (9.0-12.0) sec INR (<1.2) APTT (22.0-30.0) sec Sodium 128 L (137-145) mmol/L Potassium 5.4 H (3.5-5.1) mmol/L Carbon Dioxide 13 L (22-30) mmol/L BUN 88 H (9-20) mg/dL Creatinine 1.47 H (0.66-1.25) mg/dL Glucose 148 H (74-99) mg/dL POC Glucose (mg/dL) 138 H 118 H (75-99) mg/dL Calcium 7.6 L (8.4-10.2) mg/dL Phosphorus (2.5-4.5) mg/dL Total Bilirubin (0.2-1.3) mg/dL ALT (4-49) U/L Alkaline Phosphatase (38-126) U/L Lactate Dehydrogenase (313-618) U/L Total Protein (6.3-8.2) g/dL Albumin (3.5-5.0) g/dL 03/19/20 03/19/20 03/19/20 Range/Units 06:53 11:13 12:38 WBC 16.0 H (3.8-10.6) k/uL RBC 2.64 L (4.30-5.90) m/uL Hgb 8.6 L (13.0-17.5) gm/dL Hct 27.1 L (39.0-53.0) % MCV 102.7 H (80.0-100.0) fL RDW 20.6 H (11.5-15.5) % Plt Count 21 L (150-450) k/uL Neutrophils # (Manual) 13.28 H (1.3-7.7) k/uL Macrocytosis Marked A PT (9.0-12.0) sec INR (<1.2) APTT (22.0-30.0) sec Sodium (137-145) mmol/L Potassium (3.5-5.1) mmol/L Carbon Dioxide (22-30) mmol/L BUN (9-20) mg/dL Creatinine (0.66-1.25) mg/dL Glucose (74-99) mg/dL POC Glucose (mg/dL) 139 H 163 H (75-99) mg/dL Calcium (8.4-10.2) mg/dL Phosphorus (2.5-4.5) mg/dL Total Bilirubin (0.2-1.3) mg/dL ALT (4-49) U/L Alkaline Phosphatase (38-126) U/L Lactate Dehydrogenase (313-618) U/L Total Protein (6.3-8.2) g/dL Albumin (3.5-5.0) g/dL 03/19/20 03/19/20 Range/Units 12:38 12:38 WBC (3.8-10.6) k/uL RBC (4.30-5.90) m/uL Hgb (13.0-17.5) gm/dL Hct (39.0-53.0) % MCV (80.0-100.0) fL RDW (11.5-15.5) % Plt Count (150-450) k/uL Neutrophils # (Manual) (1.3-7.7) k/uL Macrocytosis PT 13.6 H (9.0-12.0) sec INR 1.4 H (<1.2) APTT 31.4 H (22.0-30.0) sec Sodium 128 L (137-145) mmol/L Potassium 5.6 H (3.5-5.1) mmol/L Carbon Dioxide 13 L (22-30) mmol/L BUN 91 H (9-20) mg/dL Creatinine 1.54 H (0.66-1.25) mg/dL Glucose 163 H (74-99) mg/dL POC Glucose (mg/dL) (75-99) mg/dL Calcium 7.5 L (8.4-10.2) mg/dL Phosphorus 5.9 H (2.5-4.5) mg/dL Total Bilirubin 5.0 H (0.2-1.3) mg/dL ALT 75 H (4-49) U/L Alkaline Phosphatase 31 L (38-126) U/L Lactate Dehydrogenase 890 H (313-618) U/L Total Protein 3.9 L (6.3-8.2) g/dL Albumin 1.6 L (3.5-5.0) g/dL Microbiology - Last 24 Hours (Table) 03/13/20 13:10 Anaerobic Culture - Final Pleural Fluid Assessment and Plan Assessment: -hypotension and fludrocortisone is added, status post Hypovolemic shock -Progressive Chronic lymphocytic leukemia (Hilar lymphadenopathy and right paratracheal adenopathy). Started on chemotherapy on 03/19 -Acute renal failure probably prerenal azotemia intravascular volume depletion. 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 Rate control -Bicytopenia including thrombocytopenia and low hemoglobin , mostly related to CLL -Generalized weakness probably secondary to atrial fibrillation, hypotension as well as a other issues including chronic lymphocytic leukemia -Moderate pulmonary hypertension -History of CVA and TIA -Coagulopathy most presently secondary to Xarelto initially held, now changed over to eliquis -Hypothyroid -Metabolic acidosis -Secondary pulmonary hypertension -Pleural effusion status post left-sided thoracentesis 1100 mL removed -Medical debility requiring physical therapy treatment- -Moderate protein calorie malnutrition from decreased oral intake -Hyponatremia -Hyperkalemia Plan: This is a pleasant 79 years old male who presents with hypotension and progressive CLL and MIGUEL, patient was started on fludrocortisone, continue with dexamethasone. He is on Levaquin and will reassess tomorrow. Patient is followed closely by hematology/oncology service and patient was started on chemotherapy on 03/19.Nephrology service has been consulted for MIGUEL. Monitor sodium Labs and medication were reviewed.. Continue same treatment. Continue with symptomatic treatment. Resume home medication. Monitor lytes and vitals. DVT and GI prophylaxis. Further recommendations of the clinical course of the patient DVT prophylaxis: Subcutaneous heparin and or anticoagulation in view of her thrombocytopenia GI Prophylaxis: Pepcid PT/OT: Ongoing Prognosis is guarded
[2020-03-19] MEDS: ACYCLOVIR 200 MG CAP PO SCH (21:28)
--- NOTE | 2020-03-19 23:51 | P.PN ---
Progress Note - Text Progress Note Date: 03/19/20 REASON FOR FOLLOWUP: Pneumonia and thrush. INTERVAL HISTORY: The patient remains to be afebrile, patient is breathing comfortably, patient denies chest pain. No nausea, vomiting, abdominal pain or diarrhea. PHYSICAL EXAMINATION: Blood pressure 90/52 with a pulse of 84, temperature 98.1, he is 97% on room. General description is an elderly male up in the chair in no distress. RESPIRATORY SYSTEM: Unlabored breathing, decreased breath sounds at the bases. No wheeze. HEART: S1, S2. Regular rate and rhythm. ABDOMEN: Soft, no tenderness. LABS: Reviewed DIAGNOSTIC IMPRESSION AND PLAN: 1. Patient admitted to the hospital with shortness of breath which is multifactorial with possible component of pneumonia, positive effusion, status post thoracocentesis. Culture has been negative for resistant pathogen. Patient is on Levaquin 2. Patient with oral thrush, continue with nystatin swish and swallow and monitor his clinical course closely.
[2020-03-20] MEDS: DEXAMETHASONE SOD PHOSPHATE 4 MG/ML 1 ML VIAL PO SCH ×3 (00:18→17:00)
[2020-03-20] MEDS: LEVOTHYROXINE 100 MCG TAB PO SCH (06:03)
[2020-03-20 07:04] LABS: Anisocytosis Moderate; Basophils % (A) 0 %; Eosinophils % (A) 0 %; HCT 28.1 % (39.0-53.0); HGB 8.6 gm/dL (13.0-17.5); Hypochromasia Marked; Lymphocytes # (A) 1.7 k/uL (1.0-4.8); Lymphocytes % (A) 13 %; MCH 33.2 pg (25.0-35.0); MCHC 30.7 g/dL (31.0-37.0); MCV 108.1 fL (80.0-100.0); Macrocytosis Marked; Mean Platelet Volume 15.7; Monocytes # (A) 0.8 k/uL (0-1.0); Monocytes % (A) 6 %; Neutrophils # (A) 11.1 k/uL (1.3-7.7); Neutrophils % (A) 80 %; RDW 20.1 % (11.5-15.5); WBC 13.8 k/uL (3.8-10.6)
[2020-03-20 07:09] LABS: Glucose,Whole Blood 166 mg/dL (75-99)
[2020-03-20 07:10] LABS: Albumin 1.6 g/dL (3.5-5.0); Calcium 7.2 mg/dL (8.4-10.2); Phosphorus 6.3 mg/dL (2.5-4.5); Total Bilirubin 5.1 mg/dL (0.2-1.3); Uric Acid 8.2 mg/dL (3.5-8.5)
[2020-03-20] MEDS ORDERED: SODIUM POLYSTYRENE SULFONATE 15 GM/60 ML BOTTLE PO STA (08:00)
[2020-03-20 08:09] LABS: Crenated RBC Present; Large Platelets Present; Platelet Count 4 k/uL (150-450); Poikilocytosis (M) Present; Toxic Granulation Present
[2020-03-20] MEDS ORDERED: RASBURICASE 6 MG in SODIUM CHLORIDE 0.9% 46 ML IV ONE (08:30)
[2020-03-20 08:47] LABS: INR 1.3 (<1.2); Prothrombin Time 13.5 sec (9.0-12.0)
[2020-03-20] MEDS: MIDODRINE 5 MG TAB PO SCH ×3 (10:02→16:58)
[2020-03-20] MEDS: FLUDROCORTISONE 0.1 MG TAB PO SCH (10:03)
[2020-03-20] MEDS: NYSTATIN 100,000 UNIT/ML SUSP 500,000 UNIT/5 ML CUP PO SCH ×4 (10:03→21:14)
[2020-03-20] MEDS: DIGOXIN 125 MCG TAB PO SCH (10:03)
[2020-03-20] MEDS: CYANOCOBALAMIN 500 MCG TAB PO SCH (10:05)
[2020-03-20] MEDS: ACYCLOVIR 200 MG CAP PO SCH ×2 (10:05→21:14)
[2020-03-20] MEDS: DRONABINOL 2.5 MG CAP PO SCH ×2 (10:06→17:00)
[2020-03-20] MEDS: ALLOPURINOL 100 MG TAB PO SCH (10:07)
[2020-03-20] MEDS: MAG HYDROX/AL HYDROX/SIMETH 30 ML, diphenhydrAMINE ELIXIR 75 MG, LIDOCAINE VISCOUS 30 ML PO SCH ×9 (10:08→21:15)
[2020-03-20] MEDS: PANTOPRAZOLE 40 MG TABLET PO SCH (10:08)
[2020-03-20] MEDS: METOPROLOL TARTRATE 25 MG TAB PO SCH ×2 (10:08→21:11)
--- NOTE | 2020-03-20 10:21 | P.PN ---
Subjective This is a pleasant 79-year-old male past medical history significant for chonic persistent atrial fibrillation on intermission coordinator anticoagulation, CLL, CVA in the past and follows with cardiology out of town. He initially presented here as a transfer from [facility] secondary to rapid ventricular rates and hypotension. There was also a questionable GI bleed and anti-coagulation was stopped. He was in the ICU on levophed. He has since been transferred to the oncology unit for rituxin administration. He is seen and examined sitting up in bed in no acute distress. His voice is scratchy but he states the throat pain has improved. He denies chest pain, shortness of breath, dizziness or palpitations. He continues to feel weak but states it is improving slightly. Blood pressure 115/64 heart rate 74 afebrile and maintaining oxygen saturation on nasal cannula. Laboratory data reviewed, WBC 13.8, hgb 8.6, plt 4, INR 1.3, sodium 129, potassium 6.0, creatinine 1.79. He has platelet transfusion ordered this morning along with bicarb infusion and kaexylate. GENERAL: Well-appearing, well-nourished and in no acute distress. NECK: Supple without JVD or thyromegaly. LUNGS: Clear to auscultation, no rales, wheezes or rhonchi. Diminished bilaterally. Respiration equal and unlabored. HEART: Irregular rate and rhythm without murmurs, rubs or gallops. S1 and S2 heard. EXTREMITIES: Normal range of motion, bilateral Gulshan wraps in place with underlying edema. No clubbing or cyanosis. Peripheral pulses intact. ASSESSMENT Chronic persistent atrial fibrillation, controlled ventricular rates. Anticoagulation discontinued secondary to GI bleeding and significant thrombocytopenia. Hyperkalemia, treated per PCP 03/18 at 1945 Hyponatremia Hypotension Chronic lymphocytic leukemia Pleural effusions, s/p thoracentesis with 1,100 ml removed 03/13 PLAN Continue with midodrine and florinef for hypotension. Rate control with digoxin and lopressor. Hold lopressor for systolic blood pressure less than 90. Nurse Practitioner note has been reviewed, I agree with a documented findings and plan of care. Patient was seen and examined. Objective - Vital Signs Vital signs: Vital Signs Temp 97.4 F L 03/19/20 21:00 Pulse 74 03/20/20 05:00 Resp 18 03/20/20 05:00 BP 115/64 03/20/20 05:00 Pulse Ox 90 L 03/20/20 05:00 Intake & Output 03/19/20 03/20/20 03/20/20 18:59 06:59 18:59 Intake Total 400 100 Output Total 600 901 Balance -200 -801 Weight 72.5 kg Intake: Oral 400 100 Output: Urine 600 900 Uretheral (Raymond) 900 Stool 1 Other: Voiding Method Indwelling Catheter Indwelling Catheter - Labs CBC & Chem 7: 03/20/20 06:27 03/20/20 06:27 Labs: Abnormal Lab Results - Last 24 Hours (Table) 03/19/20 03/19/20 03/19/20 Range/Units 11:13 12:38 12:38 WBC 16.0 H (3.8-10.6) k/uL RBC 2.64 L (4.30-5.90) m/uL Hgb 8.6 L (13.0-17.5) gm/dL Hct 27.1 L (39.0-53.0) % MCV 102.7 H (80.0-100.0) fL MCHC (31.0-37.0) g/dL RDW 20.6 H (11.5-15.5) % Plt Count 21 L (150-450) k/uL Neutrophils # (1.3-7.7) k/uL Neutrophils # (Manual) 13.28 H (1.3-7.7) k/uL Macrocytosis Marked A PT (9.0-12.0) sec INR (<1.2) APTT (22.0-30.0) sec Sodium 128 L (137-145) mmol/L Potassium 5.6 H (3.5-5.1) mmol/L Carbon Dioxide 13 L (22-30) mmol/L BUN 91 H (9-20) mg/dL Creatinine 1.54 H (0.66-1.25) mg/dL Glucose 163 H (74-99) mg/dL POC Glucose (mg/dL) 163 H (75-99) mg/dL Calcium 7.5 L (8.4-10.2) mg/dL Phosphorus 5.9 H (2.5-4.5) mg/dL Total Bilirubin 5.0 H (0.2-1.3) mg/dL ALT 75 H (4-49) U/L Alkaline Phosphatase 31 L (38-126) U/L Lactate Dehydrogenase 890 H (313-618) U/L Total Protein 3.9 L (6.3-8.2) g/dL Albumin 1.6 L (3.5-5.0) g/dL 03/19/20 03/19/20 03/20/20 Range/Units 12:38 16:56 06:27 WBC 13.8 H (3.8-10.6) k/uL RBC 2.60 L (4.30-5.90) m/uL Hgb 8.6 L (13.0-17.5) gm/dL Hct 28.1 L (39.0-53.0) % MCV 108.1 H D (80.0-100.0) fL MCHC 30.7 L (31.0-37.0) g/dL RDW 20.1 H (11.5-15.5) % Plt Count 4 L* D (150-450) k/uL Neutrophils # 11.1 H (1.3-7.7) k/uL Neutrophils # (Manual) (1.3-7.7) k/uL Macrocytosis Marked A PT 13.6 H (9.0-12.0) sec INR 1.4 H (<1.2) APTT 31.4 H (22.0-30.0) sec Sodium (137-145) mmol/L Potassium (3.5-5.1) mmol/L Carbon Dioxide (22-30) mmol/L BUN (9-20) mg/dL Creatinine (0.66-1.25) mg/dL Glucose (74-99) mg/dL POC Glucose (mg/dL) 124 H (75-99) mg/dL Calcium (8.4-10.2) mg/dL Phosphorus (2.5-4.5) mg/dL Total Bilirubin (0.2-1.3) mg/dL ALT (4-49) U/L Alkaline Phosphatase (38-126) U/L Lactate Dehydrogenase (313-618) U/L Total Protein (6.3-8.2) g/dL Albumin (3.5-5.0) g/dL 04/23/20 04/23/20 04/23/20 Range/Units 06:27 07:08 08:10 WBC (3.8-10.6) k/uL RBC (4.30-5.90) m/uL Hgb (13.0-17.5) gm/dL Hct (39.0-53.0) % MCV (80.0-100.0) fL MCHC (31.0-37.0) g/dL RDW (11.5-15.5) % Plt Count (150-450) k/uL Neutrophils # (1.3-7.7) k/uL Neutrophils # (Manual) (1.3-7.7) k/uL Macrocytosis PT 13.5 H (9.0-12.0) sec INR 1.3 H (<1.2) APTT (22.0-30.0) sec Sodium 129 L (137-145) mmol/L Potassium 6.0 H (3.5-5.1) mmol/L Carbon Dioxide 12 L (22-30) mmol/L BUN 95 H (9-20) mg/dL Creatinine 1.79 H (0.66-1.25) mg/dL Glucose 153 H (74-99) mg/dL POC Glucose (mg/dL) 166 H (75-99) mg/dL Calcium 7.2 L (8.4-10.2) mg/dL Phosphorus 6.3 H (2.5-4.5) mg/dL Total Bilirubin 5.1 H (0.2-1.3) mg/dL ALT 93 H (4-49) U/L Alkaline Phosphatase (38-126) U/L Lactate Dehydrogenase 716 H (313-618) U/L Total Protein 4.0 L (6.3-8.2) g/dL Albumin 1.6 L (3.5-5.0) g/dL
[2020-03-20] MEDS: INSULIN ASPART (NovoLOG) 100 UNIT/ML VIAL SQ SCH ×4 (10:26→21:11)
[2020-03-20 11:24] LABS: Glucose,Whole Blood 82 mg/dL (75-99)
[2020-03-20] MEDS ORDERED: FUROSEMIDE 10 MG/ML 2 ML VIAL IV ONE (13:20)
[2020-03-20] MEDS: DEXTROSE 5% IN WATER 1,000 ML with SODIUM BICARB (1 MEQ/ML) 150 ML IV SCH (13:53)
[2020-03-20] MEDS: LEVOFLOXACIN 500 MG TAB PO SCH (14:27)
[2020-03-20] MEDS: HYDROcodone/APAP 5-325MG 1 EACH TAB PO PRN (14:27)
[2020-03-20 16:58] LABS: Glucose,Whole Blood 84 mg/dL (75-99)
--- NOTE | 2020-03-20 16:59 | CONS ---
CONSULTATION REASON FOR CONSULT: Renal failure. HISTORY OF PRESENT ILLNESS: Patient is a 79-year-old male with an underlying diagnosis of progressive CLL and started on chemotherapy. Patient's serum creatinine is 1.79 mg/dL today. He is also hyperkalemic, with potassium of 6 and CO2 of 12. Previous creatinine 1.05 on 03/17/2020. Currently patient has an indwelling Raymond catheter with 24-hour urine output of about 1.5 L. No IV fluids on board. Patient is complaining of increased edema and there is weeping of the skin in the perineum noted. Uric acid was 8.2. Patient did receive Kayexalate, and he got a dose of rasburicase as well. PAST MEDICAL HISTORY: Past medical history is significant for history of hypertension, CVA/TIA, atrial fibrillation with previous history of lymphoma, CLL. PAST SURGICAL HISTORY: None. SOCIAL HISTORY: Negative for smoking, drug abuse or alcohol abuse. PHYSICAL EXAMINATION: Patient is awake, comfortable. He is not in any acute distress. He is lethargic. Blood pressure 115/64, heart rate 74 per minute. Patient is afebrile. Examination of lower extremities shows 3+ edema bilaterally. Chronic skin changes noted. Abdomen is soft, obese, non-tender. Breath sounds present bilaterally. 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 LABS: Sodium 129, potassium 6.0, chloride 106. CO2 is 12, BUN 95, serum creatinine 1.79, phosphorus 6.3, calcium 7.2. UA shows 1+ protein, moderate blood, WBCs 11, RBC 60. ASSESSMENT: 1. Acute kidney injury associated with hypotension. Blood pressure was as low as 75 mmHg systolic yesterday. Currently nonoliguric. Maintained with a Raymond catheter. Patient is not on any nephrotoxic medications currently. He did get rasburicase after the chemotherapy. Consideration for possible tumor lysis syndrome as well, although the uric acid is not significantly elevated. 2. CLL with progression/transformation; started on chemotherapy. 3. Severe metabolic acidosis, non-gap, associated with renal failure. No ongoing diarrhea or GI fluid loss. 4. Hyperkalemia associated with worsening renal failure and metabolic acidosis. Expect improvement with initiation of bicarb drip and IV Lasix. 5. Hypervolemic hyponatremia. PLAN: Start bicarb drip, IV Lasix x1. Repeat labs in a.m. Avoid nephrotoxic agents. Avoid hypotension. Currently blood pressure is improved. However, if he remains hypotensive, I will add midodrine. Thank you for this consultation. Will continue to follow the patient with you during his hospitalization. BONITA / ONELIAN: [id number] /
[2020-03-20] MEDS: SODIUM BICARBONATE TAB 650 MG TAB PO SCH (17:05)
[2020-03-20 20:09] LABS: Glucose,Whole Blood 75 mg/dL (75-99)
--- NOTE | 2020-03-20 20:24 | P.PN ---
Subjective Progress Note Date: 03/20/20 Principal diagnosis: Thrombocytopenia, Afib, Anemia He is status post Rituxan and bendeka day one, platelets are 4K, no signs of bleeding. there is evidence of tumor lysis and I have asked Nephrology to assist with third space extravascular fluid overload with intravascular fluid depletion. He is edemetous in all extremities and scrotum, mucocytis is difficult to tolerate po intake, although he is working hard at staying up on protein shakes. He continues to sit in a chair daily and work with therapy. Transfusion for platelets is ordered. His bilirubin, potassium, phos, and uric acid increased, TLS. Objective - Vital Signs Vital signs: Vital Signs Temp 98.3 F 03/20/20 12:45 Pulse 79 03/20/20 12:45 Resp 16 03/20/20 12:45 BP 97/61 03/20/20 12:45 Pulse Ox 98 03/20/20 12:45 Intake & Output 03/20/20 03/20/20 03/21/20 06:59 18:59 06:59 Intake Total 100 546 Output Total 901 201 Balance -801 345 Intake: Intake, IV Titration 146 Amount Dextrose 5% in Water 1, 100 000 ml @ 50 mls/hr IV . Q23H MARILEE with Sodium Bicarb (1 Meq/ml) 150 ml Rx#:[id number] Rasburicase 6 mg In 46 Sodium Chloride 0.9% 46 ml @ 100 mls/hr IV ONCE ONE Rx#:[id number] Oral 100 400 Output: Urine 900 200 Uretheral (Raymond) 900 200 Stool 1 1 Other: Voiding Method Indwelling Catheter Indwelling Catheter - Exam Telemed exam - Constitutional cooperative, sounding sleepy, sad no distress Jaundice generalized weakness, strength equal bilaterally Bilateral upper and lower extremity edema No palpable axillary nodes on exam Lungs diminished bilateral Heart Irr irr Edema in all extremities - Psychiatric Psychiatric: Present: A&O x's 3, appropriate affect, intact judgment & insight - Labs CBC & Chem 7: 03/20/20 06:27 03/20/20 06:27 Labs: Abnormal Lab Results - Last 24 Hours (Table) 03/20/20 03/20/20 03/20/20 Range/Units 06:27 06:27 06:27 WBC 13.8 H (3.8-10.6) k/uL RBC 2.60 L (4.30-5.90) m/uL Hgb 8.6 L (13.0-17.5) gm/dL Hct 28.1 L (39.0-53.0) % MCV 108.1 H D (80.0-100.0) fL MCHC 30.7 L (31.0-37.0) g/dL RDW 20.1 H (11.5-15.5) % Plt Count 4 L* D (150-450) k/uL Neutrophils # 11.1 H (1.3-7.7) k/uL Macrocytosis Marked A PT (9.0-12.0) sec INR (<1.2) Sodium 129 L (137-145) mmol/L Potassium 6.0 H (3.5-5.1) mmol/L Carbon Dioxide 12 L (22-30) mmol/L BUN 95 H (9-20) mg/dL Creatinine 1.79 H (0.66-1.25) mg/dL Glucose 153 H (74-99) mg/dL POC Glucose (mg/dL) (75-99) mg/dL Calcium 7.2 L (8.4-10.2) mg/dL Phosphorus 6.3 H (2.5-4.5) mg/dL Total Bilirubin 5.1 H (0.2-1.3) mg/dL ALT 93 H (4-49) U/L Lactate Dehydrogenase 716 H (313-618) U/L Total Protein 4.0 L (6.3-8.2) g/dL Albumin 1.6 L (3.5-5.0) g/dL Procalcitonin 0.45 H (0.02-0.09) ng/mL 03/20/20 03/20/20 Range/Units 07:08 08:10 WBC (3.8-10.6) k/uL RBC (4.30-5.90) m/uL Hgb (13.0-17.5) gm/dL Hct (39.0-53.0) % MCV (80.0-100.0) fL MCHC (31.0-37.0) g/dL RDW (11.5-15.5) % Plt Count (150-450) k/uL Neutrophils # (1.3-7.7) k/uL Macrocytosis PT 13.5 H (9.0-12.0) sec INR 1.3 H (<1.2) Sodium (137-145) mmol/L Potassium (3.5-5.1) mmol/L Carbon Dioxide (22-30) mmol/L BUN (9-20) mg/dL Creatinine (0.66-1.25) mg/dL Glucose (74-99) mg/dL POC Glucose (mg/dL) 166 H (75-99) mg/dL Calcium (8.4-10.2) mg/dL Phosphorus (2.5-4.5) mg/dL Total Bilirubin (0.2-1.3) mg/dL ALT (4-49) U/L Lactate Dehydrogenase (313-618) U/L Total Protein (6.3-8.2) g/dL Albumin (3.5-5.0) g/dL Procalcitonin (0.02-0.09) ng/mL Assessment and Plan Plan: Thrombocytopenia: - 4K today, transfuse and one hour post - Hold Xarelto or other AC therapy if platelets drop below 50 - Transfuse to keep platelets greater than 10,000 unless bleeding is noted. - Todays Hemoglobin is stable no transfusion needed at this time The patient has had further mild drop in hemoglobin, and in platelets. Bilirubin is further elevated. Clinically this appears to indicate ongoing autoimmune destruction, despite 60 mg of prednisone. The patient was therefore need more aggressive therapy, even for the autoimmune cytopenias. He was started on bolus Decadron for 4 days (03/16/20). Rituxan infusion ordered for 03/17/20. tolerated well - Continue to monitor labs with additional supportive treatment as needed Hemolytic Anemia - Transfuse to keep hemoglobin 7 or higher. - Stable Abnormal Right Paratrachial Mass PLeural fluid resulted and appears with progressive CLL, therefore treatment with Rituxan and Bendeka. CLL (chronic lymphocytic leukemia) - Concern for progression versus transformation - Results of fluid consistent with progressive CLL, Start Bendeka today in addition to Rituxan he received on Tuesday. Acute renal insufficiency: - Need to find balance for TLS risk, and extravascular fluid shipt - Increase protein - Risk for Parental nutrition related to infection, weigh risk versus benefit - COnsult placed for Nephrology - Start Allopurinol 100mg (renal dose) - Needs Elitek, Uric Acid greater than 8 today, monitor daily Coagulopathy - Improved Mucocytis: - Magic Mouthwash - Dexamethasone mouth rinse - Nystatin Atrial fibrillation with rapid ventricular response - Controlled Pt is on anticoagulation for the same. Cardiology managing arrhythmia and hypotension PLan: - Chemotherapy for progressive CLL today and tomorrow - Increase Protein intake - Monitor closely for TLS, ELitek ordered, Nephrology consulted and low dose allopurinol initiated - Daily CBC< CMP, Mag, Phos, LDH, and Uric Acid - Increasing Bilirubin - Transfuse platelets today
--- NOTE | 2020-03-20 22:50 | PN ---
PROGRESS NOTE DATE OF SERVICE: 03/20/2020 REASON FOR FOLLOWUP: Pneumonia and thrush. INTERVAL HISTORY: The patient was seen on rounds this morning. The patient has been afebrile. The patient has been complaining of feeling weak and tired no chest pain or cough. No abdominal pain. Overall symptoms have improved. PHYSICAL EXAMINATION: Blood pressure is 97/61 with a pulse of 79, temperature of 98.3. He is 98% on 2 L nasal cannula. General description is an elderly male lying in bed in no distress. RESPIRATORY SYSTEM: Unlabored breathing with decreased breath sounds at the base. No wheeze. HEART: S1, S2. Regular rate and rhythm. ABDOMEN: Soft. No tenderness. LABS: Hemoglobin is 8.6, white count 13.8. BUN of 95, creatinine 1.79. DIAGNOSTIC IMPRESSION AND PLAN: Patient admitted to hospital with weakness which is multifactorial in this patient who did have a component of pneumonia and pleural effusion, status post thoracocentesis. Overall prognosis remains guarded for this patient. may be appropriate. Patient with mild thrush. Continue nystatin swish and swallow. ID will sign off. Please call back if any questions regarding infectious disease care. MMODL / IJN: [id number] /
[2020-03-21] MEDS ORDERED: methylPREDNISolone SOD SUCCI 125 MG/2 ML VIAL IV STA (00:49)
[2020-03-21] MEDS ORDERED: SODIUM CHLORIDE 0.9% 500 ML 500 ML IV ONE (00:49)
[2020-03-21] MEDS: DEXAMETHASONE SOD PHOSPHATE 4 MG/ML 1 ML VIAL PO SCH ×4 (00:51→23:20)
[2020-03-21] MEDS: DEXTROSE 5% IN WATER 1,000 ML with SODIUM BICARB (1 MEQ/ML) 150 ML IV SCH ×2 (05:52→14:01)
[2020-03-21] MEDS: LEVOTHYROXINE 100 MCG TAB PO SCH (05:52)
[2020-03-21 07:05] LABS: Glucose,Whole Blood 130 mg/dL (75-99)
[2020-03-21 07:49] LABS: Anisocytosis Moderate; Basophils % (A) 0 %; Eosinophils % (A) 0 %; HCT 23.7 % (39.0-53.0); HGB 7.6 gm/dL (13.0-17.5); Hypochromasia Moderate; Lymphocytes # (A) 1.4 k/uL (1.0-4.8); Lymphocytes % (A) 7 %; MCH 34.2 pg (25.0-35.0); Macrocytosis Marked; Mean Platelet Volume 13.5; Monocytes # (A) 0.9 k/uL (0-1.0); Monocytes % (A) 5 %; Neutrophils # (A) 16.6 k/uL (1.3-7.7); Neutrophils % (A) 87 %; RBC 2.21 m/uL (4.30-5.90); RDW 20.3 % (11.5-15.5); WBC 19.1 k/uL (3.8-10.6)
[2020-03-21 07:53] LABS: Platelet Count 17 k/uL (150-450)
[2020-03-21 08:01] LABS: Albumin 1.5 g/dL (3.5-5.0); Calcium 6.7 mg/dL (8.4-10.2); Magnesium 2.2 mg/dL (1.6-2.3); Phosphorus 7.3 mg/dL (2.5-4.5); Potassium 5.4 mmol/L (3.5-5.1); Total Bilirubin 3.6 mg/dL (0.2-1.3); Total Protein 3.6 g/dL (6.3-8.2); Uric Acid 6.9 mg/dL (3.5-8.5)
[2020-03-21 08:27] LABS: Large Platelets Present
[2020-03-21 08:28] LABS: Crenated RBC Present; Toxic Granulation Present
[2020-03-21] MEDS: PANTOPRAZOLE 40 MG TABLET PO SCH (08:40)
[2020-03-21] MEDS: FLUDROCORTISONE 0.1 MG TAB PO SCH (08:41)
[2020-03-21] MEDS: ACYCLOVIR 200 MG CAP PO SCH ×2 (08:41→22:09)
[2020-03-21] MEDS: DRONABINOL 2.5 MG CAP PO SCH ×2 (08:41→18:03)
[2020-03-21] MEDS: CYANOCOBALAMIN 500 MCG TAB PO SCH (08:41)
[2020-03-21] MEDS: MIDODRINE 5 MG TAB PO SCH ×3 (08:41→18:03)
[2020-03-21] MEDS: ALLOPURINOL 100 MG TAB PO SCH (08:41)
[2020-03-21] MEDS: NYSTATIN 100,000 UNIT/ML SUSP 500,000 UNIT/5 ML CUP PO SCH ×4 (08:42→22:10)
[2020-03-21] MEDS: DIGOXIN 125 MCG TAB PO SCH (08:47)
[2020-03-21 11:11] LABS: Glucose,Whole Blood 104 mg/dL (75-99)
--- NOTE | 2020-03-21 11:18 | P.PN ---
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 He initially presented here as a transfer from [facility] secondary to rapid ventricular rates and hypotension. There was also a questionable GI bleed and anti-coagulation was stopped. He was in the ICU on levophed. He has since been transferred to the oncology unit for rituxin administration. He is seen and examined sitting up in bed in no acute distress. His voice is scratchy but he states the throat pain has improved. He denies chest pain, shortness of breath, dizziness or palpitations. He continues to feel weak but states it is improving slightly. Blood pressure 115/64 heart rate 74 afebrile and maintaining oxygen saturation on nasal cannula. Laboratory data reviewed, WBC 13.8, hgb 8.6, plt 4, INR 1.3, sodium 129, potassium 6.0, creatinine 1.79. He has platelet transfusion ordered this morning along with bicarb infusion and kaexylate. 03/21/2020 Pt is seen and examined sitting up in bed eating breakfast. He states he was up all night and feels tired today. He denies chest pain, shortness of breath, dizziness or palpitations. Blood pressure throughout the night has been quite low; 72/93, 56/40. Heart rates have been between 70-80 on current regimen. He received a 500 cc fluid bolus and pressure this morning is 98/64. He is s/p tranfusion of irradiated platelets. Laboratory data reviewed, WBC 19.1, hgb 7.6, plt 17, sodium 125, potassium 5.4, creatinine 2.47, magnesium 2.2 and albumin 1.5. Chemotherapy was held last night due to hypotension. Currently maintained on digoxin 125 mcg daily, florinef 0.1 mg daily, lopressor 25 mg BID and midodrine 10 mg TID. GENERAL: Well-appearing, well-nourished and in no acute distress. NECK: Supple without JVD or thyromegaly. LUNGS: Clear to auscultation, no rales, wheezes or rhonchi. Diminished bilaterally. Respiration equal and unlabored. HEART: Irregular rate and rhythm without murmurs, rubs or gallops. S1 and S2 heard. EXTREMITIES: Normal range of motion, bilateral Gulshan wraps in place with underlying edema. No clubbing or cyanosis. Peripheral pulses intact. ASSESSMENT Chronic persistent atrial fibrillation, controlled ventricular rates. Anticoagulation discontinued secondary to GI bleeding and significant thrombocytopenia. Hyperkalemia, treated per PCP 03/18 at 1945 Hyponatremia Hypotension Chronic lymphocytic leukemia Pleural effusions, s/p thoracentesis with 1,100 ml removed 03/13 PLAN Continue with midodrine and florinef for hypotension. Rate control with digoxin and lopressor. Hold lopressor for systolic blood pressure less than 90. Prognosis guarded. We will follow along as needed, please call with further questions or concerns. Nurse Practitioner note has been reviewed, I agree with a documented findings and plan of care. Patient was seen and examined. Objective - Vital Signs Vital signs: Vital Signs Temp 96.6 F L 03/21/20 05:00 Pulse 88 03/21/20 08:51 Resp 18 03/21/20 05:00 BP 98/64 03/21/20 08:51 Pulse Ox 100 03/21/20 05:00 Intake & Output 03/20/20 03/21/20 03/21/20 18:59 06:59 18:59 Intake Total 546 1330 Output Total 201 101 Balance 345 1229 Intake: Intake, IV Titration 146 1000 Amount Dextrose 5% in Water 1, 100 500 000 ml @ 50 mls/hr IV . Q23H MARILEE with Sodium Bicarb (1 Meq/ml) 150 ml Rx#:[id number] Rasburicase 6 mg In 46 Sodium Chloride 0.9% 46 ml @ 100 mls/hr IV ONCE ONE Rx#:[id number] Sodium Chloride 0.9% 500 500 ml 500 ml @ 999 mls/hr IV .Q31M ONE Rx#:[id number] Oral 400 Blood Product 330 Platelet Irr Pheresis Pas 330 -C Unit [id number] Output: Urine 200 100 Uretheral (Raymond) 200 100 Stool 1 1 Other: Voiding Method Indwelling Catheter Indwelling Catheter - Labs CBC & Chem 7: 03/21/20 07:15 03/21/20 07:15 Labs: Abnormal Lab Results - Last 24 Hours (Table) 03/20/20 03/21/20 03/21/20 Range/Units 06:27 07:04 07:15 WBC (3.8-10.6) k/uL RBC (4.30-5.90) m/uL Hgb (13.0-17.5) gm/dL Hct (39.0-53.0) % MCV (80.0-100.0) fL RDW (11.5-15.5) % Plt Count (150-450) k/uL Neutrophils # (1.3-7.7) k/uL Macrocytosis Sodium 125 L (137-145) mmol/L Potassium 5.4 H (3.5-5.1) mmol/L Carbon Dioxide 15 L (22-30) mmol/L BUN 115 H* (9-20) mg/dL Creatinine 2.47 H (0.66-1.25) mg/dL Glucose 173 H (74-99) mg/dL POC Glucose (mg/dL) 130 H (75-99) mg/dL Calcium 6.7 L (8.4-10.2) mg/dL Phosphorus 7.3 H (2.5-4.5) mg/dL Total Bilirubin 3.6 H (0.2-1.3) mg/dL ALT 76 H (4-49) U/L Alkaline Phosphatase 36 L (38-126) U/L Total Protein 3.6 L (6.3-8.2) g/dL Albumin 1.5 L (3.5-5.0) g/dL Procalcitonin 0.45 H (0.02-0.09) ng/mL 03/21/20 Range/Units 07:15 WBC 19.1 H (3.8-10.6) k/uL RBC 2.21 L (4.30-5.90) m/uL Hgb 7.6 L (13.0-17.5) gm/dL Hct 23.7 L (39.0-53.0) % MCV 107.0 H (80.0-100.0) fL RDW 20.3 H (11.5-15.5) % Plt Count 17 L* D (150-450) k/uL Neutrophils # 16.6 H (1.3-7.7) k/uL Macrocytosis Marked A Sodium (137-145) mmol/L Potassium (3.5-5.1) mmol/L Carbon Dioxide (22-30) mmol/L BUN (9-20) mg/dL Creatinine (0.66-1.25) mg/dL Glucose (74-99) mg/dL POC Glucose (mg/dL) (75-99) mg/dL Calcium (8.4-10.2) mg/dL Phosphorus (2.5-4.5) mg/dL Total Bilirubin (0.2-1.3) mg/dL ALT (4-49) U/L Alkaline Phosphatase (38-126) U/L Total Protein (6.3-8.2) g/dL Albumin (3.5-5.0) g/dL Procalcitonin (0.02-0.09) ng/mL
[2020-03-21] MEDS ORDERED: FUROSEMIDE 10 MG/ML 2 ML VIAL IV ONE (11:44)
[2020-03-21] MEDS: INSULIN ASPART (NovoLOG) 100 UNIT/ML VIAL SQ SCH ×4 (13:03→21:51)
[2020-03-21] MEDS: METOPROLOL TARTRATE 25 MG TAB PO SCH ×2 (13:04→21:14)
--- NOTE | 2020-03-21 13:54 | PN ---
PROGRESS NOTE Patient is seen for followup for acute kidney injury. He is maintained on chemotherapy for progressive CLL. Patient's blood pressure has been significantly low. He was last night and this morning as well. Patient's serum creatinine has increased to 2.47 from 1.79 yesterday. Sodium is at 125. Patient has an indwelling Raymond catheter, 24 hour urine output at 1.4 L. PHYSICAL EXAMINATION: On examination today, blood pressure was 98/64, heart rate 88 per minute, patient is afebrile. Examination of the lower extremities shows edema 2 to 3+ bilaterally. Abdomen is soft, nontender, obese. There is abdominal wall edema noted as well as significant scrotal edema. Upper extremities are also edematous. PUBLIC HEALTH STAFF NURSE exam is grossly intact. LABS: Show hemoglobin 7.6, platelet count 17,000, sodium 125, potassium 5.4, chloride 101. CO2 is 15, BUN 115, serum creatinine 2.47. ASSESSMENT: 1. Acute kidney injury associated with hypotension, hypoperfusion currently nonoliguric. Blood pressure remains low. Patient is maintained on midodrine. I also started him on IV bicarb as he was quite acidotic yesterday with CO2 of 12. A bicarb drip is at 50 mL an hour, which I will continue for now. We will also add oral sodium bicarb so we can decrease the IV fluids. 2. Hypervolemia with significant third spacing, status post IV Lasix x1 yesterday. 3. Mild hyperkalemia associated with worsening renal failure, currently improved. 4. Progressive CLL, started on chemotherapy this admission. 5. Pancytopenia associated with chemotherapy. 6. Disproportionately elevated BUN secondary to steroids. 7. Severe hypoalbuminemia contributing to the edema. 8. Hyponatremia which is hypervolemic. PLAN: Continue with the bicarb drip, repeat IV Lasix. I will increase the midodrine to 4 times a day. Overall prognosis is guarded. MMODL / IJN: [id number] /
[2020-03-21] MEDS: MAG HYDROX/AL HYDROX/SIMETH 30 ML, diphenhydrAMINE ELIXIR 75 MG, LIDOCAINE VISCOUS 30 ML PO SCH ×9 (14:01→22:09)
--- NOTE | 2020-03-21 14:21 | P.PN ---
Subjective 71-year-old pleasant male who follows with Dr. Jessa campos, was transferred from [facility] after he was treated for atrial fibrillation with Cardizem was transferred here for evaluation by oncology. Admitted to intensive care unit because of hypotension patient appears to have hypovolemic shock patient started on levo fed. Cardizem was discontinued because of hypotension patient was started on digoxin and patient was also also started on low-dose metoprolol with fairly controlled heart rate. 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 There is a concern about transformation because of low hemoglobin, decreased platelet count and decreased white blood cell count. Although there is no blast cells in the peripheral smear Dr. Lacy evaluated the patient is a concern about GI bleed although patient doesn't have any blood in the stools or dark stools or hematemesis patient's INR is around 2 which is believed to be secondary to Xarelto, although DIC workup is being obtained as well. Patient is quite a bit weak there is a concern about the chest x-ray findings of right lower lobe infiltrate-supplier manager do not believe patient has any pneumonia patient doesn't having any symptoms of pneumonia patient denied any cough doesn't have any fever chills. Patient doesn't have elevated BNP although clinically not in heart failure exacerbation his BNP here is around 9000 his BNP at [facility] was around 7000. Patient doesn't have any JVD and crackles on exam. Patient's creatinine negative district is 1.3 and he rates 1.1 patient is presently receiving IV fluids because of hypovolemic shock is also on levo fed. Patient had normal ejection fraction. Patient's symptoms right now is a significant fatigue and generalized weakness. Patient denied any significant shortness of breath at this time Admitted with - hypotension likely hypovolemic, persistent atrial flutter with rapid ventricular rate, bicytopenia, acute kidney injury. Patient is started on levo fed. Empiric antibiotics. Infection felt to be less likely. Left thoracentesis-1100 mL removed. Started on March 15 on IV Decadron for further drop in hemoglobin and platelet. On March 17 patient is given IVRituxan as the cell counts were not improving. Flow cytometry from pleural fluid is awaited. l Today-. Sitting in bed. Tired. No new issues. Decreased appetite. 03/19/2020 Patient lying in bed comfortable however he feels generally weak. This dyspnea is better today as per patient. No chest pain. His blood pressure still on the low side and Fludrocortisone is added on the top of dexamethasone. 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 And oncology team are planning to start chemotherapy today and tomorrow with Bendamustin , patient will be monitored for risk of tumor lysis syndrome. Nephrology service has been consulted 03/20/2020 Patient clinically the same, no much dyspnea. No abdominal pain or nausea vomiting and is tolerating that well. Blood pressure 97/61, he is afebrile. He got chemotherapy yesterday and his WBC is 13.8 K, hemoglobin 8.6 and platelet count of 4K, INR is 1.3. Patient got 1 units of blood transfusion, no overt signs or symptoms of bleeding. Sodium is 129, stable Creatinine slightly worse at 1.7 Cardiology team R following the case closely. Also patient has been followed by hematology/oncology. [employer] Maintainer team was consulted as well. 03/21/2020 Patient sitting in bed, no new symptoms. His level of dyspnea is mild and the same for the last 2 days including today. He is not really in respiratory distress, no dizziness. Although the patient has been asymptomatic his blood pressure was low side last night at 56/40, a bolus of 500 mL NS is given and one-time dose of some 60 mg, his blood pressure improved after that for example this morning 98/64, however currently is 83/58. His chemotherapy was held yesterday, however he took 1 dose of chemotherapy the day before His platelets improved to 17 K, WBC still high at 19.1. He is on steroids. Hem oglobin 7.6. Creatinine is trending up today to 2.47, and sodium is coming down to 125. [employer] Maintainer R following the case closely After vitamin consultants, they recommended Lasix but it was not given because blood pressure was on the low side. Prognosis remains guarded Objective - Vital Signs Vital signs: Vital Signs Temp 96 F L 03/21/20 13:38 Pulse 93 03/21/20 13:38 Resp 16 03/21/20 13:38 BP 83/58 03/21/20 13:38 Pulse Ox 90 L 03/21/20 12:08 Intake & Output 03/20/20 03/21/20 03/21/20 18:59 06:59 18:59 Intake Total 546 1330 Output Total 201 101 50 Balance 345 1229 -50 Weight 72.5 kg Intake: Intake, IV Titration 146 1000 Amount Dextrose 5% in Water 1, 100 500 000 ml @ 50 mls/hr IV . Q23H MARILEE with Sodium Bicarb (1 Meq/ml) 150 ml Rx#:[id number] Rasburicase 6 mg In 46 Sodium Chloride 0.9% 46 ml @ 100 mls/hr IV ONCE ONE Rx#:[id number] Sodium Chloride 0.9% 500 500 ml 500 ml @ 999 mls/hr IV .Q31M ONE Rx#:[id number] Oral 400 Blood Product 330 Platelet Irr Pheresis Pas 330 -C Unit [id number] Output: Urine 200 100 50 Uretheral (Raymond) 200 100 50 Stool 1 1 Other: Voiding Method Indwelling Catheter Indwelling Catheter Indwelling Catheter - Exam -GENERAL: The patient is alert and oriented x3, not in any acute distress. Generally weak HEENT: Pupils are round and equally reacting to light. EOMI. No scleral icterus. No conjunctival pallor. Normocephalic, atraumatic. No pharyngeal erythema. No thyromegaly. CARDIOVASCULAR: S1 and S2 present. No murmurs, rubs, or gallops. PULMONARY: Chest is clear to auscultation, no wheezing or crackles. ABDOMEN: Soft, nontender, nondistended, normoactive bowel sounds. No palpable organomegaly. MUSCULOSKELETAL: No joint swelling or deformity. EXTREMITIES: No cyanosis, clubbing, or pedal edema. NEUROLOGICAL: Gross neurological examination did not reveal any focal deficits. SKIN: No rashes. no petechiae. - Labs CBC & Chem 7: 03/21/20 07:15 03/21/20 07:15 Labs: Abnormal Lab Results - Last 24 Hours (Table) 03/21/20 03/21/20 03/21/20 Range/Units 07:04 07:15 07:15 WBC 19.1 H (3.8-10.6) k/uL RBC 2.21 L (4.30-5.90) m/uL Hgb 7.6 L (13.0-17.5) gm/dL Hct 23.7 L (39.0-53.0) % MCV 107.0 H (80.0-100.0) fL RDW 20.3 H (11.5-15.5) % Plt Count 17 L* D (150-450) k/uL Neutrophils # 16.6 H (1.3-7.7) k/uL Macrocytosis Marked A Sodium 125 L (137-145) mmol/L Potassium 5.4 H (3.5-5.1) mmol/L Carbon Dioxide 15 L (22-30) mmol/L BUN 115 H* (9-20) mg/dL Creatinine 2.47 H (0.66-1.25) mg/dL Glucose 173 H (74-99) mg/dL POC Glucose (mg/dL) 130 H (75-99) mg/dL Calcium 6.7 L (8.4-10.2) mg/dL Phosphorus 7.3 H (2.5-4.5) mg/dL Total Bilirubin 3.6 H (0.2-1.3) mg/dL ALT 76 H (4-49) U/L Alkaline Phosphatase 36 L (38-126) U/L Total Protein 3.6 L (6.3-8.2) g/dL Albumin 1.5 L (3.5-5.0) g/dL 03/21/20 Range/Units 11:05 WBC (3.8-10.6) k/uL RBC (4.30-5.90) m/uL Hgb (13.0-17.5) gm/dL Hct (39.0-53.0) % MCV (80.0-100.0) fL RDW (11.5-15.5) % Plt Count (150-450) k/uL Neutrophils # (1.3-7.7) k/uL Macrocytosis Sodium (137-145) mmol/L Potassium (3.5-5.1) mmol/L Carbon Dioxide (22-30) mmol/L BUN (9-20) mg/dL Creatinine (0.66-1.25) mg/dL Glucose (74-99) mg/dL POC Glucose (mg/dL) 104 H (75-99) mg/dL Calcium (8.4-10.2) mg/dL Phosphorus (2.5-4.5) mg/dL Total Bilirubin (0.2-1.3) mg/dL ALT (4-49) U/L Alkaline Phosphatase (38-126) U/L Total Protein (6.3-8.2) g/dL Albumin (3.5-5.0) g/dL Assessment and Plan Assessment: -hypotension and fludrocortisone is added, status post Hypovolemic shock -Progressive Chronic lymphocytic leukemia (Hilar lymphadenopathy and right paratracheal adenopathy). Started on chemotherapy on 03/19 -Acute renal failure probably prerenal azotemia intravascular volume depletion. 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 Rate control -Bicytopenia including thrombocytopenia and low hemoglobin , mostly related to CLL -Generalized weakness probably secondary to atrial fibrillation, hypotension as well as a other issues including chronic lymphocytic leukemia -Moderate pulmonary hypertension -History of CVA and TIA -Coagulopathy most presently secondary to Xarelto initially held, now changed over to eliquis -Hypothyroid -Metabolic acidosis -Secondary pulmonary hypertension -Pleural effusion status post left-sided thoracentesis 1100 mL removed -Medical debility requiring physical therapy treatment- -Moderate protein calorie malnutrition from decreased oral intake -Hyponatremia -Hyperkalemia Plan: This is a pleasant 79 years old male who presents with hypotension and progressive CLL and MIGUEL, patient was started on fludrocortisone, continue with dexamethasone. He is on Levaquin and will reassess tomorrow. Patient is followed closely by hematology/oncology service and patient was started on chemotherapy on 03/19.Nephrology service has been consulted for MIGUEL. Monitor sodium Labs and medication were reviewed.. Continue same treatment. Continue with symptomatic treatment. Resume home medication. Monitor lytes and vitals. DVT and GI prophylaxis. Further recommendations of the clinical course of the patient DVT prophylaxis: Subcutaneous heparin and or anticoagulation in view of her thrombocytopenia GI Prophylaxis: Pepcid PT/OT: Ongoing Prognosis is guarded
[2020-03-21] MEDS ORDERED: DEXAMETHASONE SOD PHOSPHATE 10 MG/ML 1 ML VIAL IV ONE (15:15)
[2020-03-21] MEDS ORDERED: ONDANSETRON 16 MG in SODIUM CHLORIDE 0.9% 50 ML IVPB ONE (15:15)
[2020-03-21] MEDS ORDERED: FAMOTIDINE 20 MG/2 ML VIAL IV ONE (15:15)
[2020-03-21] MEDS ORDERED: BENDAMUSTINE HCL IV ONE (16:00)
[2020-03-21] MEDS ORDERED: SODIUM CHLORIDE 0.9% IV ONE (16:00)
[2020-03-21] MEDS: FAMOTIDINE 20 MG/2 ML VIAL IV SCH (16:40)
[2020-03-21] MEDS: DEXAMETHASONE SOD PHOSPHATE 10 MG/ML 1 ML VIAL IV SCH (16:40)
[2020-03-21] MEDS: ONDANSETRON 16 MG in SODIUM CHLORIDE 0.9% 50 ML IVPB SCH (16:40)
[2020-03-21] MEDS: SODIUM CHLORIDE 0.9% IV SCH (16:41)
[2020-03-21] MEDS: BENDAMUSTINE HCL IV SCH (16:41)
[2020-03-21 17:25] LABS: Glucose,Whole Blood 179 mg/dL (75-99)
--- NOTE | 2020-03-21 17:28 | P.PN ---
<Vidya Witt - Last Filed: 03/21/20 17:22> Subjective Progress Note Date: 03/21/20 Principal diagnosis: Thrombocytopenia, Afib, Anemia Patient still appears weak. His mouth sores appear to be improving, renal function is worsening from TLS and intravascular fluid depletion, with extravascular fluid excess. Uric acid and Liver function improved. Platelets are stable. He will receive day two of Bendeka today. Dr. Lacy did discuss the current serious situation at this time with patients family. Objective - Vital Signs Vital signs: Vital Signs Temp 97.3 F L 03/21/20 16:46 Pulse 88 03/21/20 16:46 Resp 16 03/21/20 13:38 BP 70/45 03/21/20 16:46 Pulse Ox 3 L 03/21/20 16:46 Intake & Output 03/20/20 03/21/20 03/21/20 18:59 06:59 18:59 Intake Total 546 1330 600 Output Total 201 101 96 Balance 345 1229 504 Weight 72.5 kg Intake: Intake, IV Titration 146 1000 400 Amount Dextrose 5% in Water 1, 100 500 400 000 ml @ 50 mls/hr IV . Q23H MARILEE with Sodium Bicarb (1 Meq/ml) 150 ml Rx#:[id number] Rasburicase 6 mg In 46 Sodium Chloride 0.9% 46 ml @ 100 mls/hr IV ONCE ONE Rx#:[id number] Sodium Chloride 0.9% 500 500 ml 500 ml @ 999 mls/hr IV .Q31M ONE Rx#:[id number] Oral 400 200 Blood Product 330 Platelet Irr Pheresis Pas 330 -C Unit [id number] Output: Urine 200 100 95 Uretheral (Raymond) 200 100 95 Stool 1 1 1 Other: Voiding Method Indwelling Catheter Indwelling Catheter Indwelling Catheter - Exam Telemed exam - Constitutional cooperative, sounding sleepy, sad no distress Jaundice generalized weakness, strength equal bilaterally Bilateral upper and lower extremity edema No palpable axillary nodes on exam Lungs diminished bilateral Heart Irr irr Edema in all extremities - Psychiatric Psychiatric: Present: A&O x's 3, appropriate affect, intact judgment & insight - Labs CBC & Chem 7: 03/21/20 07:15 03/21/20 07:15 Labs: Abnormal Lab Results - Last 24 Hours (Table) 03/21/20 03/21/2003/21/20 Range/Units 07:04 07:15 07:15 WBC 19.1 H (3.8-10.6) k/uL RBC 2.21 L (4.30-5.90) m/uL Hgb 7.6 L (13.0-17.5) gm/dL Hct 23.7 L (39.0-53.0) % MCV 107.0 H (80.0-100.0) fL RDW 20.3 H (11.5-15.5) % Plt Count 17 L* D (150-450) k/uL Neutrophils # 16.6 H (1.3-7.7) k/uL Macrocytosis Marked A Sodium 125 L (137-145) mmol/L Potassium 5.4 H (3.5-5.1) mmol/L Carbon Dioxide 15 L (22-30) mmol/L BUN 115 H* (9-20) mg/dL Creatinine 2.47 H (0.66-1.25) mg/dL Glucose 173 H (74-99) mg/dL POC Glucose (mg/dL) 130 H (75-99) mg/dL Calcium 6.7 L (8.4-10.2) mg/dL Phosphorus 7.3 H (2.5-4.5) mg/dL Total Bilirubin 3.6 H (0.2-1.3) mg/dL ALT 76 H (4-49) U/L Alkaline Phosphatase 36 L (38-126) U/L Total Protein 3.6 L (6.3-8.2) g/dL Albumin 1.5 L (3.5-5.0) g/dL 03/21/20 Range/Units 11:05 WBC (3.8-10.6) k/uL RBC (4.30-5.90) m/uL Hgb (13.0-17.5) gm/dL Hct (39.0-53.0) % MCV (80.0-100.0) fL RDW (11.5-15.5) % Plt Count (150-450) k/uL Neutrophils # (1.3-7.7) k/uL Macrocytosis Sodium (137-145) mmol/L Potassium (3.5-5.1) mmol/L Carbon Dioxide (22-30) mmol/L BUN (9-20) mg/dL Creatinine (0.66-1.25) mg/dL Glucose (74-99) mg/dL POC Glucose (mg/dL) 104 H (75-99) mg/dL Calcium (8.4-10.2) mg/dL Phosphorus (2.5-4.5) mg/dL Total Bilirubin (0.2-1.3) mg/dL ALT (4-49) U/L Alkaline Phosphatase (38-126) U/L Total Protein (6.3-8.2) g/dL Albumin (3.5-5.0) g/dL Assessment and Plan Plan: Thrombocytopenia: - 4K today, transfuse and one hour post - Hold Xarelto or other AC therapy if platelets drop below 50 - Transfuse to keep platelets greater than 10,000 unless bleeding is noted. - Todays Hemoglobin is stable no transfusion needed at this time The patient has had further mild drop in hemoglobin, and in platelets. Bilir ubin is further elevated. Clinically this appears to indicate ongoing autoimmune destruction, despite 60 mg of prednisone. The patient was therefore need more aggressive therapy, even for the autoimmune cytopenias. He was started on bolus Decadron for 4 days (03/16/20). Rituxan infusion ordered for 03/17/20. tolerated well - Continue to monitor labs with additional supportive treatment as needed Hemolytic Anemia - Transfuse to keep hemoglobin 7 or higher. - Stable Abnormal Right Paratrachial Mass PLeural fluid resulted and appears with progressive CLL, therefore treatment with Rituxan and Bendeka. CLL (chronic lymphocytic leukemia) - Concern for progression versus transformation - Results of fluid consistent with progressive CLL, Start Bendeka today in addition to Rituxan he received on Tuesday. Acute renal insufficiency: - Need to find balance for TLS risk, and extravascular fluid shipt - Increase protein - Risk for Parental nutrition related to infection, weigh risk versus benefit - COnsult placed for Nephrology - COntinue Allopurinol 100mg (renal dose) - 03/20 status post Elitek, Coagulopathy - Improved Mucocytis: - Magic Mouthwash - Dexamethasone mouth rinse - Nystatin Atrial fibrillation with rapid ventricular response - Controlled Pt is on anticoagulation for the same. Cardiology managing arrhythmia and hypotension PLan: - Chemotherapy for progressive CLL status post - Increase Protein intake - Monitor closely for TLS, ELitek ordered, Nephrology consulted and low dose allopurinol initiated - Daily CBC< CMP, Mag, Phos, LDH, and Uric Acid - hypotension - monitoring Physician Attest: I have completed the full history and physical and agree with above dictated, dictated as a scribe <Rolo Lacy - Last Filed: 03/23/20 16:28> Objective - Vital Signs Vital signs: Vital Signs Temp 96.9 F L 03/23/20 13:53 Pulse 69 03/23/20 13:53 Resp 10 L 03/23/20 13:53 BP 76/53 03/23/20 13:53 Pulse Ox 91 L 03/23/20 13:53 Intake & Output 03/22/20 03/23/20 03/23/20 18:59 06:59 18:59 Intake Total 478 910 310 Output Total 101 Balance 478 910 209 Weight 72.5 kg Intake: IV 910 Sodium Chloride 0.45% 1, 910 000 ml @ 50 mls/hr IV . Q23H MARILEE with Sodium Bicarb (1 Meq/ml) 150 ml Rx#:[id number] Intake, IV Titration 280 Amount Sodium Chloride 0.45% 1, 280 000 ml @ 50 mls/hr IV . Q23H MARILEE with Sodium Bicarb (1 Meq/ml) 150 ml Rx#:[id number] Blood Product 198 310 Platelet Irr Pheresis 3 198 Acda Unit [id number] Rc Irr As1 Unit 310 [id number] Output: Urine 100 Stool 1 Other: Voiding Method Indwelling Catheter Indwelling Catheter Indwelling Catheter - Labs CBC & Chem 7: 03/23/20 06:25 03/23/20 06:25 Labs: Abnormal Lab Results - Last 24 Hours (Table) 03/20/20 03/22/20 03/22/20 Range/Units 08:20 16:49 20:33 WBC (3.8-10.6) k/uL RBC (4.30-5.90) m/uL Hgb (13.0-17.5) gm/dL Hct (39.0-53.0) % MCV (80.0-100.0) fL RDW (11.5-15.5) % Plt Count (150-450) k/uL Neutrophils # (Manual) (1.3-7.7) k/uL Lymphocytes # (Manual) (1.0-4.8) k/uL Sodium (137-145) mmol/L Potassium (3.5-5.1) mmol/L Chloride (98-107) mmol/L Carbon Dioxide (22-30) mmol/L BUN (9-20) mg/dL Creatinine (0.66-1.25) mg/dL Glucose (74-99) mg/dL POC Glucose (mg/dL) 100 H 139 H (75-99) mg/dL Calcium (8.4-10.2) mg/dL Phosphorus (2.5-4.5) mg/dL Urine Protein (Negative) Urine Blood (Negative) Ur Leukocyte Esterase (Negative) Urine RBC (0-5) /hpf Urine WBC (0-5) /hpf Hyaline Casts (0-2) /lpf Urine Mucus (None) /hpf Urine Yeast (Budding) (None) /hpf Crossmatch See Detail 03/23/20 03/23/20 03/23/20 Range/Units 00:14 06:25 06:25 WBC 22.2 H (3.8-10.6) k/uL RBC 1.97 L (4.30-5.90) m/uL Hgb 6.7 L* (13.0-17.5) gm/dL Hct 19.8 L* (39.0-53.0) % MCV 100.7 H D (80.0-100.0) fL RDW 20.1 H (11.5-15.5) % Plt Count 14 L* (150-450) k/uL Neutrophils # (Manual) 21.53 H (1.3-7.7) k/uL Lymphocytes # (Manual) 0.44 L (1.0-4.8) k/uL Sodium 126 L (137-145) mmol/L Potassium 5.9 H (3.5-5.1) mmol/L Chloride 96 L (98-107) mmol/L Carbon Dioxide 20 L (22-30) mmol/L BUN 136 H* (9-20) mg/dL Creatinine 3.53 H (0.66-1.25) mg/dL Glucose 149 H (74-99) mg/dL POC Glucose (mg/dL) (75-99) mg/dL Calcium 6.3 L* (8.4-10.2) mg/dL Phosphorus 7.9 H (2.5-4.5) mg/dL Urine Protein 1+ H (Negative) Urine Blood Large H (Negative) Ur Leukocyte Esterase Large H (Negative) Urine RBC >182 H (0-5) /hpf Urine WBC >182 H (0-5) /hpf Hyaline Casts 25 H (0-2) /lpf Urine Mucus Rare H (None) /hpf Urine Yeast (Budding) Many H (None) /hpf Crossmatch 03/23/20 03/23/20 Range/Units 06:48 11:12 WBC (3.8-10.6) k/uL RBC (4.30-5.90) m/uL Hgb (13.0-17.5) gm/dL Hct (39.0-53.0) % MCV (80.0-100.0) fL RDW (11.5-15.5) % Plt Count (150-450) k/uL Neutrophils # (Manual) (1.3-7.7) k/uL Lymphocytes # (Manual) (1.0-4.8) k/uL Sodium (137-145) mmol/L Potassium (3.5-5.1) mmol/L Chloride (98-107) mmol/L Carbon Dioxide (22-30) mmol/L BUN (9-20) mg/dL Creatinine (0.66-1.25) mg/dL Glucose (74-99) mg/dL POC Glucose (mg/dL) 199 H 176 H (75-99) mg/dL Calcium (8.4-10.2) mg/dL Phosphorus (2.5-4.5) mg/dL Urine Protein (Negative) Urine Blood (Negative) Ur Leukocyte Esterase (Negative) Urine RBC (0-5) /hpf Urine WBC (0-5) /hpf Hyaline Casts (0-2) /lpf Urine Mucus (None) /hpf Urine Yeast (Budding) (None) /hpf Crossmatch Microbiology - Last 24 Hours (Table) 03/23/20 00:14 Urine Culture - Preliminary Urine,Catheterized Assessment and Plan (1) Bicytopenia Current Visit: Yes Status: Acute Priority: High Code(s): D75.89 - OTHER SPECIFIED DISEASES OF BLOOD AND BLOOD-FORMING ORGANS SNOMED Code(s): 83818004 (2) CLL (chronic lymphocytic leukemia) Current Visit: Yes Status: Chronic Priority: Medium Code(s): C91.10 - CHRONIC LYMPHOCYTIC LEUK OF B-CELL TYPE NOT ACHIEVE REMIS SNOMED Code(s): 54582084 Plan: Case d/w IM, Nephrology in detail. D/w son in detail
[2020-03-21] MEDS: traMADol 50 MG TAB PO PRN (18:02)
[2020-03-21 21:51] LABS: Glucose,Whole Blood 174 mg/dL (75-99)
[2020-03-21] MEDS: GABAPENTIN 100 MG CAP PO SCH (22:09)
[2020-03-22 05:49] LABS: Anisocytosis Slight; Basophils % (A) 0 %; Eosinophils % (A) 0 %; HCT 22.6 % (39.0-53.0); HGB 7.2 gm/dL (13.0-17.5); Hypochromasia Slight; Lymphocytes # (A) 0.9 k/uL (1.0-4.8); Lymphocytes % (A) 5 %; MCH 33.9 pg (25.0-35.0); MCHC 31.8 g/dL (31.0-37.0); MCV 106.6 fL (80.0-100.0); Macrocytosis Marked; Mean Platelet Volume 14.4; Monocytes % (A) 6 %; Neutrophils # (A) 15.1 k/uL (1.3-7.7); Neutrophils % (A) 88 %; RBC 2.12 m/uL (4.30-5.90); RDW 19.8 % (11.5-15.5); WBC 17.1 k/uL (3.8-10.6)
[2020-03-22] MEDS: LEVOTHYROXINE 100 MCG TAB PO SCH (05:53)
[2020-03-22 06:05] LABS: Albumin 1.5 g/dL (3.5-5.0); Calcium 6.5 mg/dL (8.4-10.2); Magnesium 2.2 mg/dL (1.6-2.3); Phosphorus 7.8 mg/dL (2.5-4.5); Platelet Count 12 k/uL (150-450); Potassium 5.7 mmol/L (3.5-5.1); Total Bilirubin 3.6 mg/dL (0.2-1.3); Total Protein 3.6 g/dL (6.3-8.2); Uric Acid 7.6 mg/dL (3.5-8.5)
--- NOTE | 2020-03-22 06:35 | XR ---
EXAMINATION TYPE: XR chest 1V DATE OF EXAM: 03/22/2020 HISTORY: f/u. REFERENCE: Previous study dated 03/17/2020. FINDINGS: There is worsening bibasilar airspace disease. There are small, bilateral effusions. Heart size is obscured. IMPRESSION: WORSENING BIBASILAR AIRSPACE DISEASE.
[2020-03-22 06:40] LABS: Large Platelets Present
[2020-03-22 06:41] LABS: Crenated RBC Present
[2020-03-22 06:44] LABS: Toxic Granulation Present
[2020-03-22 07:18] LABS: Glucose,Whole Blood 54 mg/dL (75-99)
[2020-03-22] MEDS: INSULIN ASPART (NovoLOG) 100 UNIT/ML VIAL SQ SCH ×4 (07:48→20:40)
[2020-03-22 07:49] LABS: Glucose,Whole Blood 92 mg/dL (75-99)
[2020-03-22] MEDS ORDERED: DEXTROSE 50% SYRINGE 50 ML IVP STA (08:42)
[2020-03-22] MEDS ORDERED: INSULIN REGULAR 100 UNIT/ML VIAL IV ONE (08:42)
[2020-03-22] MEDS: METOPROLOL TARTRATE 25 MG TAB PO SCH ×2 (09:12→20:40)
[2020-03-22] MEDS: CYANOCOBALAMIN 500 MCG TAB PO SCH (09:14)
[2020-03-22] MEDS: DEXAMETHASONE SOD PHOSPHATE 4 MG/ML 1 ML VIAL PO SCH ×3 (09:15→23:39)
[2020-03-22] MEDS: ACYCLOVIR 200 MG CAP PO SCH ×2 (09:15→20:39)
[2020-03-22] MEDS: GABAPENTIN 100 MG CAP PO SCH ×3 (09:15→20:39)
[2020-03-22] MEDS: DRONABINOL 2.5 MG CAP PO SCH ×2 (09:15→17:38)
[2020-03-22] MEDS: ALLOPURINOL 100 MG TAB PO SCH (09:16)
[2020-03-22] MEDS: DIGOXIN 125 MCG TAB PO SCH (09:16)
[2020-03-22] MEDS: NYSTATIN 100,000 UNIT/ML SUSP 500,000 UNIT/5 ML CUP PO SCH ×4 (09:16→20:40)
[2020-03-22] MEDS: MIDODRINE 5 MG TAB PO SCH ×3 (09:16→17:38)
[2020-03-22] MEDS: PANTOPRAZOLE 40 MG TABLET PO SCH (09:16)
[2020-03-22] MEDS: FLUDROCORTISONE 0.1 MG TAB PO SCH (09:16)
[2020-03-22] MEDS: MAG HYDROX/AL HYDROX/SIMETH 30 ML, diphenhydrAMINE ELIXIR 75 MG, LIDOCAINE VISCOUS 30 ML PO SCH ×9 (09:17→20:40)
[2020-03-22] MEDS: SODIUM CHLORIDE 0.45% 1,000 ML with SODIUM BICARB (1 MEQ/ML) 150 ML IV SCH ×4 (11:05→23:39)
[2020-03-22 12:40] LABS: Glucose,Whole Blood 129 mg/dL (75-99)
--- NOTE | 2020-03-22 13:19 | PN ---
PROGRESS NOTE Patient is seen for followup for acute kidney injury secondary to hypotension, hypoperfusion. He remains quite hypotensive with occasional blood pressure dropping to the 60s. He is maintained on IV fluids. The patient has had good urine output. A 24 hour output documented at 1.5 L. Serum creatinine continues to increase, however, acidosis is improved. Patient is maintained on bicarb drip. EXAMINATION: Today blood pressure was 82/47, heart rate 78 per minute, he is afebrile. Examination of the heart S1, S2. Examination of the lungs, decreased breath sounds at bases. Abdomen is soft, nontender. Examination of lower extremities shows 4+ edema bilaterally upper and lower extremities and scrotal edema. VICE PRESIDENT PAYMENT exam shows patient moving all 4 extremities. LAB: Show sodium 125, potassium 5.7, chloride 99, CO2 is 17, BUN 126, serum creatinine 2.9, calcium 6.5, phosphorus 7.8. ASSESSMENT: 1. Kidney injury, acute tubular necrosis secondary to hypotension, currently nonoliguric, maintained on IV fluids which we can continue. No nephrotoxic agents on board. The patient is also maintained on midodrine which he should continue. 2. Metabolic acidosis associated with progressive renal failure as well as possible tumor lysis syndrome, maintained on bicarb drip. 3. Progressive chronic lymphocytic leukemia, started on chemotherapy. 4. Hyperkalemia associated with progressive renal failure. I will treat with insulin and D50. Continue with the bicarb drip. 5. Hyponatremia, mainly hypervolemic. Change IV fluids to half-normal saline with 3 amps of bicarb. PLAN: Treat hyperkalemia with IV insulin and D50. Change the IV fluids to half-normal saline with 150 mEq of sodium bicarb to help with the hyponatremia. Continue with the IV fluids. Continue midodrine. Repeat labs in a.m. Overall prognosis is guarded. MMODL / IJN: [id number] /
[2020-03-22 16:57] LABS: Glucose,Whole Blood 100 mg/dL (75-99)
[2020-03-22 20:51] LABS: Glucose,Whole Blood 139 mg/dL (75-99)
--- NOTE | 2020-03-22 21:16 | P.PN ---
Subjective 71-year-old pleasant male who follows with Dr. Jessa campos, was transferred from [facility] after he was treated for atrial fibrillation with Cardizem was transferred here for evaluation by oncology. Admitted to intensive care unit because of hypotension patient appears to have hypovolemic shock patient started on levo fed. Cardizem was discontinued because of hypotension patient was started on digoxin and patient was also also started on low-dose metoprolol with fairly controlled heart rate. 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 There is a concern about transformation because of low hemoglobin, decreased platelet count and decreased white blood cell count. Although there is no blast cells in the peripheral smear Dr. Lacy evaluated the patient is a concern about GI bleed although patient doesn't have any blood in the stools or dark stools or hematemesis patient's INR is around 2 which is believed to be secondary to Xarelto, although DIC workup is being obtained as well. Patient is quite a bit weak there is a concern about the chest x-ray findings of right lower lobe infiltrate-cement finisher apprentice do not believe patient has any pneumonia patient doesn't having any symptoms of pneumonia patient denied any cough doesn't have any fever chills. Patient doesn't have elevated BNP although clinically not in heart failure exacerbation his BNP here is around 9000 his BNP at [facility] was around 7000. Patient doesn't have any JVD and crackles on exam. Patient's creatinine negative district is 1.3 and he rates 1.1 patient is presently receiving IV fluids because of hypovolemic shock is also on levo fed. Patient had normal ejection fraction. Patient's symptoms right now is a significant fatigue and generalized weakness. Patient denied any significant shortness of breath at this time Admitted with - hypotension likely hypovolemic, persistent atrial flutter with rapid ventricular rate, bicytopenia, acute kidney injury. Patient is started on levo fed. Empiric antibiotics. Infection felt to be less likely. Left thoracentesis-1100 mL removed. Started on March 15 on IV Decadron for further drop in hemoglobin and platelet. On March 17 patient is given IVRituxan as the cell counts were not improving. Flow cytometry from pleural fluid is awaited. l Today-. Sitting in bed. Tired. No new issues. Decreased appetite. 03/19/2020 Patient lying in bed comfortable however he feels generally weak. This dyspnea is better today as per patient. No chest pain. His blood pressure still on the low side and Fludrocortisone is added on the top of dexamethasone. 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 And oncology team are planning to start chemotherapy today and tomorrow with Bendamustin , patient will be monitored for risk of tumor lysis syndrome. Nephrology service has been consulted 03/20/2020 Patient clinically the same, no much dyspnea. No abdominal pain or nausea vomiting and is tolerating that well. Blood pressure 97/61, he is afebrile. He got chemotherapy yesterday and his WBC is 13.8 K, hemoglobin 8.6 and platelet count of 4K, INR is 1.3. Patient got 1 units of blood transfusion, no overt signs or symptoms of bleeding. Sodium is 129, stable Creatinine slightly worse at 1.7 Cardiology team R following the case closely. Also patient has been followed by hematology/oncology. Time Broker team was consulted as well. 03/21/2020 Patient sitting in bed, no new symptoms. His level of dyspnea is mild and the same for the last 2 days including today. He is not really in respiratory distress, no dizziness. Although the patient has been asymptomatic his blood pressure was low side last night at 56/40, a bolus of 500 mL NS is given and one-time dose of some 60 mg, his blood pressure improved after that for example this morning 98/64, however currently is 83/58. His chemotherapy was held yesterday, however he took 1 dose of chemotherapy the day before His platelets improved to 17 K, WBC still high at 19.1. He is on steroids. Hem oglobin 7.6. Creatinine is trending up today to 2.47, and sodium is coming down to 125. Time Broker R following the case closely After vitamin consultants, they recommended Lasix but it was not given because blood pressure was on the low side. Prognosis remains guarded 03/22/2020 Patient remains awake and alert, with lethargy. Not in distress. His blood pressure still on the low side, his persistently around 70-80 of systolic blood pressure, were not going to give him more fluid as it will improve transiently and then fluid district use into soft tissue. However if he will need we will give him a small bolus of 250 mL. Currently his blood pressure is 110/55. Hemoglobin 7.2 WBC improvement to 17.1 K Patient is also receiving platelet transfusion for platelets of 12 K. We will start the patient on ferrous sulfate her chest x-ray showing worsening infiltrates in both sides, mostly fluid however patient could not tolerate residual low blood pressure. Continue on midodrine. Follow-up chest x-ray, repeat UA and Procolcitonin. Follow-up sodium, creatinine and CBC and oxygen level Objective - Vital Signs Vital signs: Vital Signs Temp 97.1 F L 03/22/20 20:27 Pulse 83 03/22/20 20:27 Resp 16 03/22/20 20:27 BP 110/51 03/22/20 20:27 Pulse Ox 97 03/22/20 20:27 Intake & Output 03/22/20 03/22/20 03/23/20 06:59 18:59 06:59 Intake Total 900 478 Output Total 115 Balance 785 478 Intake: Intake, IV Titration 600 280 Amount Dextrose 5% in Water 1, 600 000 ml @ 50 mls/hr IV . Q23H MARILEE with Sodium Bicarb (1 Meq/ml) 150 ml Rx#:[id number] Sodium Chloride 0.45% 1, 280 000 ml @ 70 mls/hr IV . [id number] MARILEE with Sodium Bicarb (1 Meq/ml) 150 ml Rx#:[id number] Oral 300 Blood Product 198 Platelet Irr Pheresis 3 198 Acda Unit [id number] Output: Urine 115 Uretheral (Raymond) 115 Other: Voiding Method Indwelling Catheter Indwelling Catheter - Exam -GENERAL: The patient is alert and oriented x3, not in any acute distress. Generally weak HEENT: Pupils are round and equally reacting to light. EOMI. No scleral icterus. No conjunctival pallor. Normocephalic, atraumatic. No pharyngeal erythema. No thyromegaly. CARDIOVASCULAR: S1 and S2 present. No murmurs, rubs, or gallops. PULMONARY: Chest is clear to auscultation, no wheezing or crackles. ABDOMEN: Soft, nontender, nondistended, normoactive bowel sounds. No palpable organomegaly. MUSCULOSKELETAL: No joint swelling or deformity. EXTREMITIES: No cyanosis, clubbing, or pedal edema. NEUROLOGICAL: Gross neurological examination did not reveal any focal deficits. SKIN: No rashes. no petechiae. - Labs CBC & Chem 7: 03/22/20 05:40 04/25/20 05:40 Labs: Abnormal Lab Results - Last 24 Hours (Table) 03/21/20 03/22/20 03/22/20 Range/Units 21:49 05:40 05:40 WBC 17.1 H (3.8-10.6) k/uL RBC 2.12 L (4.30-5.90) m/uL Hgb 7.2 L (13.0-17.5) gm/dL Hct 22.6 L (39.0-53.0) % MCV 106.6 H (80.0-100.0) fL RDW 19.8 H (11.5-15.5) % Plt Count 12 L* (150-450) k/uL Neutrophils # 15.1 H (1.3-7.7) k/uL Lymphocytes # 0.9 L (1.0-4.8) k/uL Macrocytosis Marked A Sodium 125 L (137-145) mmol/L Potassium 5.7 H (3.5-5.1) mmol/L Carbon Dioxide 17 L (22-30) mmol/L BUN 126 H* (9-20) mg/dL Creatinine 2.91 H (0.66-1.25) mg/dL Glucose 179 H (74-99) mg/dL POC Glucose (mg/dL) 174 H (75-99) mg/dL Calcium 6.5 L (8.4-10.2) mg/dL Phosphorus 7.8 H (2.5-4.5) mg/dL Total Bilirubin 3.6 H (0.2-1.3) mg/dL ALT 54 H (4-49) U/L Alkaline Phosphatase 37 L (38-126) U/L Total Protein 3.6 L (6.3-8.2) g/dL Albumin 1.5 L (3.5-5.0) g/dL 03/22/20 03/22/20 03/22/20 Range/Units 07:14 12:36 16:49 WBC (3.8-10.6) k/uL RBC (4.30-5.90) m/uL Hgb (13.0-17.5) gm/dL Hct (39.0-53.0) % MCV (80.0-100.0) fL RDW (11.5-15.5) % Plt Count (150-450) k/uL Neutrophils # (1.3-7.7) k/uL Lymphocytes # (1.0-4.8) k/uL Macrocytosis Sodium (137-145) mmol/L Potassium (3.5-5.1) mmol/L Carbon Dioxide (22-30) mmol/L BUN (9-20) mg/dL Creatinine (0.66-1.25) mg/dL Glucose (74-99) mg/dL POC Glucose (mg/dL) 54 L 129 H 100 H (75-99) mg/dL Calcium (8.4-10.2) mg/dL Phosphorus (2.5-4.5) mg/dL Total Bilirubin (0.2-1.3) mg/dL ALT (4-49) U/L Alkaline Phosphatase (38-126) U/L Total Protein (6.3-8.2) g/dL Albumin (3.5-5.0) g/dL 03/22/20 Range/Units 20:33 WBC (3.8-10.6) k/uL RBC (4.30-5.90) m/uL Hgb (13.0-17.5) gm/dL Hct (39.0-53.0) % MCV (80.0-100.0) fL RDW (11.5-15.5) % Plt Count (150-450) k/uL Neutrophils # (1.3-7.7) k/uL Lymphocytes # (1.0-4.8) k/uL Macrocytosis Sodium (137-145) mmol/L Potassium (3.5-5.1) mmol/L Carbon Dioxide (22-30) mmol/L BUN (9-20) mg/dL Creatinine (0.66-1.25) mg/dL Glucose (74-99) mg/dL POC Glucose (mg/dL) 139 H (75-99) mg/dL Calcium (8.4-10.2) mg/dL Phosphorus (2.5-4.5) mg/dL Total Bilirubin (0.2-1.3) mg/dL ALT (4-49) U/L Alkaline Phosphatase (38-126) U/L Total Protein (6.3-8.2) g/dL Albumin (3.5-5.0) g/dL Microbiology - Last 24 Hours (Table) 03/13/20 13:10 Acid Fast Bacilli Smear - Final Pleural Fluid Acid Fast Bacilli Culture - Preliminary Assessment and Plan Assessment: -hypotension and fludrocortisone is added, status post Hypovolemic shock -Progressive Chronic lymphocytic leukemia (Hilar lymphadenopathy and right paratracheal adenopathy). Started on chemotherapy on 03/19 -Acute renal failure probably prerenal azotemia intravascular volume depletion. 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 Rate control -Bicytopenia including thrombocytopenia and low hemoglobin , mostly related to CLL -Generalized weakness probably secondary to atrial fibrillation, hypotension as well as a other issues including chronic lymphocytic leukemia -Moderate pulmonary hypertension -History of CVA and TIA -Coagulopathy most presently secondary to Xarelto initially held, now changed over to eliquis -Hypothyroid -Metabolic acidosis -Secondary pulmonary hypertension -Pleural effusion status post left-sided thoracentesis 1100 mL removed -Medical debility requiring physical therapy treatment- -Moderate protein calorie malnutrition from decreased oral intake -Hyponatremia -Hyperkalemia Plan: This is a pleasant 79 years old male who presents with hypotension and progressive CLL and MIGUEL, patient was started on fludrocortisone, continue with dexamethasone. He is on Levaquin and will reassess tomorrow. Patient is followed closely by hematology/oncology service and patient was started on chemotherapy on 03/19.Nephrology service has been consulted for MIGUEL. Monitor sodium Labs and medication were reviewed.. Continue same treatment. Continue with symptomatic treatment. Resume home medication. Monitor lytes and vitals. DVT and GI prophylaxis. Further recommendations of the clinical course of the patient DVT prophylaxis: Subcutaneous heparin and or anticoagulation in view of her thrombocytopenia GI Prophylaxis: Pepcid PT/OT: Ongoing Prognosis is guarded
[2020-03-22] MEDS: FERROUS SULFATE 325 MG TAB PO SCH (23:39)
[2020-03-23 00:42] LABS: Appearance,Urine Turbid (Clear); Bilirubin,Urine Negative (Negative); Blood,Urine Large (Negative); Budding Yeast,Urine Many /hpf; Color,Urine Dark Brown; Glucose,Urine (UA) Negative (Negative); Hyaline Casts,Urine 25 /lpf (0-2); Hyphae Yeast, Urine Occasional /hpf; Ketones,Urine Negative (Negative); Leukocyte Esterase,Urine Large (Negative); Mucus,Urine Rare /hpf; Nitrite,Urine Negative (Negative); Protein,Urine 1+ (Negative); RBC,Urine >182 /hpf (0-5); Specific Gravity,Urine 1.018 (1.001-1.035); Squamous Epithelial Cell,Urine 3 /hpf (0-4); WBC,Urine >182 /hpf (0-5)
[2020-03-23] MEDS: HYDROcodone/APAP 5-325MG 1 EACH TAB PO PRN (02:32)
[2020-03-23] MEDS: traMADol 50 MG TAB PO PRN (03:14)
[2020-03-23] MEDS ORDERED: HYDROmorphone 0.5 MG/0.5 ML SYRINGE IVP PRN (05:03)
[2020-03-23] MEDS ORDERED: HYDROmorphone 1 MG/ML 1 ML SYRINGE IVP STA (05:03)
[2020-03-23] MEDS ORDERED: ONDANSETRON 4 MG/2 ML VIAL IVP PRN (05:03)
[2020-03-23] MEDS: LEVOTHYROXINE 100 MCG TAB PO SCH (06:31)
[2020-03-23 06:35] LABS: Anisocytosis Moderate; MCH 33.9 pg (25.0-35.0); MCHC 33.7 g/dL (31.0-37.0); Macrocytosis Moderate; Mean Platelet Volume 15.4; RBC 1.97 m/uL (4.30-5.90); RDW 20.1 % (11.5-15.5); WBC 22.2 k/uL (3.8-10.6)
[2020-03-23 06:38] LABS: HCT 19.8 % (39.0-53.0); HGB 6.7 gm/dL (13.0-17.5)
[2020-03-23 06:49] LABS: Glucose,Whole Blood 199 mg/dL (75-99)
[2020-03-23 06:54] LABS: Magnesium 2.2 mg/dL (1.6-2.3); Phosphorus 7.9 mg/dL (2.5-4.5); Potassium 5.9 mmol/L (3.5-5.1); Uric Acid 8.2 mg/dL (3.5-8.5)
[2020-03-23 07:06] LABS: Calcium 6.3 mg/dL (8.4-10.2)
[2020-03-23 07:13] LABS: Lymphocytes # (M) 0.44 k/uL (1.0-4.8); Monocytes # (M) 0.22 k/uL (0-1.0); Neutrophils # (M) 21.53 k/uL (1.3-7.7); Neutrophils % (M) 97 %; Nucleated Red Blood Cells 0 /100 WBC (0-0); Total Cells Counted 100
[2020-03-23 07:14] LABS: Crenated RBC Present; Large Platelets Present
[2020-03-23 07:19] LABS: MCV 100.7 fL (80.0-100.0); Platelet Count 14 k/uL (150-450)
[2020-03-23] MEDS ORDERED: CEFEPIME 2 GM in SODIUM CHLORIDE 0.9% 100 ML IVPB SCH (08:15)
[2020-03-23] MEDS: MIDODRINE 5 MG TAB PO SCH ×5 (08:24→16:25)
[2020-03-23] MEDS: FERROUS SULFATE 325 MG TAB PO SCH ×2 (08:24→16:25)
[2020-03-23] MEDS: DRONABINOL 2.5 MG CAP PO SCH ×2 (08:24→16:25)
[2020-03-23] MEDS: DEXAMETHASONE SOD PHOSPHATE 4 MG/ML 1 ML VIAL PO SCH ×2 (08:25→16:23)
[2020-03-23] MEDS: ACYCLOVIR 200 MG CAP PO SCH ×2 (08:25→20:12)
[2020-03-23] MEDS: PANTOPRAZOLE 40 MG TABLET PO SCH (08:25)
[2020-03-23] MEDS: DIGOXIN 125 MCG TAB PO SCH (08:26)
[2020-03-23] MEDS: ALLOPURINOL 100 MG TAB PO SCH (08:26)
[2020-03-23] MEDS: CYANOCOBALAMIN 500 MCG TAB PO SCH (08:26)
[2020-03-23] MEDS: FLUDROCORTISONE 0.1 MG TAB PO SCH (08:27)
[2020-03-23] MEDS: GABAPENTIN 100 MG CAP PO SCH ×3 (08:27→21:32)
[2020-03-23] MEDS: METOPROLOL TARTRATE 25 MG TAB PO SCH ×2 (08:28→20:13)
[2020-03-23] MEDS: NYSTATIN 100,000 UNIT/ML SUSP 500,000 UNIT/5 ML CUP PO SCH ×4 (08:28→21:32)
[2020-03-23] MEDS ORDERED: DEXTROSE 50% SYRINGE 50 ML IVP STA (08:28)
[2020-03-23] MEDS ORDERED: INSULIN REGULAR 100 UNIT/ML VIAL SQ ONE (08:29)
[2020-03-23] MEDS: MAG HYDROX/AL HYDROX/SIMETH 30 ML, diphenhydrAMINE ELIXIR 75 MG, LIDOCAINE VISCOUS 30 ML PO SCH ×9 (08:30→21:32)
[2020-03-23] MEDS ORDERED: FUROSEMIDE 10 MG/ML 2 ML VIAL IV ONE (08:39)
--- NOTE | 2020-03-23 08:43 | P.PN ---
Subjective 71-year-old pleasant male who follows with Dr. Jessa campos, was transferred from [facility] after he was treated for atrial fibrillation with Cardizem was transferred here for evaluation by oncology. Admitted to intensive care unit because of hypotension patient appears to have hypovolemic shock patient started on levo fed. Cardizem was discontinued because of hypotension patient was started on digoxin and patient was also also started on low-dose metoprolol with fairly controlled heart rate. 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 There is a concern about transformation because of low hemoglobin, decreased platelet count and decreased white blood cell count. Although there is no blast cells in the peripheral smear Dr. Lacy evaluated the patient is a concern about GI bleed although patient doesn't have any blood in the stools or dark stools or hematemesis patient's INR is around 2 which is believed to be secondary to Xarelto, although DIC workup is being obtained as well. Patient is quite a bit weak there is a concern about the chest x-ray findings of right lower lobe infiltrate-training and development specialist do not believe patient has any pneumonia patient doesn't having any symptoms of pneumonia patient denied any cough doesn't have any fever chills. Patient doesn't have elevated BNP although clinically not in heart failure exacerbation his BNP here is around 9000 his BNP at [facility] was around 7000. Patient doesn't have any JVD and crackles on exam. Patient's creatinine negative district is 1.3 and he rates 1.1 patient is presently receiving IV fluids because of hypovolemic shock is also on levo fed. Patient had normal ejection fraction. Patient's symptoms right now is a significant fatigue and generalized weakness. Patient denied any significant shortness of breath at this time Admitted with - hypotension likely hypovolemic, persistent atrial flutter with rapid ventricular rate, bicytopenia, acute kidney injury. Patient is started on levo fed. Empiric antibiotics. Infection felt to be less likely. Left thoracentesis-1100 mL removed. Started on March 15 on IV Decadron for further drop in hemoglobin and platelet. On March 17 patient is given IVRituxan as the cell counts were not improving. Flow cytometry from pleural fluid is awaited. l Today-. Sitting in bed. Tired. No new issues. Decreased appetite. 03/19/2020 Patient lying in bed comfortable however he feels generally weak. This dyspnea is better today as per patient. No chest pain. His blood pressure still on the low side and Fludrocortisone is added on the top of dexamethasone. 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 And oncology team are planning to start chemotherapy today and tomorrow with Bendamustin , patient will be monitored for risk of tumor lysis syndrome. Nephrology service has been consulted 03/20/2020 Patient clinically the same, no much dyspnea. No abdominal pain or nausea vomiting and is tolerating that well. Blood pressure 97/61, he is afebrile. He got chemotherapy yesterday and his WBC is 13.8 K, hemoglobin 8.6 and platelet count of 4K, INR is 1.3. Patient got 1 units of blood transfusion, no overt signs or symptoms of bleeding. Sodium is 129, stable Creatinine slightly worse at 1.7 Cardiology team R following the case closely. Also patient has been followed by hematology/oncology. Press [employer] team was consulted as well. 03/21/2020 Patient sitting in bed, no new symptoms. His level of dyspnea is mild and the same for the last 2 days including today. He is not really in respiratory distress, no dizziness. Although the patient has been asymptomatic his blood pressure was low side last night at 56/40, a bolus of 500 mL NS is given and one-time dose of some 60 mg, his blood pressure improved after that for example this morning 98/64, however currently is 83/58. His chemotherapy was held yesterday, however he took 1 dose of chemotherapy the day before His platelets improved to 17 K, WBC still high at 19.1. He is on steroids. Hem oglobin 7.6. Creatinine is trending up today to 2.47, and sodium is coming down to 125. [employer] R following the case closely After vitamin consultants, they recommended Lasix but it was not given because blood pressure was on the low side. Prognosis remains guarded 03/22/2020 Patient remains awake and alert, with lethargy. Not in distress. His blood pressure still on the low side, his persistently around 70-80 of systolic blood pressure, were not going to give him more fluid as it will improve transiently and then fluid district use into soft tissue. However if he will need we will give him a small bolus of 250 mL. Currently his blood pressure is 110/55. Hemoglobin 7.2 WBC improvement to 17.1 K Patient is also receiving platelet transfusion for platelets of 12 K. We will start the patient on ferrous sulfate her chest x-ray showing worsening infiltrates in both sides, mostly fluid however patient could not tolerate residual low blood pressure. Continue on midodrine. Follow-up chest x-ray, repeat UA and Procolcitonin. Follow-up sodium, creatinine and CBC and oxygen level 03/23/2020 Patient this morning is confused, he does not follow command, he opens are spontaneously and has some movements. No seizure-like activity. He has warm blanket on a Place. Patient refused repeat chest x-ray this morning and per staff staff patient was asking about possibility of comfort care however patient is confused and he cannot make decisions as he lost his capacity to make medical decision he is hypothermic with temperature 96.6, tachycardic 103, respiratory rate 18, blood pressure 111/67, and he is saturating 97% on 4 L oxygen WBC is trending up to 20 2.2K, hemoglobin 6.7 and 1 unit of blood transfusion is ordered, platelets 14 K. Sodium 126, potassium 5.9, creatinine trending up to 3.5. Glucose controlled, magnesium 2.2. Urine analysis is highly suspicious of infection. Patient is started on cefepime with urine cultures pending, order for the staff to replace Raymond catheter Patient is DO NOT RESUSCITATE Review of systems: N/a Active Medications Generic Name Dose Route Start Last Admin Trade Name Freq PRN Reason Stop Dose Admin Hydrocodone Bitart/Acetaminophen 1 each 03/20/20 14:24 03/23/20 02:32 Leland 5-325 PO 1 each Q6HR PRN Administration Pain Acyclovir 400 mg 03/19/20 21:30 03/23/20 08:25 Zovirax PO Not Given BID MARILEE Allopurinol 100 mg 03/19/20 13:45 03/23/20 08:26 Zyloprim PO Not Given DAILY MARILEE Calcium Acetate 667 mg 03/23/20 12:30 Phoslo PO TID-W/MEALS MARILEE Al Hydroxide/Mg Hydroxide 30 0 ml 03/18/20 16:00 03/23/20 08:30 ml/ Diphenhydramine HCl 75 mg/ PO Not Given Lidocaine HCl 30 ml TID MARILEE Cyanocobalamin 1,000 mcg 03/15/20 09:00 03/23/20 08:26 Vitamin B-12 PO Not Given DAILY [facility] Dexamethasone Sodium Phosphate 1 mg 03/20/20 00:00 03/23/20 08:25 Decadron PO Not Given Q8HR [facility] Digoxin 125 mcg 03/05/20 09:00 03/23/20 08:26 Lanoxin PO Not Given DAILY [facility] Dronabinol 2.5 mg 03/09/20 18:15 03/23/20 08:24 Marinol PO Not Given AC-BID [facility] Ferrous Sulfate 325 mg 03/22/20 21:15 03/23/20 08:24 Feosol PO Not Given BID-W/MEALS [facility] Fludrocortisone Acetate 0.1 mg 03/19/20 10:45 03/23/20 08:27 Florinef PO Not Given DAILY [facility] Gabapentin 100 mg 03/21/20 22:00 03/23/20 08:27 Neurontin PO Not Given TID [facility] Hydromorphone HCl 0.5 mg 03/23/20 05:03 Dilaudid IVP Q4HR PRN Pain Sodium Bicarbonate 150 ml/ 1,150 mls @ 50 mls/hr 03/22/20 08:45 03/22/20 23:39 Sodium Chloride IV 70 mls/hr .Q23H [facility] Administration Cefepime HCl 2 gm/ Sodium 100 mls @ 200 mls/hr 03/23/20 08:15 Chloride IVPB Q8HR [facility] Insulin Aspart 0 unit 03/11/20 21:00 03/22/20 20:40 Novolog SQ 1 unit ACHS [facility] Administration Protocol Levothyroxine Sodium 100 mcg 03/10/20 06:30 03/23/20 06:31 Synthroid PO Not Given DAILY@0630 [facility] Metoprolol Tartrate 25 mg 03/06/20 09:00 03/23/20 08:28 Lopressor PO Not Given BID [facility] Midodrine 10 mg 03/10/20 12:30 03/23/20 08:24 Proamatine PO Not Given AC-TID [facility] Miscellaneous Information 1 each 03/05/20 03:05 Pneumonia Protocol Utilized PO ONCE PRN Per Protocol Naloxone HCl 0.2 mg 03/05/20 07:40 Narcan IV Q2M PRN Opioid Reversal Nystatin 500,000 unit 03/12/20 18:00 03/23/20 08:28 Mycostatin Oral Susp PO Not Given QID [facility] Ondansetron HCl 4 mg 03/23/20 05:03 03/23/20 05:22 Zofran IVP 4 mg Q6HR PRN Administration Nausea And Vomiting Pantoprazole Sodium 40 mg 03/08/20 07:30 03/23/20 08:25 Protonix PO Not Given AC-BRKFST MARILEE Tramadol HCl 50 mg 03/21/20 17:04 03/23/20 03:14 Ultram PO 50 mg TID PRN Administration Mild to Moderate Pain Objective - Vital Signs Vital signs: Vital Signs Temp 96.6 F L 03/23/20 05:00 Pulse 103 H 03/23/20 05:00 Resp 18 03/23/20 05:00 BP 111/67 03/23/20 05:00 Pulse Ox 97 03/23/20 05:00 Intake & Output 03/22/20 03/23/20 03/23/20 18:59 06:59 18:59 Intake Total 478 910 Balance 478 910 Intake: IV 910 Sodium Chloride 0.45% 1, 910 000 ml @ 70 mls/hr IV . [id number] MARILEE with Sodium Bicarb (1 Meq/ml) 150 ml Rx#:[id number] Intake, IV Titration 280 Amount Sodium Chloride 0.45% 1, 280 000 ml @ 70 mls/hr IV . [id number] MARILEE with Sodium Bicarb (1 Meq/ml) 150 ml Rx#:[id number] Blood Product 198 Platelet Irr Pheresis 3 198 Acda Unit [id number] Other: Voiding Method Indwelling Catheter Indwelling Catheter - Exam -GENERAL: The patient is confused and does not follow, and this morning. Generally weak HEENT: Pupils are round and equally reacting to light. EOMI. No scleral icterus. No conjunctival pallor. Normocephalic, atraumatic. No pharyngeal erythema. No thyromegaly. CARDIOVASCULAR: S1 and S2 present. No murmurs, rubs, or gallops. PULMONARY: Chest is clear to auscultation, no wheezing or crackles. -ABDOMEN: Soft, nontender, nondistended, normoactive bowel sounds. No palpable organomegaly. Raymond catheter is in a Place MUSCULOSKELETAL: No joint swelling or deformity. -EXTREMITIES: No cyanosis, clubbing,. Bilateral itching pedal edema. NEUROLOGICAL: Gross neurological examination did not reveal any focal deficits. SKIN: No rashes. no petechiae. - Labs CBC & Chem 7: 03/23/20 06:25 03/23/20 06:25 Labs: Abnormal Lab Results - Last 24 Hours (Table) 03/20/20 03/22/20 03/22/20 Range/Units 08:20 12:36 16:49 WBC (3.8-10.6) k/uL RBC (4.30-5.90) m/uL Hgb (13.0-17.5) gm/dL Hct (39.0-53.0) % MCV (80.0-100.0) fL RDW (11.5-15.5) % Plt Count (150-450) k/uL Neutrophils # (Manual) (1.3-7.7) k/uL Lymphocytes # (Manual) (1.0-4.8) k/uL Sodium (137-145) mmol/L Potassium (3.5-5.1) mmol/L Chloride (98-107) mmol/L Carbon Dioxide (22-30) mmol/L BUN (9-20) mg/dL Creatinine (0.66-1.25) mg/dL Glucose (74-99) mg/dL POC Glucose (mg/dL) 129 H 100 H (75-99) mg/dL Calcium (8.4-10.2) mg/dL Phosphorus (2.5-4.5) mg/dL Urine Protein (Negative) Urine Blood (Negative) Ur Leukocyte Esterase (Negative) Urine RBC (0-5) /hpf Urine WBC (0-5) /hpf Hyaline Casts (0-2) /lpf Urine Mucus (None) /hpf Urine Yeast (Budding) (None) /hpf Crossmatch See Detail 03/22/20 03/23/20 03/23/20 Range/Units 20:33 00:14 06:25 WBC (3.8-10.6) k/uL RBC (4.30-5.90) m/uL Hgb (13.0-17.5) gm/dL Hct (39.0-53.0) % MCV (80.0-100.0) fL RDW (11.5-15.5) % Plt Count (150-450) k/uL Neutrophils # (Manual) (1.3-7.7) k/uL Lymphocytes # (Manual) (1.0-4.8) k/uL Sodium 126 L (137-145) mmol/L Potassium 5.9 H (3.5-5.1) mmol/L Chloride 96 L (98-107) mmol/L Carbon Dioxide 20 L (22-30) mmol/L BUN 136 H* (9-20) mg/dL Creatinine 3.53 H (0.66-1.25) mg/dL Glucose 149 H (74-99) mg/dL POC Glucose (mg/dL) 139 H (75-99) mg/dL Calcium 6.3 L* (8.4-10.2) mg/dL Phosphorus 7.9 H (2.5-4.5) mg/dL Urine Protein 1+ H (Negative) Urine Blood Large H (Negative) Ur Leukocyte Esterase Large H (Negative) Urine RBC >182 H (0-5) /hpf Urine WBC >182 H (0-5) /hpf Hyaline Casts 25 H (0-2) /lpf Urine Mucus Rare H (None) /hpf Urine Yeast (Budding) Many H (None) /hpf Crossmatch 03/23/20 03/23/20 Range/Units 06:25 06:48 WBC 22.2 H (3.8-10.6) k/uL RBC 1.97 L (4.30-5.90) m/uL Hgb 6.7 L* (13.0-17.5) gm/dL Hct 19.8 L* (39.0-53.0) % MCV 100.7 H D (80.0-100.0) fL RDW 20.1 H (11.5-15.5) % Plt Count 14 L* (150-450) k/uL Neutrophils # (Manual) 21.53 H (1.3-7.7) k/uL Lymphocytes # (Manual) 0.44 L (1.0-4.8) k/uL Sodium (137-145) mmol/L Potassium (3.5-5.1) mmol/L Chloride (98-107) mmol/L Carbon Dioxide (22-30) mmol/L BUN (9-20) mg/dL Creatinine (0.66-1.25) mg/dL Glucose (74-99) mg/dL POC Glucose (mg/dL) 199 H (75-99) mg/dL Calcium (8.4-10.2) mg/dL Phosphorus (2.5-4.5) mg/dL Urine Protein (Negative) Urine Blood (Negative) Ur Leukocyte Esterase (Negative) Urine RBC (0-5) /hpf Urine WBC (0-5) /hpf Hyaline Casts (0-2) /lpf Urine Mucus (None) /hpf Urine Yeast (Budding) (None) /hpf Crossmatch Assessment and Plan Assessment: -Severe sepsis with worsening leukocytosis, renal failure -Acute kidney injury secondary to hypotension, sepsis, possible tumor lysis syndrome -Pancytopenia, multifactorial secondary to chemotherapy and sepsis and others -Hypotension improved -Electrolyte abnormalities with hyponatremia and hyperkalemia -hypotension and fludrocortisone is added, status post Hypovolemic shock -Progressive Chronic lymphocytic leukemia (Hilar lymphadenopathy and right paratracheal adenopathy). Started on chemotherapy on 03/19 -CKD stage 2-3 -Persistent Atrial fibrillation, anticoagulation on hold for her thrombocytopenia. Rate control -Bicytopenia including thrombocytopenia and low hemoglobin , mostly related to CLL -Generalized weakness probably secondary to atrial fibrillation, hypotension as well as a other issues including chronic lymphocytic leukemia -Moderate pulmonary hypertension -History of CVA and TIA -Coagulopathy most presently secondary to Xarelto initially held, now changed over to eliquis -Hypothyroid -Metabolic acidosis -Secondary pulmonary hypertension -Pleural effusion status post left-sided thoracentesis 1100 mL removed -Medical debility requiring physical therapy treatment- -Moderate protein calorie malnutrition from decreased oral intake Plan: This is a pleasant 79 years old male who presents with hypotension and progressive CLL and MIGUEL, now his developing urinary tract infection and severe sepsis. Patient was started on cefepime with ID follow-up. patient was started on fludrocortisone, continue with dexamethasone. Patient is followed closely by hematology/oncology service and patient was started on chemotherapy on 03/19.Nephrology service has been consulted for MIGUEL. Monitor sodium. Labs and medication were reviewed.. Continue same treatment. Continue with symptomatic treatment. Resume home medication. Monitor lytes and vitals. DVT and GI prophylaxis. Further recommendations of the clinical course of the patient DVT prophylaxis: Subcutaneous heparin and or anticoagulation in view of her thrombocytopenia GI Prophylaxis: Pepcid PT/OT: Ongoing Prognosis is guarded Dr. Bradley will resume the care of the
[2020-03-23] MEDS: FUROSEMIDE 10 MG/ML 4 ML VIAL IV STA ×2 (08:46→09:02)
[2020-03-23] MEDS: INSULIN ASPART (NovoLOG) 100 UNIT/ML VIAL SQ SCH ×4 (08:46→20:12)
[2020-03-23 11:35] LABS: Glucose,Whole Blood 176 mg/dL (75-99)
--- NOTE | 2020-03-23 12:13 | PN ---
PROGRESS NOTE Patient is seen for followup for acute kidney injury associated with hypotension, hypoperfusion. Patient is status post chemotherapy. His general condition overall has declined over the past 3 days. Blood pressure was in the 70s to 80s mmHg systolic. Patient has been maintained on midodrine. He was significantly acidotic and hyperkalemic initially, currently maintained on bicarb drip. The patient also has significant interstitial edema and third spacing with weeping noted from upper and lower extremities. He has received a few doses of IV Lasix and currently remains on bicarb drip. Urine output seems to have decreased for the last shift and 24 hour urine output is only documented at 266 mL. It appears that last night patient informed nursing staff that he did not want to continue with medications and treatments and at that time he was alert and oriented x3. EXAMINATION: Today patient is lethargic. He is barely arousable. He is in a heating blanket. Blood pressure was 111/67, heart rate 103 per minute. Bilateral lower extremities have edema 4+. Abdomen is soft, nontender. Breath sounds are heard. Decreased breath sounds at bases. TITLE SEARCH MANAGER exam cannot be performed. LABS: Show sodium 126, potassium 5.9, chloride 96, BUN 136, serum creatinine 3.53, serum calcium 6.3. ASSESSMENT: 1. Acute kidney injury, acute tubular necrosis, secondary to hypotension/hypoperfusion, currently oliguric with decreased urine output overnight and progressively worsening renal failure. If the patient's urine output does not product picker and his renal function continues to worsen, he will need dialysis. However, I am not sure if the patient would want to proceed with this. Apparently last night he had mentioned to the nursing staff that he did not want to continue with any further medical treatment. I will give him a dose of IV Lasix to help with the urine output. 2. Hyperkalemia associated with worsening renal failure and metabolic acidosis. Treat with insulin and D50. 3. Hyponatremia, hypervolemic, currently stable. 4. Decreased mentation secondary to Dilaudid, which patient received early this morning. If the mentation does not improve, consider Narcan. 5. Progressive chronic lymphocytic leukemia, status post chemotherapy. 6. Pancytopenia secondary to chemotherapy. PLAN: IV Lasix x1. Continue with the bicarb drip, decrease to 50 mL an hour. Overall prognosis is guarded. If the patient's urine output does not product picker and renal function continues to worsen he will need dialysis, however, this may not be consistent with patient's wishes as he had mention to nursing staff last night that he did not want to continue with any further medical treatment. Once patient is more awake, we will discuss this again with him. BONITA / NEELIMA: [id number] /
[2020-03-23] MEDS: CALCIUM ACETATE 667 MG TAB PO SCH ×2 (12:54→16:25)
[2020-03-23 17:42] LABS: Glucose,Whole Blood 122 mg/dL (75-99)
[2020-03-23] MEDS: SODIUM CHLORIDE 0.45% 1,000 ML with SODIUM BICARB (1 MEQ/ML) 150 ML IV SCH ×2 (20:11)
[2020-03-23] MEDS: PIPERACILLIN-TAZOBACTAM 3.375 GM in SODIUM CHLORIDE 0.9% 100 ML IVPB SCH (20:13)
--- NOTE | 2020-03-23 23:06 | PN ---
PROGRESS NOTE DATE OF SERVICE: 03/23/2020 REASON FOR FOLLOWUP: Infection. INTERVAL HISTORY: I have been asked to reevaluate the patient with concern for possible infection in this patient who apparently seemed to have deteriorated over the last few days. The patient did have borderline blood pressure. He remains to be weak and lethargic, mumbles and did not answer any question. Oral intake remains to be very poor. He is not even taking his pills per the nurse. No vomiting or any diarrhea has been reported. He still has the right IJ for more than 2 weeks now. He did have a Raymond catheter that has been changed. UA has been significantly positive. He was started on cefepime and I was asked to see the patient for further management of his antibiotic. REVIEW OF SYSTEMS: Positive points have been mentioned in HPI. The patient did not answer any questions. Complete review of systems could not be obtained. His past medical, surgical and history were reviewed. ALLERGIES: No known drug allergies. MEDICATIONS: Medication list were reviewed. Currently on cefepime. PHYSICAL EXAMINATION: Blood pressure is 78/52 with a pulse of 72 temperature is 97.2. He is 93% on 4 L nasal cannula. General description is an elderly male lying in bed in no distress. HEENT EXAMINATION: Oral mucous membrane is dry. LUNGS: Unlabored breathing decreased breath sounds at the bases. HEART: S1, S2. Regular rate and rhythm. ABDOMEN: Soft, no tenderness. LEGS: Are currently wrapped up. Right IJ catheter no swelling, however, there is redness. LABS: Hemoglobin 6.7, white count 22.2, BUN of 136, creatinine 3.53. Urine has been positive. Urine culture is pending. He did have a chest x-ray this morning worsening bibasilar airspace disease. DIAGNOSTIC IMPRESSION AND PLAN: Patient with worsening of his white count, overall worsening of his clinical condition, possible multifactorial with concern for possible pneumonia and urinary tract infection, likely nosocomial. We will repeat blood cultures both from central line and peripherally. Urine has been obtained. Try to obtain a sputum. Antibiotic will be adjusted to Zosyn. Overall prognosis remains to be guarded and may benefit from hospice oriented care. MMODL / IJN: [id number] /
[2020-03-23] MEDS ORDERED: methylPREDNISolone SOD SUCCI 125 MG/2 ML VIAL IV STA (23:11)
[2020-03-23] MEDS ORDERED: DEXTROSE 5%-0.9% NACL 1,000 ML IV SCH (23:15)
[2020-03-24] MEDS: DEXAMETHASONE SOD PHOSPHATE 4 MG/ML 1 ML VIAL PO SCH ×2 (00:25→09:23)
[2020-03-24] MEDS: LEVOTHYROXINE 100 MCG TAB PO SCH (06:14)
[2020-03-24 06:30] LABS: Anisocytosis Moderate; HCT 23.8 % (39.0-53.0); HGB 7.8 gm/dL (13.0-17.5); Hypochromasia Slight; MCH 33.2 pg (25.0-35.0); MCHC 32.7 g/dL (31.0-37.0); MCV 101.4 fL (80.0-100.0); Macrocytosis Moderate; Mean Platelet Volume 14.7; RBC 2.35 m/uL (4.30-5.90); RDW 20.1 % (11.5-15.5); WBC 18.8 k/uL (3.8-10.6)
[2020-03-24 06:38] LABS: INR 1.2 (<1.2); Partial Thromboplastin Time 35.5 sec (22.0-30.0); Prothrombin Time 11.9 sec (9.0-12.0)
[2020-03-24 06:44] LABS: Platelet Count 13 k/uL (150-450)
[2020-03-24 06:46] LABS: Albumin 1.6 g/dL (3.5-5.0); Magnesium 2.2 mg/dL (1.6-2.3); Phosphorus 8.6 mg/dL (2.5-4.5); Total Bilirubin 7.6 mg/dL (0.2-1.3); Total Protein 3.7 g/dL (6.3-8.2); Uric Acid 9.1 mg/dL (3.5-8.5)
[2020-03-24 07:08] LABS: Potassium 6.4 mmol/L (3.5-5.1)
[2020-03-24 07:09] LABS: Calcium 6.1 mg/dL (8.4-10.2)
[2020-03-24 07:15] LABS: Crenated RBC Present; Lymphocytes # (M) 0.19 k/uL (1.0-4.8); Neutrophils # (M) 18.61 k/uL (1.3-7.7); Neutrophils % (M) 99 %; Nucleated Red Blood Cells 0 /100 WBC (0-0); Total Cells Counted 100
[2020-03-24 07:16] LABS: Large Platelets Present
[2020-03-24 07:27] LABS: Glucose,Whole Blood 180 mg/dL (75-99)
[2020-03-24] MEDS ORDERED: SODIUM BICARB 8.4% 50 ML SYR (1 MEQ/ML) IV STA (07:45)
[2020-03-24] MEDS ORDERED: INSULIN REGULAR 100 UNIT/ML VIAL IV ONE (07:45)
[2020-03-24] MEDS ORDERED: CALCIUM GLUCONATE 1 GM in SODIUM CHLORIDE 0.9% 100 ML IVPB ONE (07:46)
[2020-03-24] MEDS ORDERED: DEXTROSE 50% SYRINGE 50 ML IVP STA (07:47)
[2020-03-24] MEDS ORDERED: FUROSEMIDE 10 MG/ML 10 ML VIAL IV STA (08:03)
--- NOTE | 2020-03-24 08:05 | P.PN ---
Subjective Patient is seen in follow-up for acute kidney injury. Renal function continues to worsen. Creatinine 4.3 today. No urine output overnight per nursing. Patient is quite lethargic. I did discuss with him the need to start renal replacement therapy and he is refusing. Vital signs: Afebrile. Blood pressure low. General: The patient appeared well nourished and normally developed. HEENT: Head exam is unremarkable. Neck is without jugular venous distension. LUNGS: Lungs are clear to auscultation and percussion. Breath sounds decreased. HEART: Rate and Rhythm are regular. ABDOMEN: Abdominal exam reveals normal bowel sounds. EXTREMITITES: 2+ edema. Objective - Vital Signs Vital signs: Vital Signs Temp 97.1 F L 03/24/20 04:40 Pulse 93 03/24/20 04:40 Resp 16 03/24/20 04:40 BP 78/37 03/24/20 04:40 Pulse Ox 93 L 03/24/20 04:40 Intake & Output 03/23/20 03/24/20 03/24/20 18:59 06:59 18:59 Intake Total 310 675 Output Total 301 Balance 9 675 Weight 72.5 kg Intake: IV 675 Dextrose 5%-0.9% NaCl 1, 525 000 ml @ 75 mls/hr IV . [id number] MARILEE Rx#:[id number] Sodium Chloride 0.45% 1, 150 000 ml @ 50 mls/hr IV . Q23H MARILEE with Sodium Bicarb (1 Meq/ml) 150 ml Rx#:[id number] Blood Product 310 Rc Irr As1 Unit 310 [id number] Output: Urine 300 Uretheral (Raymond) 200 Stool 1 Other: Voiding Method Indwelling Catheter Indwelling Catheter - Labs CBC & Chem 7: 03/24/20 06:15 03/24/20 06:15 Labs: Abnormal Lab Results - Last 24 Hours (Table) 03/20/20 03/23/20 03/23/20 Range/Units 08:20 11:12 17:36 WBC (3.8-10.6) k/uL RBC (4.30-5.90) m/uL Hgb (13.0-17.5) gm/dL Hct (39.0-53.0) % MCV (80.0-100.0) fL RDW (11.5-15.5) % Plt Count (150-450) k/uL Neutrophils # (Manual) (1.3-7.7) k/uL Lymphocytes # (Manual) (1.0-4.8) k/uL INR (<1.2) APTT (22.0-30.0) sec Sodium (137-145) mmol/L Potassium (3.5-5.1) mmol/L Chloride (98-107) mmol/L Carbon Dioxide (22-30) mmol/L BUN (9-20) mg/dL Creatinine (0.66-1.25) mg/dL Glucose (74-99) mg/dL POC Glucose (mg/dL) 176 H 122 H (75-99) mg/dL Uric Acid (3.5-8.5) mg/dL Calcium (8.4-10.2) mg/dL Phosphorus (2.5-4.5) mg/dL Total Bilirubin (0.2-1.3) mg/dL Lactate Dehydrogenase (313-618) U/L Total Protein (6.3-8.2) g/dL Albumin (3.5-5.0) g/dL Crossmatch See Detail 03/24/20 03/24/20 03/24/20 Range/Units 06:15 06:15 06:15 WBC 18.8 H (3.8-10.6) k/uL RBC 2.35 L (4.30-5.90) m/uL Hgb 7.8 L (13.0-17.5) gm/dL Hct 23.8 L (39.0-53.0) % MCV 101.4 H (80.0-100.0) fL RDW 20.1 H (11.5-15.5) % Plt Count 13 L* (150-450) k/uL Neutrophils # (Manual) 18.61 H (1.3-7.7) k/uL Lymphocytes # (Manual) 0.19 L (1.0-4.8) k/uL INR 1.2 H (<1.2) APTT 35.5 H (22.0-30.0) sec Sodium 127 L (137-145) mmol/L Potassium 6.4 H* (3.5-5.1) mmol/L Chloride 96 L (98-107) mmol/L Carbon Dioxide 18 L (22-30) mmol/L BUN 143 H* (9-20) mg/dL Creatinine 4.30 H (0.66-1.25) mg/dL Glucose 136 H (74-99) mg/dL POC Glucose (mg/dL) (75-99) mg/dL Uric Acid 9.1 H (3.5-8.5) mg/dL Calcium 6.1 L* (8.4-10.2) mg/dL Phosphorus 8.6 H (2.5-4.5) mg/dL Total Bilirubin 7.6 H (0.2-1.3) mg/dL Lactate Dehydrogenase 737 H (313-618) U/L Total Protein 3.7 L (6.3-8.2) g/dL Albumin 1.6 L (3.5-5.0) g/dL Crossmatch 03/24/20 Range/Units 07:15 WBC (3.8-10.6) k/uL RBC (4.30-5.90) m/uL Hgb (13.0-17.5) gm/dL Hct (39.0-53.0) % MCV (80.0-100.0) fL RDW (11.5-15.5) % Plt Count (150-450) k/uL Neutrophils # (Manual) (1.3-7.7) k/uL Lymphocytes # (Manual) (1.0-4.8) k/uL INR (<1.2) APTT (22.0-30.0) sec Sodium (137-145) mmol/L Potassium (3.5-5.1) mmol/L Chloride (98-107) mmol/L Carbon Dioxide (22-30) mmol/L BUN (9-20) mg/dL Creatinine (0.66-1.25) mg/dL Glucose (74-99) mg/dL POC Glucose (mg/dL) 180 H (75-99) mg/dL Uric Acid (3.5-8.5) mg/dL Calcium (8.4-10.2) mg/dL Phosphorus (2.5-4.5) mg/dL Total Bilirubin (0.2-1.3) mg/dL Lactate Dehydrogenase (313-618) U/L Total Protein (6.3-8.2) g/dL Albumin (3.5-5.0) g/dL Crossmatch Microbiology - Last 24 Hours (Table) 03/23/20 00:14 Urine Culture - Preliminary Urine,Catheterized Assessment and Plan Plan: Assessment: 1. Acute kidney injury secondary to ATN secondary to hypotension. Oliguric. Creatinine 4.3 today. 2. Hyperkalemia secondary to acute kidney injury and metabolic acidosis. 3. Hypervolemic hyponatremia. 4. Progressive CLL status post chemotherapy. Oncology following. 5. Pancytopenia secondary to chemotherapy. 6. Hypocalcemia secondary to hypovolemia. Corrected calcium near 7.8. 7. Hypotension maintained on midodrine. 8. Hyperphosphatemia secondary to acute kidney injury maintained on PhosLo. Plan: Decreased rate of IV fluids to 50 mL an hour. Lasix 80 mg IV once today. 2 A of sodium bicarbonate IV push now. 10 units of IV insulin with an amp of D50 now. 1 g IV calcium gluconate now. 25 g IV albumin 2 doses today. Repeat BMP at noon. I did discuss with the patient the need to start renal replacement therapy and he is refusing at this time. Overall prognosis guarded.
[2020-03-24] MEDS ORDERED: ALBUMIN HUMAN 25% 50 ML in EMPTY BAG 1 BAG IVPB SCH ×2 (08:30→18:00)
[2020-03-24] MEDS ORDERED: CEFEPIME 2 GM in SODIUM CHLORIDE 0.9% 100 ML IVPB SCH (09:00)
[2020-03-24] MEDS ORDERED: RASBURICASE 6 MG in SODIUM CHLORIDE 0.9% 46 ML IV ONE (09:16)
[2020-03-24] MEDS: CALCIUM ACETATE 667 MG TAB PO SCH (09:21)
[2020-03-24] MEDS: DRONABINOL 2.5 MG CAP PO SCH (09:21)
[2020-03-24] MEDS: MIDODRINE 5 MG TAB PO SCH (09:22)
[2020-03-24] MEDS: PANTOPRAZOLE 40 MG TABLET PO SCH (09:22)
[2020-03-24] MEDS: GABAPENTIN 100 MG CAP PO SCH (09:28)
[2020-03-24] MEDS: ACYCLOVIR 200 MG CAP PO SCH (09:28)
[2020-03-24] MEDS: CYANOCOBALAMIN 500 MCG TAB PO SCH (09:28)
[2020-03-24] MEDS: ALLOPURINOL 100 MG TAB PO SCH (09:28)
[2020-03-24] MEDS: FLUDROCORTISONE 0.1 MG TAB PO SCH (09:28)
[2020-03-24] MEDS: DIGOXIN 125 MCG TAB PO SCH (09:28)
[2020-03-24] MEDS: METOPROLOL TARTRATE 25 MG TAB PO SCH (09:29)
[2020-03-24] MEDS: NYSTATIN 100,000 UNIT/ML SUSP 500,000 UNIT/5 ML CUP PO SCH (09:29)
--- NOTE | 2020-03-24 09:57 | XR ---
EXAMINATION TYPE: XR chest 1V portable DATE OF EXAM: 03/24/2020 COMPARISON: 03/22/2020 HISTORY: Assess for pleural effusions and pneumonia. TECHNIQUE: Single frontal view of the chest is obtained. FINDINGS: Right-sided internal jugular central venous catheter terminates at the cavoatrial junction . Shifting layering pleural effusions are seen with slight improvement on the right but worsening on the left. There is associated bibasilar airspace disease. Apical sparing is seen. Cardiomediastinal s ilhouette is again enlarged but obscured. Diffuse osseous demineralization is seen. IMPRESSION: Redistribution of the pleural effusions as there is slight improvement on the right but worsening on the left. Overall small in the right and small to moderate on the left with associated b ibasilar airspace disease likely compressive atelectasis.
[2020-03-24] MEDS: PIPERACILLIN-TAZOBACTAM 3.375 GM in SODIUM CHLORIDE 0.9% 100 ML IVPB SCH (10:56)
[2020-03-24 11:04] LABS: Glucose,Whole Blood 272 mg/dL (75-99)
[2020-03-24 11:24] VITALS: BP 94/61; PULSE 76; RESP 14; TEMP 97.7
[2020-03-24] MEDS: INSULIN ASPART (NovoLOG) 100 UNIT/ML VIAL SQ SCH (11:25)
[2020-03-24] MEDS ORDERED: FLUCONAZOLE 100 MG TAB PO SCH (13:30)
--- NOTE | 2020-03-24 14:11 | PN ---
PROGRESS NOTE DATE OF SERVICE: 03/24/2020 REASON FOR FOLLOWUP: Pneumonia and a question of UTI. INTERVAL HISTORY: The patient is currently afebrile. He seems to be more awake and alert today, he is breathing comfortably. Denies having any chest pain or cough. No abdominal pain and no diarrhea has been reported. PHYSICAL EXAMINATION: Blood pressure 94/65, pulse of 76, temperature is 97.7, he is 100% on 4 L nasal cannula. General description is an elderly male, lying in bed in no distress. RESPIRATORY SYSTEM: Unlabored breathing. Decreased breath sounds at the bases. No wheeze. HEART: S1, S2. Regular rate and rhythm. ABDOMEN: Soft, no tenderness. LABS: White count of 18.8. BUN of 143, creatinine 4.30. Urine showing Ana albicans. Chest x-ray repeat did show increased pleural effusion, slightly improved right but was not on the left. DIAGNOSTIC IMPRESSION AND PLAN: Patient with worsening leukocytosis with concern for possible pneumonia and urinary tract infection. Urine now showing a yeast with current albicans. We will add oral Diflucan; however, possible consideration for hospice may be appropriate for this patient. At that point antibiotic and antifungal can be discontinued. MMODL / IJN: [id number] /
--- NOTE | 2020-03-24 16:59 | P.PN ---
Subjective Progress Note Date: 03/24/20 Principal diagnosis: Thrombocytopenia, Afib, Anemia Patient is weaker today, difficult time speaking. He has been refusing care and inquiring about comfort only Objective - Vital Signs Vital signs: Vital Signs Temp 97.7 F 03/24/20 11:23 Pulse 76 03/24/20 11:23 Resp 14 03/24/20 11:23 BP 94/61 03/24/20 11:23 Pulse Ox 100 03/24/20 11:23 Intake & Output 03/23/20 03/24/20 03/24/20 18:59 06:59 18:59 Intake Total 310 675 200 Output Total 301 Balance 9 675 200 Weight 72.5 kg Intake: IV 675 Dextrose 5%-0.9% NaCl 1, 525 000 ml @ 75 mls/hr IV . [id number] MARILEE Rx#:[id number] Sodium Chloride 0.45% 1, 150 000 ml @ 50 mls/hr IV . Q23H MARILEE with Sodium Bicarb (1 Meq/ml) 150 ml Rx#:[id number] Oral 200 Blood Product 310 Rc Irr As1 Unit 310 [id number] Output: Urine 300 Uretheral (Raymond) 200 Stool 1 Other: Voiding Method Indwelling Catheter Indwelling Catheter Indwelling Catheter - Exam Telemed exam - Constitutional sounding sleepy, sad no distress Jaundice generalized weakness, strength equal bilaterally Bilateral upper and lower extremity edema No palpable axillary nodes on exam Lungs diminished bilateral Heart Irr irr Edema in all extremities - Psychiatric Psychiatric: Present: mumbles and lethargic - Labs CBC & Chem 7: 03/24/20 06:15 03/24/20 06:15 Labs: Abnormal Lab Results - Last 24 Hours (Table) 03/23/20 03/24/20 03/24/20 Range/Units 17:36 06:15 06:15 WBC 18.8 H (3.8-10.6) k/uL RBC 2.35 L (4.30-5.90) m/uL Hgb 7.8 L (13.0-17.5) gm/dL Hct 23.8 L (39.0-53.0) % MCV 101.4 H (80.0-100.0) fL RDW 20.1 H (11.5-15.5) % Plt Count 13 L* (150-450) k/uL Neutrophils # (Manual) 18.61 H (1.3-7.7) k/uL Lymphocytes # (Manual) 0.19 L (1.0-4.8) k/uL INR (<1.2) APTT (22.0-30.0) sec Sodium 127 L (137-145) mmol/L Potassium 6.4 H* (3.5-5.1) mmol/L Chloride 96 L (98-107) mmol/L Carbon Dioxide 18 L (22-30) mmol/L BUN 143 H* (9-20) mg/dL Creatinine 4.30 H (0.66-1.25) mg/dL Glucose 136 H (74-99) mg/dL POC Glucose (mg/dL) 122 H (75-99) mg/dL Uric Acid 9.1 H (3.5-8.5) mg/dL Calcium 6.1 L* (8.4-10.2) mg/dL Phosphorus 8.6 H (2.5-4.5) mg/dL Total Bilirubin 7.6 H (0.2-1.3) mg/dL Lactate Dehydrogenase 737 H (313-618) U/L Total Protein 3.7 L (6.3-8.2) g/dL Albumin 1.6 L (3.5-5.0) g/dL 03/24/20 03/24/20 03/24/20 Range/Units 06:15 07:15 10:48 WBC (3.8-10.6) k/uL RBC (4.30-5.90) m/uL Hgb (13.0-17.5) gm/dL Hct (39.0-53.0) % MCV (80.0-100.0) fL RDW (11.5-15.5) % Plt Count (150-450) k/uL Neutrophils # (Manual) (1.3-7.7) k/uL Lymphocytes # (Manual) (1.0-4.8) k/uL INR 1.2 H (<1.2) APTT 35.5 H (22.0-30.0) sec Sodium (137-145) mmol/L Potassium (3.5-5.1) mmol/L Chloride (98-107) mmol/L Carbon Dioxide (22-30) mmol/L BUN (9-20) mg/dL Creatinine (0.66-1.25) mg/dL Glucose (74-99) mg/dL POC Glucose (mg/dL) 180 H 272 H (75-99) mg/dL Uric Acid (3.5-8.5) mg/dL Calcium (8.4-10.2) mg/dL Phosphorus (2.5-4.5) mg/dL Total Bilirubin (0.2-1.3) mg/dL Lactate Dehydrogenase (313-618) U/L Total Protein (6.3-8.2) g/dL Albumin (3.5-5.0) g/dL Microbiology - Last 24 Hours (Table) 03/23/20 00:14 Urine Culture - Final Urine,Catheterized Ana albicans 03/13/20 13:10 Fungal Culture - Preliminary Pleural Fluid Assessment and Plan Plan: Thrombocytopenia: - 4K today, transfuse and one hour post - Hold Xarelto or other AC therapy if platelets drop below 50 - Transfuse to keep platelets greater than 10,000 unless bleeding is noted. - Todays Hemoglobin is stable no transfusion needed at this time The patient has had further mild drop in hemoglobin, and in platelets. Bilirubin is further elevated. Clinically this appears to indicate ongoing autoimmune destruction, despite 60 mg of prednisone. The patient was therefore need more aggressive therapy, even for the autoimmune cytopenias. He was started on bolus Decadron for 4 days (03/16/20). Rituxan infusion ordered for 03/17/20. tolerated well - Continue to monitor labs with additional supportive treatment as needed Hemolytic Anemia - Transfuse to keep hemoglobin 7 or higher. - Stable Abnormal Right Paratrachial Mass PLeural fluid resulted and appears with progressive CLL, therefore treatment with Rituxan and Bendeka. CLL (chronic lymphocytic leukemia) - Concern for progression versus transformation - Results of fluid consistent with progressive CLL, Start Bendeka today in addition to Rituxan he received on Tuesday. Acute renal insufficiency: - Need to find balance for TLS risk, and extravascular fluid shipt - Increase protein - Risk for Parental nutrition related to infection, weigh risk versus benefit - COnsult placed for Nephrology - COntinue Allopurinol 100mg (renal dose) - 03/20 status post Elitek, Coagulopathy - Improved Mucocytis: - Magic Mouthwash - Dexamethasone mouth rinse - Nystatin Atrial fibrillation with rapid ventricular response - Controlled Pt is on anticoagulation for the same. Cardiology managing arrhythmia and hypotension PLan: - Long discussion with patient and family, they choose not to pursue dialysis and prefer hospice care. This is resonable given his poor performance status. Continue to provide support, greater than 30 minutes Physician Attest: I have completed the full history and physical and agree with above dictated, dictated as a scribe
--- NOTE | 2020-03-24 22:19 | P.DS ---
Providers Date of admission: 03/05/20 03:10 Expected date of discharge: 03/24/20 Attending physician: [facility] Consults: 03/05/20 03:05 Consult Physician Routine Consulting Provider: Ady Barrow Consult Reason/Comments: atrial fibrillation with RVR Do you want consulting provider notified?: Yes Consult Physician Stat Consulting Provider: Gio Arango Consult Reason/Comments: Pneumonia. Atrial fibrillation. Hypotension Do you want consulting provider notified?: Yes 03/05/20 03:38 Consult Physician Routine Consulting Provider: Stephy Herrera Consult Reason/Comments: sepsis, possible pneumonia Do you want consulting provider notified?: Yes 03/05/20 03:39 Consult Physician Routine Consulting Provider: Rolo Lacy Consult Reason/Comments: Patient known to you. Do you want consulting provider notified?: Yes 03/18/20 12:59 Consult Physician Routine Consulting Provider: Chirag Lawson Consult Reason/Comments: Low B/P high K, Chemo on 03/17/20 Do you want consulting provider notified?: Yes 03/19/20 13:26 Consult Physician Routine Consulting Provider: Yuval Richardson Consult Reason/Comments: Monitoring TLS, PO intake and third spacing on treatment for CLL Do you want consulting provider notified?: Yes Primary care physician: [facility] Course: History of Present Illness 71-year-old pleasant male who follows with Dr. Jessa campos, was transferred from [facility] after he was treated for atrial fibrillation with Cardizem was transferred here for evaluation by oncology. Admitted to intensive care unit because of hypotension patient appears to have hypovolemic shock patient started on levo fed. Cardizem was discontinued because of hypotension patient was started on digoxin and patient was also also started on low-dose metoprolol with fairly controlled heart rate. 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 There is a concern about transformation because of low hemoglobin, decreased platelet count and decreased white blood cell count. Although there is no blast cells in the peripheral smear Dr. Lacy evaluated the patient is a concern about GI bleed although patient doesn't have any blood in the stools or dark stools or hematemesis patient's INR is around 2 which is believed to be secondary to Xarelto, although DIC workup is being obtained as well. Patient is quite a bit weak there is a concern about the chest x-ray findings of right lower lobe infiltrate-museum director do not believe patient has any pneumonia patient doesn't having any symptoms of pneumonia patient denied any cough doesn't have any fever chills. Patient doesn't have elevated BNP although clinically not in heart failure exacerbation his BNP here is around 9000 his BNP at [facility] was around 7000. Patient doesn't have any JVD and crackles on exam. Patient's creatinine negative district is 1.3 and he rates 1.1 patient is presently receiving IV fluids because of hypovolemic shock is also on levo fed. Patient had normal ejection fraction. Patient's symptoms right now is a significant fatigue and generalized weakness. Patient denied any significant shortness of breath at this time Admitted with - hypotension likely hypovolemic, persistent atrial flutter with rapid ventricular rate, bicytopenia, acute kidney injury. Patient is started on levo fed. Empiric antibiotics. Infection felt to be less likely. Left thoracentesis-1100 mL removed. Started on March 15 on IV Decadron for further drop in hemoglobin and platelet. On March 17 patient is given IVRituxan as the cell counts were not improving. Flow cytometry from pleural fluid -suggestive of progression. Patient continued to deteriorate. Today-. Hardly eating. Also declining medications. Family called and that they wish to proceed with hospice. Discussed with Vidya Polo NP from oncology team. And at length with the nurse. Also spoke to the patient. Hospice arranging for disposition. Discussion and discharge planning more than 35 minutes Consultation: Dr. Herrera from ID Dr. Richardson and colleagues from nephrology Dr. Herrera from ID Dr. Lacy from oncology Dr. Montana from cardiology Dr. Bardales and colleagues from pulmonary On examination: VITAL SIGNS: 97.7, 76, 14, 94/61, 100% on 4 L GENERAL APPEARANCE: Propped up in bed, very tired, some bruising HEENT: Normal external appearance of nose and ear. Oral cavity dry EYES: Pupils equal. Conjunctiva pale NECK: JVD not raised. Mass not palpable. RESPIRATORY: Respiratory effort increased. Lungs decreased breath sounds CARDIOVASCULAR: Heart sounds irregular. Some edema. ABDOMEN: Soft. Liver and spleen not palpable. No tenderness. No mass palpable. PSYCHIATRY: Answering questions but very tired INVESTIGATIONS, reviewed in the clinical context: White count 18.8 hemoglobin 7.8 platelets 13 progression 6.4 bun 143 creatinine 4.30 6.1 Previous testing: White count 31.8 hemoglobin 10.5 platelets 79-sodium 129 potassium 4.7 creatinine 1.19 EKG tracing-atrial fibrillation with a rate of 120 Chest p-yst-xwnyvvvelevq density Assessment -Hypovolemic shock-status post norepinephrine IV fluids-POA -Generalized weakness probably secondary to atrial fibrillation as well as a other issues including chronic lymphocytic leukemia, improving -Acute renal failure probably prerenal azotemia intravascular volume depletion- better -Persistent Atrial fibrillation,-uncontrolled on admission: Controlled -Hilar lymphadenopathy and right paratracheal adenopathy for further workup -Chronic lymphocytic leukemia with probable progression -Bicytopenia including thrombocytopenia and low hemoglobin etiology is not clear further workup as mentioned above oncology evaluated the patient.-Pending flow cytometry on the pleural fluid -Hypertension patient is presently hypotensive -Moderate pulmonary hypertension -History of CVA and TIA -Coagulopathy most presently secondary to Xarelto initially held, now changed over to eliquis -Hypothyroid -Metabolic acidosis -Secondary pulmonary hypertension -Pleural effusion status post left-sided thoracentesis 1100 mL removed -Medical debility requiring physical therapy treatment- -Moderate protein calorie malnutrition from decreased oral intake -Hyponatremia -Hyperkalemia-today Plan: Home with hospice Patient Condition at Discharge: Poor Plan - Discharge Summary Discharge Rx Participant: Yes New Discharge Prescriptions: New predniSONE [Deltasone] 60 mg PO DIRECTED #53 tab Pantoprazole [Protonix] 40 mg PO HS #30 tablet. Metoprolol Tartrate [Lopressor] 25 mg PO BID #60 tab Continue Levothyroxine Sodium [Synthroid] 50 mcg PO DAILY Discontinued Rivaroxaban [Xarelto] 20 mg PO W/SUPPER Lisinopril 40 mg PO DAILY Atorvastatin [Lipitor] 20 mg PO DAILY Allopurinol [Zyloprim] 300 mg PO DAILY Nadolol 80 mg PO DAILY Discharge Medication List Levothyroxine Sodium [Synthroid] 50 mcg PO DAILY 03/05/20 [History] Pantoprazole [Protonix] 40 mg PO HS #30 tablet. 03/12/20 [Rx] predniSONE [Deltasone] 60 mg PO DIRECTED #53 tab 03/12/20 [Rx] Metoprolol Tartrate [Lopressor] 25 mg PO BID #60 tab 03/24/20 [Rx] Follow up Appointment(s)/Referral(s): Rolo Lacy MD [STAFF PHYSICIAN] - 03/27/20 11:15 am Shanna Campos DO [REFERRING] - As Needed Patient Instructions/Handouts: Hypotension (DC), Pneumonia (DC) Activity/Diet/Wound Care/Special Instructions: HOLD XARELTO Discharge Disposition: DISCH TO HOSPICE MED FACILTY
--- NOTE | 2020-03-25 13:40 | CDI ---
Documentation Clarification Form Date: 03/25/2020 01:17:57 PM From: Gauri Cortez Phone: If you have a question about this query, please contact Magi Trejo, Computer Systems Information Director at [phone] between 8am and 5pm. Admit Date: 03/05/2020 03:10:00 AM Patient Name: Blake Paredes Visit Number: [id number] Discharge Date: 03/24/2020 03:53:00 PM ATTENTION: The Clinical Documentation Specialists (CDI) and [facility] Coding Staff appreciate your assistance in clarifying documentation. Please respond to the clarification below the line at the bottom and electronically sign. The CDI & [facility] Coding staff will review the response and follow-up if needed. Please note: Queries are made part of the Legal Health Record. If you have any questions, please contact the author of this message via ITS. Dr. Paul Bradley PN 03/23 documents severe sepsis. ID consulted on 03/05 for sepsis/pneumonia - per ID no fever, no cough, no sputum production low suspicion for pneumonia. No obvious clinical focus for infection. UA not positive no cellulitis. Sepsis not carried to DCS in final diagnosis. Please clarify if patient had sepsis, if so was it POA or was it ruled out. History/Risk Factors: CLL WBC 31.8 Vitals signs on admission: 98 F 112 18 122/63 97% RA Other Clinical Indicators: shock Treatment: Levophed, cefepime ID Consult: pneumonia UTI possibly nosocomial IV Bolus: Levophed In your professional opinion, please clarify if these findings signify one of the following conditions, whether the condition is POA, and cause, if known: Condition Sepsis ruled out SIRS, without underlying infectious process Sepsis Severe Sepsis Septic Shock Other, please specify Unable to determine Present on Admission Yes No SIRS Criteria (2 or more of the following may indicate SIRS): -Temperature < 96.8F (36C) or > 101.0F (38.3C) -Heart Rate > 90 bpm -Respiratory Rate > 20 breaths/min or PaCO2 < 32 mmHg -White Blood Cell Count > 12,000 or < 4,000 cells/mm3 or > 10% bands -Lactate >2.0 mmol/L (>4.0 is equivalent to septic shock) Possible sepsis, MTDD
== END 2020-03-24 15:53 | disposition hospice, inpatient (51) | DRG 871 ==
LOC: EC 01:06 → 2SICU 03:10 → 3SCARD 03-11 09:27 → 5NMEDONC 03-17 19:54
PROVIDERS: ADMIT Hospitalist; ATTEND Hospitalist
PROC: 3E033XZ Introduction of Vasopressor into Peripheral Vein, Percutaneous Approach (ICD-10-PCS; 2020-03-05)
PROC: 0W9B3ZX Drainage of Left Pleural Cavity, Percutaneous Approach, Diagnostic (ICD-10-PCS; principal; 2020-03-13)
DX: A41.9 Sepsis, unspecified organism (principal); R57.1 Hypovolemic shock; D61.810 Antineoplastic chemotherapy induced pancytopenia; J18.9 Pneumonia, unspecified organism; N17.0 Acute kidney failure with tubular necrosis; E88.3 Tumor lysis syndrome; R65.21 Severe sepsis with septic shock; B37.0 Candidal stomatitis; C85.90 Non-Hodgkin lymphoma, unspecified, unspecified site; C91.10 Chronic lymphocytic leukemia of B-cell type not having achieved remission; D68.9 Coagulation defect, unspecified; E44.0 Moderate protein-calorie malnutrition; E87.1 Hypo-osmolality and hyponatremia; E87.2 Acidosis; J91.0 Malignant pleural effusion; I48.19 Other persistent atrial fibrillation; I48.92 Unspecified atrial flutter; J98.11 Atelectasis; R18.8 Other ascites; Z20.828 Contact with and (suspected) exposure to other viral communicable diseases; E83.51 Hypocalcemia; I27.29 Other secondary pulmonary hypertension; B37.49 Other urogenital candidiasis; E03.9 Hypothyroidism, unspecified; E83.39 Other disorders of phosphorus metabolism; N18.3 Chronic kidney disease, stage 3 (moderate); E53.8 Deficiency of other specified B group vitamins; E87.5 Hyperkalemia; F32.9 Major depressive disorder, single episode, unspecified; I12.9 Hypertensive chronic kidney disease with stage 1 through stage 4 chronic kidney disease, or unspecified chronic kidney disease; K59.00 Constipation, unspecified; N50.89 Other specified disorders of the male genital organs; R13.10 Dysphagia, unspecified; T38.0X5A Adverse effect of glucocorticoids and synthetic analogues, initial encounter; T45.1X5A Adverse effect of antineoplastic and immunosuppressive drugs, initial encounter; Z66 Do not resuscitate; Z51.5 Encounter for palliative care; T45.515A Adverse effect of anticoagulants, initial encounter; Z79.01 Long term (current) use of anticoagulants; Z79.52 Long term (current) use of systemic steroids; Z79.890 Hormone replacement therapy; Z79.899 Other long term (current) drug therapy; Z85.038 Personal history of other malignant neoplasm of large intestine; Z86.73 Personal history of transient ischemic attack (TIA), and cerebral infarction without residual deficits; R31.9 Hematuria, unspecified
CPT/HCPCS: 36415; 71045; 71260; 74177; 76604; 76705; 80048; 80053; 80074; 80162; 81001; 82248; 82533; 82607; 82728; 82747; 82784; 82945; 83010; 83540; 83550; 83605; 83615; 83735; 83880; 83921; 84100; 84145; 84157; 84443; 84478; 84484; 84550; 85025; 85027; 85045; 85384; 85385; 85610; 85730; 86140; 86850; 86900; 86901; 86920; 87040; 87070; 87075; 87086; 87102; 87116; 87205; 87206; 87252; 87324; 87496; 87498; 87502; 87529; 87634; 87635; 87798; 88108; 88305; 88341; 88342; 89050; 93005; 96365; 96366; 96368; 96376; 99285